=== PATIENT | female | born 1950 | race Caucasian/White ===

== ENCOUNTER 2020-02-13 20:44 | Emergency (ER) | payer MEDICARE, OTHER ==
[2020-02-13] MEDS ORDERED: SODIUM CHLORIDE 0.9% 500 ML 500 ML IV STA (20:45)
[2020-02-13] MEDS ORDERED: ALTEPLASE BOLUS 6 MG in EMPTY SYRINGE 1 SYR IV STA (21:09)
[2020-02-13] MEDS ORDERED: ALTEPLASE 51 MG in EMPTY BAG 1 BAG IV STA (21:09)
--- NOTE | 2020-02-13 21:11 | CT ---
EXAMINATION TYPE: CT brain wo con for TPA DATE OF EXAM: 02/13/2020 COMPARISON: 12/26/2012. HISTORY: Left sided weakness. CT DLP: 1175.8 mGycm Automated exposure control for dose reduction was used. FINDINGS: There is no acute intracranial hemorrhage, mass effect, midline shift or hydrocephalus. There is mode rate white matter disease and parenchymal volume loss. There is hyperdensity of the right MCA. The paranasal sinuses and mastoid air cells are adequately aerated. No calvarial fracture. IMPRESSION: Hyperdensity of the right MCA, consistent with clot. Please see pending CT report for any additional details. NO ACUTE INTRACRANIAL HEMORRHAGE OR MIDLINE SHIFT. CHRONIC MICROVASCULAR ISCHEMIC CHANGES. FINDINGS REPORTED TO caring ED physician by me at time of dictation.
[2020-02-13 21:17] LABS: Basophils # (A) 0.1 k/uL (0-0.2); Basophils % (A) 0 %; Eosinophils # (A) 0.3 k/uL (0-0.7); Eosinophils % (A) 2 %; HGB 13.7 gm/dL (11.4-16.0); Lymphocytes # (A) 1.9 k/uL (1.0-4.8); Lymphocytes % (A) 16 %; MCHC 31.1 g/dL (31.0-37.0); MCV 83.8 fL (80.0-100.0); Monocytes # (A) 0.5 k/uL (0-1.0); Monocytes % (A) 4 %; Neutrophils # (A) 8.6 k/uL (1.3-7.7); Neutrophils % (A) 75 %; Platelet Count 293 k/uL (150-450); RBC 5.26 m/uL (3.80-5.40); RDW 14.4 % (11.5-15.5); WBC 11.5 k/uL (3.8-10.6)
--- NOTE | 2020-02-13 21:18 | ED ---
General Adult HPI - General Chief complaint: Neuro Symptoms/Deficit Stated complaint: code stroke Time Seen by Provider: 02/13/20 20:45 Source: patient, EMS, RN notes reviewed, old records reviewed Mode of arrival: EMS - History of Present Illness Initial comments: 69-year-old female with left-sided deficit which began at approximately 7 PM. She was transported to the emergency department at 9 PM. Code stroke was activated. She has complete left-sided paralysis, left-sided facial droop, left-sided neglect. She's taken immediately to computed tomography scan. She denies pain complaints but is unable to give a detailed history. EMS reports that there was no trauma. No anticoagulation. No recent surgery or procedures. - Related Data Home Medications Medication Instructions Recorded Confirmed Albuterol Inhaler (Mhu) [Ventolin 1 - 2 puff INHALATION RT-QID PRN 08/04/15 08/13/15 Hfa Inhaler (Mhu)] Dextroamphetamine/Amphetamine 30 mg PO Q48H 08/04/15 08/13/15 [Adderall Xr] HYDROcodone/APAP 5-325MG [[place] 1 tab PO Q4HR PRN 08/04/15 08/13/15 5-325] Metoprolol Tartrate 25 mg PO BID 08/04/15 08/13/15 Triamcinolone 0.1% Cream [Kenalog 1 applic TOPICAL BID PRN 08/04/15 08/13/15 0.1% Cream] Previous Rx's Medication Instructions Recorded Aspirin EC [Ecotrin Low Dose] 81 mg PO DAILY #30 tablet. 08/08/15 Nicotine 14Mg/24Hr Patch [Habitrol] 1 patch TRANSDERM DAILY #30 patch 08/08/15 metroNIDAZOLE [Flagyl] 500 mg PO TID #30 tab 08/08/15 Atorvastatin [Lipitor] 40 mg PO DAILY #30 tab 08/12/15 Furosemide [Lasix] 40 mg PO DAILY #30 tab 08/12/15 Losartan [Cozaar] 25 mg PO HS #30 tab 08/12/15 Spironolactone [Aldactone] 25 mg PO DAILY #30 tab 08/12/15 Allergies Allergy/AdvReac Type Severity Reaction Status Date / Time No Known Allergies Allergy Unverified 08/05/15 07:52 Review of Systems ROS Statement: Those systems with pertinent positive or pertinent negative responses have been documented in the HPI. ROS Other: All systems not noted in ROS Statement are negative. Past Medical History Past Medical History: Coronary Artery Disease (CAD), COPD, Hypertension Additional Past Medical History / Comment(s): pt states she has been treated for scabies one year ago History of Any Multi-Drug Resistant Organisms: None Reported Past Surgical History: Coronary Bypass/CABG, Heart Catheterization With Stent Additional Past Surgical History / Comment(s): cabg 2013 Past Anesthesia/Blood Transfusion Reactions: No Reported Reaction Date of Last Stent Placement:: 2013 Past Psychological History: ADD/ADHD, Depression Past Alcohol Use History: None Reported Past Drug Use History: Marijuana - Past Family History Mother Family Medical History: Unable to Obtain General Exam General appearance: alert Head exam: Present: atraumatic, normocephalic Eye exam: Present: normal appearance, PERRL, other ENT exam: Present: normal exam Neck exam: Present: normal inspection. Absent: tenderness, meningismus Respiratory exam: Present: normal lung sounds bilaterally. Absent: respiratory distress, wheezes Cardiovascular Exam: Present: regular rate, normal rhythm GI/Abdominal exam: Present: soft. Absent: distended, tenderness Extremities exam: Present: normal capillary refill Neurological exam: Present: alert, CN II-XII intact, motor sensory deficit (NIH of 18, left-sided deficit, flaccid paralysis of the left upper and lower extremity, left-sided facial droop, left-sided neglect). Absent: oriented X3 Psychiatric exam: Present: normal affect, normal mood Skin exam: Present: warm, dry, intact. Absent: cyanosis, diaphoretic Course Vital Signs 02/13/20 02/13/20 20:45 21:05 Temperature 97.6 F 97.8 F Pulse Rate 98 98 Respiratory 18 18 Rate Blood Pressure 177/109 162/116 O2 Sat by Pulse 96 96 Oximetry - Reevaluation(s) Reevaluation #1: 02/13/20 21:13 I did attempt to call the patient's family, there was no answer on the listed home phone. EMS states there was no history of trauma and no anticoagulants. Reevaluation #2: 02/13/[address] Mcclellan does recommend TPA Reevaluation #3: 02/13/20 21:05 Case discussed with the radiologist, no intracranial hemorrhage, hyperdense MCA sign. Reevaluation #4: 02/13/20 21:36 Patient is complete occlusion of the right ICA and MCA. Case discussed with Dr. Mcclellan, request patient be transferred to [facility] for possible thrombectomy. EKG Findings - EKG Comments: EKG Findings:: Poor quality EKG, sinus tachycardia with PVC, rate of 118, KS interval 154, QRS duration 90, QTC 484, no ST segment elevation appreciated. Medical Decision Making - Medical Decision Making 69-year-old female presenting with symptoms concerning for acute CVA with left- sided deficit. NIH of 18. I did attempt to contact patient's family who were not available in the emergency department and could not be reached by the listed telephone in the patient's medical record. I discussed case both with the radiologist, and with the stroke intervention was who does recommend TPA. CT brain negative for intracranial hemorrhage, hyperdense left MCA sign. CT angiography complete ICA and MCA occlusion on the right. Patient will be transferred urgently to [facility]. Case accepted by the ER physician Dr. Ba - Lab Data Result diagrams: 02/13/20 21:08 02/13/20 21:08 Lab Results 02/13/20 02/13/20 02/13/20 Range/Units 21:08 21:08 21:08 WBC 11.5 H (3.8-10.6) k/uL RBC 5.26 (3.80-5.40) m/uL Hgb 13.7 (11.4-16.0) gm/dL Hct 44.0 (34.0-46.0) % MCV 83.8 (80.0-100.0) fL MCH 26.0 (25.0-35.0) pg MCHC 31.1 (31.0-37.0) g/dL RDW 14.4 (11.5-15.5) % Plt Count 293 (150-450) k/uL MPV 7.0 Neutrophils % 75 % Lymphocytes % 16 % Monocytes % 4 % Eosinophils % 2 % Basophils % 0 % Neutrophils # 8.6 H (1.3-7.7) k/uL Lymphocytes # 1.9 (1.0-4.8) k/uL Monocytes # 0.5 (0-1.0) k/uL Eosinophils # 0.3 (0-0.7) k/uL Basophils # 0.1 (0-0.2) k/uL PT 11.3 (9.0-12.0) sec INR 1.1 (<1.2) APTT 23.6 (22.0-30.0) sec Sodium 133 L (137-145) mmol/L Potassium 4.3 (3.5-5.1) mmol/L Chloride 102 (98-107) mmol/L Carbon Dioxide 26 (22-30) mmol/L Anion Gap 5 mmol/L BUN 22 H (7-17) mg/dL Creatinine 0.94 (0.52-1.04) mg/dL Est GFR (CKD-EPI)AfAm 73 (>60 ml/min/1.73 sqM) Est GFR (CKD-EPI)NonAf 63 (>60 ml/min/1.73 sqM) Glucose 136 H (74-99) mg/dL Calcium 8.8 (8.4-10.2) mg/dL Total Bilirubin 0.7 (0.2-1.3) mg/dL AST 18 (14-36) U/L ALT 11 (4-34) U/L Alkaline Phosphatase 71 (38-126) U/L Troponin I (0.000-0.034) ng/mL Total Protein 6.3 (6.3-8.2) g/dL Albumin 3.4 L (3.5-5.0) g/dL Serum Alcohol <10 mg/dL 02/13/20 Range/Units 21:08 WBC (3.8-10.6) k/uL RBC (3.80-5.40) m/uL Hgb (11.4-16.0) gm/dL Hct (34.0-46.0) % MCV (80.0-100.0) fL MCH (25.0-35.0) pg MCHC (31.0-37.0) g/dL RDW (11.5-15.5) % Plt Count (150-450) k/uL MPV Neutrophils % % Lymphocytes % % Monocytes % % Eosinophils % % Basophils % % Neutrophils # (1.3-7.7) k/uL Lymphocytes # (1.0-4.8) k/uL Monocytes # (0-1.0) k/uL Eosinophils # (0-0.7) k/uL Basophils # (0-0.2) k/uL PT (9.0-12.0) sec INR (<1.2) APTT (22.0-30.0) sec Sodium (137-145) mmol/L Potassium (3.5-5.1) mmol/L Chloride (98-107) mmol/L Carbon Dioxide (22-30) mmol/L Anion Gap mmol/L BUN (7-17) mg/dL Creatinine (0.52-1.04) mg/dL Est GFR (CKD-EPI)AfAm (>60 ml/min/1.73 sqM) Est GFR (CKD-EPI)NonAf (>60 ml/min/1.73 sqM) Glucose (74-99) mg/dL Calcium (8.4-10.2) mg/dL Total Bilirubin (0.2-1.3) mg/dL AST (14-36) U/L ALT (4-34) U/L Alkaline Phosphatase (38-126) U/L Troponin I <0.012 (0.000-0.034) ng/mL Total Protein (6.3-8.2) g/dL Albumin (3.5-5.0) g/dL Serum Alcohol mg/dL Critical Care Time Critical Care Time: Yes Total Critical Care Time: 35 Disposition Clinical Impression: Cerebrovascular accident (CVA), Ischemic stroke Disposition: OTHER INSTITUTION NOT DEFINED Condition: Serious Is patient prescribed a controlled substance at d/c from ED?: No Referrals: Althea Hermosillo MD [Primary Care Provider] - 1-2 days - Out of Hospital Transfer - Req. Specs Out of Hospital Transfer - Requested Specifics: Other Emergency Center ([facility])
[2020-02-13 21:27] LABS: ALT 11 U/L (4-34); AST 18 U/L (14-36); African American GFR (CKD) 73 (>60 ml/min/1.73 sqM); Albumin 3.4 g/dL (3.5-5.0); Alcohol <10 mg/dL; Alkaline Phosphatase 71 U/L (38-126); Anion Gap 5 mmol/L; Blood Urea Nitrogen 22 mg/dL (7-17); Calcium 8.8 mg/dL (8.4-10.2); Carbon Dioxide 26 mmol/L (22-30); Chloride 102 mmol/L (98-107); Glucose 136 mg/dL (74-99); Non-African American GFR(CKD) 63 (>60 ml/min/1.73 sqM); Potassium 4.3 mmol/L (3.5-5.1); Sodium 133 mmol/L (137-145); Total Bilirubin 0.7 mg/dL (0.2-1.3); Total Protein 6.3 g/dL (6.3-8.2)
--- NOTE | 2020-02-13 21:35 | CT ---
EXAMINATION TYPE: CT angio head neck DATE OF EXAM: 02/13/2020 HISTORY: Left sided weakness. COMPARISON: Same-day noncontrast head CT. CT DLP: 468.2 mGycm. Automated Exposure Control for Dose Reduction was Utilized. TECHNIQUE: CTA scan of the head and neck is performed with IV Contrast, patient injected with 65ml m L of Isovue 370, axial images are obtained, coronal and sagittal reformatted images are reviewed. Thr ee-D reconstructed images are created on an independent workstation and reviewed. FINDINGS: Carotid/Vascular Structures: There is complete occlusion of the right ICA from the origin to the term inus. There is also occlusion of the right MCA M1 segment. There is diminutive size of the right MCA M2 segment. Otherwise the left cervical carotid and bilateral vertebral arteries are grossly intact without high grade stenosis, dissection or aneurysm. The left MCA, bilateral SONG, BREAD RACKER, basilar and intracranial vertebral arteries are also patent without high-grade stenosis, dissection or aneurysm. IMPRESSION: Complete occlusion of the right ICA and right MCA M1 segment. Diminutive size of the right MCA M2 segment.
--- NOTE | 2020-02-13 21:36 | XR ---
EXAMINATION TYPE: XR chest 1V portable DATE OF EXAM: 02/13/2020 COMPARISON: NONE HISTORY: Altered mental status and left-sided weakness. TECHNIQUE: Single frontal view of the chest is obtained. FINDINGS: There is diffuse mild hazy opacity . No pleural effusion, or pneumothorax seen. Cardiomega ly and CABG noted. The osseous structures are intact. IMPRESSION: Mild hazy opacities suggestive of atelectasis versus interstitial edema. No significant infiltrate.
[2020-02-13 21:46] LABS: INR 1.1 (<1.2); Partial Thromboplastin Time 23.6 sec (22.0-30.0); Prothrombin Time 11.3 sec (9.0-12.0)
[2020-02-13 22:03] LABS: Glucose,Whole Blood 122 mg/dL (75-99)
[2020-02-13 22:39] VITALS: BP 184/161; PULSE 110; RESP 20; TEMP 98.2
== END 2020-02-13 22:04 | disposition other institution (70) ==
LOC: EC 20:44
DX: I63.231 Cerebral infarction due to unspecified occlusion or stenosis of right carotid arteries (principal); I63.511 Cerebral infarction due to unspecified occlusion or stenosis of right middle cerebral artery; R29.718 NIHSS score 18; I10 Essential (primary) hypertension; J44.9 Chronic obstructive pulmonary disease, unspecified; F90.9 Attention-deficit hyperactivity disorder, unspecified type; Z79.899 Other long term (current) drug therapy; Z95.1 Presence of aortocoronary bypass graft; Z95.5 Presence of coronary angioplasty implant and graft
CPT/HCPCS: 99291; 96365; 80053; 84484; 85025; 85610; 85730; 71045; 70496; 70450; 70498; G0480; J2997; Q9967; 80320; 93005

== ENCOUNTER 2020-05-15 17:42 | Emergency (ER) | payer MEDICARE, OTHER ==
[2020-05-15 18:20] VITALS: BP 150/100; PULSE 107; RESP 18; TEMP 98.3
--- NOTE | 2020-05-15 18:26 | ED ---
General Adult HPI - General Chief complaint: Fall Stated complaint: Fall Time Seen by Provider: 05/15/20 18:17 Source: patient, EMS, RN notes reviewed Mode of arrival: EMS Limitations: no limitations, altered mental status - History of Present Illness Initial comments: Patient is a pleasant 69-year-old female presenting to the emergency Department with complaints of fall. Incident occurred less than 2 hours prior to arrival. Patient states she rolled out of bed accidentally. Patient did strike her head. Patient has discomfort 5/10 of her head. Patient has had some discomfort of her left upper arm however denies any discomfort at this time. Patient denies neck discomfort. No chest pain or dyspnea. No abdominal pain. Patient states she did recently have a stroke a few weeks ago. Patient does have some left- sided weakness that to her is chronic and unchanged. - Related Data Home Medications Medication Instructions Recorded Confirmed Albuterol Inhaler (Mhu) [Ventolin 1 - 2 puff INHALATION RT-QID PRN 08/04/15 08/13/15 Hfa Inhaler (Mhu)] Dextroamphetamine/Amphetamine 30 mg PO Q48H 08/04/15 08/13/15 [Adderall Xr] HYDROcodone/APAP 5-325MG [[place] 1 tab PO Q4HR PRN 08/04/15 08/13/15 5-325] Metoprolol Tartrate 25 mg PO BID 08/04/15 08/13/15 Triamcinolone 0.1% Cream [Kenalog 1 applic TOPICAL BID PRN 08/04/15 08/13/15 0.1% Cream] Previous Rx's Medication Instructions Recorded Aspirin EC [Ecotrin Low Dose] 81 mg PO DAILY #30 tablet.dr 08/08/15 Nicotine 14Mg/24Hr Patch [Habitrol] 1 patch TRANSDERM DAILY #30 patch 08/08/15 metroNIDAZOLE [Flagyl] 500 mg PO TID #30 tab 08/08/15 Atorvastatin [Lipitor] 40 mg PO DAILY #30 tab 08/12/15 Furosemide [Lasix] 40 mg PO DAILY #30 tab 08/12/15 Losartan [Cozaar] 25 mg PO HS #30 tab 08/12/15 Spironolactone [Aldactone] 25 mg PO DAILY #30 tab 08/12/15 Allergies Allergy/AdvReac Type Severity Reaction Status Date / Time No Known Allergies Allergy Verified 05/15/20 17:49 Review of Systems ROS Statement: Those systems with pertinent positive or pertinent negative responses have been documented in the HPI. ROS Other: All systems not noted in ROS Statement are negative. Constitutional: Denies: fever Eyes: Denies: eye pain ENT: Denies: ear pain Respiratory: Denies: cough Cardiovascular: Denies: chest pain Endocrine: Denies: fatigue Gastrointestinal: Denies: abdominal pain Genitourinary: Denies: dysuria Musculoskeletal: Denies: back pain Skin: Denies: rash Neurological: Reports: as per HPI, headache Past Medical History Past Medical History: Coronary Artery Disease (CAD), COPD, CVA/TIA, Hypertension Additional Past Medical History / Comment(s): pt states she has been treated for scabies one year ago History of Any Multi-Drug Resistant Organisms: None Reported Past Surgical History: Coronary Bypass/CABG, Heart Catheterization With Stent Additional Past Surgical History / Comment(s): cabg 2013 Past Anesthesia/Blood Transfusion Reactions: No Reported Reaction Date of Last Stent Placement:: 2013 Past Psychological History: ADD/ADHD, Depression Smoking Status: Former smoker Past Alcohol Use History: None Reported Past Drug Use History: None Reported, Marijuana - Past Family History Mother Family Medical History: Unable to Obtain General Exam Limitations: no limitations, altered mental status General appearance: alert, in no apparent distress Head exam: Present: atraumatic Eye exam: Present: normal appearance, other (Patient unable to move left eye lateral past midline) ENT exam: Present: other (Left facial droop) Neck exam: Present: tenderness (Mild diffuse tenderness) Respiratory exam: Present: normal lung sounds bilaterally Cardiovascular Exam: Present: regular rate, normal rhythm Expanded Peripheral pulses: 2+: Radial (L) GI/Abdominal exam: Present: soft. Absent: distended, tenderness Extremities exam: Present: tenderness (Mild tenderness left proximal humerus) Neurological exam: Present: alert, oriented X3 Expanded Motor strength exam: RUE: 5, LUE: 2/1 (Chronic), RLE: 5, LLE: 0 (Chronic) Eye Response: (4) open spontaneously Motor Response: (6) obeys commands Verbal Response: (5) oriented Psychiatric exam: Present: normal affect, normal mood Skin exam: Present: normal color Course Vital Signs 05/15/20 17:49 Temperature 98.3 F Pulse Rate 107 H Respiratory 18 Rate Blood Pressure 150/100 O2 Sat by Pulse 99 Oximetry Medical Decision Making - Medical Decision Making Patient reevaluated and unchanged. Patient updated on results. - Radiology Data Radiology results: report reviewed (CT cervical spine shows degenerative disc changes C5-C6. No fracture.), image reviewed (Left humerus x-ray reveals no acute process. Computed tomography scan of the brain reveals large right hemisphere old or subacute infarct .atrophy.) Disposition Clinical Impression: Fall Disposition: HOME SELF-CARE Condition: Stable Instructions (If sedation given, give patient instructions): Fall Prevention (ED) Additional Instructions: Please follow-up with primary care physician in the next day or 2 for recheck. Return for weakness, change in mental status, confusion, speech problems, worsening symptoms or other concerns. Hold anticoagulation for 24 hours Is patient prescribed a controlled substance at d/c from ED?: No Referrals: Enrrique Thomas MD [Primary Care Provider] - 1-2 days Time of Disposition: 19:51
--- NOTE | 2020-05-15 19:10 | CT ---
EXAMINATION TYPE: CT brain cspine wo con DATE OF EXAM: 05/15/2020 COMPARISON: 02/13/2020 HISTORY: Fall. Confusion. CT DLP: 1480.3 mGycm Automated exposure control for dose reduction was used. There is large area of grade white matter hypodensity involving the right cerebral hemisphere and con sistent with an old right middle cerebral artery infarct. There is no mass effect. There is no eviden ce of intracranial hemorrhage. There is some cerebral atrophy. The calvarium is intact. Cervical vertebra have fairly normal alignment. There is degenerative disc space narrowing at C5-6 wi th spurring. Posterior elements are intact. The facet joints are intact. The skull base is intact. Th ere is normal aeration of the mastoid sinuses. IMPRESSION: Mild degenerative disc changes at C5-6. No fracture seen of the cervical spine. Large old or subacute right hemisphere cerebral infarct. Cerebral atrophy. Infarct appears new compar ed to old exam. There is pre-existing chronic small vessel ischemia unchanged. No hemorrhage.
--- NOTE | 2020-05-15 19:13 | XR ---
EXAMINATION TYPE: XR humerus LT DATE OF EXAM: 05/15/2020 COMPARISON: NONE HISTORY: Shoulder pain TECHNIQUE: 3 views FINDINGS: I see no fracture nor dislocation. The shoulder joint and elbow joint appear intact. IMPRESSION: Negative left humerus exam.
== END 2020-05-15 22:13 | disposition home or self-care (01) ==
LOC: EC 17:42
DX: Z04.3 Encounter for examination and observation following other accident (principal); R29.810 Facial weakness; I10 Essential (primary) hypertension; J44.9 Chronic obstructive pulmonary disease, unspecified; F90.9 Attention-deficit hyperactivity disorder, unspecified type; Z79.899 Other long term (current) drug therapy; Z87.891 Personal history of nicotine dependence; Z86.73 Personal history of transient ischemic attack (TIA), and cerebral infarction without residual deficits
CPT/HCPCS: 70450; 72125; 99284

== ENCOUNTER 2021-01-16 23:37 | Inpatient (IN) | payer MEDICARE, OTHER ==
--- NOTE | 2021-01-16 23:50 | ED ---
Recheck HPI - General Stated Complaint: PEG tube placement Time Seen by Provider: 01/16/21 23:42 Source: RN notes reviewed, old records reviewed Mode of arrival: EMS Limitations: no limitations - History of Present Illness Initial Comments: This is a 70-year-old female to the ER for evaluation of PEG tube evaluation. Patient has had a patent for a month unable to be use secondary to inability to flush her use. Patient is awake and alert able answer questions did have a rece nt stroke and has had weight loss apparently PEG tube was placed for weight loss. Patient is able to eat and drink. Patient again does have history of recent stroke and has been debilitated for quite some time. Patient was sent to our ER for evaluation regarding PEG tube and replacement of PEG tube that his been and MD Complaint: wound re-check -: hour(s) Returns Today for: other (Check of PEG tube) Symptoms Since Prior Visit: no new symptoms Context: planned re-check Associated Symptoms: none Treatments Prior to Arrival: other (none) - Related Data Home Medications Medication Instructions Recorded Confirmed Albuterol Inhaler (Mhu) [Ventolin 1 - 2 puff INHALATION RT-QID PRN 08/04/15 08/13/15 Hfa Inhaler (Mhu)] Dextroamphetamine/Amphetamine 30 mg PO Q48H 08/04/15 08/13/15 [Adderall Xr] HYDROcodone/APAP 5-325MG [[place] 1 tab PO Q4HR PRN 08/04/15 08/13/15 5-325] Metoprolol Tartrate 25 mg PO BID 08/04/15 08/13/15 Triamcinolone 0.1% Cream [Kenalog 1 applic TOPICAL BID PRN 08/04/15 08/13/15 0.1% Cream] Previous Rx's Medication Instructions Recorded Aspirin EC [Ecotrin Low Dose] 81 mg PO DAILY #30 tablet. 08/08/15 Nicotine 14Mg/24Hr Patch [Habitrol] 1 patch TRANSDERM DAILY #30 patch 08/08/15 metroNIDAZOLE [Flagyl] 500 mg PO TID #30 tab 08/08/15 Atorvastatin [Lipitor] 40 mg PO DAILY #30 tab 08/12/15 Furosemide [Lasix] 40 mg PO DAILY #30 tab 08/12/15 Losartan [Cozaar] 25 mg PO HS #30 tab 08/12/15 Spironolactone [Aldactone] 25 mg PO DAILY #30 tab 08/12/15 Allergies Allergy/AdvReac Type Severity Reaction Status Date / Time No Known Allergies Allergy Verified 05/15/20 17:49 Review of Systems ROS Statement: Those systems with pertinent positive or pertinent negative responses have been documented in the HPI. ROS Other: All systems not noted in ROS Statement are negative. Past Medical History Past Medical History: Coronary Artery Disease (CAD), COPD, CVA/TIA, Hypertension Additional Past Medical History / Comment(s): pt states she has been treated for scabies one year ago History of Any Multi-Drug Resistant Organisms: None Reported Past Surgical History: Coronary Bypass/CABG, Heart Catheterization With Stent Additional Past Surgical History / Comment(s): cabg 2013 Past Anesthesia/Blood Transfusion Reactions: No Reported Reaction Date of Last Stent Placement:: 2013 Past Psychological History: ADD/ADHD, Depression Smoking Status: Former smoker Past Alcohol Use History: None Reported Past Drug Use History: None Reported, Marijuana - Past Family History Mother Family Medical History: Unable to Obtain General Exam - General Exam Comments Initial Comments: Area around PEG tube is mildly erythematous General appearance: alert, in no apparent distress Head exam: Present: atraumatic, normocephalic, normal inspection Eye exam: Present: normal appearance, PERRL, EOMI. Absent: scleral icterus, conjunctival injection, periorbital swelling ENT exam: Present: normal exam, mucous membranes moist Neck exam: Present: normal inspection. Absent: tenderness, meningismus, lymphadenopathy Respiratory exam: Present: normal lung sounds bilaterally. Absent: respiratory distress, wheezes, rales, rhonchi, stridor Cardiovascular Exam: Present: regular rate, normal rhythm, normal heart sounds. Absent: systolic murmur, diastolic murmur, rubs, gallop, clicks GI/Abdominal exam: Present: soft, normal bowel sounds. Absent: distended, tenderness, guarding, rebound, rigid Extremities exam: Present: normal inspection, full ROM, normal capillary refill. Absent: tenderness, pedal edema, joint swelling, calf tenderness Back exam: Present: normal inspection Neurological exam: Present: alert, oriented X3, CN II-XII intact Psychiatric exam: Present: normal affect, normal mood Skin exam: Present: warm, dry, intact, normal color. Absent: rash Course Vital Signs 10/01/17/21 01/17/21 23:49 02:12 03:58 Temperature 97.3 F L 98.4 F Pulse Rate 82 79 80 Respiratory 16 20 20 Rate Blood Pressure 90/63 119/82 100/92 O2 Sat by Pulse 92 L 100 97 Oximetry 01/17/21 01/17/21 05:14 06:40 Temperature Pulse Rate 80 84 Respiratory 16 16 Rate Blood Pressure 136/84 139/84 O2 Sat by Pulse 91 L 96 Oximetry - Reevaluation(s) Reevaluation #1: 01/17/21 02:14 Medical record is reviewed Reevaluation #2: 01/17/21 02:14 We will or able to remove patient's pain to, patient does not have a balloon on PEG tube but about an some trouble with cause, some mild bleeding, pressure was held patient be admitted for bleeding from PEG tube site, wound care with possible cellulitis of the area Medical Decision Making - Medical Decision Making 70 female to the emergency department today. Patient presents today for evaluation of PEG tube placement - Lab Data Result diagrams: 01/17/21 02:09 01/17/21 02:09 Lab Results 01/17/21 01/17/21 01/17/21 Range/Units 02:09 02:09 02:09 WBC 12.9 H (3.8-10.6) k/uL RBC 4.69 (3.80-5.40) m/uL Hgb 11.8 (11.4-16.0) gm/dL Hct 38.3 (34.0-46.0) % MCV 81.6 (80.0-100.0) fL MCH 25.1 (25.0-35.0) pg MCHC 30.8 L (31.0-37.0) g/dL RDW 16.5 H (11.5-15.5) % Plt Count 435 (150-450) k/uL MPV 8.2 Neutrophils % 68 % Lymphocytes % 21 % Monocytes % 5 % Eosinophils % 4 % Basophils % 1 % Neutrophils # 8.8 H (1.3-7.7) k/uL Lymphocytes # 2.7 (1.0-4.8) k/uL Monocytes # 0.6 (0-1.0) k/uL Eosinophils # 0.6 (0-0.7) k/uL Basophils # 0.1 (0-0.2) k/uL Hypochromasia Slight Anisocytosis Slight PT 10.9 (9.0-12.0) sec INR 1.0 (<1.2) APTT 25.4 (22.0-30.0) sec Sodium 136 L (137-145) mmol/L Potassium 5.2 H (3.5-5.1) mmol/L Chloride 98 (98-107) mmol/L Carbon Dioxide 29 (22-30) mmol/L Anion Gap 9 mmol/L BUN 22 H (7-17) mg/dL Creatinine 0.42 L (0.52-1.04) mg/dL Est GFR (CKD-EPI)AfAm >90 (>60 ml/min/1.73 sqM) Est GFR (CKD-EPI)NonAf >90 (>60 ml/min/1.73 sqM) Glucose 90 (74-99) mg/dL Calcium 9.8 (8.4-10.2) mg/dL Magnesium 1.7 (1.6-2.3) mg/dL Total Bilirubin 0.5 (0.2-1.3) mg/dL AST 24 (14-36) U/L ALT 15 (4-34) U/L Alkaline Phosphatase 87 (38-126) U/L Troponin I (0.000-0.034) ng/mL Total Protein 7.3 (6.3-8.2) g/dL Albumin 3.7 (3.5-5.0) g/dL Coronavirus (PCR) (Not Detectd) Blood Type Blood Type Recheck Bld Type Recheck Status Antibody Screen Spec Expiration Date 01/17/21 01/17/21 01/17/21 Range/Units 02:09 02:09 04:03 WBC (3.8-10.6) k/uL RBC (3.80-5.40) m/uL Hgb (11.4-16.0) gm/dL Hct (34.0-46.0) % MCV (80.0-100.0) fL MCH (25.0-35.0) pg MCHC (31.0-37.0) g/dL RDW (11.5-15.5) % Plt Count (150-450) k/uL MPV Neutrophils % % Lymphocytes % % Monocytes % % Eosinophils % % Basophils % % Neutrophils # (1.3-7.7) k/uL Lymphocytes # (1.0-4.8) k/uL Monocytes # (0-1.0) k/uL Eosinophils # (0-0.7) k/uL Basophils # (0-0.2) k/uL Hypochromasia Anisocytosis PT (9.0-12.0) sec INR (<1.2) APTT (22.0-30.0) sec Sodium (137-145) mmol/L Potassium (3.5-5.1) mmol/L Chloride (98-107) mmol/L Carbon Dioxide (22-30) mmol/L Anion Gap mmol/L BUN (7-17) mg/dL Creatinine (0.52-1.04) mg/dL Est GFR (CKD-EPI)AfAm (>60 ml/min/1.73 sqM) Est GFR (CKD-EPI)NonAf (>60 ml/min/1.73 sqM) Glucose (74-99) mg/dL Calcium (8.4-10.2) mg/dL Magnesium (1.6-2.3) mg/dL Total Bilirubin (0.2-1.3) mg/dL AST (14-36) U/L ALT (4-34) U/L Alkaline Phosphatase (38-126) U/L Troponin I <0.012 (0.000-0.034) ng/mL Total Protein (6.3-8.2) g/dL Albumin (3.5-5.0) g/dL Coronavirus (PCR) Not Detected (Not Detectd) Blood Type A Positive Blood Type Recheck A Pos Bld Type Recheck Status No Antibody Screen NEGATIVE Spec Expiration Date 01/20/20212308 Disposition Clinical Impression: Pain around PEG tube site, PEG tube malfunction Narrative: PEG tube Replaced Disposition: [facility]ITT[facility] Condition: Good Instructions (If sedation given, give patient instructions): Percutaneous Endoscopic Gastrostomy (ED) Is patient prescribed a controlled substance at d/c from ED?: No Referrals: Enrrique Thomas MD [Primary Care Provider] - 1-2 days
[2021-01-17] MEDS ORDERED: SODIUM CHLORIDE 0.9% 1,000 ML IV STA ×2 (02:04)
[2021-01-17] MEDS ORDERED: ONDANSETRON 4 MG/2 ML VIAL IVP STA (02:04)
[2021-01-17] MEDS ORDERED: PANTOPRAZOLE 40 MG/10 ML VIAL IVP STA (02:04)
[2021-01-17 02:33] LABS: Anisocytosis Slight; Basophils # (A) 0.1 k/uL (0-0.2); Basophils % (A) 1 %; Eosinophils # (A) 0.6 k/uL (0-0.7); Eosinophils % (A) 4 %; HCT 38.3 % (34.0-46.0); HGB 11.8 gm/dL (11.4-16.0); Hypochromasia Slight; Lymphocytes # (A) 2.7 k/uL (1.0-4.8); Lymphocytes % (A) 21 %; MCH 25.1 pg (25.0-35.0); MCHC 30.8 g/dL (31.0-37.0); MCV 81.6 fL (80.0-100.0); Mean Platelet Volume 8.2; Monocytes # (A) 0.6 k/uL (0-1.0); Monocytes % (A) 5 %; Neutrophils # (A) 8.8 k/uL (1.3-7.7); Neutrophils % (A) 68 %; Platelet Count 435 k/uL (150-450); RBC 4.69 m/uL (3.80-5.40); RDW 16.5 % (11.5-15.5); WBC 12.9 k/uL (3.8-10.6)
[2021-01-17 02:44] LABS: ALT 15 U/L (4-34); AST 24 U/L (14-36); African American GFR (CKD) >90 (>60 ml/min/1.73 sqM); Albumin 3.7 g/dL (3.5-5.0); Alkaline Phosphatase 87 U/L (38-126); Anion Gap 9 mmol/L; Blood Urea Nitrogen 22 mg/dL (7-17); Calcium 9.8 mg/dL (8.4-10.2); Carbon Dioxide 29 mmol/L (22-30); Chloride 98 mmol/L (98-107); Glucose 90 mg/dL (74-99); Magnesium 1.7 mg/dL (1.6-2.3); Non-African American GFR(CKD) >90 (>60 ml/min/1.73 sqM); Potassium 5.2 mmol/L (3.5-5.1); Sodium 136 mmol/L (137-145); Total Bilirubin 0.5 mg/dL (0.2-1.3); Total Protein 7.3 g/dL (6.3-8.2)
[2021-01-17 02:56] LABS: Partial Thromboplastin Time 25.4 sec (22.0-30.0); Prothrombin Time 10.9 sec (9.0-12.0)
--- NOTE | 2021-01-17 02:57 | CT ---
EXAMINATION TYPE: CT abdomen pelvis w con DATE OF EXAM: 01/17/2021 COMPARISON: None HISTORY: abd pain, ams CT DLP: 1105.8 mGycm Automated exposure control for dose reduction was used. CONTRAST: Performed with IV Contrast, patient injected with 100 mL of Isovue 300. Images obtained from the diaphragm to the floor the pelvis with IV contrast. There is some oral contr ast material also. Lung bases are clear. There is no pleural effusion. Heart size is fairly normal. There is no pericard ial effusion. Liver is intact. Gallbladder is intact. The bile ducts are not dilated. There is gastro stomy tube noted. The balloon for the gastrostomy tube appears to be almost outside of the stomach. Spleen is intact. There is no pancreatic mass. There is no adrenal mass. Kidneys show satisfactory co ntrast opacification. There is no hydronephrosis. Ureters are not dilated. There is no retroperitonea l adenopathy. Delayed images show normal renal excretion. Abdominal aorta is atheromatous. Bladder di stends smoothly. There are small calcifications in the dependent urinary bladder. There is no free fl uid in the pelvis. There is calcified uterine fibroid. Appendix appears normal. There is no mesenteric edema. There is no ascites or free air. There is no s ign of a bowel obstruction. The lumbar vertebra show disc space narrowing at L4-5 and L5-S1. There is no compression fracture. Th e posterior elements are intact. The bony pelvis is intact. Proximal femurs are intact. IMPRESSION: There is possible malposition of the gastrostomy tube. The balloon appears to be outside of the gastr ic wall. There is no evidence of free air. No bowel obstruction.
[2021-01-17] MEDS ORDERED: LORazepam 2 MG/ML INJ IV STA (04:27)
[2021-01-17] MEDS ORDERED: LIDOCAINE URO-JET JELLY 2% 5 ML KIT URETHRAL ONE (04:53)
[2021-01-17] MEDS ORDERED: MORPHINE SULFATE 4 MG/ML SYRINGE IVP STA (05:04)
[2021-01-17] MEDS ORDERED: HYDROmorphone 1 MG/ML 1 ML SYRINGE IVP STA (05:38)
[2021-01-17] MEDS ORDERED: diphenhydrAMINE 50 MG/ML 1 ML VIAL IVP STA (05:38)
--- NOTE | 2021-01-17 06:41 | XR ---
EXAMINATION TYPE: Abdomen single view DATE OF EXAM: 01/17/2021 COMPARISON: NONE HISTORY: Check tube placement TECHNIQUE: Single view FINDINGS: Contrast was injected into the gastrostomy tube and the contrast Appears to be only in the body and fundus of the stomach. There is no extravasation. IMPRESSION: There is no extravasation. The gastrostomy tube balloon however appears to be outside of the wall of the stomach.
[2021-01-17] MEDS ORDERED: LORazepam 2 MG/ML INJ IV PRN (06:52)
[2021-01-17] MEDS ORDERED: NALOXONE 0.4 MG/ML 1 ML VIAL IV PRN (06:52)
[2021-01-17] MEDS ORDERED: ONDANSETRON 4 MG/2 ML VIAL IVP PRN (06:52)
[2021-01-17] MEDS: SODIUM CHLORIDE 0.9% 1,000 ML IV SCH ×4 (07:11→23:38)
[2021-01-17 09:21] LABS: Glucose,Whole Blood 123 mg/dL (75-99)
[2021-01-17] MEDS ORDERED: IOPAMIDOL CONTRAST (ORAL USE) VIAL PO PRN (11:35)
[2021-01-17 12:56] LABS: Glucose,Whole Blood 114 mg/dL (75-99)
--- NOTE | 2021-01-17 13:26 | CT ---
EXAMINATION TYPE: CT abdomen wo con DATE OF EXAM: 01/17/2021 COMPARISON: 01/17/2021 HISTORY: 70-year-old female Abdominal pain, assess PEG tube area. TECHNIQUE: Contiguous axial scanning of the abdomen without contrast. Coronal and sagittal reconstruc tions performed. Patient declined oral contrast. CT DLP: 436.7 mGycm Automated exposure control for dose reduction was used. FINDINGS: Median sternotomy wires are present. Heart normal size. New trace bilateral pleural effusions. There is some septal lines and mild patchy subpleural opacities in the visualized lower lungs. Noncontrast appearance of the liver, adrenal glands, kidneys, spleen, and atrophic pancreas show no g ross abnormality. Gallbladder upper limits of normal in distention at 3.9 cm wide. No surrounding inflammatory change. Probably due to fasting state. Moderate atherosclerotic calcifications throughout the abdominal aorta and visualized iliac arteries. Normal appendix. Oral contrast has progressed into the proximal sigmoid colon. A few scattered left-sided clonic diver ticula are present. Moderate stool in the right side of the colon. No pericolonic inflammatory change seen. 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 There is soft tissue thickening at the junction between t he stomach and the anterior abdominal wall probably related to the gastropexy. However, air locule ma y be located in the abdominal wall muscle layer. Bones: Moderate degenerative disc disease mid to lower lumbar spine. Hypertrophic facet arthropathy l ower lumbar spine. IMPRESSION: 1. 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 THERE IS SOFT TISSUE THICKENING AT THE JUNCTION BETWEEN THE STOMACH AND THE ANTERIOR ABDOMINAL WALL PROBABLY RELATED TO THE GASTROPEX Y. HOWEVER, AN AIR LOCULE HERE MAY BE LOCATED WITHIN THE ABDOMINAL WALL MUSCLE LAYER . GASTROPEXY INT O THE ABDOMINAL WALL MUSCLE LAYER OR GASTRIC HERNIATION ARE CONSIDERATIONS. GIVEN THE THICKENING, COR RELATE TO EXCLUDE ANY SIGNS/SYMPTOMS OF INFLAMMATION. 2. NEW TRACE BILATERAL PLEURAL EFFUSIONS. SEPTAL LINES HAVE DEVELOPED IN THE LOWER LUNGS AND COULD RE PRESENT DEVELOPING PULMONARY VASCULAR CONGESTION.
--- NOTE | 2021-01-17 14:23 | P.GSCN ---
<Gretel Long - Last Filed: 01/17/21 13:46> History of Present Illness Consult date: 01/17/21 Reason for Consult: Malfunctioning PEG tube Requesting physician: Cole Joyner History of present illness: CHIEF COMPLAINT: Malfunctioning PEG tube HISTORY OF PRESENT ILLNESS: This a 70-year-old female who presented to the emergency department from [facility] with concerns that they were unable to flush her PEG tube. 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 This time most of the HPI is being obtained by the patient's chart and nurse as patient is very drowsy and somewhat sedated by medication. Apparently according to the patient's son, the patient has not need to use the PEG tube much. She's been eating and drinking without any difficulties, and actually had wanted it removed. While the patient was in the emergency department the emergency room physician removed her previous PEG tube and reinserted a new one. There was a CT of the abdomen and pelvis that showed possible malposition of the gastrostomy tube. The balloon appears to be outside of the gastric wall. There is no evidence of free air. No bowel obstruction. The patient is with some tenderness in the abdomen surrounding PEG tube. She has had no nausea or vomiting. The admitting labs WBC 12.9 hemoglobin 11.8 platelet count 435,000 sodium 136 potassium 5.2B 122 creatinine 0.4. She's been afebrile. PAST MEDICAL HISTORY: CVA, coronary artery disease, COPD, hypertension PAST SURGICAL HISTORY: Coronary artery bypass/CABG, heart catheterization with stent, PEG tube placement MEDICATIONS: See list. ALLERGIES: No known ALLERGIES SOCIAL HISTORY: No illicit drug use. Former smoker. REVIEW OF SYSTEMS: CONSTITUTIONAL: Denies fever or chills. HEENT: Denies blurred vision, vision changes, or eye pain. Denies hemoptysis CARDIOVASCULAR: Denies chest pain or pressure. RESPIRATORY: No shortness of breath. GASTROINTESTINAL: Abdominal pain. Malfunctioning PEG tube. HEMATOLOGIC: Denies bleeding disorders. GENITOURINARY: Denies any blood in urine or increased urinary frequency. SKIN: Denies pruitis. Denies rash. PHYSICAL EXAM: VITAL SIGNS: Reviewed GENERAL: Well-developed in no acute distress. HEENT: No sclera icterus. Extraocular movements grossly intact. Moist buccal mucosa. Head is atraumatic, normocephalic. No nasal drainage. ABDOMEN: Soft. Obese. Nondistended. Tenderness surrounding PEG tube site. NEUROLOGIC: Alert and oriented. Cranial nerves II through XII grossly intact. LABORATORY DATA: WBC 12.9 hemoglobin 11.8 platelet count 435,000 INR 1.0 Sodium 136 potassium 5.2 nightly 22 creatinine 0.4 glucose 90 Total bilirubin 0.5 AST 24 ALT 15 alk phos 87 total protein 7.3 albumin 3.7 IMAGING: CT abdomen and pelvis with possible malposition of the gastrostomy tube. Balloon appears to be outside the gastric wall. There is no evidence of free air. 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 There is soft tissue thickening at the junction between the stomach and the anterior abdominal wall probably related to the gastropexy. However an air locule there may be located within the abdominal wall muscle layer. Gastropexy into the abdominal wall muscle layer or gastric herniation are considerations. Given the thickening, correlate to exclude any signs symptoms of inflammation. New trace bilateral pleural effusions. Septal lines have developed in the lower lungs and could represent developing pulmonary vascular congestion. ASSESSMENT: 1. Malfunctioning PEG tube/malposition of gastrostomy tube 2. Abdominal pain 3. History of CVA PLAN: 1. Discontinue gastrostomy tube 2. Apply 4 x 4 dressing to PEG tube site, change daily and as needed 3. Will begin Levaquin IVPB daily, patient will need to be discharged home on oral antibiotic 4. CT of the abdomen ordered 5. Patient may have clear liquid diet 6. Patient is cleared by general surgery for discharge once otherwise medically clear. Recommend discharged on oral Levaquin. The impression and plan of care has been dictated as directed. Dr. Joiner I performed a history and examination of this patient, discussed the same with the dictator. I agree with the dictator's note ,documented as a scribe. Any additional findings or plans will be noted.. Past Medical History Past Medical History: Coronary Artery Disease (CAD), COPD, CVA/TIA, Hypertension Additional Past Medical History / Comment(s): pt states she has been treated for scabies one year ago History of Any Multi-Drug Resistant Organisms: None Reported Past Surgical History: Coronary Bypass/CABG, Heart Catheterization With Stent Additional Past Surgical History / Comment(s): cabg 2013 Past Anesthesia/Blood Transfusion Reactions: No Reported Reaction Date of Last Stent Placement:: 2013 Past Psychological History: ADD/ADHD, Depression Smoking Status: Former smoker Past Alcohol Use History: None Reported Past Drug Use History: None Reported, Marijuana - Past Family History Mother Family Medical History: Unable to Obtain Medications and Allergies Home Medications Medication Instructions Recorded Confirmed Type Albuterol Nebulized [Ventolin 2.5 mg INHALATION RT-QID PRN 01/17/21 01/17/21 History Nebulized] Aspirin 324 mg PEG/G-TUBE DAILY 01/17/21 01/17/21 History Atorvastatin [Lipitor] 80 mg PEG/G-TUBE HS 01/17/21 01/17/21 History HYDROcodone/APAP 7.5-325MG [[place] 1 tab PO Q6H PRN 01/17/21 01/17/21 History 7.5-325] INSULIN ASPART (NovoLOG) [NovoLOG See Protocol SQ Q6H 01/17/21 01/17/21 History (formulary)] Melatonin 6 mg PO HS 01/17/21 01/17/21 History Metoprolol Tartrate [Lopressor] 50 mg PEG/G-TUBE Q8H 01/17/21 01/17/21 History Mexiletine HCl 300 mg PO DAILY 01/17/21 01/17/21 History Omeprazole 20 mg PEG/G-TUBE DAILY 01/17/21 01/17/21 History Rivaroxaban [Xarelto] 2.5 mg PO BID 01/17/21 01/17/21 History Sertraline [Zoloft] 100 mg PO HS 01/17/21 01/17/21 History Simethicone 125mg Chewable Tab 1 tab PO PC-TID 01/17/21 01/17/21 History clonazePAM [KlonoPIN] 0.5 mg PO HS 01/17/21 01/17/21 History levETIRAcetam ORAL SOLN [Keppra 500 mg PEG/G-TUBE Q12H 01/17/21 01/17/21 History Oral Soln] metFORMIN HCL [Glucophage] 1,000 mg PO BID@0900,1700 01/17/21 01/17/21 History oxyCODONE HCL [oxyCODONE HCL ER] 15 mg PO BID 01/17/21 01/17/21 History polyethylene glycoL 3350 [Miralax] 17 gm PEG/G-TUBE DAILY PRN 01/17/21 01/17/21 History Allergies Allergy/AdvReac Type Severity Reaction Status Date / Time No Known Allergies Allergy Verified 01/17/21 08:05 Surgical - Exam Vital Signs Temp Pulse Resp BP Pulse Ox 97.3 F L 82 16 90/63 92 L 01/16/21 23:49 01/16/21 23:49 01/16/21 23:49 01/16/21 23:49 01/16/21 23:49 Results - Labs 01/17/21 02:09 01/17/21 02:09 Abnormal Lab Results - Last 24 Hours (Table) 01/17/21 01/17/21 01/17/21 Range/Units 02:09 02:09 09:19 WBC 12.9 H (3.8-10.6) k/uL MCHC 30.8 L (31.0-37.0) g/dL RDW 16.5 H (11.5-15.5) % Neutrophils # 8.8 H (1.3-7.7) k/uL Sodium 136 L (137-145) mmol/L Potassium 5.2 H (3.5-5.1) mmol/L BUN 22 H (7-17) mg/dL Creatinine 0.42 L (0.52-1.04) mg/dL POC Glucose (mg/dL) 123 H (75-99) mg/dL Diabetes panel 01/17/21 Range/Units 02:09 Sodium 136 L (137-145) mmol/L Potassium 5.2 H (3.5-5.1) mmol/L Chloride 98 (98-107) mmol/L Carbon Dioxide 29 (22-30) mmol/L BUN 22 H (7-17) mg/dL Creatinine 0.42 L (0.52-1.04) mg/dL Glucose 90 (74-99) mg/dL Calcium 9.8 (8.4-10.2) mg/dL AST 24 (14-36) U/L ALT 15 (4-34) U/L Alkaline Phosphatase 87 (38-126) U/L Total Protein 7.3 (6.3-8.2) g/dL Albumin 3.7 (3.5-5.0) g/dL Calcium panel 01/17/21 Range/Units 02:09 Calcium 9.8 (8.4-10.2) mg/dL Albumin 3.7 (3.5-5.0) g/dL Pituitary panel 01/17/21 Range/Units 02:09 Sodium 136 L (137-145) mmol/L Potassium 5.2 H (3.5-5.1) mmol/L Chloride 98 (98-107) mmol/L Carbon Dioxide 29 (22-30) mmol/L BUN 22 H (7-17) mg/dL Creatinine 0.42 L (0.52-1.04) mg/dL Glucose 90 (74-99) mg/dL Calcium 9.8 (8.4-10.2) mg/dL Adrenal panel 01/17/21 Range/Units 02:09 Sodium 136 L (137-145) mmol/L Potassium 5.2 H (3.5-5.1) mmol/L Chloride 98 (98-107) mmol/L Carbon Dioxide 29 (22-30) mmol/L BUN 22 H (7-17) mg/dL Creatinine 0.42 L (0.52-1.04) mg/dL Glucose 90 (74-99) mg/dL Calcium 9.8 (8.4-10.2) mg/dL Total Bilirubin 0.5 (0.2-1.3) mg/dL AST 24 (14-36) U/L ALT 15 (4-34) U/L Alkaline Phosphatase 87 (38-126) U/L Total Protein 7.3 (6.3-8.2) g/dL Albumin 3.7 (3.5-5.0) g/dL <Charli Joiner - Last Filed: 01/17/21 15:42> History of Present Illness History of present illness: As above. Patient came to the hospital with a poorly functioning PEG tube. In retrospect the PEG tube was likely in the abdominal wall musculature. Attempts at removal and subsequent replacement was apparently challenging per the ER staff. KUB after the tube gastrostomy was placed shows the catheter to likely be in the subcutaneous tissues once again. I spoke with the patient's sister and her son at length on the phone. Apparently they have been trying to have this PEG tube removed for the last month or so and state that they believe she will be able to maintain appropriate nutrition and hydration without the feeding tube. We've agreed for now to remove the feeding tube and leave it out. May transfer back to rehab. Patient certainly could have feeding tube replaced if needed. Recommend one-week course of oral antibiotics as there is an increased risk of abdominal wall abscess at that site. No incision and drainage required at this time as it is actively open and draining small amounts of fluid. Surgical - Exam Vital Signs Temp Pulse Resp BP Pulse Ox 97.3 F L 82 16 90/63 92 L 01/16/21 23:49 01/16/21 23:49 01/16/21 23:49 01/16/21 23:49 01/16/21 23:49 Results - Labs 01/17/21 02:09 01/17/21 02:09 Abnormal Lab Results - Last 24 Hours (Table) 01/17/21 01/17/21 01/17/21 Range/Units 02:09 02:09 09:19 WBC 12.9 H (3.8-10.6) k/uL MCHC 30.8 L (31.0-37.0) g/dL RDW 16.5 H (11.5-15.5) % Neutrophils # 8.8 H (1.3-7.7) k/uL Sodium 136 L (137-145) mmol/L Potassium 5.2 H (3.5-5.1) mmol/L BUN 22 H (7-17) mg/dL Creatinine 0.42 L (0.52-1.04) mg/dL POC Glucose (mg/dL) 123 H (75-99) mg/dL 01/17/21 Range/Units 12:55 WBC (3.8-10.6) k/uL MCHC (31.0-37.0) g/dL RDW (11.5-15.5) % Neutrophils # (1.3-7.7) k/uL Sodium (137-145) mmol/L Potassium (3.5-5.1) mmol/L BUN (7-17) mg/dL Creatinine (0.52-1.04) mg/dL POC Glucose (mg/dL) 114 H (75-99) mg/dL Diabetes panel 01/17/21 Range/Units 02:09 Sodium 136 L (137-145) mmol/L Potassium 5.2 H (3.5-5.1) mmol/L Chloride 98 (98-107) mmol/L Carbon Dioxide 29 (22-30) mmol/L BUN 22 H (7-17) mg/dL Creatinine 0.42 L (0.52-1.04) mg/dL Glucose 90 (74-99) mg/dL Calcium 9.8 (8.4-10.2) mg/dL AST 24 (14-36) U/L ALT 15 (4-34) U/L Alkaline Phosphatase 87 (38-126) U/L Total Protein 7.3 (6.3-8.2) g/dL Albumin 3.7 (3.5-5.0) g/dL Calcium panel 01/17/21 Range/Units 02:09 Calcium 9.8 (8.4-10.2) mg/dL Albumin 3.7 (3.5-5.0) g/dL Pituitary panel 01/17/21 Range/Units 02:09 Sodium 136 L (137-145) mmol/L Potassium 5.2 H (3.5-5.1) mmol/L Chloride 98 (98-107) mmol/L Carbon Dioxide 29 (22-30) mmol/L BUN 22 H (7-17) mg/dL Creatinine 0.42 L (0.52-1.04) mg/dL Glucose 90 (74-99) mg/dL Calcium 9.8 (8.4-10.2) mg/dL Adrenal panel 01/17/21 Range/Units 02:09 Sodium 136 L (137-145) mmol/L Potassium 5.2 H (3.5-5.1) mmol/L Chloride 98 (98-107) mmol/L Carbon Dioxide 29 (22-30) mmol/L BUN 22 H (7-17) mg/dL Creatinine 0.42 L (0.52-1.04) mg/dL Glucose 90 (74-99) mg/dL Calcium 9.8 (8.4-10.2) mg/dL Total Bilirubin 0.5 (0.2-1.3) mg/dL AST 24 (14-36) U/L ALT 15 (4-34) U/L Alkaline Phosphatase 87 (38-126) U/L Total Protein 7.3 (6.3-8.2) g/dL Albumin 3.7 (3.5-5.0) g/dL
[2021-01-17] MEDS: LEVOFLOXACIN 500MG-D5W PMX 500 MG in DEXTROSE/WATER 1 100ML.BAG IVPB SCH (16:24)
--- NOTE | 2021-01-17 16:46 | P.HPIM ---
History of Present Illness H&P Date: 01/17/21 Chief Complaint: PEG tube malfunction 70-year-old female to the ER for evaluation of PEG tube evaluation. Patient has had a patent for a month unable to be use secondary to inability to flush her use. Patient is awake and alert able answer questions did have a recent stroke and has had weight loss apparently PEG tube was placed for weight loss. Patient is able to eat and drink. Patient again does have history of recent stroke and has been debilitated for quite some time. Patient was sent to our ER for evaluation regarding PEG tube and replacement of PEG tube Workup in the diffuse and elevated WBC of 12.9, hemoglobin 11.8, hematocrit 38.3 and platelet count of 35 Chemical profile sodium 136, potassium 5.2, BUN/creatinine of 22/0.4 to and glucose of 90 Review of Systems ROS unobtainable: due to mental status Past Medical History Past Medical History: Coronary Artery Disease (CAD), COPD, CVA/TIA, Hypertension Additional Past Medical History / Comment(s): pt states she has been treated for scabies one year ago History of Any Multi-Drug Resistant Organisms: None Reported Past Surgical History: Coronary Bypass/CABG, Heart Catheterization With Stent Additional Past Surgical History / Comment(s): cabg 2013 Past Anesthesia/Blood Transfusion Reactions: No Reported Reaction Date of Last Stent Placement:: 2013 Past Psychological History: ADD/ADHD, Depression Smoking Status: Former smoker Past Alcohol Use History: None Reported Past Drug Use History: None Reported, Marijuana - Past Family History Mother Family Medical History: Unable to Obtain Medications and Allergies Home Medications Medication Instructions Recorded Confirmed Type Albuterol Nebulized [Ventolin 2.5 mg INHALATION RT-QID PRN 01/17/21 01/17/21 History Nebulized] Aspirin 324 mg PEG/G-TUBE DAILY 01/17/21 01/17/21 History Atorvastatin [Lipitor] 80 mg PEG/G-TUBE HS 01/17/21 01/17/21 History HYDROcodone/APAP 7.5-325MG [[place] 1 tab PO Q6H PRN 01/17/21 01/17/21 History 7.5-325] INSULIN ASPART (NovoLOG) [NovoLOG See Protocol SQ Q6H 01/17/21 01/17/21 History (formulary)] Melatonin 6 mg PO HS 01/17/21 01/17/21 History Metoprolol Tartrate [Lopressor] 50 mg PEG/G-TUBE Q8H 01/17/21 01/17/21 History Mexiletine HCl 300 mg PO DAILY 01/17/21 01/17/21 History Omeprazole 20 mg PEG/G-TUBE DAILY 01/17/21 01/17/21 History Rivaroxaban [Xarelto] 2.5 mg PO BID 01/17/21 01/17/21 History Sertraline [Zoloft] 100 mg PO HS 01/17/21 01/17/21 History Simethicone 125mg Chewable Tab 1 tab PO PC-TID 01/17/21 01/17/21 History clonazePAM [KlonoPIN] 0.5 mg PO HS 01/17/21 01/17/21 History levETIRAcetam ORAL SOLN [Keppra 500 mg PEG/G-TUBE Q12H 01/17/21 01/17/21 History Oral Soln] metFORMIN HCL [Glucophage] 1,000 mg PO BID@0900,1700 01/17/21 01/17/21 History oxyCODONE HCL [oxyCODONE HCL ER] 15 mg PO BID 01/17/21 01/17/21 History polyethylene glycoL 3350 [Miralax] 17 gm PEG/G-TUBE DAILY PRN 01/17/21 01/17/21 History Allergies Allergy/AdvReac Type Severity Reaction Status Date / Time No Known Allergies Allergy Verified 01/17/21 08:05 Physical Exam Vitals: Vital Signs Temp Pulse Resp BP Pulse Ox 01/17/21 13:00 98.4 F 101 H 18 129/93 98 01/17/21 11:20 101 H 18 129/93 98 01/17/21 09:29 98 16 179/104 96 01/17/21 07:45 93 16 100 01/17/21 06:40 84 16 139/84 96 01/17/21 05:14 80 16 136/84 91 L 01/17/21 03:58 98.4 F 80 20 100/92 97 01/17/21 02:12 79 20 119/82 100 01/16/21 23:49 97.3 F L 82 16 90/63 92 L Intake and Output 01/16/21 01/17/21 01/17/21 22:59 06:59 14:59 Other: Weight 61.235 kg - Constitutional General appearance: Present: average body habitus, cooperative, no acute distress - EENT Eyes: Present: anicteric sclerae, EOMI, PERRLA, normal appearance ENT: Present: hearing grossly normal, normal oropharynx Ears: bilateral: normal - Neck Neck: Present: normal ROM. Absent: lymphadenopathy, rigidity, thyromegaly Carotids: negative: bruit present Thyroid: bilateral: normal size, negative: enlarged, nodule - Respiratory Respiratory: bilateral: CTA, negative: rales, rhonchi, wheezing - Cardiovascular Rhythm: regular Heart sounds: normal: S1, S2 Abnormal Heart Sounds: Absent: systolic murmur, diastolic murmur - Gastrointestinal General gastrointestinal: Present: normal bowel sounds, soft. Absent: distended, organomegaly, tenderness - Genitourinary Genitourinary Comment(s): deferred - Integumentary Integumentary: Present: normal turgor. Absent: jaundiced, rash, ulcer - Neurologic Neurologic: Present: CNII-XII intact. Absent: focal deficits - Musculoskeletal Musculoskeletal: Present: gait normal, strength equal bilaterally - Psychiatric Psychiatric: Present: A&O x's 3, appropriate affect, intact judgment & insight Results CBC & Chem 7: 01/17/21 02:09 01/17/21 02:09 Labs: Abnormal Lab Results - Last 24 Hours (Table) 01/17/21 01/17/21 01/17/21 Range/Units 02:09 02:09 09:19 WBC 12.9 H (3.8-10.6) k/uL MCHC 30.8 L (31.0-37.0) g/dL RDW 16.5 H (11.5-15.5) % Neutrophils # 8.8 H (1.3-7.7) k/uL Sodium 136 L (137-145) mmol/L Potassium 5.2 H (3.5-5.1) mmol/L BUN 22 H (7-17) mg/dL Creatinine 0.42 L (0.52-1.04) mg/dL POC Glucose (mg/dL) 123 H (75-99) mg/dL 01/17/21 Range/Units 12:55 WBC (3.8-10.6) k/uL MCHC (31.0-37.0) g/dL RDW (11.5-15.5) % Neutrophils # (1.3-7.7) k/uL Sodium (137-145) mmol/L Potassium (3.5-5.1) mmol/L BUN (7-17) mg/dL Creatinine (0.52-1.04) mg/dL POC Glucose (mg/dL) 114 H (75-99) mg/dL Assessment and Plan Assessment: 1. PEG tube malfunction - Patient is being kept nothing by mouth and surgery is consulted for PEG tube replacement We will continue with slow IV fluid hydration and monitor renal function and electrolytes 2. Acute renal injury; continue with IV fluid hydration; we will monitor strict JR's, daily weights, renal function and electrolytes; Avoid nephrotoxic agents 3. Hyperkalemia; possibly related to renal injury; we will monitor electrolytes and make further adjustments once levels are obtained 4. Hypertension 5. COPD; not in exacerbation; continue with home therapy 6. CVA with dysphagia; patient remains nothing by mouth; Surgery to Evaluate for Possible PEG Tube Placement DVT prophylaxis; SCDs CODE STATUS; full code
[2021-01-17 17:07] LABS: Glucose,Whole Blood 112 mg/dL (75-99)
[2021-01-17] MEDS: HYDROmorphone 0.5 MG/0.5 ML SYRINGE IVP PRN (20:04)
[2021-01-17 20:36] LABS: Glucose,Whole Blood 107 mg/dL (75-99)
[2021-01-17] MEDS ORDERED: ALBUTEROL NEBULIZED 2.5 MG/3 ML INHALATION PRN (21:21)
[2021-01-17] MEDS ORDERED: INSULIN ASPART (NovoLOG) 100 UNIT/ML VIAL SQ SCH (21:30)
[2021-01-17] MEDS: HEPARIN SODIUM,PORCINE/PF 5,000 UNIT/0.5 ML SYRINGE SQ SCH (22:00)
[2021-01-17] MEDS: METOPROLOL TARTRATE 25 MG TAB PO SCH (22:00)
[2021-01-17] MEDS: HYDROmorphone 1 MG/ML 1 ML SYRINGE IVP PRN (23:35)
[2021-01-18] MEDS: SODIUM CHLORIDE 0.9% 1,000 ML IV SCH ×3 (04:27→17:42)
[2021-01-18] MEDS: INSULIN ASPART (NovoLOG) 100 UNIT/ML VIAL SQ SCH ×4 (07:48→20:23)
[2021-01-18 08:02] LABS: Glucose,Whole Blood 111 mg/dL (75-99)
[2021-01-18] MEDS: PANTOPRAZOLE 40 MG TABLET PO SCH (08:04)
[2021-01-18] MEDS: MEXILETINE 150 MG CAP PO SCH (08:05)
[2021-01-18] MEDS: METOPROLOL TARTRATE 25 MG TAB PO SCH ×2 (08:06→20:23)
[2021-01-18] MEDS: ATORVASTATIN 80 MG TAB PO SCH (08:06)
[2021-01-18] MEDS: HEPARIN SODIUM,PORCINE/PF 5,000 UNIT/0.5 ML SYRINGE SQ SCH ×2 (08:06→20:23)
[2021-01-18] MEDS: HYDROmorphone 1 MG/ML 1 ML SYRINGE IVP PRN ×3 (08:19→21:55)
[2021-01-18 09:04] LABS: Basophils # (A) 0.05 X 10*3/uL (0.00-0.10); Basophils % (A) 0.6 %; Eosinophils # (A) 0.06 X 10*3/uL (0.04-0.35); Eosinophils % (A) 0.7 %; HCT 34.2 % (37.2-46.3); HGB 10.7 g/dL (12.0-15.0); Lymphocytes # (A) 0.93 X 10*3/uL (0.90-5.00); Lymphocytes % (A) 10.3 %; MCH 25.2 pg (27.0-32.0); MCHC 31.3 g/dL (32.0-37.0); MCV 80.7 fL (80.0-97.0); Mean Platelet Volume 11.3 fL (9.5-12.2); Monocytes # (A) 0.57 X 10*3/uL (0.20-1.00); Monocytes % (A) 6.3 %; Neutrophils # (A) 7.39 X 10*3/uL (1.80-7.70); Neutrophils % (A) 81.8 %; Platelet Count 430 X 10*3/uL (140-440); RBC 4.24 X 10*6/uL (4.10-5.20); RDW 17.7 % (11.5-14.5); WBC 9.03 X 10*3/uL (4.50-10.00)
[2021-01-18 09:31] LABS: African American GFR (CKD) 119.2 (60.0-200.0); Albumin 3.6 g/dL (3.8-4.9); Albumin/Globulin Ratio 1.19 (1.60-3.17); Anion Gap 11.7 mmol/L (4.00-12.00); BUN/Creat Ratio 25.88 Ratio (12.00-20.00); Blood Urea Nitrogen 11.7 mg/dL (9.0-27.0); Calcium 9.2 mg/dL (8.7-10.3); Non-African American GFR(CKD) 102.8 (60.0-200.0); Potassium 3.9 mmol/L (3.5-5.5); Total Bilirubin 0.6 mg/dL (0.30-1.20); Total Protein 6.6 g/dL (6.2-8.2)
--- NOTE | 2021-01-18 11:16 | P.PN ---
Progress Note - Text Progress Note Date: 01/18/21 Patient with stable. Her abdomen soft. PEG tube site is clean. Discontinuation of malpositioned PEG tube. Patient's abdomen soft. She'll continue supportive care.
[2021-01-18 12:31] LABS: Glucose,Whole Blood 148 mg/dL (75-99)
[2021-01-18 12:37] VITALS: BMI 21.7
[2021-01-18] MEDS: LEVOFLOXACIN 500MG-D5W PMX 500 MG in DEXTROSE/WATER 1 100ML.BAG IVPB SCH (16:31)
[2021-01-18 17:37] LABS: Glucose,Whole Blood 179 mg/dL (75-99)
[2021-01-18 20:22] LABS: Glucose,Whole Blood 142 mg/dL (75-99)
[2021-01-18] MEDS: clonazePAM 0.5 MG TAB PO SCH (20:23)
[2021-01-18] MEDS: SERTRALINE 100 MG TAB PO SCH (20:23)
[2021-01-18] MEDS: HYDROmorphone 0.5 MG/0.5 ML SYRINGE IVP PRN (20:26)
[2021-01-19] MEDS: SODIUM CHLORIDE 0.9% 1,000 ML IV SCH ×4 (04:00→20:28)
[2021-01-19 08:28] LABS: Glucose,Whole Blood 146 mg/dL (75-99)
[2021-01-19] MEDS: INSULIN ASPART (NovoLOG) 100 UNIT/ML VIAL SQ SCH ×4 (08:46→20:26)
[2021-01-19] MEDS: HEPARIN SODIUM,PORCINE/PF 5,000 UNIT/0.5 ML SYRINGE SQ SCH ×2 (08:46→20:27)
[2021-01-19] MEDS: METOPROLOL TARTRATE 25 MG TAB PO SCH ×2 (08:46→20:26)
[2021-01-19] MEDS: PANTOPRAZOLE 40 MG TABLET PO SCH (08:46)
[2021-01-19] MEDS: ATORVASTATIN 80 MG TAB PO SCH (08:46)
[2021-01-19] MEDS: MEXILETINE 150 MG CAP PO SCH (08:46)
--- NOTE | 2021-01-19 10:47 | P.PN ---
Progress Note - Text Progress Note Date: 01/19/21 Patient name stable. Her abdomen is soft. PEG tube site is clean.
[2021-01-19 12:28] LABS: Glucose,Whole Blood 147 mg/dL (75-99)
[2021-01-19] MEDS: LEVOFLOXACIN 500MG-D5W PMX 500 MG in DEXTROSE/WATER 1 100ML.BAG IVPB SCH (15:10)
[2021-01-19 17:15] LABS: Glucose,Whole Blood 127 mg/dL (75-99)
[2021-01-19] MEDS: HYDROmorphone 0.5 MG/0.5 ML SYRINGE IVP PRN ×2 (17:17→20:26)
--- NOTE | 2021-01-19 19:34 | P.PN ---
Subjective Progress Note Date: 01/18/21 Principal diagnosis: PEG tube malfunction Dehydration Mild AK I Hypokalemia 70-year-old female to the ER for evaluation of PEG tube evaluation. Patient has had a patent for a month unable to be use secondary to inability to flush her use. Patient is awake and alert able answer questions did have a recent stroke and has had weight loss apparently PEG tube was placed for weight loss. Patient is able to eat and drink. Patient again does have history of recent stroke and has been debilitated for quite some time. Patient was sent to our ER for eval uation regarding PEG tube and replacement of PEG tube Workup in the diffuse and elevated WBC of 12.9, hemoglobin 11.8, hematocrit 38.3 and platelet count of 35 Chemical profile sodium 136, potassium 5.2, BUN/creatinine of 22/0.4 to and glucose of 90 Objective - Vital Signs Vital signs: Vital Signs Temp 98.5 F 01/18/21 15:00 Pulse 87 01/18/21 15:00 Resp 18 01/18/21 15:00 BP 123/75 01/18/21 15:00 Pulse Ox 96 01/18/21 15:00 Intake & Output 01/17/21 01/18/21 01/18/21 18:59 06:59 18:59 Output Total 1100 380 Balance -1100 -380 Weight 61.235 kg 61.235 kg Output: Urine 1100 380 Other: Voiding Method Incontinent Incontinent Incontinent External Catheter External Catheter External Catheter # Voids 2 - Exam PHYSICAL EXAMINATION: GENERAL: The patient is alert and oriented x3, not in any acute distress. Well developed, well nourished. HEENT: Pupils are round and equally reacting to light. EOMI. No scleral icterus. No conjunctival pallor. Normocephalic, atraumatic. No pharyngeal erythema. No thyromegaly. CARDIOVASCULAR: S1 and S2 present. No murmurs, rubs, or gallops. PULMONARY: Chest is clear to auscultation, no wheezing or crackles. ABDOMEN: Soft, nontender, nondistended, normoactive bowel sounds. No palpable organomegaly. MUSCULOSKELETAL: No joint swelling or deformity. EXTREMITIES: No cyanosis, clubbing, or pedal edema. NEUROLOGICAL: Gross neurological examination did not reveal any focal deficits. SKIN: No rashes. - Labs CBC & Chem 7: 01/18/21 05:59 01/18/21 05:59 Labs: Abnormal Lab Results - Last 24 Hours (Table) 01/17/21 01/17/21 01/18/21 Range/Units 17:05 20:34 05:59 Hgb 10.7 L (12.0-15.0) g/dL Hct 34.2 L (37.2-46.3) % MCH 25.2 L (27.0-32.0) pg MCHC 31.3 L (32.0-37.0) g/dL RDW 17.7 H (11.5-14.5) % Creatinine (0.6-1.5) mg/dL BUN/Creatinine Ratio (12.00-20.00) Ratio POC Glucose (mg/dL) 112 H 107 H (75-99) mg/dL AST (13-35) U/L Albumin (3.8-4.9) g/dL Albumin/Globulin Ratio (1.60-3.17) g/dL 01/18/21 01/18/21 01/18/21 Range/Units 05:59 08:01 12:29 Hgb (12.0-15.0) g/dL Hct (37.2-46.3) % MCH (27.0-32.0) pg MCHC (32.0-37.0) g/dL RDW (11.5-14.5) % Creatinine 0.5 L (0.6-1.5) mg/dL BUN/Creatinine Ratio 25.88 H (12.00-20.00) Ratio POC Glucose (mg/dL) 111 H 148 H (75-99) mg/dL AST 12 L (13-35) U/L Albumin 3.6 L (3.8-4.9) g/dL Albumin/Globulin Ratio 1.19 L (1.60-3.17) g/dL Microbiology - Last 24 Hours (Table) 01/17/21 10:20 Urine Culture - Preliminary Urine,Catheterized Group D Enterococcus Assessment and Plan Assessment: 1. PEG tube malfunction - Patient is being kept nothing by mouth and surgery is consulted for PEG tube replacement We will continue with slow IV fluid hydration and monitor renal function and electrolytes 2. Acute renal injury; continue with IV fluid hydration; we will monitor strict JR's, daily weights, renal function and electrolytes; Avoid nephrotoxic agents 3. Hyperkalemia; possibly related to renal injury; we will monitor electrolytes and make further adjustments once levels are obtained 4. Hypertension 5. COPD; not in exacerbation; continue with home therapy 6. CVA with dysphagia; patient remains nothing by mouth; Surgery to Evaluate for Possible PEG Tube Placement DVT prophylaxis; SCDs CODE STATUS; full code
--- NOTE | 2021-01-19 19:36 | P.PN ---
Subjective Progress Note Date: 01/19/21 Principal diagnosis: PEG tube malfunction Dehydration Mild AK I Hypokalemia 70-year-old female to the ER for evaluation of PEG tube evaluation. Patient has had a patent for a month unable to be use secondary to inability to flush her use. Patient is awake and alert able answer questions did have a recent stroke and has had weight loss apparently PEG tube was placed for weight loss. Patient is able to eat and drink. Patient again does have history of recent stroke and has been debilitated for quite some time. Patient was sent to our ER for eval uation regarding PEG tube and replacement of PEG tube Workup in the diffuse and elevated WBC of 12.9, hemoglobin 11.8, hematocrit 38.3 and platelet count of 35 Chemical profile sodium 136, potassium 5.2, BUN/creatinine of 22/0.4 to and glucose of 90 01/19/2021 Patient is seen and evaluated in room with nursing staff at bedside; patient is much more awake and alert this morning; no specific complaints per nursing staff Vital signs are reviewed and stable with temperature of 97.3, pulse 93, lesser 17 and blood pressure 139/94 General surgery on board for evaluation for need for PEG tube replacement; patient has been placed on a clear liquid diet and is able to tolerate well; we plan to advance the diet as possible and obtain a dietary consult for calorie count; if optimal, patient will not be needing a PEG tube Objective - Vital Signs Vital signs: Vital Signs Temp 97.7 F 01/19/21 15:00 Pulse 93 01/19/21 15:00 Resp 17 01/19/21 15:00 BP 139/94 01/19/21 15:00 Pulse Ox 98 01/19/21 15:00 Intake & Output 01/18/21 01/19/21 01/19/21 18:59 06:59 18:59 Intake Total 600 Output Total 380 500 Balance -380 -500 600 Weight 61.235 kg Intake: IV 600 Sodium Chloride 0.9% 1, 600 000 ml @ 75 mls/hr IV . [id number] [facility] Rx#:[id number] Output: Urine 380 500 Other: Voiding Method Incontinent Incontinent Incontinent External Catheter External Catheter External Catheter - Exam PHYSICAL EXAMINATION: GENERAL: The patient is alert and oriented x3, not in any acute distress. Well developed, well nourished. HEENT: Pupils are round and equally reacting to light. EOMI. No scleral icterus. No conjunctival pallor. Normocephalic, atraumatic. No pharyngeal erythema. No thyromegaly. CARDIOVASCULAR: S1 and S2 present. No murmurs, rubs, or gallops. PULMONARY: Chest is clear to auscultation, no wheezing or crackles. ABDOMEN: Soft, nontender, nondistended, normoactive bowel sounds. No palpable organomegaly. MUSCULOSKELETAL: No joint swelling or deformity. EXTREMITIES: No cyanosis, clubbing, or pedal edema. NEUROLOGICAL: Gross neurological examination did not reveal any focal deficits. SKIN: No rashes. - Labs CBC & Chem 7: 01/18/21 05:59 01/18/21 05:59 Labs: Abnormal Lab Results - Last 24 Hours (Table) 01/18/21 01/19/21 01/19/21 Range/Units 20:20 08:18 12:25 POC Glucose (mg/dL) 142 H 146 H 147 H (75-99) mg/dL 01/19/21 Range/Units 17:13 POC Glucose (mg/dL) 127 H (75-99) mg/dL Microbiology - Last 24 Hours (Table) 01/17/21 10:20 Urine Culture - Final Urine,Catheterized Enterococcus faecium 01/17/21 19:25 Blood Culture - Preliminary Blood No Growth after 24 hours Assessment and Plan Assessment: 1. PEG tube malfunction - Patient is being kept nothing by mouth and surgery is consulted for PEG tube replacement We will continue with slow IV fluid hydration and monitor renal function and electrolytes 2. Acute renal injury; continue with IV fluid hydration; we will monitor strict JR's, daily weights, renal function and electrolytes; Avoid nephrotoxic agents 3. Hyperkalemia; possibly related to renal injury; we will monitor electrolytes and make further adjustments once levels are obtained 4. Hypertension 5. COPD; not in exacerbation; continue with home therapy 6. CVA with dysphagia; patient remains nothing by mouth; Surgery to Evaluate for Possible PEG Tube Placement DVT prophylaxis; SCDs CODE STATUS; full code
[2021-01-19 20:10] LABS: Glucose,Whole Blood 156 mg/dL (75-99)
[2021-01-19] MEDS: clonazePAM 0.5 MG TAB PO SCH (20:26)
[2021-01-19] MEDS: SERTRALINE 100 MG TAB PO SCH (20:26)
[2021-01-19] MEDS: HYDROmorphone 1 MG/ML 1 ML SYRINGE IVP PRN (22:55)
[2021-01-20] MEDS: SODIUM CHLORIDE 0.9% 1,000 ML IV SCH ×2 (05:57→13:54)
[2021-01-20] MEDS: MEXILETINE 150 MG CAP PO SCH (07:47)
[2021-01-20] MEDS: PANTOPRAZOLE 40 MG TABLET PO SCH (07:48)
[2021-01-20] MEDS: ATORVASTATIN 80 MG TAB PO SCH (07:48)
[2021-01-20] MEDS: HEPARIN SODIUM,PORCINE/PF 5,000 UNIT/0.5 ML SYRINGE SQ SCH ×2 (07:48→20:26)
[2021-01-20] MEDS: METOPROLOL TARTRATE 25 MG TAB PO SCH ×2 (07:48→20:25)
[2021-01-20 08:19] LABS: Glucose,Whole Blood 139 mg/dL (75-99)
[2021-01-20] MEDS: INSULIN ASPART (NovoLOG) 100 UNIT/ML VIAL SQ SCH ×4 (08:35→20:26)
[2021-01-20] MEDS: HYDROmorphone 0.5 MG/0.5 ML SYRINGE IVP PRN ×2 (09:47→16:52)
[2021-01-20 11:54] LABS: African American GFR (CKD) 117.1 (60.0-200.0); Anion Gap 10.8 mmol/L (4.00-12.00); BUN/Creat Ratio 13.78 Ratio (12.00-20.00); Blood Urea Nitrogen 6.6 mg/dL (9.0-27.0); Calcium 8.9 mg/dL (8.7-10.3); Carbon Dioxide 25.3 mmol/L (21.6-31.8); HCT 32.7 % (37.2-46.3); HGB 9.9 g/dL (12.0-15.0); MCH 24.8 pg (27.0-32.0); MCHC 30.3 g/dL (32.0-37.0); MCV 81.8 fL (80.0-97.0); Mean Platelet Volume 11.1 fL (9.5-12.2); Non-African American GFR(CKD) 101.1 (60.0-200.0); Platelet Count 360 X 10*3/uL (140-440); Potassium 3.3 mmol/L (3.5-5.5); WBC 7.69 X 10*3/uL (4.50-10.00)
[2021-01-20] MEDS ORDERED: Potassium Replacement Protocol 1 EACH MISC MISCELLANE PRN (12:06)
[2021-01-20] MEDS ORDERED: ALPRAZolam 0.25 MG TAB PO STA ×2 (12:06→19:43)
--- NOTE | 2021-01-20 12:28 | P.PN ---
Subjective Progress Note Date: 01/20/21 CHIEF COMPLAINT: Malfunctioning PEG tube HISTORY OF PRESENT ILLNESS: This a 70-year-old female who presented to the emergency department from [facility] with concerns that they were unable to flush her PEG tube. 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 There was a CT of the abdomen and pelvis that showed possible malposition of the gastrostomy tube. The balloon appears to be outside of the gastric wall. There is no evidence of free air. No bowel obstruction. The patient had the PEG tube removed on Wednesday. Dressing is intact. The patient is more alert and oriented today. She is able to answer questions and follow commands. Patient is denying any abdominal pain, nausea, or vomiting. She is tolerating a clear liquid diet. Speech therapy is to evaluate swallow today. She's been afebrile. PHYSICAL EXAM: VITAL SIGNS: Reviewed. GENERAL: Well-developed in no acute distress. HEENT: No sclera icterus. Extraocular movements grossly intact. Moist buccal mucosa. Head is atraumatic, normocephalic. ABDOMEN: Soft. Nondistended. Nontender. PEG tube site clean with serosanguineous drainage. NEUROLOGIC: Alert and oriented. Cranial nerves II through XII grossly intact. ASSESSMENT: 1. Functioning PEG tube/malposition of gastrostomy tube 2. History of CVA PLAN: 1. Continue with 4 x 4 dressing to PEG tube site 2. Agree with speech therapy consult with for swallow evaluation 3. Advance diet as tolerated per recommendations from speech therapy 4. Recommend one week course of oral antibiotics 5. No plans at this time for PEG tube replacement, however this certainly can be addressed as needed. 6. Patient is cleared for discharge by general surgery The impression and plan of care has been dictated as directed. Dr. Villarreal I performed a history and examination of this patient, discussed the same with the dictator. I agree with the dictator's note ,documented as a scribe. Any additional findings or plans will be noted. Objective - Vital Signs Vital signs: Vital Signs Temp 98.1 F 01/20/21 07:00 Pulse 87 01/20/21 07:00 Resp 16 01/20/21 07:00 BP 144/93 01/20/21 07:00 Pulse Ox 96 01/20/21 07:00 Intake & Output 01/19/21 01/20/21 01/20/21 18:59 06:59 18:59 Intake Total 600 Output Total 700 Balance 600 -700 Intake: IV 600 Sodium Chloride 0.9% 1, 600 000 ml @ 75 mls/hr IV . [id number] [facility] Rx#:[id number] Output: Urine 700 Other: Voiding Method Incontinent Incontinent External Catheter External Catheter External Catheter - Labs CBC & Chem 7: 01/20/21 07:45 01/20/21 07:45 Labs: Abnormal Lab Results - Last 24 Hours (Table) 01/19/21 01/19/21 01/19/21 Range/Units 12:25 17:13 20:09 POC Glucose (mg/dL) 147 H 127 H 156 H (75-99) mg/dL 01/20/21 Range/Units 08:18 POC Glucose (mg/dL) 139 H (75-99) mg/dL Microbiology - Last 24 Hours (Table) 01/17/21 19:25 Blood Culture - Preliminary Blood No Growth after 48 hours 01/17/21 10:20 Urine Culture - Final Urine,Catheterized Enterococcus faecium
[2021-01-20 12:29] LABS: Glucose,Whole Blood 152 mg/dL (75-99)
[2021-01-20] MEDS: POTASSIUM CHLORIDE ER 20 MEQ TAB.ER PO SCH ×2 (12:43→13:52)
[2021-01-20 17:26] LABS: Glucose,Whole Blood 134 mg/dL (75-99)
[2021-01-20 20:23] LABS: Glucose,Whole Blood 172 mg/dL (75-99)
[2021-01-20] MEDS: clonazePAM 0.5 MG TAB PO SCH (20:26)
[2021-01-20] MEDS: SERTRALINE 100 MG TAB PO SCH (20:26)
[2021-01-20] MEDS: HYDROmorphone 1 MG/ML 1 ML SYRINGE IVP PRN (20:27)
--- NOTE | 2021-01-20 22:23 | P.PN ---
Subjective Progress Note Date: 01/20/21 70-year-old female to the ER for evaluation of PEG tube evaluation. Patient has had a patent for a month unable to be use secondary to inability to flush her use. Patient is awake and alert able answer questions did have a recent stroke and has had weight loss apparently PEG tube was placed for weight loss. Patient is able to eat and drink. Patient again does have history of recent stroke and has been debilitated for quite some time. Patient was sent to our ER for evaluation regarding PEG tube and replacement of PEG tube Workup in the diffuse and elevated WBC of 12.9, hemoglobin 11.8, hematocrit 38.3 and platelet count of 35 Chemical profile sodium 136, potassium 5.2, BUN/creatinine of 22/0.4 to and glucose of 90 01/19/2021 Patient is seen and evaluated in room with nursing staff at bedside; patient is much more awake and alert this morning; no specific complaints per nursing staff Vital signs are reviewed and stable with temperature of 97.3, pulse 93, lesser 17 and blood pressure 139/94 General surgery on board for evaluation for need for PEG tube replacement; patient has been placed on a clear liquid diet and is able to tolerate well; we plan to advance the diet as possible and obtain a dietary consult for calorie count; if optimal, patient will not be needing a PEG tube 01/20/2021 Patient is evaluated today resting in bed. Plan is to return to [facility] where patient is at for rehab. Calorie counting in progress with lactation nurse to ensure patient is eating enough calories, and will not need a PEG tube replaced. Currently, patient is on a dysphagia 3 chopped diet with thin liquids and can advance as tolerated. Labs today show a potassium of 3.3, Bun of 6.6, Cr of 0.5. hgb is stable at 9.9, wbc 7.69. Vitals include temp of 98.3, HR of 91, BP of 101/67. Urine culture was positive for enterococcus faecium, however, showed r esistance to levofloxacin which was discontinued. patient is not having any urinary symptoms, leukocytosis has resolved, and no fever. Most likely this is asymptomatic bacteruria. External cath in place with adequate urine output. Patient should be able to return to [facility] tomorrow as she is cleared by general surgery ROS Constitutional: Denied any fatigue denied any fever. Cardio vascular: denied any chest pain, palpitations Gastrointestinal: Denies nausea, vomiting, diarrhea Pulmonary: Denied any shortness of breath or cough Neurologic denied any new focal deficits All inpatient medications were reviewed and appropriate changes in these medications as dictated in the interval history and assessment and plan. PHYSICAL EXAMINATION: GENERAL: The patient is alert and oriented x3, not in any acute distress. Well developed, well nourished. HEENT: Pupils are round and equally reacting to light. EOMI. No scleral icterus. No conjunctival pallor. Normocephalic, atraumatic. No pharyngeal erythema. No thyromegaly. CARDIOVASCULAR: S1 and S2 present. No murmurs, rubs, or gallops. PULMONARY: Chest is clear to auscultation, no wheezing or crackles. diminished ABDOMEN: Soft, left lower quadrant tenderness, nondistended, normoactive bowel sounds. No palpable organomegaly. MUSCULOSKELETAL: No joint swelling or deformity. EXTREMITIES: No cyanosis, clubbing, or pedal edema. NEUROLOGICAL: right side paralysis from previous stroke SKIN: peg tube site intact, no erythema noted, no drainage. Assessment and Plan Assessment: 1. PEG tube malfunction -PEG tube removed this admission -Finalized calorie Count; if adequate no further surgical intervention will be discharged back to [facility] tomorrow 2. Acute renal injury; continue with IV fluid hydration; we will monitor strict JR's, daily weights, renal function and electrolytes; Avoid nephrotoxic agents 3. Hyperkalemia; possibly related to renal injury; resolved 4. Hypertension 5. COPD; not in exacerbation; continue with home therapy 6. CVA with dysphagia; cleared by speech therapy for chopped dysphagia diet with thin liquids 7. Asymptomatic bacterurea, denies dysuria, leukocytosis and fever resolved despite positive urine culture who showed resistance to levofloxacin DVT prophylaxis; SCDs, subQ heparin, resume xarelto CODE STATUS; full code Patient will be discharged back to [facility] tomorrow after finalized calorie counting. Cleared by surgery. Objective - Vital Signs Vital signs: Vital Signs Temp 98.1 F 01/20/21 07:00 Pulse 87 01/20/21 07:00 Resp 16 01/20/21 07:00 BP 144/93 01/20/21 07:00 Pulse Ox 96 01/20/21 07:00 Intake & Output 01/19/21 01/20/21 01/20/21 18:59 06:59 18:59 Intake Total 600 Output Total 700 Balance 600 -700 Intake: IV 600 Sodium Chloride 0.9% 1, 600 000 ml @ 75 mls/hr IV . [id number] [facility] Rx#:[id number] Output: Urine 700 Other: Voiding Method Incontinent Incontinent External Catheter External Catheter External Catheter - Labs CBC & Chem 7: 01/20/21 07:45 01/20/21 07:45 Labs: Abnormal Lab Results - Last 24 Hours (Table) 01/19/21 01/19/21 01/19/21 Range/Units 12:25 17:13 20:09 RBC (4.10-5.20) X 10*6/uL Hgb (12.0-15.0) g/dL Hct (37.2-46.3) % MCH (27.0-32.0) pg MCHC (32.0-37.0) g/dL RDW (11.5-14.5) % Potassium (3.5-5.5) mmol/L BUN (9.0-27.0) mg/dL Creatinine (0.6-1.5) mg/dL Glucose (70-110) mg/dL POC Glucose (mg/dL) 147 H 127 H 156 H (75-99) mg/dL 01/20/21 01/20/21 01/20/21 Range/Units 07:45 07:45 08:18 RBC 4.00 L (4.10-5.20) X 10*6/uL Hgb 9.9 L (12.0-15.0) g/dL Hct 32.7 L (37.2-46.3) % MCH 24.8 L (27.0-32.0) pg MCHC 30.3 L (32.0-37.0) g/dL RDW 18.0 H (11.5-14.5) % Potassium 3.3 L (3.5-5.5) mmol/L BUN 6.6 L (9.0-27.0) mg/dL Creatinine 0.5 L (0.6-1.5) mg/dL Glucose 111 H (70-110) mg/dL POC Glucose (mg/dL) 139 H (75-99) mg/dL Microbiology - Last 24 Hours (Table) 01/17/21 19:25 Blood Culture - Preliminary Blood No Growth after 48 hours 01/17/21 10:20 Urine Culture - Final Urine,Catheterized Enterococcus faecium Assessment and Plan Time with Patient: Greater than 30
[2021-01-20] MEDS ORDERED: polyethylene glycoL 3350 17 GM POWD.PACK PO PRN (22:24)
[2021-01-20] MEDS ORDERED: HYDROcodone/APAP 7.5-325MG 1 EACH TAB PO PRN (22:24)
[2021-01-20] MEDS: RIVAROXABAN 2.5 MG TABLET PO SCH (23:43)
[2021-01-20] MEDS: levETIRAcetam ORAL SOLN 500 MG/5 ML CUP PO SCH (23:43)
[2021-01-21 07:51] LABS: Glucose,Whole Blood 116 mg/dL (75-99)
[2021-01-21] MEDS: INSULIN ASPART (NovoLOG) 100 UNIT/ML VIAL SQ SCH (07:56)
[2021-01-21 08:31] VITALS: BP 133/83; PULSE 96; RESP 18; TEMP 98.4
[2021-01-21] MEDS: METOPROLOL TARTRATE 25 MG TAB PO SCH (08:38)
[2021-01-21] MEDS: PANTOPRAZOLE 40 MG TABLET PO SCH (08:38)
[2021-01-21] MEDS: SODIUM CHLORIDE 0.9% 1,000 ML IV SCH (08:38)
[2021-01-21] MEDS: ATORVASTATIN 80 MG TAB PO SCH (08:38)
[2021-01-21] MEDS: MEXILETINE 150 MG CAP PO SCH (08:39)
[2021-01-21] MEDS: RIVAROXABAN 2.5 MG TABLET PO SCH (08:39)
[2021-01-21] MEDS: levETIRAcetam ORAL SOLN 500 MG/5 ML CUP PO SCH (08:40)
[2021-01-21 09:27] LABS: Basophils # (A) 0.07 X 10*3/uL (0.00-0.10); Basophils % (A) 0.8 %; Eosinophils % (A) 7.6 %; HCT 33.8 % (37.2-46.3); HGB 10.2 g/dL (12.0-15.0); Lymphocytes % (A) 20.7 %; MCHC 30.2 g/dL (32.0-37.0); MCV 79.5 fL (80.0-97.0); Mean Platelet Volume 10.9 fL (9.5-12.2); Monocytes # (A) 0.83 X 10*3/uL (0.20-1.00); Monocytes % (A) 9.1 %; Neutrophils # (A) 5.62 X 10*3/uL (1.80-7.70); Neutrophils % (A) 61.4 %; Platelet Count 349 X 10*3/uL (140-440); RBC 4.25 X 10*6/uL (4.10-5.20); RDW 18.3 % (11.5-14.5); WBC 9.16 X 10*3/uL (4.50-10.00)
--- NOTE | 2021-01-21 10:33 | P.DS ---
Providers Date of admission: 01/21/21 08:23 Attending physician: Tashia Bustillo Consults: 01/17/21 06:52 Consult Physician Routine Consulting Provider: Charli Joiner Reason/Comments: PEGtube Do you want consulting provider notified?: Yes Primary care physician: Enrrique Thomas Hospital Course: Final diagnoses PEG tube malfunction Acute renal injury Hyperkalemia Hypertension COPD not in acute exacerbation History of CVA with dysphasia Asymptomatic bacteriuria Leukocytosis, resolved DVT prophylaxis will resume Zocor 20 discharge CODE STATUS full code Discharge disposition Patient ultimately had a PEG tube that was found to be malpositioned and not functioning upon admission to the ER. It was removed and patient completed a course of IV Levaquin for 3 days. She is completing calorie count from dietary to ensure she is meeting her calorie needs, this can be continued at rehab. General surgery has cleared patient for discharge and will follow-up outpatient. Repeat labs in 2 days. Hospital course This is a pleasant 70-year-old female who has been residing at [facility] for rehab following a stroke that resulted in left upper extremity paralysis as well as left lower extremity paralysis and significant dysphagia. Patient will have a PEG tube placed and was receiving tube feedings however as of recently her PEG tube was not functioning was not able to be flushed. Patient states that this has been ongoing for a month where she was unable to use secondary to her inability to flush. Patient is able to eat and drink appropriately however we requested a speech evaluation. Speech evaluation showed no difficulty with pharyngeal clearance. Patient was upgraded to a chopped diet with thin liquids related to her missing dentition and she can have a regular diet as tolerated. Additional past medical history includes coronary artery disease status post stenting and open heart in 2013, COPD, CVA TIA, hypertension, remote history of scabies, depression and ADD. Patient is a former smoker. An abdominal pelvis CT was completed in the ER which revealed possible malposition of the gastrostomy tube, the balloon appears to be outside of the gastric wall. There is no evidence of free air. No bowel obstruction. KUB x-ray showed no extravasation, redemonstrated the gastrostomy tube balloon appears to be outside of the wall of the stomach. PEG tube was removed by general surgery in the [facility]. 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 There is soft tissue thickening at the junction between the stomach and anterior abdominal wall probably related to the gastropexy. However an intellectual here maybe located within the abdominal wall muscle layer. Gastropexy in the to the abdominal wall muscle layer or gastric herniation are considerations. Given the thickening, correlate to exclude any sign symptoms of inflammation. There is also new trace bilateral pleural effusions. Septal lines and developed in the lower lung fingerprints and developing pulmonary vascular congestion. Labs on admission included white blood cell count of 12.9 which has resolved down to 9.16. Hemoglobin has remained stable at 11.8, 10.2. Initial potassium of 5.2, it was 3.3 yesterday which was replaced per protocol. BUN, Creatinine - 22, 0.42. Covid PCR was negative. Patient was cleared by general surgery for discharge back to rehab. There patient can continue with her evaluation for calorie counting to ensure that she does not placement of a new PEG tube for additional nutritional support. Vital signs remained stable this admission with a temperature of 98.4, heart rate 96 sinus rhythm, blood pressure 133/83 and she is 94% on room air. Patient did have some anxiety should a week and a one-time dose of 0.25 Xanax in the morning. It appears that on the evening of 01/21/21 an additional 0.25 mg of xanax was requested from ad operations associate physician and given in conjunction with the patient's nighttime dose of Klonopin. Patient did have a mild sedative effect following, although remains alert and oriented 3. Would recommend holding off on further anxiety medications and continue with the at bedtime dose of klonopin. 01/21/2021 Patient is evaluated this morning at the bedside and she is resting. She was repositioned with the help of writing provider. Patient denies any pain, cough, shortness of breath. She denies any dysuria, urgency or frequency. There is no suprapubic pain or distention. Positive bowel sounds. Lungs are clear to auscultation, S1-S2 auscultated. Focal neurological exam reveals stable deficits from previous stroke to the left side. Patient is eating her meals without difficulty. Calorie count is ongoing it was completed yesterday on January 20, ongoing for today and tomorrow. She can continue this at rehab. Vital signs are stable, patient remains afebrile and on room air, blood pressure today is 133/83 inches 96 sinus rhythm. Please see medication reconciliation for list of current medications. Thank you for allowing us to participate in the care of this patient. Patient Condition at Discharge: Good Plan - Discharge Summary New Discharge Prescriptions: New Pantoprazole [Protonix] 40 mg PO AC-BRKFST #30 tab Aspirin 325 mg PO DAILY #30 tab levETIRAcetam [Keppra] 500 mg PO BID #60 tab Atorvastatin [Lipitor] 80 mg PO DAILY #30 tab Metoprolol Tartrate [Lopressor] 50 mg PO BID #60 tab polyethylene glycoL 3350 [Miralax] 17 gm PO DAILY PRN #30 packet PRN Reason: Constipation Continue Albuterol Nebulized [Ventolin Nebulized] 2.5 mg INHALATION RT-QID PRN PRN Reason: Shortness Of Breath Rivaroxaban [Xarelto] 2.5 mg PO BID Sertraline [Zoloft] 100 mg PO HS clonazePAM [KlonoPIN] 0.5 mg PO HS Melatonin 6 mg PO HS INSULIN ASPART (NovoLOG) [NovoLOG (formulary)] See Protocol SQ Q6H Simethicone 125mg Chewable Tab 1 tab PO PC-TID metFORMIN HCL [Glucophage] 1,000 mg PO BID@0900,1700 Omeprazole 20 mg PEG/G-TUBE DAILY Mexiletine HCl 300 mg PO DAILY HYDROcodone/APAP 7.5-325MG [[place] 7.5-325] 1 tab PO Q6H PRN #4 tab PRN Reason: Pain Discontinued polyethylene glycoL 3350 [Miralax] 17 gm PEG/G-TUBE DAILY PRN PRN Reason: Constipation Metoprolol Tartrate [Lopressor] 50 mg PEG/G-TUBE Q8H levETIRAcetam ORAL SOLN [Keppra Oral Soln] 500 mg PEG/G-TUBE Q12H Atorvastatin [Lipitor] 80 mg PEG/G-TUBE HS Aspirin 324 mg PEG/G-TUBE DAILY oxyCODONE HCL [oxyCODONE HCL ER] 15 mg PO BID Discharge Medication List Albuterol Nebulized [Ventolin Nebulized] 2.5 mg INHALATION RT-QID PRN 01/17/21 [History] INSULIN ASPART (NovoLOG) [NovoLOG (formulary)] See Protocol SQ Q6H 01/17/21 [History] Melatonin 6 mg PO HS 01/17/21 [History] Mexiletine HCl 300 mg PO DAILY 01/17/21 [History] Omeprazole 20 mg PEG/G-TUBE DAILY 01/17/21 [History] Rivaroxaban [Xarelto] 2.5 mg PO BID 01/17/21 [History] Sertraline [Zoloft] 100 mg PO HS 01/17/21 [History] Simethicone 125mg Chewable Tab 1 tab PO PC-TID 01/17/21 [History] clonazePAM [KlonoPIN] 0.5 mg PO HS 01/17/21 [History] metFORMIN HCL [Glucophage] 1,000 mg PO BID@0900,1700 01/17/21 [History] Aspirin 325 mg PO DAILY #30 tab 01/21/21 [Rx] Atorvastatin [Lipitor] 80 mg PO DAILY #30 tab 01/21/21 [Rx] HYDROcodone/APAP 7.5-325MG [[place] 7.5-325] 1 tab PO Q6H PRN #4 tab 01/21/21 [Rx] Metoprolol Tartrate [Lopressor] 50 mg PO BID #60 tab 01/21/21 [Rx] Pantoprazole [Protonix] 40 mg PO AC-BRKFST #30 tab 01/21/21 [Rx] levETIRAcetam [Keppra] 500 mg PO BID #60 tab 01/21/21 [Rx] polyethylene glycoL 3350 [Miralax] 17 gm PO DAILY PRN #30 packet 01/21/21 [Rx] Follow up Appointment(s)/Referral(s): Enrrique Thomas MD [Primary Care Provider] - 1-2 days Charli Joiner MD [Medical Doctor] - 1 Week Ambulatory/Diagnostic Orders: Basic Metabolic Panel [LAB.AMB] Time Frame: 2 Days, Location: None Selected Complete Blood Count w/diff [LAB.AMB] Time Frame: 2 Days, Location: None Selected Patient Instructions/Handouts: Percutaneous Endoscopic Gastrostomy (ED) Activity/Diet/Wound Care/Special Instructions: Continue with calorie counting for the next 2 days please send sheet with her to rehab Follow up with Gen. surgery outpatient if not meeting calorie needs Discharge Disposition: TRANSFER TO SNF/ECF
[2021-01-21 12:59] LABS: Glucose,Whole Blood 132 mg/dL (75-99)
[2021-01-21 13:50] LABS: Anion Gap 14.9 mmol/L (4.00-12.00); BUN/Creat Ratio 15.75 Ratio (12.00-20.00); Blood Urea Nitrogen 6.3 mg/dL (9.0-27.0); Carbon Dioxide 21.1 mmol/L (21.6-31.8); Potassium 3.4 mmol/L (3.5-5.5)
--- NOTE | 2021-01-21 14:47 | P.PN ---
Subjective Progress Note Date: 01/21/21 (late entry patient seen 929) CHIEF COMPLAINT: Malfunctioning PEG tube HISTORY OF PRESENT ILLNESS: This a 70-year-old female who presented to the emergency department from [facility] with concerns that they were unable to flush her PEG tube. 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 There was a CT of the abdomen and pelvis that showed possible malposition of the gastrostomy tube. The balloon appears to be outside of the gastric wall. There is no evidence of free air. No bowel obstruction. The patient had the PEG tube removed on Wednesday. Dressing is intact with minimal drainage. She is afebrile. Patient is denying any abdominal pain, nausea, or vomiting. He was evaluated by speech therapy yesterday and advanced to a dysphasia chopped diet. Patient states she is not having any difficulty with eating. Plan is for discharge to [facility] today PHYSICAL EXAM: VITAL SIGNS: Reviewed. GENERAL: Well-developed in no acute distress. HEENT: No sclera icterus. Extraocular movements grossly intact. Moist buccal mucosa. Head is atraumatic, normocephalic. ABDOMEN: Soft. Nondistended. Nontender. PEG tube site clean with serosanguineous drainage. NEUROLOGIC: Alert and oriented. Cranial nerves II through XII grossly intact. ASSESSMENT: 1. Functioning PEG tube/malposition of gastrostomy tube 2. History of CVA PLAN: 1. Continue with 4 x 4 dressing to PEG tube site 2. Continue diet per recommendations from speech therapy 5. No plans at this time for PEG tube replacement, however this certainly can be addressed as needed. 6. Patient is cleared for discharge by general surgery The impression and plan of care has been dictated as directed. Dr. Villarreal I performed a history and examination of this patient, discussed the same with the dictator. I agree with the dictator's note ,documented as a scribe. Any additional findings or plans will be noted. Objective - Vital Signs Vital signs: Vital Signs Temp 98.4 F 01/21/21 08:30 Pulse 96 01/21/21 08:30 Resp 18 01/21/21 08:30 BP 133/83 01/21/21 08:30 Pulse Ox 94 L 01/21/21 08:30 Intake & Output 1001/21/21 01/21/21 18:59 06:59 18:59 Intake Total 540 Output Total 1020 700 Balance -480 -700 Weight 61.235 kg 61.235 kg Intake: Oral 540 Output: Urine 1020 700 Other: Voiding Method External Catheter External Catheter External Catheter # Voids 1 - Labs CBC & Chem 7: 01/21/21 06:16 01/21/21 06:16 Labs: Abnormal Lab Results - Last 24 Hours (Table) 01/20/21 01/20/21 01/21/21 Range/Units 17:25 20:21 06:16 Hgb 10.2 L (12.0-15.0) g/dL Hct 33.8 L (37.2-46.3) % MCV 79.5 L (80.0-97.0) fL MCH 24.0 L (27.0-32.0) pg MCHC 30.2 L (32.0-37.0) g/dL RDW 18.3 H (11.5-14.5) % Eosinophils # 0.70 H (0.04-0.35) X 10*3/uL Potassium (3.5-5.5) mmol/L Carbon Dioxide (21.6-31.8) mmol/L Anion Gap (4.00-12.00) mmol/L BUN (9.0-27.0) mg/dL Creatinine (0.6-1.5) mg/dL POC Glucose (mg/dL) 134 H 172 H (75-99) mg/dL 01/21/21 01/21/21 01/21/21 Range/Units 06:16 07:30 12:52 Hgb (12.0-15.0) g/dL Hct (37.2-46.3) % MCV (80.0-97.0) fL MCH (27.0-32.0) pg MCHC (32.0-37.0) g/dL RDW (11.5-14.5) % Eosinophils # (0.04-0.35) X 10*3/uL Potassium 3.4 L (3.5-5.5) mmol/L Carbon Dioxide 21.1 L (21.6-31.8) mmol/L Anion Gap 14.90 H (4.00-12.00) mmol/L BUN 6.3 L (9.0-27.0) mg/dL Creatinine 0.4 L (0.6-1.5) mg/dL POC Glucose (mg/dL) 116 H 132 H (75-99) mg/dL Microbiology - Last 24 Hours (Table) 01/17/21 19:25 Blood Culture - Preliminary Blood No Growth after 72 hours
== END 2021-01-21 13:19 | DRG 394 ==
LOC: EC 23:37 → 6NMEDSUR 01-17 06:52 → OBSVTOIN 01-21 08:23
PROVIDERS: ADMIT Hospitalist; ATTEND Hospitalist
DX: K94.23 Gastrostomy malfunction (principal); N17.9 Acute kidney failure, unspecified; Z16.23 Resistance to quinolones and fluoroquinolones; Z20.822 Contact with and (suspected) exposure to COVID-19; R82.71 Bacteriuria; D72.829 Elevated white blood cell count, unspecified; I25.10 Atherosclerotic heart disease of native coronary artery without angina pectoris; J44.9 Chronic obstructive pulmonary disease, unspecified; E86.0 Dehydration; E87.5 Hyperkalemia; I10 Essential (primary) hypertension; T85.848A Pain due to other internal prosthetic devices, implants and grafts, initial encounter; E87.6 Hypokalemia; F41.9 Anxiety disorder, unspecified; F32.9 Major depressive disorder, single episode, unspecified; F90.9 Attention-deficit hyperactivity disorder, unspecified type; G83.14 Monoplegia of lower limb affecting left nondominant side; G83.24 Monoplegia of upper limb affecting left nondominant side; I69.321 Dysphasia following cerebral infarction; Y83.3 Surgical operation with formation of external stoma as the cause of abnormal reaction of the patient, or of later complication, without mention of misadventure at the time of the procedure; Z79.01 Long term (current) use of anticoagulants; Z79.82 Long term (current) use of aspirin; Z79.84 Long term (current) use of oral hypoglycemic drugs; Z79.899 Other long term (current) drug therapy; Z87.891 Personal history of nicotine dependence; Z95.1 Presence of aortocoronary bypass graft; Z95.5 Presence of coronary angioplasty implant and graft
CPT/HCPCS: 36415; 74018; 74150; 74177; 80048; 80053; 83605; 83735; 84484; 85025; 85027; 85610; 85730; 86850; 86900; 86901; 87040; 87077; 87086; 87186; 87635; 96361; 96374; 96375; 99285

== ENCOUNTER 2022-03-02 05:31 | Inpatient (IN) | payer MEDICARE, OTHER ==
[2022-03-02] MEDS ORDERED: SODIUM CHLORIDE 0.9% 500 ML 500 ML IV STA (05:36)
[2022-03-02] MEDS ORDERED: SODIUM CHLORIDE 0.9% 1,000 ML IV STA ×3 (05:36→06:19)
--- NOTE | 2022-03-02 05:37 | ED ---
Weakness HPI <Cole Casillas - Last Filed: 03/02/22 09:29> - General Source: RN notes reviewed, old records reviewed, Caregiver Limitations: altered mental status, physical limitation - History of Present Illness MD Complaint: generalized weakness, lack of energy, difficulty walking -: unknown Location: generalized Severity: moderate Severity scale (1-10): 7 Quality: numbness Consistency: constant Worsens with: none Context: recent illness, history of similar Associated Symptoms: confusion <Cole Joyner - Last Filed: 03/02/22 22:06> - General Stated complaint: MICHAEL Time Seen by Provider: 03/02/22 05:35 - History of Present Illness Initial comments: This is a 71-year-old female to the ER for evaluation she is a complicated patient unable to provide history currently secondary to clinical condition. Patient has no travel history no sick contacts patient was found to be significantly unresponsive today. Patient is brought in for unresponsiveness. Patient was unable to provide history she is responsive to pain patient has history provided by EMS and prior charting (Cole Joyner) - Related Data Home Medications Medication Instructions Recorded Confirmed Albuterol Nebulized [Ventolin 2.5 mg INHALATION RT-QID PRN 01/17/21 03/02/22 Nebulized] Melatonin 6 mg PO HS 01/17/21 03/02/22 Rivaroxaban [Xarelto] 2.5 mg PO BID 01/17/21 03/02/22 Sertraline [Zoloft] 100 mg PO HS 01/17/21 03/02/22 metFORMIN HCL [Glucophage] 1,000 mg PO BID 01/17/21 03/02/22 Acetaminophen [Tylenol] 650 mg PO Q4H PRN 03/02/22 03/02/22 Atorvastatin [Lipitor] 80 mg PO HS 03/02/22 03/02/22 Ensure Clear 1 can PO QID 03/02/22 03/02/22 HYDROcodone/APAP 10-325MG [[place] 1 tab PO Q6H PRN 03/02/22 03/02/22 10-325] Pantoprazole [Protonix] 40 mg PO BID 03/02/22 03/02/22 levETIRAcetam [Keppra] 750 mg PO BID 03/02/22 03/02/22 Previous Rx's Medication Instructions Recorded Aspirin 325 mg PO DAILY #30 tab 01/21/21 Metoprolol Tartrate [Lopressor] 50 mg PO BID #60 tab 01/21/21 clonazePAM [KlonoPIN] 0.5 mg PO HS 3 Days #6 tab 01/21/21 polyethylene glycoL 3350 [Miralax] 17 gm PO DAILY PRN #30 packet 01/21/21 Allergies Allergy/AdvReac Type Severity Reaction Status Date / Time No Known Allergies Allergy Verified 03/02/22 08:04 Review of Systems ROS Other: All systems not noted in ROS Statement are negative. <Cole Casillas - Last Filed: 03/02/22 09:29> ROS Other: All systems not noted in ROS Statement are negative. <Cole Joyner - Last Filed: 03/02/22 22:06> ROS Statement: Those systems with pertinent positive or pertinent negative responses have been documented in the HPI. Past Medical History Past Medical History: Coronary Artery Disease (CAD), COPD, CVA/TIA, Hypertension Additional Past Medical History / Comment(s): pt states she has been treated for scabies one year ago History of Any Multi-Drug Resistant Organisms: None Reported Past Surgical History: Coronary Bypass/CABG, Heart Catheterization With Stent Additional Past Surgical History / Comment(s): cabg 2013 Past Anesthesia/Blood Transfusion Reactions: No Reported Reaction Date of Last Stent Placement:: 2013 Past Psychological History: ADD/ADHD, Depression Smoking Status: Former smoker Past Alcohol Use History: None Reported Past Drug Use History: None Reported, Marijuana - Past Family History Mother Family Medical History: Unable to Obtain <Cole Joyner - Last Filed: 03/02/22 22:06> General Exam Limitations: altered mental status General appearance: alert, in no apparent distress, cachectic Head exam: Present: atraumatic, normocephalic, normal inspection Eye exam: Present: normal appearance, PERRL, EOMI. Absent: scleral icterus, conjunctival injection, periorbital swelling ENT exam: Present: normal exam, mucous membranes moist Neck exam: Present: normal inspection. Absent: tenderness, meningismus, lymphadenopathy Respiratory exam: Present: normal lung sounds bilaterally. Absent: respiratory distress, wheezes, rales, rhonchi, stridor Cardiovascular Exam: Present: regular rate, normal rhythm, normal heart sounds. Absent: systolic murmur, diastolic murmur, rubs, gallop, clicks GI/Abdominal exam: Present: soft, normal bowel sounds. Absent: distended, tenderness, guarding, rebound, rigid Extremities exam: Present: normal inspection, full ROM, normal capillary refill. Absent: tenderness, pedal edema, joint swelling, calf tenderness Back exam: Present: normal inspection Neurological exam: Present: alert, oriented X3, CN II-XII intact Psychiatric exam: Present: normal affect, normal mood Skin exam: Present: warm, dry, intact, normal color. Absent: rash <Cole Joyner - Last Filed: 03/02/22 22:06> Course <Cole Joyner - Last Filed: 03/02/22 22:06> Vital Signs 03/02/22 03/02/22 03/02/22 05:40 05:45 06:00 Temperature 98 F Pulse Rate 89 89 89 Respiratory 16 18 18 Rate Blood Pressure 86/55 84/52 83/66 O2 Sat by Pulse 96 96 94 L Oximetry 03/02/22 03/02/22 03/02/22 06:30 07:00 08:13 Temperature Pulse Rate 92 109 H 100 Respiratory 18 18 Rate Blood Pressure 83/66 83/69 O2 Sat by Pulse 88 L 88 L Oximetry 03/02/22 03/02/22 03/02/22 08:25 09:07 10:00 Temperature Pulse Rate 98 100 101 H Respiratory 20 18 Rate Blood Pressure 111/84 100/66 O2 Sat by Pulse 95 99 Oximetry 03/02/22 03/02/22 03/02/22 11:00 12:00 13:00 Temperature Pulse Rate 96 98 96 Respiratory 16 18 18 Rate Blood Pressure 108/75 103/67 104/57 O2 Sat by Pulse 99 98 99 Oximetry 03/02/22 03/02/22 03/02/22 14:00 15:56 16:07 Temperature 98.9 F Pulse Rate 98 96 98 Respiratory 18 Rate Blood Pressure 105/64 O2 Sat by Pulse 98 Oximetry 03/02/22 18:00 Temperature Pulse Rate 97 Respiratory 18 Rate Blood Pressure 112/67 O2 Sat by Pulse 98 Oximetry - Reevaluation(s) Reevaluation #1: 03/02/22 Medical record is reviewed (Cole Joyner) Reevaluation #2: 03/02/22 Patient informed results and questions answered (Cole Joyner) Reevaluation #3: 03/02/22 Patient is showing improvement with hydration here in the ER (Cole Joyner) - Consultations Consultation #1: Spoke with admitting physicians who agree to admit this patient (Cole Joyner) Consultation #2: Spoke with ICU who agreed to admit this patient (Cole Joyner) EKG Findings - EKG Comments: EKG Findings:: EKG is A. fib 94 QRS 94 QTC 417 <Cole Joyner - Last Filed: 03/02/22 22:06> Procedures - Sepsis Sepsis Focused Exam #1 Sepsis Focused Exam Complete: Yes Vital Signs & RN Notes Reviewed: Yes Capillary Refill: < 2 Seconds: Fingers, Toes Peripheral Pulses: Normal: Radial (R), Radial (L), Posterior Tibialis (R), Posterior Tibialis (L), Dorsalis Pedis (R), Dorsalis Pedis (L) Skin Color: Ashen Respiratory Exam: normal lung sounds Cardiovascular Exam: regular rate <Cole Joyner - Last Filed: 03/02/22 22:06> Medical Decision Making - Lab Data Result diagrams: 03/02/22 05:54 03/02/22 05:54 <Cole Casillas - Last Filed: 03/02/22 09:29> - Lab Data Result diagrams: 03/02/22 05:54 03/02/22 09:12 - EKG Data -: EKG Interpreted by Me (EKG shows A. fib rate 94 QRS 94 QTC 40 to) - Radiology Data Radiology results: report reviewed (Chest x-ray and CT head and pelvis is negative for acute disease), image reviewed <Cole Joyner - Last Filed: 03/02/22 22:06> - Medical Decision Making I spoke with Dr. Hermosillo about the admission he accepted the patient to be admitted to the ICU (Cole Casillas) This is a 69-year-old female to the emergency department for evaluation severe dehydration possible underlying infection. Patient placed on antibiotics with pending admission to the ICU, patient currently pending CT head and pelvis and chest x-ray for source of infection (Cole Joyner) - Lab Data Lab Results 03/02/22 03/02/22 03/02/22 Range/Units 05:54 05:54 05:54 WBC 10.3 (3.8-10.6) k/uL RBC 4.09 (3.80-5.40) m/uL Hgb 10.7 L (11.4-16.0) gm/dL Hct 37.7 (34.0-46.0) % MCV 92.1 (80.0-100.0) fL MCH 26.1 (25.0-35.0) pg MCHC 28.4 L (31.0-37.0) g/dL RDW 15.3 (11.5-15.5) % Plt Count 289 (150-450) k/uL MPV 8.4 Neutrophils % 85 % Lymphocytes % 11 % Monocytes % 2 % Eosinophils % 1 % Basophils % 1 % Neutrophils # 8.8 H (1.3-7.7) k/uL Lymphocytes # 1.1 (1.0-4.8) k/uL Monocytes # 0.2 (0-1.0) k/uL Eosinophils # 0.1 (0-0.7) k/uL Basophils # 0.1 (0-0.2) k/uL Hypochromasia Marked PT 11.0 (9.0-12.0) sec INR 1.0 (<1.2) APTT 22.1 (22.0-30.0) sec Sodium 145 (137-145) mmol/L Potassium 6.9 H* (3.5-5.1) mmol/L Chloride 109 H (98-107) mmol/L Carbon Dioxide 8 L* (22-30) mmol/L Anion Gap 28 mmol/L BUN 63 H (7-17) mg/dL Creatinine 4.20 H (0.52-1.04) mg/dL Est GFR (CKD-EPI)AfAm 12 (>60 ml/min/1.73 sqM) Est GFR (CKD-EPI)NonAf 10 (>60 ml/min/1.73 sqM) Glucose 93 (74-99) mg/dL Lactic Ac Sepsis Rflx Plasma Lactic Acid Santiago (0.7-2.0) mmol/L Calcium 9.2 (8.4-10.2) mg/dL Phosphorus 9.6 H* (2.5-4.5) mg/dL Magnesium 1.4 L (1.6-2.3) mg/dL Total Bilirubin 0.5 (0.2-1.3) mg/dL AST 28 (14-36) U/L ALT 19 (4-34) U/L Alkaline Phosphatase 71 (38-126) U/L Troponin I (0.000-0.034) ng/mL NT-Pro-B Natriuret Pep pg/mL Total Protein 6.9 (6.3-8.2) g/dL Albumin 4.0 (3.5-5.0) g/dL 03/02/22 03/02/22 03/02/22 Range/Units 05:54 05:54 05:54 WBC (3.8-10.6) k/uL RBC (3.80-5.40) m/uL Hgb (11.4-16.0) gm/dL Hct (34.0-46.0) % MCV (80.0-100.0) fL MCH (25.0-35.0) pg MCHC (31.0-37.0) g/dL RDW (11.5-15.5) % Plt Count (150-450) k/uL MPV Neutrophils % % Lymphocytes % % Monocytes % % Eosinophils % % Basophils % % Neutrophils # (1.3-7.7) k/uL Lymphocytes # (1.0-4.8) k/uL Monocytes # (0-1.0) k/uL Eosinophils # (0-0.7) k/uL Basophils # (0-0.2) k/uL Hypochromasia PT (9.0-12.0) sec INR (<1.2) APTT (22.0-30.0) sec Sodium (137-145) mmol/L Potassium (3.5-5.1) mmol/L Chloride (98-107) mmol/L Carbon Dioxide (22-30) mmol/L Anion Gap mmol/L BUN (7-17) mg/dL Creatinine (0.52-1.04) mg/dL Est GFR (CKD-EPI)AfAm (>60 ml/min/1.73 sqM) Est GFR (CKD-EPI)NonAf (>60 ml/min/1.73 sqM) Glucose (74-99) mg/dL Lactic Ac Sepsis Rflx Plasma Lactic Acid Santiago 9.7 H* (0.7-2.0) mmol/L Calcium (8.4-10.2) mg/dL Phosphorus (2.5-4.5) mg/dL Magnesium (1.6-2.3) mg/dL Total Bilirubin (0.2-1.3) mg/dL AST (14-36) U/L ALT (4-34) U/L Alkaline Phosphatase (38-126) U/L Troponin I <0.012 (0.000-0.034) ng/mL NT-Pro-B Natriuret Pep 86334 pg/mL Total Protein (6.3-8.2) g/dL Albumin (3.5-5.0) g/dL 03/02/22 Range/Units 06:17 WBC (3.8-10.6) k/uL RBC (3.80-5.40) m/uL Hgb (11.4-16.0) gm/dL Hct (34.0-46.0) % MCV (80.0-100.0) fL MCH (25.0-35.0) pg MCHC (31.0-37.0) g/dL RDW (11.5-15.5) % Plt Count (150-450) k/uL MPV Neutrophils % % Lymphocytes % % Monocytes % % Eosinophils % % Basophils % % Neutrophils # (1.3-7.7) k/uL Lymphocytes # (1.0-4.8) k/uL Monocytes # (0-1.0) k/uL Eosinophils # (0-0.7) k/uL Basophils # (0-0.2) k/uL Hypochromasia PT (9.0-12.0) sec INR (<1.2) APTT (22.0-30.0) sec Sodium (137-145) mmol/L Potassium (3.5-5.1) mmol/L Chloride (98-107) mmol/L Carbon Dioxide (22-30) mmol/L Anion Gap mmol/L BUN (7-17) mg/dL Creatinine (0.52-1.04) mg/dL Est GFR (CKD-EPI)AfAm (>60 ml/min/1.73 sqM) Est GFR (CKD-EPI)NonAf (>60 ml/min/1.73 sqM) Glucose (74-99) mg/dL Lactic Ac Sepsis Rflx Y Plasma Lactic Acid Santiago (0.7-2.0) mmol/L Calcium (8.4-10.2) mg/dL Phosphorus (2.5-4.5) mg/dL Magnesium (1.6-2.3) mg/dL Total Bilirubin (0.2-1.3) mg/dL AST (14-36) U/L ALT (4-34) U/L Alkaline Phosphatase (38-126) U/L Troponin I (0.000-0.034) ng/mL NT-Pro-B Natriuret Pep pg/mL Total Protein (6.3-8.2) g/dL Albumin (3.5-5.0) g/dL Critical Care Time Critical Care Time: Yes Total Critical Care Time: 31 <Cole Joyner - Last Filed: 03/02/22 22:06> Disposition <Cole Casillas - Last Filed: 03/02/22 09:29> Is patient prescribed a controlled substance at d/c from ED?: No Time of Disposition: 07:00 <Cole Joyner Last Filed: 03/02/22 22:06> Clinical Impression: Acute renal injury, ARF (acute renal failure), Lactic acidosis, Hyperkalemia, COPD (chronic obstructive pulmonary disease), Dehydration Disposition: ADMITTED IP TO THIS HOSP Condition: Serious
[2022-03-02 06:00] LABS: Basophils # (A) 0.1 k/uL (0-0.2); Basophils % (A) 1 %; Eosinophils # (A) 0.1 k/uL (0-0.7); Eosinophils % (A) 1 %; HCT 37.7 % (34.0-46.0); HGB 10.7 gm/dL (11.4-16.0); Hypochromasia Marked; Lymphocytes # (A) 1.1 k/uL (1.0-4.8); Lymphocytes % (A) 11 %; MCH 26.1 pg (25.0-35.0); MCHC 28.4 g/dL (31.0-37.0); MCV 92.1 fL (80.0-100.0); Mean Platelet Volume 8.4; Monocytes # (A) 0.2 k/uL (0-1.0); Monocytes % (A) 2 %; Neutrophils # (A) 8.8 k/uL (1.3-7.7); Neutrophils % (A) 85 %; Platelet Count 289 k/uL (150-450); RBC 4.09 m/uL (3.80-5.40); RDW 15.3 % (11.5-15.5); WBC 10.3 k/uL (3.8-10.6)
[2022-03-02 06:13] LABS: Calcium 9.2 mg/dL (8.4-10.2); Magnesium 1.4 mg/dL (1.6-2.3); Total Bilirubin 0.5 mg/dL (0.2-1.3); Total Protein 6.9 g/dL (6.3-8.2)
[2022-03-02 06:15] LABS: Partial Thromboplastin Time 22.1 sec (22.0-30.0)
[2022-03-02 06:17] LABS: Potassium 6.9 mmol/L (3.5-5.1)
[2022-03-02 06:18] LABS: Phosphorus 9.6 mg/dL (2.5-4.5)
[2022-03-02] MEDS ORDERED: DEXTROSE 50% SYRINGE 50 ML IVP STA (06:30)
[2022-03-02] MEDS ORDERED: SODIUM BICARB 8.4% 50 ML SYR (1 MEQ/ML) IV STA ×2 (06:30)
[2022-03-02] MEDS ORDERED: INSULIN REGULAR 100 UNIT/ML VIAL (IV) IV ONE (06:30)
[2022-03-02] MEDS ORDERED: CALCIUM CHLORIDE 100 MG/ML 10 ML SYRINGE IVP STA (06:30)
[2022-03-02] MEDS ORDERED: NALOXONE 0.4 MG/ML 1 ML VIAL IV PRN (06:32)
[2022-03-02] MEDS ORDERED: MORPHINE SULFATE 4 MG/ML SYRINGE IV PRN (06:32)
[2022-03-02] MEDS ORDERED: IPRATROPIUM-ALBUTEROL 3 ML NEB INHALATION STA (06:45)
[2022-03-02] MEDS ORDERED: ONDANSETRON 4 MG/2 ML VIAL IVP STA (07:10)
[2022-03-02] MEDS ORDERED: ONDANSETRON 4 MG/2 ML VIAL IVP PRN (07:10)
[2022-03-02] MEDS ORDERED: PROCHLORPERAZINE INJ 10 MG/2 ML VIAL IVP STA (07:10)
[2022-03-02] MEDS ORDERED: PANTOPRAZOLE 40 MG/10 ML VIAL IVP STA (07:10)
[2022-03-02] MEDS: MAGNESIUM SULFATE-D5W PMX 1 GM in DEXTROSE/WATER 1 100ML.BAG IVPB SCH ×3 (07:18→23:39)
--- NOTE | 2022-03-02 07:45 | XR ---
EXAM: XR Chest, 1 View CLINICAL HISTORY: ITS.REASON XR Reason: cough TECHNIQUE: Frontal view of the chest. COMPARISON: XR Chest dated 02/13/2020 FINDINGS: Lungs: Mild left basilar atelectasis or airspace disease in the left costophrenic angle. New since prior. Otherwise lungs appear clear. Pleural space: Unremarkable. No pneumothorax. Heart: Prosthetic heart valve. Mediastinum: Unremarkable. Bones/joints: Median sternotomy wires. IMPRESSION: Mild left basilar atelectasis or airspace disease in the left costophrenic angle. New since prior.
[2022-03-02 08:16] LABS: ABG Base Excess -21.7 mmol/L; ABG PCO2 31 mmHg (35-45); ABG PO2 163 mmHg (83-108); ABG TCO2 10 mmol/L (19-24); Allen Test Performed? Yes
[2022-03-02 08:21] LABS: ABG HCO3 9 mmol/L (21-25); ABG Oxygen Saturation 99.6 % (94-97); ABG PH 7.06 (7.35-7.45)
--- NOTE | 2022-03-02 09:00 | CT ---
EXAMINATION TYPE: CT abdomen pelvis wo con CT DLP: 469.5 mGycm, Automated exposure control for dose reduction was used. DATE OF EXAM: 03/02/2022 8:53 AM COMPARISON: CT abdomen pelvis most recent from 01/17/2021 CLINICAL INDICATION:Female, 71 years old with history of pain; abd pain, nausea, vomiting TECHNIQUE: Axial CT of the abdomen and pelvis. Sagittal and coronal reformats were created on a [employer] workstation. Contrast used: None Oral contrast used: without Oral Contrast FINDINGS: LOWER CHEST: Mitral valve annular calcifications. ABDOMEN LIVER: Unremarkable GALLBLADDER AND BILE DUCTS: Unremarkable. PANCREAS: Unremarkable. SPLEEN: Unremarkable. ADRENAL GLANDS: Unremarkable. KIDNEYS AND URETERS: Nonobstructing right renal calculi. No evidence of hydronephrosis. PELVIS BLADDER: Nondistended with F[place] catheter in place. REPRODUCTIVE: Calcified presumably degenerating fibroid. ABDOMEN & PELVIS STOMACH AND BOWEL: No evidence of bowel obstruction. Moderate stool burden throughout the colon. Scat tered clonic diverticula. The appendix is normal. PERITONEUM: No evidence of pneumoperitoneum or free fluid. VASCULATURE: Mild atherosclerotic calcifications are present throughout the abdominal aorta and its b ranches. No evidence of aortic aneurysm. MUSCULOSKELETAL: No acute osseous abnormalities. Mild disc degeneration changes are present throughou t the thoracolumbar spine. LYMPH NODES: No gross evidence for lymphadenopathy. SOFT TISSUE/ABDOMINAL WALL: Unremarkable IMPRESSION: 1. No evidence for acute intraluminal process. 2. Colonic diverticulosis. 3. Moderate to severe atherosclerosis of the arterial vasculature. 4. Nonobstructing right renal calculi. 5. Moderate stool burden throughout the colon.
[2022-03-02 09:05] LABS: Amorphous Sediment,Urine Few /hpf; Appearance,Urine Cloudy (Clear); Bacteria,Urine Many /hpf; Bilirubin,Urine Negative (Negative); Blood,Urine Small (Negative); Color,Urine Light Yellow; Glucose,Urine (UA) 1+ (Negative); Hyaline Casts,Urine 3 /lpf (0-2); Leukocyte Esterase,Urine Negative (Negative); Mucus,Urine Rare /hpf; Nitrite,Urine Negative (Negative); PH, Urine 5.5 (5.0-8.0); Protein,Urine 2+ (Negative); RBC,Urine 7 /hpf (0-5); Specific Gravity,Urine 1.014 (1.001-1.035); Squamous Epithelial Cell,Urine 5 /hpf (0-4); Urobilinogen,Urine <2.0 mg/dL (<2.0); WBC,Urine 7 /hpf (0-5)
[2022-03-02 09:14] LABS: Ketones,Urine 2+ (Negative)
[2022-03-02] MEDS: SODIUM CHLORIDE 0.9% 1,000 ML IV SCH ×3 (09:19→21:11)
[2022-03-02] MEDS: PANTOPRAZOLE 40 MG/10 ML VIAL IV SCH (09:26)
[2022-03-02 10:24] LABS: Calcium 8.5 mg/dL (8.4-10.2); Potassium 4.8 mmol/L (3.5-5.1); Total Bilirubin 0.4 mg/dL (0.2-1.3); Total Protein 5.5 g/dL (6.3-8.2)
--- NOTE | 2022-03-02 10:53 | P.CNPUL ---
History of Present Illness Consult date: 03/02/22 Requesting physician: Enrrique Thomas Reason for consult: other Chief complaint: Mental status changes, sepsis, renal failure. History of present illness: Pulmonary consult dated 03/02/2022. 71-year-old female who resides at one of the local nursing homes. She is apparently brought into the emergency room, because of generalized weakness, lack of energy, difficulty in ambulation, and apparently abdominal pain. Currently, the patient is seen in emergency room #11. I believe my partner was called about this patient by the ER physician. The patient had a blood gas showing a pO2 163, pCO2 31, and a pH is 7.06. She is not able to provide any additional history. She is very lethargic and somnolent. Her lower extremities are mottled. Not much history could be obtained from the ER maycol either. She apparently has a history of CAD, COPD, CVA, and hypertension. She also is status post CABG. White count 10.3, hemoglobin 10.7, hematocrit 37.7, and platelet count 289,000. Repeat electrolyte profile shows a sodium 150, potassium 4.8, chlorides 1:15, CO2 8, anion gap 27, BUN 53, and creatinine 3.49. Lactic acid was 9.7. Repeat was 11.0. Urine is light yellow and cloudy. Protein is 2+. Leukocyte esterase and nitrate were both negative. Chest x-ray shows mild left basilar atelectasis or airspace disease. CT of the abdomen and pelvis shows no acute intraluminal/intra-abdominal process. There is colonic diverticulosis, and a nonobstructing right renal calculi. Review of Systems REVIEW OF SYSTEMS: CONSTITUTIONAL: Weakness, mental status changes. NEUROLOGIC: [ Negative.] HEENT: [ Negative.] CARDIAC: [Negative.] PULMONARY: [Negative.] GI: Abdominal pain. : [Negative.] RHEUMATOLOGIC: [ Negative.] IMMUNOLOGIC: [ Negative.] ENDOCRINE: [Negative. ] DERMATOLOGIC: [Negative.] Past Medical History Past Medical History: Coronary Artery Disease (CAD), COPD, CVA/TIA, Hypertension Additional Past Medical History / Comment(s): pt states she has been treated for scabies one year ago History of Any Multi-Drug Resistant Organisms: None Reported Past Surgical History: Coronary Bypass/CABG, Heart Catheterization With Stent Additional Past Surgical History / Comment(s): cabg 2013 Past Anesthesia/Blood Transfusion Reactions: No Reported Reaction Date of Last Stent Placement:: 2013 Past Psychological History: ADD/ADHD, Depression Smoking Status: Former smoker Past Alcohol Use History: None Reported Past Drug Use History: None Reported, Marijuana - Past Family History Mother Family Medical History: Unable to Obtain Medications and Allergies Home Medications Medication Instructions Recorded Confirmed Type Albuterol Nebulized [Ventolin 2.5 mg INHALATION RT-QID PRN 01/17/21 03/02/22 History Nebulized] Melatonin 6 mg PO HS 01/17/21 03/02/22 History Rivaroxaban [Xarelto] 2.5 mg PO BID 01/17/21 03/02/22 History Sertraline [Zoloft] 100 mg PO HS 01/17/21 03/02/22 History metFORMIN HCL [Glucophage] 1,000 mg PO BID 01/17/21 03/02/22 History Aspirin 325 mg PO DAILY #30 tab 01/21/21 03/02/22 Rx Metoprolol Tartrate [Lopressor] 50 mg PO BID #60 tab 01/21/21 03/02/22 Rx clonazePAM [KlonoPIN] 0.5 mg PO HS 3 Days #6 tab 01/21/21 03/02/22 Rx polyethylene glycoL 3350 [Miralax] 17 gm PO DAILY PRN #30 packet 01/21/2103/02 Rx Acetaminophen [Tylenol] 650 mg PO Q4H PRN 03/02/22 03/02/22 History Atorvastatin [Lipitor] 80 mg PO HS 03/02/22 03/02/22 History Ensure Clear 1 can PO QID 03/02/22 03/02/22 History HYDROcodone/APAP 10-325MG [[place] 1 tab PO Q6H PRN 03/02/22 03/02/22 History 10-325] Pantoprazole [Protonix] 40 mg PO BID 03/02/22 03/02/22 History levETIRAcetam [Keppra] 750 mg PO BID 03/02/22 03/02/22 History Allergies Allergy/AdvReac Type Severity Reaction Status Date / Time No Known Allergies Allergy Verified 03/02/22 08:04 Physical Exam Osteopathic Statement: *. No significant issues noted on an osteopathic s tructural exam other than those noted in the History and Physical/Consult. Vitals: Vital Signs Temp Pulse Resp BP Pulse Ox 03/02/22 09:07 100 20 111/84 95 03/02/22 08:25 98 03/02/22 08:13 100 03/02/22 07:00 109 H 18 83/69 88 L 03/02/22 06:30 92 18 83/66 88 L 03/02/22 06:00 89 18 83/66 94 L 03/02/22 05:45 89 18 84/52 96 03/02/22 05:40 98 F 89 16 86/55 96 Intake and Output 03/01/22 03/02/22 03/02/22 22:59 06:59 14:59 Other: Weight 58.967 kg No acute distress, very lethargic and somnolent, currently on 4 L. HEENT examination is grossly unremarkable. Mucous membranes are dry. Neck supple. Full range of motion. No adenopathy thyromegaly or neck vein distention. Cardiovascular examination reveals regular rhythm rate. S1-S2 normal. No S3 or S4. No discernible murmur noted. Heart rate 100 bpm. Lungs reveal mostly clear breath sounds. Scattered rhonchi. No wheezes or crackles. 4 L saturation is 95%. Abdomen soft bowel sounds are heard. No masses or tenderness. Extremities are intact. Extremities are mottled. No significant edema. No clubbing. Skin is without rash or lesion. Neurologic examination cannot be adequately assessed as the patient's very lethargic. Results - Laboratory Findings CBC and BMP: 03/02/22 05:54 03/02/22 09:12 ABG ABG pH 7.06 (7.35-7.45) L* 03/02/22 08:10 ABG pCO2 31 mmHg (35-45) L 03/02/22 08:10 ABG pO2 163 mmHg (83-108) H 03/02/22 08:10 ABG O2 Saturation 99.6 % (94-97) H 03/02/22 08:10 PT/INR, D-dimer PT 11.0 sec (9.0-12.0) 03/02/22 05:54 INR 1.0 (<1.2) 03/02/22 05:54 Abnormal lab findings: Abnormal Labs 03/02/22 03/02/22 03/02/22 05:54 05:54 05:54 Hgb 10.7 L MCHC 28.4 L Neutrophils # 8.8 H ABG pH ABG pCO2 ABG pO2 ABG HCO3 ABG Total CO2 ABG O2 Saturation Sodium Potassium 6.9 H* Chloride 109 H Carbon Dioxide 8 L* BUN 63 H Creatinine 4.20 H Glucose Plasma Lactic Acid Santiago 9.7 H* Phosphorus 9.6 H* Magnesium 1.4 L ALT Total Protein Albumin Urine Appearance Urine Protein Urine Glucose (UA) Urine Ketones Urine Blood Urine RBC Urine WBC Ur Squamous Epith Cells Amorphous Sediment Urine Bacteria Hyaline Casts Urine Mucus 03/02/22 03/02/22 03/02/22 08:10 08:34 08:41 Hgb MCHC Neutrophils # ABG pH 7.06 L* ABG pCO2 31 L ABG pO2 163 H ABG HCO3 9 L* ABG Total CO2 10 L ABG O2 Saturation 99.6 H Sodium Potassium Chloride Carbon Dioxide BUN Creatinine Glucose Plasma Lactic Acid Santiago 11.0 H* Phosphorus Magnesium ALT Total Protein Albumin Urine Appearance Cloudy H Urine Protein 2+ H Urine Glucose (UA) 1+ H Urine Ketones 2+ H Urine Blood Small H Urine RBC 7 H Urine WBC 7 H Ur Squamous Epith Cells 5 H Amorphous Sediment Few H Urine Bacteria Many H Hyaline Casts 3 H Urine Mucus Rare H 03/02/22 09:12 Hgb MCHC Neutrophils # ABG pH ABG pCO2 ABG pO2 ABG HCO3 ABG Total CO2 ABG O2 Saturation Sodium 150 H Potassium Chloride 115 H Carbon Dioxide 8 L* BUN 53 H Creatinine 3.49 H Glucose 158 H Plasma Lactic Acid Santiago Phosphorus Magnesium ALT 36 H Total Protein 5.5 L Albumin 3.0 L Urine Appearance Urine Protein Urine Glucose (UA) Urine Ketones Urine Blood Urine RBC Urine WBC Ur Squamous Epith Cells Amorphous Sediment Urine Bacteria Hyaline Casts Urine Mucus - Diagnostic Findings Chest x-ray: image reviewed Assessment and Plan Assessment: Acute mental status changes, of unclear etiology. Could relate to underlying infection, such as possible pneumonia. Acute kidney injury with severe anion gap metabolic acidosis. Acute lactic acidemia. Hypernatremia. History of CAD with previous CABG, 2013. History of COPD. History of CVA. History of hypertension. Prior history of tobacco use. Plan: Plan dated 03/02/2022. The patient was seen in the emergency room. The patient should probably be brought to the intensive care unit. She apparently is a full code. The patien t's chest x-ray, and computed tomography scan of the abdomen/pelvis were reviewed. Nephrology should be consulted. We did change her IV at a dextrose with 3 ampules of sodium bicarbonate, at 125 mL an hour. Prognosis is very guarded. We will continue to follow. She was given Rocephin by the ER physician. She is also receiving breathing treatments. Time with Patient: Greater than 30
[2022-03-02] MEDS: DEXTROSE 5% IN WATER 1,000 ML with SODIUM BICARB (1 MEQ/ML) 150 ML IV SCH ×3 (11:17→19:48)
[2022-03-02] MEDS: IPRATROPIUM-ALBUTEROL 3 ML NEB INHALATION PRN (15:54)
[2022-03-02 18:33] LABS: Glucose,Whole Blood 224 mg/dL (70-110)
[2022-03-02] MEDS: SODIUM CHLORIDE 0.45% 1,000 ML IV SCH (19:06)
[2022-03-02 22:05] LABS: Potassium 3.8 mmol/L (3.5-5.1)
[2022-03-02] MEDS ORDERED: SODIUM CHLORIDE 0.9% 1,000 ML IV ONE (22:21)
[2022-03-02 22:36] LABS: ABG Base Excess -6.7 mmol/L; ABG Glucose Whole Blood 235 mg/dL (75-99); ABG HCO3 19 mmol/L (21-25); ABG Hematocrit 27 % (34.0-46.0); ABG Ionized Calcium 4.6 mg/dL (4.5-5.3); ABG Oxygen Saturation 97.9 % (94-97); ABG PCO2 38 mmHg (35-45); ABG PH 7.31 (7.35-7.45); ABG PO2 116 mmHg (83-108); ABG Potassium Whole Blood 4.7 mmol/L (3.4-4.5); ABG Sodium Whole Blood 148 mmol/L (135-146); ABG TCO2 20 mmol/L (19-24); Allen Test Performed? Yes
[2022-03-02 22:38] LABS: ABG Lactic Acid Whole Blood 8.1 mmol/L (0.5-1.6)
[2022-03-02 22:40] LABS: Calcium 5.4 mg/dL (8.4-10.2)
--- NOTE | 2022-03-02 23:12 | P.HPIM ---
History of Present Illness H&P Date: 03/02/22 Patient is a 71-year-old female with a known history of hypertension, diabetes type 2 [id number], CVA with left-sided weakness, coronary artery disease status post CABG and history of stent placement, chronic atrial fibrillation on anticoagulation with Xarelto depression and prior history of smoking was sent from residential due to complaints of generalized weakness lethargy and altered mental status. Patient has been becoming more weak and lethargic for the past couple of days and was also hard to arouse. Patient was brought to ER by EMS. Evidently patient was also complaining abdominal pain as per nursing staff. Patient is currently unable to provide any history. On admission patient was hypotensive with blood pressure 86/50 5 mmHg heart rate 89 respirations 16 and pulse ox 96% on room air. Patient was afebrile. Initial ABG showed pH 7.06 PCO2 31 PO2 163 and bicarb is 9 Laboratory data showed sodium 145 potassium 6.9 chloride 109 bicarb is 8 anion gap 28 BUN 63 and creatinine 4.2 lactic acid 9.7 phosphorus 9.6 magnesium 1.4 Urinalysis showed cloudy with 2+ protein 1+ glucose 2+ ketones and RBC 7 WBC 7 squamous epithelial cells 5. WBC 10.3 hemoglobin 10.7 and platelets 289 neutrophils 8.8 EKG showed atrial fibrillation with incomplete right bundle branch block Chest x-ray showed mild left basilar atelectasis or airspace disease in the left costophrenic angle. CT of the abdomen pelvis showed no evidence for acute intra luminal process. Colonic diverticulosis. Moderate to severe degenerative sclerosis of the arterial vasculature. Nonobstructing right renal calculi. Moderate stool burden throughout the colon. Review of Systems Complete review of systems could not be obtained from the patient at this time. ROS unobtainable: due to mental status Past Medical History Past Medical History: Coronary Artery Disease (CAD), COPD, CVA/TIA, Hypertension Additional Past Medical History / Comment(s): pt states she has been treated for scabies one year ago History of Any Multi-Drug Resistant Organisms: None Reported Past Surgical History: Coronary Bypass/CABG, Heart Catheterization With Stent Additional Past Surgical History / Comment(s): cabg 2013 Past Anesthesia/Blood Transfusion Reactions: No Reported Reaction Date of Last Stent Placement:: 2013 Past Psychological History: ADD/ADHD, Depression Smoking Status: Former smoker Past Alcohol Use History: None Reported Past Drug Use History: None Reported, Marijuana - Past Family History Mother Family Medical History: Unable to Obtain Medications and Allergies Home Medications Medication Instructions Recorded Confirmed Type Albuterol Nebulized [Ventolin 2.5 mg INHALATION RT-QID PRN 01/17/21 03/02/22 History Nebulized] Melatonin 6 mg PO HS 01/17/21 03/02/22 History Rivaroxaban [Xarelto] 2.5 mg PO BID 01/17/21 03/02/22 History Sertraline [Zoloft] 100 mg PO HS 01/17/21 03/02/22 History metFORMIN HCL [Glucophage] 1,000 mg PO BID 01/17/21 03/02/22 History Aspirin 325 mg PO DAILY #30 tab 01/21/21 03/02/22 Rx Metoprolol Tartrate [Lopressor] 50 mg PO BID #60 tab 01/21/21 03/02/22 Rx clonazePAM [KlonoPIN] 0.5 mg PO HS 3 Days #6 tab 01/21/21 03/02/22 Rx polyethylene glycoL 3350 [Miralax] 17 gm PO DAILY PRN #30 packet 01/21/21 03/02/22 Rx Acetaminophen [Tylenol] 650 mg PO Q4H PRN 03/02/22 03/02/22 History Atorvastatin [Lipitor] 80 mg PO HS 03/02/22 03/02/22 History Ensure Clear 1 can PO QID 03/02/22 03/02/22 History HYDROcodone/APAP 10-325MG [[place] 1 tab PO Q6H PRN 03/02/22 03/02/22 History 10-325] Pantoprazole [Protonix] 40 mg PO BID 03/02/22 03/02/22 History levETIRAcetam [Keppra] 750 mg PO BID 03/02/22 03/02/22 History Allergies Allergy/AdvReac Type Severity Reaction Status Date / Time No Known Allergies Allergy Verified 03/02/22 08:04 Physical Exam Vitals: Vital Signs Temp Pulse Resp BP Pulse Ox 03/02/22 13:00 96 18 104/57 99 03/02/22 12:00 98 18 103/67 98 03/02/22 11:00 96 16 108/75 99 03/02/22 10:00 101 H 18 100/66 99 03/02/22 09:07 100 20 111/84 95 03/02/22 08:25 98 03/02/22 08:13 100 03/02/22 07:00 109 H 18 83/69 88 L 03/02/22 06:30 92 18 83/66 88 L 03/02/22 06:00 89 18 83/66 94 L 03/02/22 05:45 89 18 84/52 96 03/02/22 05:40 98 F 89 16 86/55 96 Intake and Output 03/01/22 03/02/22 03/02/22 22:59 06:59 14:59 Other: Weight 58.967 kg PHYSICAL EXAMINATION: Patient is lying in the bed. Opens her eyes with sternal rub. HEENT: Normocephalic. Neck is supple. Pupils reactive. Nostrils clear. Oral cavity is moist. Neck reveals no JVD, carotid bruits, or thyromegaly. CHEST EXAMINATION: Trachea is central. Symmetrical expansion. Lung bhagat clear to auscultation and percussion. Bibasilar diminished sounds. CARDIAC: Normal S1, S2 with no gallops. No murmurs ABDOMEN: Soft. Bowel sounds present.. No organomegaly. No abdominal bruits. Extremities: reveal no edema. No clubbing or cyanosis Neurologically patient is lethargic and obtunded. Left-sided weakness Skin: No rash or skin lesions. Psychiatric: Could not be surgical at this time. Musculoskeletal: No joint swelling or deformity. Results CBC & Chem 7: 03/02/22 05:54 03/02/22 21:16 Labs: Abnormal Lab Results - Last 24 Hours (Table) 03/02/22 03/02/22 03/02/22 Range/Units 05:54 05:54 05:54 Hgb 10.7 L (11.4-16.0) gm/dL MCHC 28.4 L (31.0-37.0) g/dL Neutrophils # 8.8 H (1.3-7.7) k/uL ABG pH (7.35-7.45) ABG pCO2 (35-45) mmHg ABG pO2 (83-108) mmHg ABG HCO3 (21-25) mmol/L ABG Total CO2 (19-24) mmol/L ABG O2 Saturation (94-97) % Sodium (137-145) mmol/L Potassium 6.9 H* (3.5-5.1) mmol/L Chloride 109 H (98-107) mmol/L Carbon Dioxide 8 L* (22-30) mmol/L BUN 63 H (7-17) mg/dL Creatinine 4.20 H (0.52-1.04) mg/dL Glucose (74-99) mg/dL Plasma Lactic Acid Santiago 9.7 H* (0.7-2.0) mmol/L Phosphorus 9.6 H* (2.5-4.5) mg/dL Magnesium 1.4 L (1.6-2.3) mg/dL ALT (4-34) U/L Total Protein (6.3-8.2) g/dL Albumin (3.5-5.0) g/dL Urine Appearance (Clear) Urine Protein (Negative) Urine Glucose (UA) (Negative) Urine Ketones (Negative) Urine Blood (Negative) Urine RBC (0-5) /hpf Urine WBC (0-5) /hpf Ur Squamous Epith Cells (0-4) /hpf Amorphous Sediment (None) /hpf Urine Bacteria (None) /hpf Hyaline Casts (0-2) /lpf Urine Mucus (None) /hpf 03/02/22 03/02/22 03/02/22 Range/Units 08:10 08:34 08:41 Hgb (11.4-16.0) gm/dL MCHC (31.0-37.0) g/dL Neutrophils # (1.3-7.7) k/uL ABG pH 7.06 L* (7.35-7.45) ABG pCO2 31 L (35-45) mmHg ABG pO2 163 H (83-108) mmHg ABG HCO3 9 L* (21-25) mmol/L ABG Total CO2 10 L (19-24) mmol/L ABG O2 Saturation 99.6 H (94-97) % Sodium (137-145) mmol/L Potassium (3.5-5.1) mmol/L Chloride (98-107) mmol/L Carbon Dioxide (22-30) mmol/L BUN (7-17) mg/dL Creatinine (0.52-1.04) mg/dL Glucose (74-99) mg/dL Plasma Lactic Acid Santiago 11.0 H* (0.7-2.0) mmol/L Phosphorus (2.5-4.5) mg/dL Magnesium (1.6-2.3) mg/dL ALT (4-34) U/L Total Protein (6.3-8.2) g/dL Albumin (3.5-5.0) g/dL Urine Appearance Cloudy H (Clear) Urine Protein 2+ H (Negative) Urine Glucose (UA) 1+ H (Negative) Urine Ketones 2+ H (Negative) Urine Blood Small H (Negative) Urine RBC 7 H (0-5) /hpf Urine WBC 7 H (0-5) /hpf Ur Squamous Epith Cells 5 H (0-4) /hpf Amorphous Sediment Few H (None) /hpf Urine Bacteria Many H (None) /hpf Hyaline Casts 3 H (0-2) /lpf Urine Mucus Rare H (None) /hpf 03/02/22 03/02/22 Range/Units 09:12 11:33 Hgb (11.4-16.0) gm/dL MCHC (31.0-37.0) g/dL Neutrophils # (1.3-7.7) k/uL ABG pH (7.35-7.45) ABG pCO2 (35-45) mmHg ABG pO2 (83-108) mmHg ABG HCO3 (21-25) mmol/L ABG Total CO2 (19-24) mmol/L ABG O2 Saturation (94-97) % Sodium 150 H (137-145) mmol/L Potassium (3.5-5.1) mmol/L Chloride 115 H (98-107) mmol/L Carbon Dioxide 8 L* (22-30) mmol/L BUN 53 H (7-17) mg/dL Creatinine 3.49 H (0.52-1.04) mg/dL Glucose 158 H (74-99) mg/dL Plasma Lactic Acid Santiago 11.7 H* (0.7-2.0) mmol/L Phosphorus (2.5-4.5) mg/dL Magnesium (1.6-2.3) mg/dL ALT 36 H (4-34) U/L Total Protein 5.5 L (6.3-8.2) g/dL Albumin 3.0 L (3.5-5.0) g/dL Urine Appearance (Clear) Urine Protein (Negative) Urine Glucose (UA) (Negative) Urine Ketones (Negative) Urine Blood (Negative) Urine RBC (0-5) /hpf Urine WBC (0-5) /hpf Ur Squamous Epith Cells (0-4) /hpf Amorphous Sediment (None) /hpf Urine Bacteria (None) /hpf Hyaline Casts (0-2) /lpf Urine Mucus (None) /hpf Thrombosis Risk Factor Assmnt - DVT/VTE Prophylaxis DVT/VTE Prophylaxis: Pharmacologic Prophylaxis ordered Assessment and Plan Assessment: Acute metabolic encephalopathy and possible left lower lobe pneumonia/ Atelectatsis Acute kidney injury with creatinine level went up to 4.2 on admission. Baseline 0.8 Hyperkalemia with potassium 6.9 due to acute kidney injury/AGMA Anion gap metabolic acidosis due to severe lactic acidosis Severe lactic acidosis Hypernatremia due to volume depletion Hypomagnesemia. Hypertension. Patient is hypotensive currently Diabetes type 2 [id number] Coronary artery disease with history of CABG and prior stent placement Chronic atrial fibrillation on anticoagulation with Xarelto History of CVA with left-sided weakness Prior history of smoking DVT Proph Plan: Patient will be continued on bicarb drip and monitor BMP Q8h. Creatinine level improved to 3.49 and follow-up repeat lactic acid level. Continue with empiric antibiotics and supportive care. Replace electrolytes. Will initiate anticoagulation if CT head is negative. Patient is unable to tolerate oral diet currently. Follow-up closely. Discussed with her sister and son at bedside in detail. Prognosis is guarded at this time. Pulmonary and nephrology is on board. Time with Patient: Greater than 30
[2022-03-02 23:26] LABS: Glucose,Whole Blood 202 mg/dL (70-110)
[2022-03-02] MEDS: SENNOSIDES 8.6 MG TAB PO SCH (23:43)
[2022-03-02 23:45] LABS: Calcium 8.5 mg/dL (8.4-10.2); Potassium 5.1 mmol/L (3.5-5.1)
[2022-03-03] MEDS: MAGNESIUM SULFATE-D5W PMX 1 GM in DEXTROSE/WATER 1 100ML.BAG IVPB SCH (01:15)
[2022-03-03] MEDS: NOREPINEPHRINE 4 MG in SODIUM CHLORIDE 0.9% 250 ML IV SCH (01:30)
[2022-03-03] MEDS: DEXTROSE 5% IN WATER 1,000 ML with SODIUM BICARB (1 MEQ/ML) 150 ML IV SCH (04:42)
[2022-03-03 05:53] LABS: Albumin 2.9 g/dL (3.5-5.0); Calcium 7.7 mg/dL (8.4-10.2); Magnesium 2.1 mg/dL (1.6-2.3); Phosphorus 5.4 mg/dL (2.5-4.5); Potassium 4.7 mmol/L (3.5-5.1); Total Bilirubin 0.3 mg/dL (0.2-1.3); Total Protein 5.4 g/dL (6.3-8.2)
[2022-03-03] MEDS: INSULIN ASPART (NovoLOG) 100 UNIT/ML VIAL SQ SCH ×3 (06:43→17:38)
[2022-03-03 06:44] LABS: Glucose,Whole Blood 142 mg/dL (70-110)
[2022-03-03 07:42] LABS: Basophils # (A) 0.1 k/uL (0-0.2); Basophils % (A) 1 %; Eosinophils # (A) 0.1 k/uL (0-0.7); Eosinophils % (A) 1 %; HCT 34.7 % (34.0-46.0); HGB 10.4 gm/dL (11.4-16.0); Hypochromasia Marked; Lymphocytes % (A) 7 %; MCH 26.8 pg (25.0-35.0); MCHC 30.1 g/dL (31.0-37.0); Mean Platelet Volume 9.4; Monocytes # (A) 1.3 k/uL (0-1.0); Monocytes % (A) 9 %; Neutrophils # (A) 11.3 k/uL (1.3-7.7); Neutrophils % (A) 80 %; Platelet Count 172 k/uL (150-450); RDW 15.2 % (11.5-15.5); WBC 14.2 k/uL (3.8-10.6)
[2022-03-03] MEDS ORDERED: VANCOMYCIN IV PER PHARMACY 1 EACH MISC MISCELLANE PRN (07:44)
[2022-03-03] MEDS: SODIUM CHLORIDE 0.9% 1,000 ML IV SCH ×2 (07:52→10:00)
[2022-03-03] MEDS ORDERED: VANCOMYCIN 1,250 MG in SODIUM CHLORIDE 0.9% 250 ML IVPB ONE (08:00)
--- NOTE | 2022-03-03 08:57 | XR ---
EXAMINATION TYPE: XR chest 1V portable DATE OF EXAM: 03/03/2022 6:48 AM COMPARISON: Chest radiographs from 03/02/2022. TECHNIQUE: XR chest 1V portable Frontal view of the chest. CLINICAL INDICATION:Female, 71 years old with history of sob; FINDINGS: Patient is rotated which limits evaluation. Lungs/Pleura: Small left pleural effusion with left basilar patchy airspace opacities. No pneumothora x. Pulmonary vascularity: Unremarkable. Heart/mediastinum: Cardiomediastinal silhouette is enlarged and stable. Atherosclerotic calcificatio ns are seen in the aorta. Postsurgical changes with prosthetic valve. Musculoskeletal: No acute osseous pathology. Midline sternotomy wires are noted and stable. IMPRESSION: Small left pleural effusion with left basilar patchy airspace opacities which may represent atelectas is and/or infiltrate.
[2022-03-03] MEDS: SENNOSIDES 8.6 MG TAB PO SCH ×2 (09:12→20:57)
[2022-03-03] MEDS: SODIUM CHLORIDE 0.45% 1,000 ML IV SCH ×2 (09:13→22:00)
[2022-03-03] MEDS ORDERED: SODIUM BICARB 8.4% 50 ML SYR (1 MEQ/ML) IV STA (09:32)
[2022-03-03] MEDS: PANTOPRAZOLE 40 MG/10 ML VIAL IV SCH (09:51)
[2022-03-03] MEDS: HEPARIN SODIUM,PORCINE/PF 5,000 UNIT/0.5 ML SYRINGE SQ SCH ×2 (09:51→20:56)
--- NOTE | 2022-03-03 10:15 | P.PN ---
Subjective Progress Note Date: 03/03/22 Principal diagnosis: Sepsis. Pulmonary consult dated 03/02/2022. 71-year-old female who resides at one of the local nursing homes. She is apparently brought into the emergency room, because of generalized weakness, lack of energy, difficulty in ambulation, and apparently abdominal pain. Currently, the patient is seen in emergency room #11. I believe my partner was called about this patient by the ER physician. The patient had a blood gas showing a pO2 163, pCO2 31, and a pH is 7.06. She is not able to provide any additional history. She is very lethargic and somnolent. Her lower extremities are mottled. Not much history could be obtained from the ER maycol either. She apparently has a history of CAD, COPD, CVA, and hypertension. She also is status post CABG. White count 10.3, hemoglobin 10.7, hematocrit 37.7, and platelet count 289,000. Repeat electrolyte profile shows a sodium 150, potassium 4.8, chlorides 1:15, CO2 8, anion gap 27, BUN 53, and creatinine 3.49. Lactic acid was 9.7. Repeat was 11.0. Urine is light yellow and cloudy. Protein is 2+. Leukocyte esterase and nitrate were both negative. Chest x-ray shows mild left basilar atelectasis or airspace disease. CT of the abdomen and pelvis shows no acute intraluminal/intra-abdominal process. There is colonic diverticulosis, and a nonobstructing right renal calculi. Progress note dated 03/03/2022. This is a patient who was seen yesterday in the emergency room. She is 71 years of age, and resides at one of the local nursing homes. She was brought into the emergency room, because of generalized weakness, lack of energy, difficulty in ambulation, and abdominal pain. In addition, she had mental status changes. She was admitted to the intensive care unit. She is on 2 L of oxygen. She's getting D5W with 3 ampules of sodium bicarbonate at 125 cc/h. She's also getting half-normal saline at 75 mL an hour. Blood culture showed evidence of gram-positive cocci. I gave her dose of vancomycin this morning. She continues on Rocephin. Last night, her blood pressures were a bit low despite fluid resuscitation, she was on norepinephrine for brief period of time. Nephrology thinks that the patient may have metformin toxicity. That is because of her ongoing lactic acidosis. White count 14.2, hemoglobin 10.4, hematocrit 34.7, platelet count 272,000. Sodium 144, potassium 4.7, chlorides 104, CO2 21, anion gap 19, BUN 53, creatinine 3.14. Her lactic acid is 8.8. Chest x-ray shows a small left-sided pleural effusion and some basilar atelectasis or infiltrate at the left base. Objective - Vital Signs Vital signs: Vital Signs Temp 97.3 F L 03/03/22 08:00 Pulse 104 H 03/03/22 10:00 Resp 19 03/03/22 10:00 BP 139/89 03/03/22 10:00 Pulse Ox 97 03/03/22 10:00 FiO2 Intake & Output 03/02/22 03/03/22 03/03/22 18:59 06:59 18:59 Intake Total 3576.398 700 Output Total 755 510 Balance 2821.398 190 Weight 58.967 kg 66.3 kg Intake: IV 500 Dextrose 5% in Water 1, 250 000 ml @ 125 mls/hr IV . Q9H12M ELVIRA with Sodium Bicarb (1 Meq/ml) 150 ml Rx#:[id number] Sodium Chloride 0.45% 1, 250 000 ml @ 75 mls/hr IV . [id number] ELVIRA Rx#:[id number] Intake, IV Titration 3576.398 200 Amount Dextrose 5% in Water 1, 1500 125 000 ml @ 125 mls/hr IV . Q9H12M ELVIRA with Sodium Bicarb (1 Meq/ml) 150 ml Rx#:[id number] Norepinephrine 4 mg In 26.398 Sodium Chloride 0.9% 250 ml @ 0.03 MCG/KG/MIN 6.74 mls/hr IV .Q24H ELVIRA Rx#: [id number] Sodium Chloride 0.45% 1, 900 75 000 ml @ 75 mls/hr IV . [id number] ELVIRA Rx#:[id number] Sodium Chloride 0.9% 1, 1000 000 ml @ 999 mls/hr IV . Q1H1M ONE Rx#:[id number] cefTRIAXone 1 gm In 50 Sodium Chloride 0.9% 50 ml @ 100 mls/hr IVPB Q12H ELVIRA Rx#:[id number] cefTRIAXone 2 gm In 100 Sodium Chloride 0.9% 50 ml @ 100 mls/hr IVPB ONCE STA Rx#:[id number] Output: Urine 755 510 - Exam No acute distress, very lethargic and somnolent, poorly responsive, currently on 4 L. HEENT examination is grossly unremarkable. Mucous membranes are dry. Neck supple. Full range of motion. No adenopathy thyromegaly or neck vein d istention. Cardiovascular examination reveals regular rhythm rate. S1-S2 normal. No S3 or S4. No discernible murmur noted. Heart rate 104 bpm. Lungs reveal mostly clear breath sounds. Scattered rhonchi. No wheezes or crackles. 4 L saturation is 96 %. Abdomen soft bowel sounds are heard. No masses or tenderness. Extremities are intact. Extremities are less mottled. No significant edema. No clubbing. Skin is without rash or lesion. Neurologic examination cannot be adequately assessed as the patient's very lethargic. - Labs CBC & Chem 7: 03/03/22 06:58 03/03/22 05:17 Labs: Abnormal Lab Results - Last 24 Hours (Table) 03/02/22 03/02/22 03/02/22 Range/Units 09:12 11:33 15:57 WBC (3.8-10.6) k/uL Hgb (11.4-16.0) gm/dL MCHC (31.0-37.0) g/dL Neutrophils # (1.3-7.7) k/uL Monocytes # (0-1.0) k/uL ABG pH (7.35-7.45) ABG pO2 (83-108) mmHg ABG HCO3 (21-25) mmol/L ABG O2 Saturation (94-97) % ABG Hematocrit (34.0-46.0) % ABG Sodium (135-146) mmol/L ABG Potassium (3.4-4.5) mmol/L ABG Glucose (75-99) mg/dL ABG Lactic Acid (0.5-1.6) mmol/L Hemoglobin (11.4-16.0) gm/dL Sodium 150 H (137-145) mmol/L Chloride 115 H (98-107) mmol/L Carbon Dioxide 8 L* (22-30) mmol/L BUN 53 H (7-17) mg/dL Creatinine 3.49 H (0.52-1.04) mg/dL Glucose 158 H (74-99) mg/dL POC Glucose (mg/dL) (70-110) mg/dL Plasma Lactic Acid Santiago 11.7 H* 12.0 H* (0.7-2.0) mmol/L Calcium (8.4-10.2) mg/dL Phosphorus (2.5-4.5) mg/dL ALT 36 H (4-34) U/L Total Protein 5.5 L (6.3-8.2) g/dL Albumin 3.0 L (3.5-5.0) g/dL Arterial Blood Potassium (3.4-4.5) mmol/L Arterial Blood Glucose (75-99) mg/dL 03/02/22 03/02/22 03/02/22 Range/Units 18:31 21:16 21:16 WBC (3.8-10.6) k/uL Hgb (11.4-16.0) gm/dL MCHC (31.0-37.0) g/dL Neutrophils # (1.3-7.7) k/uL Monocytes # (0-1.0) k/uL ABG pH (7.35-7.45) ABG pO2 (83-108) mmHg ABG HCO3 (21-25) mmol/L ABG O2 Saturation (94-97) % ABG Hematocrit (34.0-46.0) % ABG Sodium (135-146) mmol/L ABG Potassium (3.4-4.5) mmol/L ABG Glucose (75-99) mg/dL ABG Lactic Acid (0.5-1.6) mmol/L Hemoglobin (11.4-16.0) gm/dL Sodium 131 L (137-145) mmol/L Chloride 82 L (98-107) mmol/L Carbon Dioxide 37 H (22-30) mmol/L BUN 49 H (7-17) mg/dL Creatinine 2.18 H (0.52-1.04) mg/dL Glucose 1135 H* (74-99) mg/dL POC Glucose (mg/dL) 224 H (70-110) mg/dL Plasma Lactic Acid Santiago 7.8 H* (0.7-2.0) mmol/L Calcium 5.4 L* (8.4-10.2) mg/dL Phosphorus (2.5-4.5) mg/dL ALT (4-34) U/L Total Protein (6.3-8.2) g/dL Albumin (3.5-5.0) g/dL Arterial Blood Potassium (3.4-4.5) mmol/L Arterial Blood Glucose (75-99) mg/dL 03/02/22 03/02/22 03/02/22 Range/Units 22:28 23:13 23:25 WBC (3.8-10.6) k/uL Hgb (11.4-16.0) gm/dL MCHC (31.0-37.0) g/dL Neutrophils # (1.3-7.7) k/uL Monocytes # (0-1.0) k/uL ABG pH 7.31 L (7.35-7.45) ABG pO2 116 H (83-108) mmHg ABG HCO3 19 L (21-25) mmol/L ABG O2 Saturation 97.9 H (94-97) % ABG Hematocrit 27 L (34.0-46.0) % ABG Sodium 148 H (135-146) mmol/L ABG Potassium 4.7 H (3.4-4.5) mmol/L ABG Glucose 235 H (75-99) mg/dL ABG Lactic Acid 8.1 H* (0.5-1.6) mmol/L Hemoglobin 8.7 L (11.4-16.0) gm/dL Sodium 146 H (137-145) mmol/L Chloride 109 H (98-107) mmol/L Carbon Dioxide 15 L (22-30) mmol/L BUN 56 H (7-17) mg/dL Creatinine 3.54 H (0.52-1.04) mg/dL Glucose 224 H (74-99) mg/dL POC Glucose (mg/dL) 202 H (70-110) mg/dL Plasma Lactic Acid Santiago (0.7-2.0) mmol/L Calcium (8.4-10.2) mg/dL Phosphorus (2.5-4.5) mg/dL ALT (4-34) U/L Total Protein (6.3-8.2) g/dL Albumin (3.5-5.0) g/dL Arterial Blood Potassium 4.7 H (3.4-4.5) mmol/L Arterial Blood Glucose 235 H (75-99) mg/dL 03/03/22 03/03/22 03/03/22 Range/Units 00:59 05:17 05:17 WBC (3.8-10.6) k/uL Hgb (11.4-16.0) gm/dL MCHC (31.0-37.0) g/dL Neutrophils # (1.3-7.7) k/uL Monocytes # (0-1.0) k/uL ABG pH (7.35-7.45) ABG pO2 (83-108) mmHg ABG HCO3 (21-25) mmol/L ABG O2 Saturation (94-97) % ABG Hematocrit (34.0-46.0) % ABG Sodium (135-146) mmol/L ABG Potassium (3.4-4.5) mmol/L ABG Glucose (75-99) mg/dL ABG Lactic Acid (0.5-1.6) mmol/L Hemoglobin (11.4-16.0) gm/dL Sodium (137-145) mmol/L Chloride (98-107) mmol/L Carbon Dioxide 21 L (22-30) mmol/L BUN 53 H (7-17) mg/dL Creatinine 3.14 H (0.52-1.04) mg/dL Glucose 207 H (74-99) mg/dL POC Glucose (mg/dL) (70-110) mg/dL Plasma Lactic Acid Santiago 10.6 H* 8.8 H* (0.7-2.0) mmol/L Calcium 7.7 L (8.4-10.2) mg/dL Phosphorus 5.4 H (2.5-4.5) mg/dL ALT (4-34) U/L Total Protein 5.4 L (6.3-8.2) g/dL Albumin 2.9 L (3.5-5.0) g/dL Arterial Blood Potassium (3.4-4.5) mmol/L Arterial Blood Glucose (75-99) mg/dL 03/03/22 03/03/22 Range/Units 06:43 06:58 WBC 14.2 H (3.8-10.6) k/uL Hgb 10.4 L (11.4-16.0) gm/dL MCHC 30.1 L (31.0-37.0) g/dL Neutrophils # 11.3 H (1.3-7.7) k/uL Monocytes # 1.3 H (0-1.0) k/uL ABG pH (7.35-7.45) ABG pO2 (83-108) mmHg ABG HCO3 (21-25) mmol/L ABG O2 Saturation (94-97) % ABG Hematocrit (34.0-46.0) % ABG Sodium (135-146) mmol/L ABG Potassium (3.4-4.5) mmol/L ABG Glucose (75-99) mg/dL ABG Lactic Acid (0.5-1.6) mmol/L Hemoglobin (11.4-16.0) gm/dL Sodium (137-145) mmol/L Chloride (98-107) mmol/L Carbon Dioxide (22-30) mmol/L BUN (7-17) mg/dL Creatinine (0.52-1.04) mg/dL Glucose (74-99) mg/dL POC Glucose (mg/dL) 142 H (70-110) mg/dL Plasma Lactic Acid Santiago (0.7-2.0) mmol/L Calcium (8.4-10.2) mg/dL Phosphorus (2.5-4.5) mg/dL ALT (4-34) U/L Total Protein (6.3-8.2) g/dL Albumin (3.5-5.0) g/dL Arterial Blood Potassium (3.4-4.5) mmol/L Arterial Blood Glucose (75-99) mg/dL Microbiology - Last 24 Hours (Table) 03/02/22 08:15 Blood Culture Gram Stain - Preliminary Blood 03/02/22 08:15 Blood Culture - Final Blood Assessment and Plan Assessment: Acute mental status changes, of unclear etiology. Could relate to underlying infection/sepsis, such as possible pneumonia. Blood cultures positive for gram- positive cocci, identification pending. Acute kidney injury with severe anion gap metabolic acidosis. Possible metformin toxicity. Acute lactic acidemia. Hypernatremia. History of CAD with previous CABG, 2014. History of COPD. History of CVA. History of hypertension. Prior history of tobacco use. Plan: Plan dated 03/02/2022. The patient was seen in the emergency room. The patient should probably be brou ght to the intensive care unit. She apparently is a full code. The patient's chest x-ray, and computed tomography scan of the abdomen/pelvis were reviewed. Nephrology should be consulted. We did change her IV at a dextrose with 3 ampules of sodium bicarbonate, at 125 mL an hour. Prognosis is very guarded. We will continue to follow. She was given Rocephin by the ER physician. She is also receiving breathing treatments. Plan dated 03/03/2022. The patient was brought to the intensive care unit for further management and monitoring. The patient did go on norepinephrine last night for a short period of time because of low blood pressures. Currently, she is getting D5W, with 3 ampules of sodium bicarbonate at 125 mL an hour. She got a dose of vancomycin this morning because blood culture showed evidence of gram-positive cocci. Nephrology saw the patient this morning was concerned about the possibility of metformin toxicity. We will continue to follow make recommendations along the way. Prognosis is guarded. Labs, x-rays, and medications are all reviewed. Time with Patient: Greater than 30
--- NOTE | 2022-03-03 10:42 | P.NPCON ---
History of Present Illness - Reason for Consult acute renal failure, metabolic acidosis - History of Present Illness Reason for consultation: Acute kidney injury History of present illness: Patient is a 71-year-old female seen in consultation for acute kidney injury and metabolic acidosis. Patient's creatinine on admission was 4.2 and is down to 3.14 today. Patient has history of dementia and resides at an extended care facility. She was sent to the hospital due to weakness. Patient was noted to b e severely acidotic with pH of 7.06 and a bicarb level of 8. Her lactic acid level has also been elevated. It peaked at 12 and was 8.8 this morning. She is currently maintained on bicarb drip. She is also receiving half-normal saline at 75 mL an hour. Patient's sodium level is trending down. Patient has history of diabetes. She was on metformin outpatient which is currently held. She did require Levophed overnight but is currently discontinued. Patient's urine output has also improved. Overnight it was about 30-50 mL an hour and now the last few hours it has been over 100 mL an hour. I don't see any nonsteroidals in her home medication list. CAT scan showed no evidence of hydronephrosis. Patient is not a reliable historian. Vital signs are stable. General: No acute distress. HEENT: Head exam is unremarkable. LUNGS: Breath sounds decreased. HEART: Rate and Rhythm are regular. ABDOMEN: Soft, no distention. EXTREMITITES: No edema. Past Medical History Past Medical History: Coronary Artery Disease (CAD), COPD, CVA/TIA, Hypertension Additional Past Medical History / Comment(s): pt states she has been treated for scabies one year ago History of Any Multi-Drug Resistant Organisms: None Reported Past Surgical History: Coronary Bypass/CABG, Heart Catheterization With Stent Additional Past Surgical History / Comment(s): cabg 2013 Past Anesthesia/Blood Transfusion Reactions: No Reported Reaction Date of Last Stent Placement:: 2013 Past Psychological History: ADD/ADHD, Depression Smoking Status: Former smoker Past Alcohol Use History: None Reported Past Drug Use History: None Reported, Marijuana - Past Family History Mother Family Medical History: Unable to Obtain Additional Family Medical History / Comment(s): cabg in 2013. stage 2 dementia Medications and Allergies Home Medications Medication Instructions Recorded Confirmed Type Albuterol Nebulized [Ventolin 2.5 mg INHALATION RT-QID PRN 01/17/21 03/02/22 History Nebulized] Melatonin 6 mg PO HS 01/17/21 03/02/22 History Rivaroxaban [Xarelto] 2.5 mg PO BID 01/17/21 03/02/22 History Sertraline [Zoloft] 100 mg PO HS 01/17/21 03/02/22 History metFORMIN HCL [Glucophage] 1,000 mg PO BID 01/17/21 03/02/22 History Aspirin 325 mg PO DAILY #30 tab 01/21/21 03/02/22 Rx Metoprolol Tartrate [Lopressor] 50 mg PO BID #60 tab 01/21/21 03/02/22 Rx clonazePAM [KlonoPIN] 0.5 mg PO HS 3 Days #6 tab 01/21/21 03/02/22 Rx polyethylene glycoL 3350 [Miralax] 17 gm PO DAILY PRN #30 packet 01/21/21 03/02/22 Rx Acetaminophen [Tylenol] 650 mg PO Q4H PRN 03/02/22 03/02/22 History Atorvastatin [Lipitor] 80 mg PO HS 03/02/22 03/02/22 History Ensure Clear 1 can PO QID 03/02/22 03/02/22 History HYDROcodone/APAP 10-325MG [Eckert 1 tab PO Q6H PRN 03/02/22 03/02/22 History 10-325] Pantoprazole [Protonix] 40 mg PO BID 03/02/22 03/02/22 History levETIRAcetam [Keppra] 750 mg PO BID 03/02/22 03/02/22 History Allergies Allergy/AdvReac Type Severity Reaction Status Date / Time No Known Allergies Allergy Verified 03/02/22 08:04 Physical Exam Vitals: Vital Signs Temp Pulse Pulse Resp BP Pulse Ox 03/03/22 10:00 104 H 19 139/89 97 03/03/22 09:30 97 11 L 133/83 96 03/03/22 09:00 96 11 L 135/83 03/03/22 08:45 96 11 L 141/82 03/03/22 08:30 95 10 L 140/82 03/03/22 08:15 94 8 L 142/83 03/03/22 08:00 97.3 F L 95 9 L 132/80 97 03/03/22 07:45 96 13 132/79 03/03/22 07:30 94 11 L 136/77 03/03/22 07:15 96 16 122/74 03/03/22 07:00 17 119/75 98 03/03/22 06:45 12 123/77 97 03/03/22 06:30 93 12 106/68 98 03/03/22 06:15 94 15 92/66 91 L 03/03/22 06:00 90 9 L 93/60 94 L 03/03/22 05:45 92 14 111/75 97 03/03/22 05:30 93 16 112/70 95 03/03/22 05:15 92 16 126/76 03/03/22 05:00 92 13 114/74 100 03/03/22 04:45 93 12 86/59 03/03/22 04:30 91 17 94/63 99 03/03/22 04:15 90 15 99/61 100 03/03/22 04:00 90 91 13 118/75 100 03/03/22 03:45 92 15 130/80 100 03/03/22 03:30 94 11 L 123/80 100 03/03/22 03:15 94 8 L 87/58 97 03/03/22 03:00 93 17 79/54 100 03/03/22 02:45 93 14 74/54 99 03/03/22 02:30 92 16 88/56 99 03/03/22 02:00 88 13 108/69 99 03/03/22 01:30 89 10 L 89/55 99 03/03/22 01:00 90 13 77/48 100 03/03/22 00:30 90 10 L 81/54 99 03/03/22 00:08 91 14 95/62 98 03/03/22 00:00 89 91 11 L 109/71 98 03/02/22 23:30 89 11 L 104/73 100 03/02/22 23:00 97 F L 90 11 L 113/74 99 03/02/22 22:30 90 13 86/57 99 03/02/22 22:00 92 18 113/69 99 03/02/22 21:30 13 112/76 99 03/02/22 21:00 98.4 F 93 12 87/54 99 03/02/22 20:30 92 13 103/66 100 03/02/22 20:00 93 91 11 L 110/76 100 03/02/22 19:30 92 12 110/76 100 03/02/22 19:00 97.9 F 95 18 110/76 98 03/02/22 18:00 97 18 112/67 98 03/02/22 16:07 98 03/02/22 15:56 96 03/02/22 14:00 98.9 F 98 18 105/64 98 03/02/22 13:00 96 18 104/57 99 03/02/22 12:00 98 18 103/67 98 03/02/22 11:00 96 16 108/75 99 Intake and Output 03/02/22 03/03/22 03/03/22 22:59 06:59 14:59 Intake Total 850 2726.398 700 Output Total 355 400 510 Balance 495 2326.398 190 Intake: IV 500 Dextrose 5% in Water 1, 250 000 ml @ 125 mls/hr IV . Q9H12M EL[facility]A with Sodium Bicarb (1 Meq/ml) 150 ml Rx#:[id number] Sodium Chloride 0.45% 1, 250 000 ml @ 75 mls/hr IV . [id number] EL[facility]IRA Rx#:[id number] Intake, IV Titration 850 2726.398 200 Amount Dextrose 5% in Water 1, 500 1000 125 000 ml @ 125 mls/hr IV . Q9H12M ELVIRA with Sodium Bicarb (1 Meq/ml) 150 ml Rx#:[id number] Norepinephrine 4 mg In 26.398 Sodium Chloride 0.9% 250 ml @ 0.03 MCG/KG/MIN 6.74 mls/hr IV .Q24H ELVIRA Rx#: [id number] Sodium Chloride 0.45% 1, 300 600 75 000 ml @ 75 mls/hr IV . [id number] EL[facility]IRA Rx#:[id number] Sodium Chloride 0.9% 1, 1000 000 ml @ 999 mls/hr IV . Q1H1M ONE Rx#:[id number] cefTRIAXone 1 gm In 50 Sodium Chloride 0.9% 50 ml @ 100 mls/hr IVPB Q12H EL[facility]A Rx#:[id number] cefTRIAXone 2 gm In 100 Sodium Chloride 0.9% 50 ml @ 100 mls/hr IVPB ONCE STA Rx#:[id number] Output: Urine 355 400 510 Other: Weight 66.3 kg Results - Lab Results Most recent lab results ABG pH 7.31 (7.35-7.45) L 03/02/22 22:28 ABG pCO2 38 mmHg (35-45) 03/02/22 22:28 ABG pO2 116 mmHg (83-108) H 03/02/22 22:28 ABG HCO3 19 mmol/L (21-25) L 03/02/22 22:28 ABG O2 Saturation 97.9 % (94-97) H 03/02/22 22:28 Calcium 7.7 mg/dL (8.4-10.2) L 03/03/22 05:17 Phosphorus 5.4 mg/dL (2.5-4.5) H 03/03/22 05:17 Magnesium 2.1 mg/dL (1.6-2.3) 03/03/22 05:17 03/03/22 06:58 03/03/22 05:17 Assessment and Plan Plan: Assessment: 1. Acute kidney injury mostly prerenal secondary to septic shock. Creatinine was 4.2 on admission and is elevated at 3.1 for this morning. Creatinine was 0.8 in February 2021. No hydronephrosis noted on CAT scan. 2. Septic shock secondary to gram-positive bacteremia on antibiotics. 3. Metabolic acidosis secondary to acute kidney injury and lactic acidosis. 4. Lactic acidosis secondary to hypotension and use of metformin. 5. Hypernatremia from lack of oral water intake. 6. Diabetes mellitus. Plan: Stop bicarb drip. Increase rate of half normal saline to 100 mL an hour. Check BMP this afternoon. Avoid nephrotoxins. Continue to hold metformin. Renal function, acidosis and urine output all improved. No urgent need for renal replacement therapy at this time. Thank you for the consultation. I will continue to follow the patient with you during her hospital stay.
[2022-03-03 11:33] LABS: Glucose,Whole Blood 95 mg/dL (70-110)
--- NOTE | 2022-03-03 14:51 | CT ---
EXAMINATION TYPE: CT brain wo con DATE OF EXAM: 03/03/2022 COMPARISON: 05/15/2020 HISTORY: bleed CT DLP: 971 mGycm Automated exposure control for dose reduction was used. FINDINGS: There is evidence of extensive remote ischemia involving the right parietal and frontal lobe. Moderat e ventricular dilation is seen similar to the prior exam and there is diffuse low-attenuation white m atter is nonspecific but most typical of remote ischemic change. Cortical calcifications likely repre senting dystrophic calcification from prior infarct are noted. No midline shift or mass effect. No acute hemorrhage. Calvarium intact. Orbits symmetric. Mild change s of chronic sinusitis.. IMPRESSION: 1. Degenerative and extensive remote ischemic change with no evidence of acute hemorrhage or mass eff ect. If concern for acute ischemia correlate with MRI.
[2022-03-03 16:40] LABS: Potassium 4.6 mmol/L (3.5-5.1)
[2022-03-03 21:10] LABS: Glucose,Whole Blood 87 mg/dL (70-110)
[2022-03-04] MEDS: INSULIN ASPART (NovoLOG) 100 UNIT/ML VIAL SQ SCH ×5 (04:48→21:39)
[2022-03-04 06:28] LABS: Glucose,Whole Blood 41 mg/dL (70-110)
[2022-03-04 06:28] LABS: Glucose,Whole Blood 26 mg/dL (70-110)
[2022-03-04] MEDS: DEXTROSE 50% SYRINGE 50 ML IVP STA ×2 (06:45→06:46)
[2022-03-04 06:57] LABS: Calcium 7.4 mg/dL (8.4-10.2)
[2022-03-04 06:59] LABS: Potassium 4.7 mmol/L (3.5-5.1)
[2022-03-04] MEDS ORDERED: DEXTROSE 50% SYRINGE 50 ML IVP STA (06:59)
[2022-03-04 07:07] LABS: Anisocytosis Slight; Basophils # (A) 0.1 k/uL (0-0.2); Basophils % (A) 1 %; Eosinophils # (A) 0.6 k/uL (0-0.7); Eosinophils % (A) 6 %; HCT 33.7 % (34.0-46.0); HGB 10.4 gm/dL (11.4-16.0); Hypochromasia Moderate; Lymphocytes % (A) 10 %; MCH 25.7 pg (25.0-35.0); Mean Platelet Volume 10.4; Monocytes # (A) 0.6 k/uL (0-1.0); Monocytes % (A) 7 %; Neutrophils # (A) 6.9 k/uL (1.3-7.7); Neutrophils % (A) 74 %; Platelet Count 186 k/uL (150-450); RBC 4.06 m/uL (3.80-5.40); RDW 16.1 % (11.5-15.5); WBC 9.2 k/uL (3.8-10.6)
[2022-03-04 07:08] LABS: Glucose,Whole Blood 51 mg/dL (70-110)
[2022-03-04] MEDS: DEXTROSE 5%-0.45% NACL 1,000 ML IV SCH ×2 (07:37→21:38)
[2022-03-04 07:41] LABS: Glucose,Whole Blood 95 mg/dL (70-110)
[2022-03-04] MEDS: SODIUM CHLORIDE 0.45% 1,000 ML IV SCH ×2 (08:33→18:57)
[2022-03-04] MEDS: NOREPINEPHRINE 4 MG in SODIUM CHLORIDE 0.9% 250 ML IV SCH (08:33)
[2022-03-04] MEDS: HEPARIN SODIUM,PORCINE/PF 5,000 UNIT/0.5 ML SYRINGE SQ SCH ×2 (08:56→21:38)
[2022-03-04] MEDS: PANTOPRAZOLE 40 MG/10 ML VIAL IV SCH (08:56)
[2022-03-04] MEDS: SENNOSIDES 8.6 MG TAB PO SCH ×2 (08:56→21:38)
--- NOTE | 2022-03-04 09:42 | P.PN ---
Subjective Progress Note Date: 03/04/22 Principal diagnosis: Sepsis. Pulmonary consult dated 03/02/2022. 71-year-old female who resides at one of the local nursing homes. She is apparently brought into the emergency room, because of generalized weakness, lack of energy, difficulty in ambulation, and apparently abdominal pain. Currently, the patient is seen in emergency room #11. I believe my partner was called about this patient by the ER physician. The patient had a blood gas showing a pO2 163, pCO2 31, and a pH is 7.06. She is not able to provide any additional history. She is very lethargic and somnolent. Her lower extremities are mottled. Not much history could be obtained from the ER maycol either. She apparently has a history of CAD, COPD, CVA, and hypertension. She also is status post CABG. White count 10.3, hemoglobin 10.7, hematocrit 37.7, and platelet count 289,000. Repeat electrolyte profile shows a sodium 150, potassium 4.8, chlorides 1:15, CO2 8, anion gap 27, BUN 53, and creatinine 3.49. Lactic acid was 9.7. Repeat was 11.0. Urine is light yellow and cloudy. Protein is 2+. Leukocyte esterase and nitrate were both negative. Chest x-ray shows mild left basilar atelectasis or airspace disease. CT of the abdomen and pelvis shows no acute intraluminal/intra-abdominal process. There is colonic diverticulosis, and a nonobstructing right renal calculi. Progress note dated 03/03/2022. This is a patient who was seen yesterday in the emergency room. She is 71 years of age, and resides at one of the local nursing homes. She was brought into the emergency room, because of generalized weakness, lack of energy, difficulty in ambulation, and abdominal pain. In addition, she had mental status changes. She was admitted to the intensive care unit. She is on 2 L of oxygen. She's getting D5W with 3 ampules of sodium bicarbonate at 125 cc/h. She's also getting half-normal saline at 75 mL an hour. Blood culture showed evidence of gram-positive cocci. I gave her dose of vancomycin this morning. She continues on Rocephin. Last night, her blood pressures were a bit low despite fluid resuscitation, she was on norepinephrine for brief period of time. Nephrology thinks that the patient may have metformin toxicity. That is because of her ongoing lactic acidosis. White count 14.2, hemoglobin 10.4, hematocrit 34.7, platelet count 272,000. Sodium 144, potassium 4.7, chlorides 104, CO2 21, anion gap 19, BUN 53, creatinine 3.14. Her lactic acid is 8.8. Chest x-ray shows a small left-sided pleural effusion and some basilar atelectasis or infiltrate at the left base. Progress note dated 03/04/2022. 71-year-old female initially seen in the emergency room. She was admitted from one of the local nursing homes, with mental status changes, weakness, fatigue, and difficulty in ambulation. The patient's currently in the intensive care unit. The nurse was able to speak to a family member yesterday, and make the patient a DO NOT RESUSCITATE patient. She apparently has quite severe dementia. She is currently on 2 L of oxygen. She's getting dextrose with half-normal saline at 75 mL an hour. Laboratory data includes a white count of 9.2, hemoglobin 10.4, hematocrit 33.7, and a normal platelet count. Sodium 142, potassium 4.7, chlorides 102, CO2 29, anion gap 11, BUN 47, and creatinine 2.66. The lactic acid was elevated at 7. Blood cultures are positive for coag- negative staph. Brain CT showed degenerative an extensive remote ischemic michelle nges without evidence of acute hemorrhage or mass effect. Objective - Vital Signs Vital signs: Vital Signs Temp 98 F 03/04/22 08:00 Pulse 101 H 03/04/22 09:00 Resp 11 L 03/04/22 09:00 BP 98/64 03/04/22 09:00 Pulse Ox 92 L 03/04/22 09:00 FiO2 Intake & Output 03/03/22 03/04/22 03/04/22 18:59 06:59 18:59 Intake Total 1500 1200 275 Output Total 1605 1330 425 Balance -105 -130 -150 Weight 65.5 kg Intake: IV 1300 1200 275 Dextrose 5% in Water 1, 250 000 ml @ 125 mls/hr IV . Q9H12M EL[facility]IRA with Sodium Bicarb (1 Meq/ml) 150 ml Rx#:[id number] Dextrose 5%-0.45% NaCl 1, 75 000 ml @ 75 mls/hr IV . [id number] ELVIRA Rx#:[id number] Sodium Chloride 0.45% 1, 1050 1200 200 000 ml @ 100 mls/hr IV . Q10H ELVIRA Rx#:[id number] Intake, IV Titration 200 Amount Dextrose 5% in Water 1, 125 000 ml @ 125 mls/hr IV . Q9H12M ELVIRA with Sodium Bicarb (1 Meq/ml) 150 ml Rx#:[id number] Sodium Chloride 0.45% 1, 75 000 ml @ 100 mls/hr IV . Q10H ELVIRA Rx#:[id number] Output: Urine 1605 1330 425 Other: Voiding Method Indwelling Catheter Indwelling Catheter - Exam No acute distress, very lethargic and somnolent, poorly responsive, currently on 2 L. HEENT examination is grossly unremarkable. Mucous membranes are dry. Neck supple. Full range of motion. No adenopathy thyromegaly or neck vein distention. Cardiovascular examination reveals regular rhythm rate. S1-S2 normal. No S3 or S4. No discernible murmur noted. Heart rate 101 bpm. Lungs reveal mostly clear breath sounds. Scattered rhonchi. No wheezes or crackles. 2 L saturation is 92%. Abdomen soft bowel sounds are heard. No masses or tenderness. Extremities are intact. Extremities are less mottled. No significant edema. No clubbing. Skin is without rash or lesion. Neurologic examination cannot be adequately assessed as the patient's very lethargic. - Labs CBC & Chem 7: 03/04/22 05:32 03/04/22 05:32 Labs: Abnormal Lab Results - Last 24 Hours (Table) 03/03/22 03/03/22 03/03/22 Range/Units 06:58 15:50 15:50 Hgb (11.4-16.0) gm/dL Hct (34.0-46.0) % RDW (11.5-15.5) % BUN 51 H (7-17) mg/dL Creatinine 3.00 H (0.52-1.04) mg/dL Glucose 114 H (74-99) mg/dL POC Glucose (mg/dL) (70-110) mg/dL Hemoglobin A1c 6.7 H (0.0-6.0) % Plasma Lactic Acid Santiago (0.7-2.0) mmol/L Calcium 8.0 L (8.4-10.2) mg/dL Procalcitonin 0.22 H (0.02-0.09) ng/mL 03/04/22 03/04/22 03/04/22 Range/Units 05:32 05:32 05:32 Hgb 10.4 L (11.4-16.0) gm/dL Hct 33.7 L (34.0-46.0) % RDW 16.1 H (11.5-15.5) % BUN 47 H (7-17) mg/dL Creatinine 2.66 H (0.52-1.04) mg/dL Glucose (74-99) mg/dL POC Glucose (mg/dL) (70-110) mg/dL Hemoglobin A1c (0.0-6.0) % Plasma Lactic Acid Santiago 5.3 H* (0.7-2.0) mmol/L Calcium 7.4 L (8.4-10.2) mg/dL Procalcitonin (0.02-0.09) ng/mL 03/04/22 03/04/22 03/04/22 Range/Units 06:23 06:25 07:07 Hgb (11.4-16.0) gm/dL Hct (34.0-46.0) % RDW (11.5-15.5) % BUN (7-17) mg/dL Creatinine (0.52-1.04) mg/dL Glucose (74-99) mg/dL POC Glucose (mg/dL) 26 L 41 L 51 L (70-110) mg/dL Hemoglobin A1c (0.0-6.0) % Plasma Lactic Acid Santiago (0.7-2.0) mmol/L Calcium (8.4-10.2) mg/dL Procalcitonin (0.02-0.09) ng/mL 03/04/22 Range/Units 08:05 Hgb (11.4-16.0) gm/dL Hct (34.0-46.0) % RDW (11.5-15.5) % BUN (7-17) mg/dL Creatinine (0.52-1.04) mg/dL Glucose (74-99) mg/dL POC Glucose (mg/dL) (70-110) mg/dL Hemoglobin A1c (0.0-6.0) % Plasma Lactic Acid Santiago 7.0 H* (0.7-2.0) mmol/L Calcium (8.4-10.2) mg/dL Procalcitonin (0.02-0.09) ng/mL Microbiology - Last 24 Hours (Table) 03/02/22 08:15 Blood Culture Gram Stain - Preliminary Blood Blood Culture - Preliminary Coagulase Negative Staph 03/02/22 08:15 Blood Culture - Final Blood Assessment and Plan Assessment: Acute mental status changes, of unclear etiology. Could relate to underlying infection/sepsis, such as possible pneumonia. Blood cultures positive for coagulase-negative staphlococcus. Acute kidney injury with severe anion gap metabolic acidosis. Possible metformin toxicity. Acute lactic acidemia. Hypernatremia. History of CAD with previous CABG, 2013. History of COPD. History of CVA. History of hypertension. Prior history of tobacco use. Plan: Plan dated 03/02/2022. The patient was seen in the emergency room. The patient should probably be brought to the intensive care unit. She apparently is a full code. The patient's chest x-ray, and computed tomography scan of the abdomen/pelvis were reviewed. Nephrology should be consulted. We did change her IV at a dextrose with 3 ampules of sodium bicarbonate, at 125 mL an hour. Prognosis is very guarded. We will continue to follow. She was given Rocephin by the ER physician. She is also receiving breathing treatments. Plan dated 03/03/2022. The patient was brought to the intensive care unit for further management and monitoring. The patient did go on norepinephrine last night for a short period of time because of low blood pressures. Currently, she is getting D5W, with 3 ampules of sodium bicarbonate at 125 mL an hour. She got a dose of vancomycin this morning because blood culture showed evidence of gram-positive cocci. Nephrology saw the patient this morning was concerned about the possibility of metformin toxicity. We will continue to follow make recommendations along the way. Prognosis is guarded. Labs, x-rays, and medications are all reviewed. Plan dated 03/04/2022. The patient is now a DO NOT RESUSCITATE patient. The nurse was able to speak to the family member yesterday. Labs, x-rays, medications are reviewed. The patient still has a persistent elevated lactate. The ste[place]aster was concerned about metformin toxicity. The patient is currently on Rocephin. Culture data is as far negative save for the blood cultures for coagulase-negative staph. We will continue to follow. Prognosis is poor. The patient can be transferred out of the intensive care unit. Time with Patient: Less than 30
--- NOTE | 2022-03-04 11:02 | P.PN ---
Subjective Patient is seen in follow-up for acute kidney injury and hypernatremia. Sodium level is normal today. Renal function improving. Nonoliguric. Acidosis resolved. Vital signs are stable. General: Resting in bed. HEENT: Head exam is unremarkable. On nasal cannula. LUNGS: Breath sounds decreased. HEART: Rate and Rhythm are regular. ABDOMEN: Soft, no distention. EXTREMITITES: No edema. Objective - Vital Signs Vital signs: Vital Signs Temp 98 F 03/04/22 08:00 Pulse 101 H 03/04/22 09:00 Resp 11 L 03/04/22 09:00 BP 98/64 03/04/22 09:00 Pulse Ox 92 L 03/04/22 09:00 FiO2 Intake & Output 03/03/22 03/04/22 03/04/22 18:59 06:59 18:59 Intake Total 1500 1200 275 Output Total 1605 1330 425 Balance -105 -130 -150 Weight 65.5 kg Intake: IV 1300 1200 275 Dextrose 5% in Water 1, 250 000 ml @ 125 mls/hr IV . Q9H12M [facility] with Sodium Bicarb (1 Meq/ml) 150 ml Rx#:[id number] Dextrose 5%-0.45% NaCl 1, 75 000 ml @ 75 mls/hr IV . [id number] [facility] Rx#:[id number] Sodium Chloride 0.45% 1, 1050 1200 200 000 ml @ 100 mls/hr IV . Q10H [facility] Rx#:[id number] Intake, IV Titration 200 Amount Dextrose 5% in Water 1, 125 000 ml @ 125 mls/hr IV . Q9H12M EL[facility]IRA with Sodium Bicarb (1 Meq/ml) 150 ml Rx#:[id number] Sodium Chloride 0.45% 1, 75 000 ml @ 100 mls/hr IV . Q10H EL[facility]A Rx#:[id number] Output: Urine 1605 1330 425 Other: Voiding Method Indwelling Catheter Indwelling Catheter - Labs CBC & Chem 7: 03/04/22 05:32 03/04/22 05:32 Labs: Abnormal Lab Results - Last 24 Hours (Table) 03/03/22 03/03/22 03/03/22 Range/Units 06:58 15:50 15:50 Hgb (11.4-16.0) gm/dL Hct (34.0-46.0) % RDW (11.5-15.5) % BUN 51 H (7-17) mg/dL Creatinine 3.00 H (0.52-1.04) mg/dL Glucose 114 H (74-99) mg/dL POC Glucose (mg/dL) (70-110) mg/dL Hemoglobin A1c 6.7 H (0.0-6.0) % Plasma Lactic Acid Santiago (0.7-2.0) mmol/L Calcium 8.0 L (8.4-10.2) mg/dL Procalcitonin 0.22 H (0.02-0.09) ng/mL 03/04/22 03/04/22 03/04/22 Range/Units 05:32 05:32 05:32 Hgb 10.4 L (11.4-16.0) gm/dL Hct 33.7 L (34.0-46.0) % RDW 16.1 H (11.5-15.5) % BUN 47 H (7-17) mg/dL Creatinine 2.66 H (0.52-1.04) mg/dL Glucose (74-99) mg/dL POC Glucose (mg/dL) (70-110) mg/dL Hemoglobin A1c (0.0-6.0) % Plasma Lactic Acid Santiago 5.3 H* (0.7-2.0) mmol/L Calcium 7.4 L (8.4-10.2) mg/dL Procalcitonin (0.02-0.09) ng/mL 03/04/22 03/04/22 03/04/22 Range/Units 06:23 06:25 07:07 Hgb (11.4-16.0) gm/dL Hct (34.0-46.0) % RDW (11.5-15.5) % BUN (7-17) mg/dL Creatinine (0.52-1.04) mg/dL Glucose (74-99) mg/dL POC Glucose (mg/dL) 26 L 41 L 51 L (70-110) mg/dL Hemoglobin A1c (0.0-6.0) % Plasma Lactic Acid Santiago (0.7-2.0) mmol/L Calcium (8.4-10.2) mg/dL Procalcitonin (0.02-0.09) ng/mL 03/04/22 Range/Units 08:05 Hgb (11.4-16.0) gm/dL Hct (34.0-46.0) % RDW (11.5-15.5) % BUN (7-17) mg/dL Creatinine (0.52-1.04) mg/dL Glucose (74-99) mg/dL POC Glucose (mg/dL) (70-110) mg/dL Hemoglobin A1c (0.0-6.0) % Plasma Lactic Acid Santiago 7.0 H* (0.7-2.0) mmol/L Calcium (8.4-10.2) mg/dL Procalcitonin (0.02-0.09) ng/mL Microbiology - Last 24 Hours (Table) 03/02/22 08:15 Blood Culture Gram Stain - Preliminary Blood Blood Culture - Preliminary Coagulase Negative Staph 03/02/22 08:15 Blood Culture - Final Blood Assessment and Plan Plan: Assessment: 1. Acute kidney injury mostly prerenal secondary to septic shock. Creatinine was 4.2 on admission and is 2.66 this morning. Creatinine was 0.8 in February 2021. No hydronephrosis noted on CAT scan. 2. Septic shock secondary to gram-positive bacteremia on antibiotics. 3. Metabolic acidosis secondary to acute kidney injury and lactic acidosis. Improved. 4. Lactic acidosis secondary to hypotension and use of metformin. 5. Hypernatremia from lack of oral water intake. Better. 6. Diabetes mellitus. Plan: Maintain IV fluids. Avoid nephrotoxins. Continue to hold metformin. Renal function, acidosis and urine output all improved. No urgent need for renal replacement therapy at this time.
[2022-03-04 11:58] LABS: Glucose,Whole Blood 134 mg/dL (70-110)
[2022-03-04 17:13] LABS: Glucose,Whole Blood 89 mg/dL (70-110)
[2022-03-04 21:04] LABS: Glucose,Whole Blood 78 mg/dL (70-110)
--- NOTE | 2022-03-04 21:36 | P.PN ---
Subjective Progress Note Date: 03/03/22 Patient is a 71-year-old female with a known history of hypertension, diabetes type 2 [id number], CVA with left-sided weakness, coronary artery disease status post CABG and history of stent placement, chronic atrial fibrillation on anticoagulation with Xarelto depression and prior history of sm oking was sent from [facility] due to complaints of generalized weakness lethargy and altered mental status. Patient has been becoming more weak and lethargic for the past couple of days and was also hard to arouse. Patient was brought to ER by EMS. Evidently patient was also complaining abdominal pain as per nursing staff. Patient is currently unable to provide any history. On admission patient was hypotensive with blood pressure 86/50 5 mmHg heart rate 89 respirations 16 and pulse ox 96% on room air. Patient was afebrile. Initial ABG showed pH 7.06 PCO2 31 PO2 163 and bicarb is 9 Laboratory data showed sodium 145 potassium 6.9 chloride 109 bicarb is 8 anion gap 28 BUN 63 and creatinine 4.2 lactic acid 9.7 phosphorus 9.6 magnesium 1.4 Urinalysis showed cloudy with 2+ protein 1+ glucose 2+ ketones and RBC 7 WBC 7 squamous epithelial cells 5. WBC 10.3 hemoglobin 10.7 and platelets 289 neutrophils 8.8 EKG showed atrial fibrillation with incomplete right bundle branch block Chest x-ray showed mild left basilar atelectasis or airspace disease in the left costophrenic angle. CT of the abdomen pelvis showed no evidence for acute intra luminal process. Colonic diverticulosis. Moderate to severe degenerative sclerosis of the arterial vasculature. Nonobstructing right renal calculi. Moderate stool burden throughout the colon. 03/03/2022 Patient is currently in the MICU. Patient is able to respond to verbal stimuli but still lethargic and drowsy. Currently requiring 2 L oxygen via nasal cannula. Continued on bicarb drip. Patient did require pressor support overnight for short duration. Patient was found to have blood cultures positive for gram-positive cocci and wa s given a dose of vancomycin which turned out to be coagulase-negative staph aureus. Patient is also getting IV hydration and blood pressure did improve. Patient is being continued on antibiotics in the form of ceftriaxone. Still having lactic acidosis at 8.8 this morning. Laboratory test showed WBC 14.2 hemoglobin 10.4 and platelets 172 A1c level is 6.7 Sodium 145 potassium 4.6 chloride 102 bicarb is 23, BUN 51 and creatinine went down to 3.0. Procalcitonin level is 0.22 Pulmonary and nephrology is on board. Current medications reviewed. Objective - Vital Signs Vital signs: Vital Signs Temp 97.8 F 03/03/22 12:00 Pulse 104 H 03/03/22 12:30 Resp 15 03/03/22 13:00 BP 143/68 03/03/22 13:00 Pulse Ox 98 03/03/22 12:00 FiO2 Intake & Output 03/02/22 03/03/22 03/03/22 18:59 06:59 18:59 Intake Total 3576.398 1000 Output Total 755 1015 Balance 2821.398 -15 Weight 58.967 kg 66.3 kg Intake: IV 800 Dextrose 5% in Water 1, 250 000 ml @ 125 mls/hr IV . Q9H12M [facility] with Sodium Bicarb (1 Meq/ml) 150 ml Rx#:[id number] Sodium Chloride 0.45% 1, 550 000 ml @ 75 mls/hr IV . [id number] [facility] Rx#:[id number] Intake, IV Titration 3576.398 200 Amount Dextrose 5% in Water 1, 1500 125 000 ml @ 125 mls/hr IV . Q9H12M [facility] with Sodium Bicarb (1 Meq/ml) 150 ml Rx#:[id number] Norepinephrine 4 mg In 26.398 Sodium Chloride 0.9% 250 ml @ 0.03 MCG/KG/MIN 6.74 mls/hr IV .Q24H [facility] Rx#: [id number] Sodium Chloride 0.45% 1, 900 75 000 ml @ 75 mls/hr IV . [id number] [facility] Rx#:[id number] Sodium Chloride 0.9% 1, 1000 000 ml @ 999 mls/hr IV . Q1H1M ONE Rx#:[id number] cefTRIAXone 1 gm In 50 Sodium Chloride 0.9% 50 ml @ 100 mls/hr IVPB Q12H [facility] Rx#:[id number] cefTRIAXone 2 gm In 100 Sodium Chloride 0.9% 50 ml @ 100 mls/hr IVPB ONCE STA Rx#:[id number] Output: Urine 755 1015 Other: Voiding Method Indwelling Catheter - Exam PHYSICAL EXAMINATION: Patient is lying in the bed. Responds to verbal stimuli but could not communicate. Lethargic.. HEENT: Normocephalic. Neck is supple. Pupils reactive. Nostrils clear. Oral cavity is moist. Neck reveals no JVD, carotid bruits, or thyromegaly. CHEST EXAMINATION: Trachea is central. Symmetrical expansion. Lung bhagat clear to auscultation and percussion. Bibasilar diminished sounds. CARDIAC: Normal S1, S2 with no gallops. No murmurs ABDOMEN: Soft. Bowel sounds present.. No organomegaly. No abdominal bruits. Extremities: reveal no edema. No clubbing or cyanosis Neurologically patient is lethargic and obtunded. Left-sided weakness Skin: No rash or skin lesions. Psychiatric: Could not be surgical at this time. Musculoskeletal: No joint swelling or deformity. - Labs CBC & Chem 7: 03/04/22 05:32 03/04/22 05:32 Labs: Abnormal Lab Results - Last 24 Hours (Table) 03/02/22 03/02/22 03/02/22 Range/Units 15:57 18:31 21:16 WBC (3.8-10.6) k/uL Hgb (11.4-16.0) gm/dL MCHC (31.0-37.0) g/dL Neutrophils # (1.3-7.7) k/uL Monocytes # (0-1.0) k/uL ABG pH (7.35-7.45) ABG pO2 (83-108) mmHg ABG HCO3 (21-25) mmol/L ABG O2 Saturation (94-97) % ABG Hematocrit (34.0-46.0) % ABG Sodium (135-146) mmol/L ABG Potassium (3.4-4.5) mmol/L ABG Glucose (75-99) mg/dL ABG Lactic Acid (0.5-1.6) mmol/L Hemoglobin (11.4-16.0) gm/dL Sodium 131 L (137-145) mmol/L Chloride 82 L (98-107) mmol/L Carbon Dioxide 37 H (22-30) mmol/L BUN 49 H (7-17) mg/dL Creatinine 2.18 H (0.52-1.04) mg/dL Glucose 1135 H* (74-99) mg/dL POC Glucose (mg/dL) 224 H (70-110) mg/dL Hemoglobin A1c (0.0-6.0) % Plasma Lactic Acid Santiago 12.0 H* (0.7-2.0) mmol/L Calcium 5.4 L* (8.4-10.2) mg/dL Phosphorus (2.5-4.5) mg/dL Total Protein (6.3-8.2) g/dL Albumin (3.5-5.0) g/dL Arterial Blood Potassium (3.4-4.5) mmol/L Arterial Blood Glucose (75-99) mg/dL 03/02/22 03/02/22 03/02/22 Range/Units 21:16 22:28 23:13 WBC (3.8-10.6) k/uL Hgb (11.4-16.0) gm/dL MCHC (31.0-37.0) g/dL Neutrophils # (1.3-7.7) k/uL Monocytes # (0-1.0) k/uL ABG pH 7.31 L (7.35-7.45) ABG pO2 116 H (83-108) mmHg ABG HCO3 19 L (21-25) mmol/L ABG O2 Saturation 97.9 H (94-97) % ABG Hematocrit 27 L (34.0-46.0) % ABG Sodium 148 H (135-146) mmol/L ABG Potassium 4.7 H (3.4-4.5) mmol/L ABG Glucose 235 H (75-99) mg/dL ABG Lactic Acid 8.1 H* (0.5-1.6) mmol/L Hemoglobin 8.7 L (11.4-16.0) gm/dL Sodium 146 H (137-145) mmol/L Chloride 109 H (98-107) mmol/L Carbon Dioxide 15 L (22-30) mmol/L BUN 56 H (7-17) mg/dL Creatinine 3.54 H (0.52-1.04) mg/dL Glucose 224 H (74-99) mg/dL POC Glucose (mg/dL) (70-110) mg/dL Hemoglobin A1c (0.0-6.0) % Plasma Lactic Acid Santiago 7.8 H* (0.7-2.0) mmol/L Calcium (8.4-10.2) mg/dL Phosphorus (2.5-4.5) mg/dL Total Protein (6.3-8.2) g/dL Albumin (3.5-5.0) g/dL Arterial Blood Potassium 4.7 H (3.4-4.5) mmol/L Arterial Blood Glucose 235 H (75-99) mg/dL 03/02/22 03/03/22 03/03/22 Range/Units 23:25 00:59 05:17 WBC (3.8-10.6) k/uL Hgb (11.4-16.0) gm/dL MCHC (31.0-37.0) g/dL Neutrophils # (1.3-7.7) k/uL Monocytes # (0-1.0) k/uL ABG pH (7.35-7.45) ABG pO2 (83-108) mmHg ABG HCO3 (21-25) mmol/L ABG O2 Saturation (94-97) % ABG Hematocrit (34.0-46.0) % ABG Sodium (135-146) mmol/L ABG Potassium (3.4-4.5) mmol/L ABG Glucose (75-99) mg/dL ABG Lactic Acid (0.5-1.6) mmol/L Hemoglobin (11.4-16.0) gm/dL Sodium (137-145) mmol/L Chloride (98-107) mmol/L Carbon Dioxide 21 L (22-30) mmol/L BUN 53 H (7-17) mg/dL Creatinine 3.14 H (0.52-1.04) mg/dL Glucose 207 H (74-99) mg/dL POC Glucose (mg/dL) 202 H (70-110) mg/dL Hemoglobin A1c (0.0-6.0) % Plasma Lactic Acid Santiago 10.6 H* (0.7-2.0) mmol/L Calcium 7.7 L (8.4-10.2) mg/dL Phosphorus 5.4 H (2.5-4.5) mg/dL Total Protein 5.4 L (6.3-8.2) g/dL Albumin 2.9 L (3.5-5.0) g/dL Arterial Blood Potassium (3.4-4.5) mmol/L Arterial Blood Glucose (75-99) mg/dL 03/03/22 03/03/22 03/03/22 Range/Units 05:17 06:43 06:58 WBC (3.8-10.6) k/uL Hgb (11.4-16.0) gm/dL MCHC (31.0-37.0) g/dL Neutrophils # (1.3-7.7) k/uL Monocytes # (0-1.0) k/uL ABG pH (7.35-7.45) ABG pO2 (83-108) mmHg ABG HCO3 (21-25) mmol/L ABG O2 Saturation (94-97) % ABG Hematocrit (34.0-46.0) % ABG Sodium (135-146) mmol/L ABG Potassium (3.4-4.5) mmol/L ABG Glucose (75-99) mg/dL ABG Lactic Acid (0.5-1.6) mmol/L Hemoglobin (11.4-16.0) gm/dL Sodium (137-145) mmol/L Chloride (98-107) mmol/L Carbon Dioxide (22-30) mmol/L BUN (7-17) mg/dL Creatinine (0.52-1.04) mg/dL Glucose (74-99) mg/dL POC Glucose (mg/dL) 142 H (70-110) mg/dL Hemoglobin A1c 6.7 H (0.0-6.0) % Plasma Lactic Acid Santiago 8.8 H* (0.7-2.0) mmol/L Calcium (8.4-10.2) mg/dL Phosphorus (2.5-4.5) mg/dL Total Protein (6.3-8.2) g/dL Albumin (3.5-5.0) g/dL Arterial Blood Potassium (3.4-4.5) mmol/L Arterial Blood Glucose (75-99) mg/dL 03/03/22 Range/Units 06:58 WBC 14.2 H (3.8-10.6) k/uL Hgb 10.4 L (11.4-16.0) gm/dL MCHC 30.1 L (31.0-37.0) g/dL Neutrophils # 11.3 H (1.3-7.7) k/uL Monocytes # 1.3 H (0-1.0) k/uL ABG pH (7.35-7.45) ABG pO2 (83-108) mmHg ABG HCO3 (21-25) mmol/L ABG O2 Saturation (94-97) % ABG Hematocrit (34.0-46.0) % ABG Sodium (135-146) mmol/L ABG Potassium (3.4-4.5) mmol/L ABG Glucose (75-99) mg/dL ABG Lactic Acid (0.5-1.6) mmol/L Hemoglobin (11.4-16.0) gm/dL Sodium (137-145) mmol/L Chloride (98-107) mmol/L Carbon Dioxide (22-30) mmol/L BUN (7-17) mg/dL Creatinine (0.52-1.04) mg/dL Glucose (74-99) mg/dL POC Glucose (mg/dL) (70-110) mg/dL Hemoglobin A1c (0.0-6.0) % Plasma Lactic Acid Santiago (0.7-2.0) mmol/L Calcium (8.4-10.2) mg/dL Phosphorus (2.5-4.5) mg/dL Total Protein (6.3-8.2) g/dL Albumin (3.5-5.0) g/dL Arterial Blood Potassium (3.4-4.5) mmol/L Arterial Blood Glucose (75-99) mg/dL Microbiology - Last 24 Hours (Table) 03/02/22 08:15 Blood Culture Gram Stain - Preliminary Blood Blood Culture - Preliminary Coagulase Negative Staph 03/02/22 08:15 Blood Culture - Final Blood Assessment and Plan Assessment: Acute metabolic encephalopathy and possible left lower lobe pneumonia/ Atelectatsis Acute kidney injury with creatinine level went up to 4.2 on admission. Baseline 0.8 Hyperkalemia with potassium 6.9 due to acute kidney injury/AGMA Anion gap metabolic acidosis due to severe lactic acidosis Severe lactic acidosis, Possible metformin toxicity is being considered. Hypernatremia due to volume depletion Hypomagnesemia. Hypertension. Patient is hypotensive currently Diabetes type 2 [id number] Coronary artery disease with history of CABG and prior stent placement Chronic atrial fibrillation on anticoagulation with Xarelto History of CVA with left-sided weakness Prior history of smoking DVT Proph Plan: Plan: Patient is currently in MICU. Was continued on bicarb drip which has been stopped at this time. Patient was started half-normal saline. Patient was given a dose of vancomycin and blood cultures turned out to be coagulase-negative staph obvious. Continue with supportive care and follow-up closely. Will initiate anticoagulation if CT head is negative. Patient is unable to tolerate oral diet currently. Follow-up closely. Discussed with her sister and son at bedside in detail. Prognosis is guarded at this time. Pulmonary and nephrology is on board. Time with Patient: Greater than 30
--- NOTE | 2022-03-04 21:40 | P.PN ---
Subjective Progress Note Date: 03/04/22 Patient is a 71-year-old female with a known history of hypertension, diabetes type 2 [id number], CVA with left-sided weakness, coronary artery disease status post CABG and history of stent placement, chronic atrial fibrillation on anticoagulation with Xarelto depression and prior history of sm oking was sent from residential due to complaints of generalized weakness lethargy and altered mental status. Patient has been becoming more weak and lethargic for the past couple of days and was also hard to arouse. Patient was brought to ER by EMS. Evidently patient was also complaining abdominal pain as per nursing staff. Patient is currently unable to provide any history. On admission patient was hypotensive with blood pressure 86/50 5 mmHg heart rate 89 respirations 16 and pulse ox 96% on room air. Patient was afebrile. Initial ABG showed pH 7.06 PCO2 31 PO2 163 and bicarb is 9 Laboratory data showed sodium 145 potassium 6.9 chloride 109 bicarb is 8 anion gap 28 BUN 63 and creatinine 4.2 lactic acid 9.7 phosphorus 9.6 magnesium 1.4 Urinalysis showed cloudy with 2+ protein 1+ glucose 2+ ketones and RBC 7 WBC 7 squamous epithelial cells 5. WBC 10.3 hemoglobin 10.7 and platelets 289 neutrophils 8.8 EKG showed atrial fibrillation with incomplete right bundle branch block Chest x-ray showed mild left basilar atelectasis or airspace disease in the left costophrenic angle. CT of the abdomen pelvis showed no evidence for acute intra luminal process. Colonic diverticulosis. Moderate to severe degenerative sclerosis of the arterial vasculature. Nonobstructing right renal calculi. Moderate stool burden throughout the colon. 03/03/2022 Patient is currently in the MICU. Patient is able to respond to verbal stimuli but still lethargic and drowsy. Currently requiring 2 L oxygen via nasal cannula. Continued on bicarb drip. Patient did require pressor support overnight for short duration. Patient was found to have blood cultures positive for gram-positive cocci and wa s given a dose of vancomycin which turned out to be coagulase-negative staph aureus. Patient is also getting IV hydration and blood pressure did improve. Patient is being continued on antibiotics in the form of ceftriaxone. Still having lactic acidosis at 8.8 this morning. Laboratory test showed WBC 14.2 hemoglobin 10.4 and platelets 172 A1c level is 6.7 Sodium 145 potassium 4.6 chloride 102 bicarb is 23, BUN 51 and creatinine went down to 3.0. Procalcitonin level is 0.22 Pulmonary and nephrology is on board. 03/04/2022 Patient is currently lying in the bed. Awake alert but could not communicate. Still lethargic. Requiring oxygen at 2 L by nasal cannula. Otherwise renal function is improving and lactic acid level still elevated to 5.3 today. Patient is being continued on D5 half-normal saline. Sodium level improved to 142 and creatinine level 2.66 today. Remains on antibiotics, ceftriaxone. Cultures have been negative. Currently on insulin sliding scale. Laboratory data showed WBC 9.2 hemoglobin 10.4 and platelets 196 Sodium 142 potassium 4.7 chloride 102 bicarb is 29 BUN 47 creatinine 2.66 Current medications reviewed. Objective - Vital Signs Vital signs: Vital Signs Temp 98 F 03/04/22 08:00 Pulse 92 03/04/22 14:00 Resp 16 03/04/22 14:00 BP 120/77 03/04/22 14:00 Pulse Ox 97 03/04/22 14:00 FiO2 Intake & Output 03/04/22 03/04/22 03/05/22 06:59 18:59 06:59 Intake Total 1200 950 75 Output Total 1330 1125 100 Balance -130 -175 -25 Weight 65.5 kg Intake: IV 1200 950 75 Dextrose 5%-0.45% NaCl 1, 750 75 000 ml @ 75 mls/hr IV . [id number] [facility] Rx#:[id number] Sodium Chloride 0.45% 1, 1200 200 000 ml @ 100 mls/hr IV . Q10H [facility] Rx#:[id number] Output: Urine 1330 1125 100 Other: Voiding Method Indwelling Catheter Indwelling Catheter - Exam PHYSICAL EXAMINATION: Patient is lying in the bed. Responds to verbal stimuli but could not communicate. Lethargic.. HEENT: Normocephalic. Neck is supple. Pupils reactive. Nostrils clear. Oral cavity is moist. Neck reveals no JVD, carotid bruits, or thyromegaly. CHEST EXAMINATION: Trachea is central. Symmetrical expansion. Lung bhagat clear to auscultation and percussion. Bibasilar diminished sounds. CARDIAC: Normal S1, S2 with no gallops. No murmurs ABDOMEN: Soft. Bowel sounds present.. No organomegaly. No abdominal bruits. Extremities: reveal no edema. No clubbing or cyanosis Neurologically patient is lethargic and obtunded. Left-sided weakness Skin: No rash or skin lesions. Psychiatric: Could not be surgical at this time. Musculoskeletal: No joint swelling or deformity. - Labs CBC & Chem 7: 03/04/22 05:32 03/04/22 05:32 Labs: Abnormal Lab Results - Last 24 Hours (Table) 03/03/22 03/04/22 03/04/22 Range/Units 15:50 05:32 05:32 Hgb 10.4 L (11.4-16.0) gm/dL Hct 33.7 L (34.0-46.0) % RDW 16.1 H (11.5-15.5) % BUN 47 H (7-17) mg/dL Creatinine 2.66 H (0.52-1.04) mg/dL POC Glucose (mg/dL) (70-110) mg/dL Plasma Lactic Acid Santiago (0.7-2.0) mmol/L Calcium 7.4 L (8.4-10.2) mg/dL Procalcitonin 0.22 H (0.02-0.09) ng/mL 03/04/22 03/04/22 03/04/22 Range/Units 05:32 06:23 06:25 Hgb (11.4-16.0) gm/dL Hct (34.0-46.0) % RDW (11.5-15.5) % BUN (7-17) mg/dL Creatinine (0.52-1.04) mg/dL POC Glucose (mg/dL) 26 L 41 L (70-110) mg/dL Plasma Lactic Acid Santiago 5.3 H* (0.7-2.0) mmol/L Calcium (8.4-10.2) mg/dL Procalcitonin (0.02-0.09) ng/mL 03/04/22 03/04/22 03/04/22 Range/Units 07:07 08:05 11:56 Hgb (11.4-16.0) gm/dL Hct (34.0-46.0) % RDW (11.5-15.5) % BUN (7-17) mg/dL Creatinine (0.52-1.04) mg/dL POC Glucose (mg/dL) 51 L 134 H (70-110) mg/dL Plasma Lactic Acid Santiago 7.0 H* (0.7-2.0) mmol/L Calcium (8.4-10.2) mg/dL Procalcitonin (0.02-0.09) ng/mL 03/04/22 Range/Units 20:29 Hgb (11.4-16.0) gm/dL Hct (34.0-46.0) % RDW (11.5-15.5) % BUN (7-17) mg/dL Creatinine (0.52-1.04) mg/dL POC Glucose (mg/dL) (70-110) mg/dL Plasma Lactic Acid Santiago 5.5 H* (0.7-2.0) mmol/L Calcium (8.4-10.2) mg/dL Procalcitonin (0.02-0.09) ng/mL Microbiology - Last 24 Hours (Table) 03/02/22 08:15 Blood Culture Gram Stain - Preliminary Blood Blood Culture - Preliminary Coagulase Negative Staph Assessment and Plan Assessment: Acute metabolic encephalopathy and possible left lower lobe pneumonia/ Atel ectatsis Acute kidney injury with creatinine level went up to 4.2 on admission. Baseline 0.8 Hyperkalemia with potassium 6.9 due to acute kidney injury/AGMA, resolved, Anion gap metabolic acidosis due to severe lactic acidosis Severe lactic acidosis, Possible metformin toxicity is being considered. Hypernatremia due to volume depletion Hypomagnesemia. Hypertension. Diabetes type 2 [id number] Coronary artery disease with history of CABG and prior stent placement Chronic atrial fibrillation on anticoagulation with Xarelto History of CVA with left-sided weakness Prior history of smoking DVT Proph CODE STATUS DNR/DNI Plan: Plan: Patient is currently in MICU. Was continued on bicarb drip which has been stopped at this time. Patient was started D5 half-normal saline. Patient was given a dose of vancomycin and blood cultures turned out to be coagulase-negative staph. Continue with supportive care and follow-up closely. Patient will be started back anticoagulation with Xarelto as per home regimen and. Encourage oral intake and Follow-up closely. Discussed with her sister and son at bedside in detail. Prognosis is guarded at this time. Pulmonary and nephrology is on board. Time with Patient: Greater than 30
[2022-03-04] MEDS ORDERED: METOPROLOL TARTRATE 25 MG TAB PO SCH (22:00)
[2022-03-04 22:49] LABS: Glucose,Whole Blood 133 mg/dL (70-110)
[2022-03-04] MEDS: DILTIAZEM 125 MG in SODIUM CHLORIDE 0.9% 100 ML IV SCH (22:53)
[2022-03-05 00:07] LABS: Magnesium 1.4 mg/dL (1.6-2.3)
[2022-03-05] MEDS ORDERED: Magnesium Replacement Protocol 1 EACH MISC MISCELLANE PRN (01:01)
[2022-03-05] MEDS: MAGNESIUM SULFATE-D5W PMX 1 GM in DEXTROSE/WATER 1 100ML.BAG IVPB SCH ×3 (01:09→03:13)
[2022-03-05] MEDS: NOREPINEPHRINE 4 MG in SODIUM CHLORIDE 0.9% 250 ML IV SCH (01:25)
[2022-03-05] MEDS: SODIUM CHLORIDE 0.45% 1,000 ML IV SCH (03:25)
[2022-03-05 04:07] LABS: Basophils # (A) 0.1 k/uL (0-0.2); Basophils % (A) 1 %; Eosinophils # (A) 0.9 k/uL (0-0.7); Eosinophils % (A) 10 %; HCT 31.5 % (34.0-46.0); HGB 9.9 gm/dL (11.4-16.0); Hypochromasia Moderate; Lymphocytes # (A) 0.7 k/uL (1.0-4.8); Lymphocytes % (A) 9 %; MCH 26.5 pg (25.0-35.0); MCHC 31.4 g/dL (31.0-37.0); MCV 84.5 fL (80.0-100.0); Mean Platelet Volume 8.7; Monocytes # (A) 0.2 k/uL (0-1.0); Monocytes % (A) 3 %; Neutrophils # (A) 6.5 k/uL (1.3-7.7); Neutrophils % (A) 77 %; Platelet Count 218 k/uL (150-450); RBC 3.73 m/uL (3.80-5.40); RDW 15.6 % (11.5-15.5); WBC 8.5 k/uL (3.8-10.6)
[2022-03-05 04:28] LABS: Calcium 7.6 mg/dL (8.4-10.2)
[2022-03-05 04:29] LABS: Potassium 3.5 mmol/L (3.5-5.1)
[2022-03-05] MEDS: POTASSIUM CHLORIDE 20 MEQ in WATER FOR INJECTION 1 100ML.BAG IVPB SCH ×3 (05:49→11:36)
[2022-03-05 06:54] LABS: Glucose,Whole Blood 94 mg/dL (70-110)
[2022-03-05] MEDS: INSULIN ASPART (NovoLOG) 100 UNIT/ML VIAL SQ SCH ×4 (07:50→20:52)
--- NOTE | 2022-03-05 08:05 | P.CRDCN ---
History of Present Illness Consult date: 03/05/22 Chief complaint: Generalized weakness History of present illness: The patient is a 71-year-old female patient we asked to see in the intensive ca re unit for further evaluation of cardiac arrhythmia in the term of supraventricular tachycardia. The patient is a custodial resident. She does have extensive cardiovascular history consistent of CAD with prior CABG in 2013 as well as prior stenting with unknown details at this point, paroxysmal atrial fibrillation on oral anticoagulation, diabetes, hypertension, dyslipidemia, and history of stroke with left sided residual weakness. Apparently the patient was brought from the extended care facility to the hospital because of generalized weakness and fatigue. No specific symptoms of chest pain or chest discomfort or increasing shortness of breath or dizziness or lightheadedness or any feeling of heart racing or fluttering or presyncope or syncope. She underwent an extensive workup in the emergency department and she was found to be in acute renal failure and also she does have lactic C doses. She is currently hemodynamically stable and not on any vasopressors. We consulted to see the patient because of cardiac arrhythmia. She did have a brief episode lasted about 1 minute of narrow complex tachycardia consistent with SVT with what it seems to be possible short RP tachycardia. She converted back to normal sinus mechanism. Her EKG when she presented showed sinus mechanism. She does have electrolytes abnormalities including hypokalemia which was corrected. I think that the cardiac arrhythmia at this point is likely to be triggered by electrolytes abnormalities as well as by possible underlying sepsis. Reviewing the patient's previous medical record indicated that she had an echocardiogram was performed in 2016 and that showed severe cardiomyopathy. I am going to repeat her echo at this point. Meanwhile I'm going to increase the dose of metoprolol into 50 mg by mouth twice a day from 25 mg by mouth twice a day. The right wean her from the Cardizem IV. Obtain an echocardiogram. Continue oral anticoagulation. Past Medical History Past Medical History: Coronary Artery Disease (CAD), COPD, CVA/TIA, Hypertension Additional Past Medical History / Comment(s): pt states she has been treated for scabies one year ago History of Any Multi-Drug Resistant Organisms: None Reported Past Surgical History: Coronary Bypass/CABG, Heart Catheterization With Stent Additional Past Surgical History / Comment(s): cabg 2013 Past Anesthesia/Blood Transfusion Reactions: No Reported Reaction Date of Last Stent Placement:: 2013 Past Psychological History: ADD/ADHD, Depression Smoking Status: Former smoker Past Alcohol Use History: None Reported Past Drug Use History: None Reported, Marijuana - Past Family History Mother Family Medical History: Unable to Obtain Additional Family Medical History / Comment(s): cabg in 2013. stage 2 dementia Medications and Allergies Home Medications Medication Instructions Recorded Confirmed Type Albuterol Nebulized [Ventolin 2.5 mg INHALATION RT-QID PRN 01/17/21 03/02/22 History Nebulized] Melatonin 6 mg PO HS 01/17/21 03/02/22 History Rivaroxaban [Xarelto] 2.5 mg PO BID 01/17/21 03/02/22 History Sertraline [Zoloft] 100 mg PO HS 01/17/21 03/02/22 History metFORMIN HCL [Glucophage] 1,000 mg PO BID 01/17/21 03/02/22 History Aspirin 325 mg PO DAILY #30 tab 01/21/21 03/02/22 Rx Metoprolol Tartrate [Lopressor] 50 mg PO BID #60 tab 01/21/21 03/02/22 Rx clonazePAM [KlonoPIN] 0.5 mg PO HS 3 Days #6 tab 01/21/21 03/02/22 Rx polyethylene glycoL 3350 [Miralax] 17 gm PO DAILY PRN #30 packet 01/21/21 03/02/22 Rx Acetaminophen [Tylenol] 650 mg PO Q4H PRN 03/02/22 03/02/22 History Atorvastatin [Lipitor] 80 mg PO HS 03/02/22 03/02/22 History Ensure Clear 1 can PO QID 03/02/22 03/02/22 History HYDROcodone/APAP 10-325MG [Offerman 1 tab PO Q6H PRN 03/02/22 03/02/22 History 10-325] Pantoprazole [Protonix] 40 mg PO BID 03/02/22 03/02/22 History levETIRAcetam [Keppra] 750 mg PO BID 03/02/22 03/02/22 History Allergies Allergy/AdvReac Type Severity Reaction Status Date / Time No Known Allergies Allergy Verified 03/02/22 08:04 Physical Exam Vitals: Vital Signs Temp Pulse Pulse Resp BP Pulse Ox 03/05/22 02:00 93 16 112/75 96 03/05/22 01:00 117 H 7 L 112/74 76 L 03/05/22 00:00 113 H 14 110/96 100 03/04/22 23:17 140 H 17 110/85 97 03/04/22 23:00 147 H 11 L 115/81 97 03/04/22 22:00 152 H 15 127/92 94 L 03/04/22 21:00 107 H 15 131/88 03/04/22 20:00 99.3 F 106 H 150 H 11 L 135/88 97 03/04/22 14:00 92 16 120/77 97 03/04/22 13:00 96 11 L 112/79 03/04/22 12:00 96 12 102/75 03/04/22 11:00 96 11 L 115/77 96 03/04/22 10:00 97 16 102/70 96 03/04/22 09:00 101 H 11 L 98/64 92 L Intake and Output 03/04/22 03/05/22 03/05/22 22:59 06:59 14:59 Intake Total 600 1000 175 Output Total 585 900 100 Balance 15 100 75 Intake: IV 600 600 75 Dextrose 5%-0.45% NaCl 1, 600 600 75 000 ml @ 75 mls/hr IV . [id number] [facility] Rx#:[id number] Intake, IV Titration 400 100 Amount Magnesium Sulfate-D5w Pmx 300 1 gm In Dextrose/Water 1 100ml.bag @ 100 mls/hr IVPB Q1H [facility] Rx#: [id number] Potassium Chloride 20 meq 100 100 In Water For Injection 1 100ml.bag @ 50 mls/hr IVPB Q2H [facility] Rx#: [id number] Output: Urine 585 900 100 Other: Voiding Method Indwelling Catheter - Constitutional General appearance: no acute distress - Respiratory Respiratory: bilateral: diminished - Cardiovascular Rhythm: regular Abnormal Heart Sounds: systolic murmur Results 03/05/22 03:50 03/05/22 03:50 CBC 03/05/22 Range/Units 03:50 WBC 8.5 (3.8-10.6) k/uL RBC 3.73 L (3.80-5.40) m/uL Hgb 9.9 L (11.4-16.0) gm/dL Hct 31.5 L (34.0-46.0) % Plt Count 218 (150-450) k/uL Comprehensive Metabolic Panel 03/05/22 Range/Units 03:50 Sodium 137 (137-145) mmol/L Potassium 3.5 (3.5-5.1) mmol/L Chloride 99 (98-107) mmol/L Carbon Dioxide 29 (22-30) mmol/L BUN 37 H (7-17) mg/dL Creatinine 2.17 H (0.52-1.04) mg/dL Glucose 166 H (74-99) mg/dL Calcium 7.6 L (8.4-10.2) mg/dL Current Medications Generic Name Dose Route Start Last Admin Trade Name Freq PRN Reason Stop Dose Admin Albuterol/Ipratropium 3 ml 03/02/22 06:32 03/02/22 15:54 Ipratropium-Albuterol 3 Ml Neb INHALATION 3 ml RT-Q4H PRN Administration Shortness Of Breath Or Wheezing Ceftriaxone Sodium 1 gm/ 50 mls @ 100 mls/hr 03/02/22 19:00 03/05/22 07:01 Sodium Chloride IVPB 100 mls/hr Q12H [facility] Administration Protocol Sodium Chloride 1,000 mls @ 100 mls/hr 03/02/22 19:00 03/05/22 03:25 Saline 0.45% IV Not Given .Q10H [facility] Norepinephrine Bitartrate 4 mg 254 mls @ 6.74 mls/hr 03/03/22 01:15 03/05/22 01:25 / Sodium Chloride IV Not Given .Q24H [facility] Protocol 0.03 MCG/KG/MIN Dextrose/Sodium Chloride 1,000 mls @ 75 mls/hr 03/04/22 07:15 03/04/22 21:38 Dextrose 5%-1/2ns Iv Soln IV 75 mls/hr .[id number] [facility] Administration Diltiazem HCl 125 mg/ Sodium 125 mls @ 10 mls/hr 03/04/22 22:30 03/04/22 22:53 Chloride IV 10 mg/hr .[id number] [facility] 10 mls/hr Administration 10 MG/HR Potassium Chloride 20 meq/ IV 100 mls @ 50 mls/hr 03/05/22 06:00 03/05/22 05:49 Solution IVPB 03/05/22 11:59 50 mls/hr Q2H [facility] Administration Protocol Insulin Aspart 0 unit 03/03/22 07:30 12/08/22 07:50 Insulin Aspart (Novolog) 100 Unit/Ml Vial SQ Not Given ACHS [facility] Protocol Levetiracetam 750 mg 03/04/22 22:00 03/05/22 05:55 Levetiracetam 750 Mg Tab PO Not Given BID [facility] Metoprolol Tartrate 50 mg 03/05/22 09:00 Metoprolol Tartrate 50 Mg Tab PO BID [facility] Miscellaneous Information 1 each 03/05/22 01:01 Magnesium Replacement Protocol 1 Each Misc MISCELLANE DAILY PRN Per Protocol Protocol Morphine Sulfate 4 mg 03/02/22 06:32 Morphine Sulfate 4 Mg/Ml Syringe IV Q3HR PRN Severe Pain (Scale 7 to 10) Naloxone HCl 0.2 mg 03/02/22 06:32 Naloxone 0.4 Mg/Ml 1 Ml Vial IV Q2M PRN Opioid Reversal Ondansetron HCl 4 mg 03/02/22 07:10 03/04/22 21:50 Ondansetron 4 Mg/2 Ml Vial IVP 4 mg Q8HR PRN Administration Nausea And Vomiting Pantoprazole Sodium 40 mg 03/02/22 09:00 03/04/22 08:56 Pantoprazole 40 Mg/10 Ml Vial IV 40 mg DAILY [facility] Administration Rivaroxaban 2.5 mg 03/05/22 09:00 Rivaroxaban 2.5 Mg Tablet PO BID [facility] Protocol Senna 8.6 mg 03/02/22 21:00 03/04/22 21:38 Sennosides 8.6 Mg Tab PO 8.6 mg BID [facility] Administration Intake and Output 03/04/22 03/05/22 03/05/22 22:59 06:59 14:59 Intake Total 600 1000 175 Output Total 585 900 100 Balance 15 100 75 Intake: IV 600 600 75 Dextrose 5%-0.45% NaCl 1, 600 600 75 000 ml @ 75 mls/hr IV . [id number] [facility] Rx#:[id number] Intake, IV Titration 400 100 Amount Magnesium Sulfate-D5w Pmx 300 1 gm In Dextrose/Water 1 100ml.bag @ 100 mls/hr IVPB Q1H [facility] Rx#: [id number] Potassium Chloride 20 meq 100 100 In Water For Injection 1 100ml.bag @ 50 mls/hr IVPB Q2H [facility] Rx#: [id number] Output: Urine 585 900 100 Other: Voiding Method Indwelling Catheter 03/05/22 03:50 03/05/22 03:50 Assessment and Plan Assessment: Assessment Change in mental status Possible metabolic encephalopathy Acute renal failure Electrolytes imbalance Severe lactic acidosis Supraventricular tachycardia History of paroxysmal atrial fibrillation Coronary artery disease with prior revascularization History of cardiomyopathy Multiple comorbid conditions History of stroke with residual left-sided weakness Plan DC Cardizem IV Increase the dose of beta twin with metoprolol Continue oral anticoagulation Obtain an echo to assess ejection fraction Follow-up with the patient
[2022-03-05] MEDS: METOPROLOL TARTRATE 50 MG TAB PO SCH ×2 (08:14→20:45)
[2022-03-05] MEDS: PANTOPRAZOLE 40 MG/10 ML VIAL IV SCH (08:14)
[2022-03-05] MEDS: RIVAROXABAN 2.5 MG TABLET PO SCH ×2 (08:14→21:44)
[2022-03-05] MEDS: DILTIAZEM 125 MG in SODIUM CHLORIDE 0.9% 100 ML IV SCH (08:30)
[2022-03-05] MEDS ORDERED: METOPROLOL TARTRATE 25 MG TAB PO SCH (09:00)
[2022-03-05] MEDS: SENNOSIDES 8.6 MG TAB PO SCH ×2 (10:25→20:45)
[2022-03-05] MEDS ORDERED: SODIUM CHLORIDE 0.9% 1,000 ML IV SCH (10:30)
--- NOTE | 2022-03-05 10:51 | P.PN ---
Subjective Progress Note Date: 03/05/22 Principal diagnosis: Sepsis. Pulmonary consult dated 03/02/2022. 71-year-old female who resides at one of the local nursing homes. She is apparently brought into the emergency room, because of generalized weakness, lack of energy, difficulty in ambulation, and apparently abdominal pain. Currently, the patient is seen in emergency room #11. I believe my partner was called about this patient by the ER physician. The patient had a blood gas showing a pO2 163, pCO2 31, and a pH is 7.06. She is not able to provide any additional history. She is very lethargic and somnolent. Her lower extremities are mottled. Not much history could be obtained from the ER maycol either. She apparently has a history of CAD, COPD, CVA, and hypertension. She also is status post CABG. White count 10.3, hemoglobin 10.7, hematocrit 37.7, and platelet count 289,000. Repeat electrolyte profile shows a sodium 150, potassium 4.8, chlorides 1:15, CO2 8, anion gap 27, BUN 53, and creatinine 3.49. Lactic acid was 9.7. Repeat was 11.0. Urine is light yellow and cloudy. Protein is 2+. Leukocyte esterase and nitrate were both negative. Chest x-ray shows mild left basilar atelectasis or airspace disease. CT of the abdomen and pelvis shows no acute intraluminal/intra-abdominal process. There is colonic diverticulosis, and a nonobstructing right renal calculi. Progress note dated 03/03/2022. This is a patient who was seen yesterday in the emergency room. She is 71 years of age, and resides at one of the local nursing homes. She was brought into the emergency room, because of generalized weakness, lack of energy, difficulty in ambulation, and abdominal pain. In addition, she had mental status changes. She was admitted to the intensive care unit. She is on 2 L of oxygen. She's getting D5W with 3 ampules of sodium bicarbonate at 125 cc/h. She's also getting half-normal saline at 75 mL an hour. Blood culture showed evidence of gram-positive cocci. I gave her dose of vancomycin this morning. She continues on Rocephin. Last night, her blood pressures were a bit low despite fluid resuscitation, she was on norepinephrine for brief period of time. Nephrology thinks that the patient may have metformin toxicity. That is because of her ongoing lactic acidosis. White count 14.2, hemoglobin 10.4, hematocrit 34.7, platelet count 272,000. Sodium 144, potassium 4.7, chlorides 104, CO2 21, anion gap 19, BUN 53, creatinine 3.14. Her lactic acid is 8.8. Chest x-ray shows a small left-sided pleural effusion and some basilar atelectasis or infiltrate at the left base. Progress note dated 03/04/2022. 71-year-old female initially seen in the emergency room. She was admitted from one of the local nursing homes, with mental status changes, weakness, fatigue, and difficulty in ambulation. The patient's currently in the intensive care unit. The nurse was able to speak to a family member yesterday, and make the patient a DO NOT RESUSCITATE patient. She apparently has quite severe dementia. She is currently on 2 L of oxygen. She's getting dextrose with half-normal saline at 75 mL an hour. Laboratory data includes a white count of 9.2, hemoglobin 10.4, hematocrit 33.7, and a normal platelet count. Sodium 142, potassium 4.7, chlorides 102, CO2 29, anion gap 11, BUN 47, and creatinine 2.66. The lactic acid was elevated at 7. Blood cultures are positive for coag- negative staph. Brain CT showed degenerative an extensive remote ischemic michelle nges without evidence of acute hemorrhage or mass effect. Progress note dated 03/05/2022. 71-year-old female seen in room 265. The patient is now a DO NOT RESUSCITATE patient. She's on room air. Saturations 95%. She's getting dextrose with half-normal saline at 75 mL an hour. The patient did develop atrial fibrillation with RVR last night, and was initially started on a Cardizem drip. The Cardizem drip has been turned off. Cardiology increased her dose of beta twin. The patient can be transferred out to the general medical floor. White count 8.5, hemoglobin 9.9, hematocrit 31.5, and platelet count 218,000. Sodium 137, potassium 3.5, chlorides 99, CO2 29, BUN 37, and creatinine 2.17. Blood cultures are showing evidence of coag-negative staph. Objective - Vital Signs Vital signs: Vital Signs Temp 99.3 F 03/04/22 20:00 Pulse 81 03/05/22 10:00 Resp 12 03/05/22 10:00 BP 109/76 03/05/22 10:00 Pulse Ox 95 03/05/22 10:00 FiO2 21 03/05/22 08:00 Intake & Output 03/04/22 03/05/22 03/05/22 18:59 06:59 18:59 Intake Total 950 1300 175 Output Total 1125 1185 400 Balance -175 115 -225 Intake: IV 950 900 75 Dextrose 5%-0.45% NaCl 1, 750 900 75 000 ml @ 75 mls/hr IV . [id number] [facility] Rx#:[id number] Sodium Chloride 0.45% 1, 200 000 ml @ 100 mls/hr IV . Q10H [facility] Rx#:[id number] Intake, IV Titration 400 100 Amount Magnesium Sulfate-D5w Pmx 300 1 gm In Dextrose/Water 1 100ml.bag @ 100 mls/hr IVPB Q1H [facility] Rx#: [id number] Potassium Chloride 20 meq 100 100 In Water For Injection 1 100ml.bag @ 50 mls/hr IVPB Q2H [facility] Rx#: [id number] Output: Urine 1125 1185 400 Other: Voiding Method Indwelling Catheter Indwelling Catheter Indwelling Catheter - Exam No acute distress, very lethargic and somnolent, poorly responsive, currently on room air. Saturations are 95%. HEENT examination is grossly unremarkable. Mucous membranes are dry. Neck supple. Full range of motion. No adenopathy thyromegaly or neck vein distention. Cardiovascular examination reveals regular rhythm rate. S1-S2 normal. No S3 or S4. No discernible murmur noted. Heart rate 81 bpm. Lungs reveal mostly clear breath sounds. Scattered rhonchi. No wheezes or crackles. Room air saturation is 95%. Abdomen soft bowel sounds are heard. No masses or tenderness. Extremities are intact. Extremities are less mottled. No significant edema. No clubbing. Skin is without rash or lesion. Neurologic examination cannot be adequately assessed as the patient's very lethargic. - Labs CBC & Chem 7: 03/05/22 03:50 03/05/22 03:50 Labs: Abnormal Lab Results - Last 24 Hours (Table) 1203/04/22 03/04/22 Range/Units 11:56 20:29 22:47 RBC (3.80-5.40) m/uL Hgb (11.4-16.0) gm/dL Hct (34.0-46.0) % RDW (11.5-15.5) % Lymphocytes # (1.0-4.8) k/uL Eosinophils # (0-0.7) k/uL BUN (7-17) mg/dL Creatinine (0.52-1.04) mg/dL Glucose (74-99) mg/dL POC Glucose (mg/dL) 134 H 133 H (70-110) mg/dL Plasma Lactic Acid Santiago 5.5 H* (0.7-2.0) mmol/L Calcium (8.4-10.2) mg/dL Magnesium (1.6-2.3) mg/dL 03/04/22 03/04/22 03/05/22 Range/Units 23:05 23:05 03:50 RBC 3.73 L (3.80-5.40) m/uL Hgb 9.9 L (11.4-16.0) gm/dL Hct 31.5 L (34.0-46.0) % RDW 15.6 H (11.5-15.5) % Lymphocytes # 0.7 L (1.0-4.8) k/uL Eosinophils # 0.9 H (0-0.7) k/uL BUN (7-17) mg/dL Creatinine (0.52-1.04) mg/dL Glucose (74-99) mg/dL POC Glucose (mg/dL) (70-110) mg/dL Plasma Lactic Acid Santiago 3.8 H* (0.7-2.0) mmol/L Calcium (8.4-10.2) mg/dL Magnesium 1.4 L (1.6-2.3) mg/dL 03/05/22 03/05/22 Range/Units 03:50 03:50 RBC (3.80-5.40) m/uL Hgb (11.4-16.0) gm/dL Hct (34.0-46.0) % RDW (11.5-15.5) % Lymphocytes # (1.0-4.8) k/uL Eosinophils # (0-0.7) k/uL BUN 37 H (7-17) mg/dL Creatinine 2.17 H (0.52-1.04) mg/dL Glucose 166 H (74-99) mg/dL POC Glucose (mg/dL) (70-110) mg/dL Plasma Lactic Acid Santiago 4.2 H* (0.7-2.0) mmol/L Calcium 7.6 L (8.4-10.2) mg/dL Magnesium (1.6-2.3) mg/dL Microbiology - Last 24 Hours (Table) 03/02/22 08:15 Blood Culture Gram Stain - Preliminary Blood Blood Culture - Preliminary Coagulase Negative Staph Assessment and Plan Assessment: Acute mental status changes, of unclear etiology. Could relate to underlying infection/sepsis, such as possible pneumonia. Blood cultures positive for coagulase-negative staphlococcus. Acute kidney injury with severe anion gap metabolic acidosis. Possible metformin toxicity. Acute lactic acidemia. Hypernatremia. History of CAD with previous CABG, 2013. History of COPD. History of CVA. History of hypertension. Prior history of tobacco use. Plan: Plan dated 03/02/2022. The patient was seen in the emergency room. The patient should probably be brought to the intensive care unit. She apparently is a full code. The patient's chest x-ray, and computed tomography scan of the abdomen/pelvis were reviewed. Nephrology should be consulted. We did change her IV at a dextrose with 3 ampules of sodium bicarbonate, at 125 mL an hour. Prognosis is very guarded. We will continue to follow. She was given Rocephin by the ER physician. She is also receiving breathing treatments. Plan dated 03/03/2022. The patient was brought to the intensive care unit for further management and monitoring. The patient did go on norepinephrine last night for a short period of time because of low blood pressures. Currently, she is getting D5W, with 3 ampules of sodium bicarbonate at 125 mL an hour. She got a dose of vancomycin this morning because blood culture showed evidence of gram-positive cocci. Nephrology saw the patient this morning was concerned about the possibility of metformin toxicity. We will continue to follow make recommendations along the way. Prognosis is guarded. Labs, x-rays, and medications are all reviewed. Plan dated 03/04/2022. The patient is now a DO NOT RESUSCITATE patient. The nurse was able to speak to the family member yesterday. Labs, x-rays, medications are reviewed. The patient still has a persistent elevated lactate. The marketing project specialist was concerned about metformin toxicity. The patient is currently on Rocephin. Culture data is as far negative save for the blood cultures for coagulase-negative staph. We will continue to follow. Prognosis is poor. The patient can be transferred out of the intensive care unit. Plan dated 03/05/2022. The patient is on appropriate medications. The coag-negative staph is likely contaminant. The patient's other medications are appropriate. The ceftriaxone can be discontinued. Additional recommendations and suggestions are forthcoming. Pro-calcitonin level was only 0.22. The patient has a DO NOT RESUSCITATE patient. Prognosis is very poor. Time with Patient: Less than 30
--- NOTE | 2022-03-05 10:59 | P.PN ---
Subjective Patient is seen in follow-up for acute kidney injury and hypernatremia. Sodium level is normal today. Renal function improving. Nonoliguric. Acidosis resolved. Vital signs are stable. General: Resting in bed. HEENT: Head exam is unremarkable. On nasal cannula. LUNGS: Breath sounds decreased. HEART: Rate and Rhythm are regular. ABDOMEN: Soft, no distention. EXTREMITITES: No edema. Objective - Vital Signs Vital signs: Vital Signs Temp 99.3 F 03/04/22 20:00 Pulse 81 03/05/22 10:00 Resp 12 03/05/22 10:00 BP 109/76 03/05/22 10:00 Pulse Ox 95 03/05/22 10:00 FiO2 21 03/05/22 08:00 Intake & Output 03/04/22 03/05/22 03/05/22 18:59 06:59 18:59 Intake Total 950 1300 175 Output Total 1125 1185 400 Balance -175 115 -225 Intake: IV 950 900 75 Dextrose 5%-0.45% NaCl 1, 750 900 75 000 ml @ 75 mls/hr IV . [id number] [facility] Rx#:[id number] Sodium Chloride 0.45% 1, 200 000 ml @ 100 mls/hr IV . Q10H [facility] Rx#:[id number] Intake, IV Titration 400 100 Amount Magnesium Sulfate-D5w Pmx 300 1 gm In Dextrose/Water 1 100ml.bag @ 100 mls/hr IVPB Q1H [facility] Rx#: [id number] Potassium Chloride 20 meq 100 100 In Water For Injection 1 100ml.bag @ 50 mls/hr IVPB Q2H [facility] Rx#: [id number] Output: Urine 1125 1185 400 Other: Voiding Method Indwelling Catheter Indwelling Catheter Indwelling Catheter - Labs CBC & Chem 7: 03/05/22 03:50 03/05/22 03:50 Labs: Abnormal Lab Results - Last 24 Hours (Table) 03/04/22 03/04/22 03/04/22 Range/Units 11:56 20:29 22:47 RBC (3.80-5.40) m/uL Hgb (11.4-16.0) gm/dL Hct (34.0-46.0) % RDW (11.5-15.5) % Lymphocytes # (1.0-4.8) k/uL Eosinophils # (0-0.7) k/uL BUN (7-17) mg/dL Creatinine (0.52-1.04) mg/dL Glucose (74-99) mg/dL POC Glucose (mg/dL) 134 H 133 H (70-110) mg/dL Plasma Lactic Acid Santiago 5.5 H* (0.7-2.0) mmol/L Calcium (8.4-10.2) mg/dL Magnesium (1.6-2.3) mg/dL 03/04/22 03/04/22 03/05/22 Range/Units 23:05 23:05 03:50 RBC 3.73 L (3.80-5.40) m/uL Hgb 9.9 L (11.4-16.0) gm/dL Hct 31.5 L (34.0-46.0) % RDW 15.6 H (11.5-15.5) % Lymphocytes # 0.7 L (1.0-4.8) k/uL Eosinophils # 0.9 H (0-0.7) k/uL BUN (7-17) mg/dL Creatinine (0.52-1.04) mg/dL Glucose (74-99) mg/dL POC Glucose (mg/dL) (70-110) mg/dL Plasma Lactic Acid Santiago 3.8 H* (0.7-2.0) mmol/L Calcium (8.4-10.2) mg/dL Magnesium 1.4 L (1.6-2.3) mg/dL 03/05/22 03/05/22 Range/Units 03:50 03:50 RBC (3.80-5.40) m/uL Hgb (11.4-16.0) gm/dL Hct (34.0-46.0) % RDW (11.5-15.5) % Lymphocytes # (1.0-4.8) k/uL Eosinophils # (0-0.7) k/uL BUN 37 H (7-17) mg/dL Creatinine 2.17 H (0.52-1.04) mg/dL Glucose 166 H (74-99) mg/dL POC Glucose (mg/dL) (70-110) mg/dL Plasma Lactic Acid Santiago 4.2 H* (0.7-2.0) mmol/L Calcium 7.6 L (8.4-10.2) mg/dL Magnesium (1.6-2.3) mg/dL Microbiology - Last 24 Hours (Table) 03/02/22 08:15 Blood Culture Gram Stain - Preliminary Blood Blood Culture - Preliminary Coagulase Negative Staph Assessment and Plan Plan: Assessment: 1. Acute kidney injury mostly prerenal secondary to septic shock. Creatinine was 4.2 on admission and is 2.17 this morning. Creatinine was 0.8 in February 2021. No hydronephrosis noted on CAT scan. 2. Septic shock secondary to gram-positive bacteremia on antibiotics. 3. Metabolic acidosis secondary to acute kidney injury and lactic acidosis. Improved. 4. Lactic acidosis secondary to hypotension and use of metformin. 5. Hypernatremia from lack of oral water intake. Resolved. 6. Diabetes mellitus. 7. Hypokalemia from poor intake. Plan: Change IV fluids to normal saline at 60 mL an hour. Avoid nephrotoxins. Continue to hold metformin. Renal function, acidosis and urine output all improved. Continue to monitor renal function and urine output. Replacement potassium.
[2022-03-05 11:23] LABS: Glucose,Whole Blood 82 mg/dL (70-110)
[2022-03-05] MEDS: DEXTROSE 5%-0.45% NACL 1,000 ML IV SCH (11:31)
[2022-03-05] MEDS ORDERED: ACETAMINOPHEN TAB 325 MG TAB PO PRN (14:43)
[2022-03-05] MEDS ORDERED: HYDROcodone/APAP 10-325MG 1 EACH TAB PO PRN (14:43)
[2022-03-05 16:24] LABS: Glucose,Whole Blood 108 mg/dL (70-110)
[2022-03-05 20:24] LABS: Glucose,Whole Blood 32 mg/dL (70-110)
[2022-03-05 20:24] LABS: Glucose,Whole Blood 34 mg/dL (70-110)
[2022-03-05] MEDS ORDERED: DEXTROSE 50% SYRINGE 50 ML IVP ONE ×2 (20:25→20:30)
[2022-03-05] MEDS: DEXTROSE 50% SYRINGE 50 ML IVP STA (20:26)
[2022-03-05 20:34] LABS: Glucose,Whole Blood 57 mg/dL (70-110)
[2022-03-05] MEDS: clonazePAM 0.5 MG TAB PO SCH (20:45)
[2022-03-05] MEDS: ATORVASTATIN 80 MG TAB PO SCH (20:45)
[2022-03-05 21:04] LABS: Glucose,Whole Blood 76 mg/dL (70-110)
[2022-03-05 21:35] LABS: Glucose,Whole Blood 102 mg/dL (70-110)
[2022-03-05] MEDS: SERTRALINE 100 MG TAB PO SCH (21:44)
[2022-03-05] MEDS: DEXTROSE 5%-0.9% NACL 1,000 ML IV SCH (21:47)
[2022-03-06] MEDS: NOREPINEPHRINE 4 MG in SODIUM CHLORIDE 0.9% 250 ML IV SCH ×2 (01:05→23:17)
[2022-03-06 01:08] LABS: Glucose,Whole Blood 127 mg/dL (70-110)
[2022-03-06 06:09] LABS: Glucose,Whole Blood 73 mg/dL (70-110)
[2022-03-06] MEDS: INSULIN ASPART (NovoLOG) 100 UNIT/ML VIAL SQ SCH ×4 (06:10→21:05)
[2022-03-06 06:56] LABS: Glucose,Whole Blood 117 mg/dL (70-110)
[2022-03-06 08:08] LABS: Calcium 7.8 mg/dL (8.4-10.2); Magnesium 1.7 mg/dL (1.6-2.3)
--- NOTE | 2022-03-06 08:14 | P.PN ---
Subjective Progress Note Date: 03/06/22 Principal diagnosis: Paroxysmal atrial fibrillation The patient is a 71-year-old female patient we asked to see in the intensive care unit for further evaluation of cardiac arrhythmia in the term of supraventricular tachycardia. The patient is a skilled nursing resident. She does have extensive cardiovascular history consistent of CAD with prior CABG in 2013 as well as prior stenting with unknown details at this point, paroxysmal atrial fibrillation on oral anticoagulation, diabetes, hypertension, dyslipidemia, and history of stroke with left sided residual weakness. Apparently the patient was brought from the extended care facility to the hospital because of generalized weakness and fatigue. No specific symptoms of chest pain or chest discomfort or increasing shortness of breath or dizziness or lightheadedness or any feeling of heart racing or fluttering or presyncope or syncope. She underwent an extensive workup in the emergency department and she was found to be in acute renal failure and also she does have lactic C doses. She is currently hemodynamically stable and not on any vasopressors. We consulted to see the patient because of cardiac arrhythmia. She did have a brief episode lasted about 1 minute of narrow complex tachycardia consistent with SVT with what it seems to be possible short RP tachycardia. She converted back to normal sinus mechanism. Her EKG when she presented showed sinus mechanism. She does have electrolytes abnormalities including hypokalemia which was corrected. I think that the cardiac arrhythmia at this point is likely to be triggered by electrolytes abnormalities as well as by possible underlying sepsis. Reviewing the patient's previous medical record indicated that she had an echocardiogram was performed in 2015 and that showed severe cardiomyopathy. I am going to repeat her echo at this point. Meanwhile I'm going to increase the dose of metoprolol into 50 mg by mouth twice a day from 25 mg by mouth twice a day. The right wean her from the Cardizem IV. Obtain an echocardiogram. Continue oral anticoagulation. March 062021 The patient was seen and evaluated this morning. Overall she's stable from the cardiovascular standpoint of view. She is hemodynamically stable. She is asymptomatic. The dose of beta twin has increased yesterday and since then she has no more episodes of SVT. She has been on oral anticoagulation. From the cardiac vascular standpoint of view, would continue the current medical and the patient potentially can be discharged out of the intensive care unit Objective - Vital Signs Vital signs: Vital Signs Temp 98.1 F 03/05/22 20:00 Pulse 82 03/06/22 02:00 Resp 18 03/06/22 02:00 BP 120/80 03/06/22 02:00 Pulse Ox 98 03/06/22 02:00 FiO2 21 03/05/22 08:00 Intake & Output 03/05/22 03/06/22 03/06/22 18:59 06:59 18:59 Intake Total 175 720 Output Total 1125 655 Balance -950 65 Intake: IV 75 720 Dextrose 5%-0.45% NaCl 1, 75 660 000 ml @ 75 mls/hr IV . [id number] [facility] Rx#:[id number] Sodium Chloride 0.9% 1, 60 000 ml @ 60 mls/hr IV . [id number] [facility] Rx#:[id number] Intake, IV Titration 100 Amount Potassium Chloride 20 meq 100 In Water For Injection 1 100ml.bag @ 50 mls/hr IVPB Q2H [facility] Rx#: [id number] Output: Urine 1125 655 Other: Voiding Method Indwelling Catheter Indwelling Catheter - Constitutional General appearance: Present: no acute distress - Respiratory Respiratory: bilateral: diminished - Cardiovascular Rhythm: regular - Labs CBC & Chem 7: 03/05/22 03:50 03/06/22 07:20 Labs: Abnormal Lab Results - Last 24 Hours (Table) 03/05/22 03/05/22 03/05/22 Range/Units 20:20 20:22 20:32 BUN (7-17) mg/dL Creatinine (0.52-1.04) mg/dL Glucose (74-99) mg/dL POC Glucose (mg/dL) 34 L 32 L 57 L (70-110) mg/dL Calcium (8.4-10.2) mg/dL 03/06/22 03/06/22 03/06/22 Range/Units 01:06 06:54 07:20 BUN 24 H (7-17) mg/dL Creatinine 1.72 H (0.52-1.04) mg/dL Glucose 109 H (74-99) mg/dL POC Glucose (mg/dL) 127 H 117 H (70-110) mg/dL Calcium 7.8 L (8.4-10.2) mg/dL Assessment and Plan Assessment: Assessment Change in mental status which has somewhat slightly improved Possible metabolic encephalopathy Acute renal failure Electrolytes imbalance Severe lactic acidosis Supraventricular tachycardia History of paroxysmal atrial fibrillation Coronary artery disease with prior revascularization History of cardiomyopathy Multiple comorbid conditions History of stroke with residual left-sided weakness Plan Continue current medical regimen Continue oral anticoagulation Obtain an echo to assess ejection fraction Follow-up with the patient
[2022-03-06 08:30] LABS: Basophils # (A) 0.1 k/uL (0-0.2); Basophils % (A) 1 %; Eosinophils % (A) 12 %; HCT 32.4 % (34.0-46.0); HGB 9.9 gm/dL (11.4-16.0); Hypochromasia Marked; Lymphocytes # (A) 0.8 k/uL (1.0-4.8); Lymphocytes % (A) 10 %; MCH 25.9 pg (25.0-35.0); MCHC 30.6 g/dL (31.0-37.0); MCV 84.9 fL (80.0-100.0); Mean Platelet Volume 9.9; Monocytes # (A) 0.4 k/uL (0-1.0); Monocytes % (A) 5 %; Neutrophils # (A) 5.7 k/uL (1.3-7.7); Neutrophils % (A) 72 %; Platelet Count 221 k/uL (150-450); RBC 3.81 m/uL (3.80-5.40); RDW 15.4 % (11.5-15.5); WBC 7.9 k/uL (3.8-10.6)
[2022-03-06] MEDS: SENNOSIDES 8.6 MG TAB PO SCH ×2 (09:43→21:05)
[2022-03-06] MEDS: RIVAROXABAN 2.5 MG TABLET PO SCH ×2 (09:43→21:06)
[2022-03-06] MEDS: METOPROLOL TARTRATE 50 MG TAB PO SCH ×2 (09:43→21:08)
[2022-03-06] MEDS: PANTOPRAZOLE 40 MG/10 ML VIAL IV SCH (09:43)
--- NOTE | 2022-03-06 10:34 | P.PN ---
Subjective Progress Note Date: 03/05/22 Patient is a 71-year-old female with a known history of hypertension, diabetes type 2 [id number], CVA with left-sided weakness, coronary artery disease status post CABG and history of stent placement, chronic atrial fibrillation on anticoagulation with Xarelto depression and prior history of sm oking was sent from [facility] due to complaints of generalized weakness lethargy and altered mental status. Patient has been becoming more weak and lethargic for the past couple of days and was also hard to arouse. Patient was brought to ER by EMS. Evidently patient was also complaining abdominal pain as per nursing staff. Patient is currently unable to provide any history. On admission patient was hypotensive with blood pressure 86/50 5 mmHg heart rate 89 respirations 16 and pulse ox 96% on room air. Patient was afebrile. Initial ABG showed pH 7.06 PCO2 31 PO2 163 and bicarb is 9 Laboratory data showed sodium 145 potassium 6.9 chloride 109 bicarb is 8 anion gap 28 BUN 63 and creatinine 4.2 lactic acid 9.7 phosphorus 9.6 magnesium 1.4 Urinalysis showed cloudy with 2+ protein 1+ glucose 2+ ketones and RBC 7 WBC 7 squamous epithelial cells 5. WBC 10.3 hemoglobin 10.7 and platelets 289 neutrophils 8.8 EKG showed atrial fibrillation with incomplete right bundle branch block Chest x-ray showed mild left basilar atelectasis or airspace disease in the left costophrenic angle. CT of the abdomen pelvis showed no evidence for acute intra luminal process. Colonic diverticulosis. Moderate to severe degenerative sclerosis of the arterial vasculature. Nonobstructing right renal calculi. Moderate stool burden throughout the colon. 03/03/2022 Patient is currently in the MICU. Patient is able to respond to verbal stimuli but still lethargic and drowsy. Currently requiring 2 L oxygen via nasal cannula. Continued on bicarb drip. Patient did require pressor support overnight for short duration. Patient was found to have blood cultures positive for gram-positive cocci and wa s given a dose of vancomycin which turned out to be coagulase-negative staph aureus. Patient is also getting IV hydration and blood pressure did improve. Patient is being continued on antibiotics in the form of ceftriaxone. Still having lactic acidosis at 8.8 this morning. Laboratory test showed WBC 14.2 hemoglobin 10.4 and platelets 172 A1c level is 6.7 Sodium 145 potassium 4.6 chloride 102 bicarb is 23, BUN 51 and creatinine went down to 3.0. Procalcitonin level is 0.22 Pulmonary and nephrology is on board. 03/04/2022 Patient is currently lying in the bed. Awake alert but could not communicate. Still lethargic. Requiring oxygen at 2 L by nasal cannula. Otherwise renal function is improving and lactic acid level still elevated to 5.3 today. Patient is being continued on D5 half-normal saline. Sodium level improved to 142 and creatinine level 2.66 today. Remains on antibiotics, ceftriaxone. Cultures have been negative. Currently on insulin sliding scale. Laboratory data showed WBC 9.2 hemoglobin 10.4 and platelets 196 Sodium 142 potassium 4.7 chloride 102 bicarb is 29 BUN 47 creatinine 2.66 03/05/2022 Patient is seen and evaluated in follow-up this morning currently sitting up in the bed continues to be in the ICU with multiple medical consultations following. Patient is more awake today and does respond to questions and commands although delayed. Nephrology following as well and patient is maintained on D5 half-normal saline with some slight improvement in kidney functions. Patient is maintained on clear liquid diet and recommend aspiration precautions. Lactic acid continues to be elevated and is 4.2 today. Patient with creatinine of 2.17 and is improving and will continue with current fluid gentle IV 50 mL's per hour with dextrose 5% normal saline. Nephrology is following. Patient is continued on ceftriaxone and will continue at this time. Will resume some home medications as patient is tolerating oral intake. Patient with significant weakness and generalized edema noted throughout bilateral upper and lower extremities. PHYSICAL EXAMINATION: Patient is sitting up in the bed. Responds to verbal stimuli and somewhat communicating although delayed but is following commands appropriately HEENT: Normocephalic. Neck is supple. Pupils reactive. Nostrils clear. Oral cavity is moist. Neck reveals no JVD, carotid bruits, or thyromegaly. CHEST EXAMINATION: Trachea is central. Symmetrical expansion. Lung bhagat diminished otherwise clear to auscultation and percussion. CARDIAC: Normal S1, S2 with no gallops. No murmurs ABDOMEN: Soft. Bowel sounds present.. No organomegaly. No abdominal bruits. Extremities: reveal no edema. No clubbing or cyanosis Neurologically patient is more awake today sitting up and attempting to conversate. Left-sided weakness Skin: No rash or skin lesions. Psychiatric: Slightly delayed and somewhat confused although much more awake and trying to have conversation and following commands. Musculoskeletal: No joint swelling or deformity. Assessment: Acute metabolic encephalopathy and possible left lower lobe pneumonia/ Atelectatsis Acute kidney injury with creatinine level went up to 4.2 on admission. Baseline 0.8, trending down Hyperkalemia with potassium 6.9 due to acute kidney injury/AGMA, resolved Anion gap metabolic acidosis due to severe lactic acidosis Severe lactic acidosis, Possible metformin toxicity is being considered. Hypernatremia due to volume depletion Hypomagnesemia. Hypertension. Diabetes type 2 [id number] Coronary artery disease with history of CABG and prior stent placement Chronic atrial fibrillation on anticoagulation with Xarelto History of CVA with left-sided weakness Prior history of smoking DVT Proph CODE STATUS DNR/DNI Plan: Patient is currently in MICU. His maintained on gentle IV hydration with nephrology following of D5 normal saline at 60 mL in kidney functions improving She is continued on ceftriaxone and will continue for now Patient's mentation is much improved and sitting up starting on clear liquids and tolerating will evaluate and resume home meds Continue with supportive care and follow-up closely. Patient will be started back anticoagulation with Xarelto as per home regimen and. Encourage oral intake and Follow-up closely. Discussed with her sister and son at bedside in detail. Due to multiple complex medical issues, Prognosis is guarded at this time. The impression and plan of care has been dictated by Afia Barker, Nurse Practitioner as directed. Dr. Mariaelena MD I have performed a history and examination and MDM of this patient, discussed the same with the dictator, and agree with the dictator's assessment and plan as written ,documented as a scribe. Based on total visit time, I have performed more than 50% of the visit. Objective - Vital Signs Vital signs: Vital Signs Temp 99.3 F 03/04/22 20:00 Pulse 93 03/05/22 02:00 Resp 16 03/05/22 02:00 BP 112/75 03/05/22 02:00 Pulse Ox 92 L 03/05/22 08:00 FiO2 21 03/05/22 08:00 Intake & Output 03/04/22 03/05/22 03/05/22 18:59 06:59 18:59 Intake Total 950 1300 175 Output Total 1125 1185 100 Balance -175 115 75 Intake: IV 950 900 75 Dextrose 5%-0.45% NaCl 1, 750 900 75 000 ml @ 75 mls/hr IV . [id number] [facility] Rx#:[id number] Sodium Chloride 0.45% 1, 200 000 ml @ 100 mls/hr IV . Q10H [facility] Rx#:[id number] Intake, IV Titration 400 100 Amount Magnesium Sulfate-D5w Pmx 300 1 gm In Dextrose/Water 1 100ml.bag @ 100 mls/hr IVPB Q1H [facility] Rx#: [id number] Potassium Chloride 20 meq 100 100 In Water For Injection 1 100ml.bag @ 50 mls/hr IVPB Q2H [facility] Rx#: [id number] Output: Urine 1125 1185 100 Other: Voiding Method Indwelling Catheter Indwelling Catheter - Labs CBC & Chem 7: 03/06/22 07:20 03/06/22 07:20 Labs: Abnormal Lab Results - Last 24 Hours (Table) 03/04/22 03/04/22 03/04/22 Range/Units 11:56 20:29 22:47 RBC (3.80-5.40) m/uL Hgb (11.4-16.0) gm/dL Hct (34.0-46.0) % RDW (11.5-15.5) % Lymphocytes # (1.0-4.8) k/uL Eosinophils # (0-0.7) k/uL BUN (7-17) mg/dL Creatinine (0.52-1.04) mg/dL Glucose (74-99) mg/dL POC Glucose (mg/dL) 134 H 133 H (70-110) mg/dL Plasma Lactic Acid Santiago 5.5 H* (0.7-2.0) mmol/L Calcium (8.4-10.2) mg/dL Magnesium (1.6-2.3) mg/dL 03/04/22 03/04/22 03/05/22 Range/Units 23:05 23:05 03:50 RBC 3.73 L (3.80-5.40) m/uL Hgb 9.9 L (11.4-16.0) gm/dL Hct 31.5 L (34.0-46.0) % RDW 15.6 H (11.5-15.5) % Lymphocytes # 0.7 L (1.0-4.8) k/uL Eosinophils # 0.9 H (0-0.7) k/uL BUN (7-17) mg/dL Creatinine (0.52-1.04) mg/dL Glucose (74-99) mg/dL POC Glucose (mg/dL) (70-110) mg/dL Plasma Lactic Acid Santiago 3.8 H* (0.7-2.0) mmol/L Calcium (8.4-10.2) mg/dL Magnesium 1.4 L (1.6-2.3) mg/dL 03/05/22 03/05/22 Range/Units 03:50 03:50 RBC (3.80-5.40) m/uL Hgb (11.4-16.0) gm/dL Hct (34.0-46.0) % RDW (11.5-15.5) % Lymphocytes # (1.0-4.8) k/uL Eosinophils # (0-0.7) k/uL BUN 37 H (7-17) mg/dL Creatinine 2.17 H (0.52-1.04) mg/dL Glucose 166 H (74-99) mg/dL POC Glucose (mg/dL) (70-110) mg/dL Plasma Lactic Acid Santiago 4.2 H* (0.7-2.0) mmol/L Calcium 7.6 L (8.4-10.2) mg/dL Magnesium (1.6-2.3) mg/dL Microbiology - Last 24 Hours (Table) 03/02/22 08:15 Blood Culture Gram Stain - Preliminary Blood Blood Culture - Preliminary Coagulase Negative Staph
--- NOTE | 2022-03-06 10:56 | P.PN ---
Subjective Patient is seen in follow-up for acute kidney injury and hypernatremia. Sodium level remains normal. Renal function improving. Nonoliguric. Acidosis resolved. Resting in bed. Not a reliable historian. Vital signs are stable. General: Resting in bed. HEENT: Head exam is unremarkable. On nasal cannula. LUNGS: Breath sounds decreased. HEART: Rate and Rhythm are regular. ABDOMEN: Soft, no distention. EXTREMITITES: No edema. Objective - Vital Signs Vital signs: Vital Signs Temp 97.9 F 03/06/22 10:00 Pulse 90 03/06/22 10:00 Resp 16 03/06/22 10:00 BP 145/106 03/06/22 10:00 Pulse Ox 94 L 03/06/22 10:00 FiO2 21 03/05/22 08:00 Intake & Output 03/05/22 03/06/22 03/06/22 18:59 06:59 18:59 Intake Total 175 720 Output Total 1125 655 Balance -950 65 Intake: IV 75 720 Dextrose 5%-0.45% NaCl 1, 75 660 000 ml @ 75 mls/hr IV . [id number] [facility] Rx#:[id number] Sodium Chloride 0.9% 1, 60 000 ml @ 60 mls/hr IV . [id number] [facility] Rx#:[id number] Intake, IV Titration 100 Amount Potassium Chloride 20 meq 100 In Water For Injection 1 100ml.bag @ 50 mls/hr IVPB Q2H [facility] Rx#: [id number] Output: Urine 1125 655 Other: Voiding Method Indwelling Catheter Indwelling Catheter - Labs CBC & Chem 7: 03/06/22 07:20 03/06/22 07:20 Labs: Abnormal Lab Results - Last 24 Hours (Table) 03/05/22 03/05/22 03/05/22 Range/Units 20:20 20:22 20:32 Hgb (11.4-16.0) gm/dL Hct (34.0-46.0) % MCHC (31.0-37.0) g/dL Lymphocytes # (1.0-4.8) k/uL Eosinophils # (0-0.7) k/uL BUN (7-17) mg/dL Creatinine (0.52-1.04) mg/dL Glucose (74-99) mg/dL POC Glucose (mg/dL) 34 L 32 L 57 L (70-110) mg/dL Calcium (8.4-10.2) mg/dL 03/06/22 03/06/22 03/06/22 Range/Units 01:06 06:54 07:20 Hgb (11.4-16.0) gm/dL Hct (34.0-46.0) % MCHC (31.0-37.0) g/dL Lymphocytes # (1.0-4.8) k/uL Eosinophils # (0-0.7) k/uL BUN 24 H (7-17) mg/dL Creatinine 1.72 H (0.52-1.04) mg/dL Glucose 109 H (74-99) mg/dL POC Glucose (mg/dL) 127 H 117 H (70-110) mg/dL Calcium 7.8 L (8.4-10.2) mg/dL 03/06/22 Range/Units 07:20 Hgb 9.9 L (11.4-16.0) gm/dL Hct 32.4 L (34.0-46.0) % MCHC 30.6 L (31.0-37.0) g/dL Lymphocytes # 0.8 L (1.0-4.8) k/uL Eosinophils # 1.0 H (0-0.7) k/uL BUN (7-17) mg/dL Creatinine (0.52-1.04) mg/dL Glucose (74-99) mg/dL POC Glucose (mg/dL) (70-110) mg/dL Calcium (8.4-10.2) mg/dL Assessment and Plan Plan: Assessment: 1. Acute kidney injury mostly prerenal secondary to septic shock. Creatinine was 4.2 on admission and is 1.72 this morning. Creatinine was 0.8 in February 2021. No hydronephrosis noted on CAT scan. 2. Septic shock secondary to gram-positive bacteremia on antibiotics. 3. Metabolic acidosis secondary to acute kidney injury and lactic acidosis. Improved. 4. Lactic acidosis secondary to hypotension and use of metformin. 5. Hypernatremia from lack of oral water intake. Resolved. 6. Diabetes mellitus. 7. Hypokalemia from poor intake. Replace. Better. Plan: Maintain normal saline. Avoid nephrotoxins. Continue to hold metformin. Renal function, acidosis and urine output all improved. Continue to monitor renal function and urine output. Encouraged oral intake.
--- NOTE | 2022-03-06 11:43 | P.PN ---
Subjective Progress Note Date: 03/06/22 Principal diagnosis: Sepsis. Pulmonary consult dated 03/02/2022. 71-year-old female who resides at one of the local nursing homes. She is apparently brought into the emergency room, because of generalized weakness, lack of energy, difficulty in ambulation, and apparently abdominal pain. Currently, the patient is seen in emergency room #11. I believe my partner was called about this patient by the ER physician. The patient had a blood gas showing a pO2 163, pCO2 31, and a pH is 7.06. She is not able to provide any additional history. She is very lethargic and somnolent. Her lower extremities are mottled. Not much history could be obtained from the ER maycol either. She apparently has a history of CAD, COPD, CVA, and hypertension. She also is status post CABG. White count 10.3, hemoglobin 10.7, hematocrit 37.7, and platelet count 289,000. Repeat electrolyte profile shows a sodium 150, potassium 4.8, chlorides 1:15, CO2 8, anion gap 27, BUN 53, and creatinine 3.49. Lactic acid was 9.7. Repeat was 11.0. Urine is light yellow and cloudy. Protein is 2+. Leukocyte esterase and nitrate were both negative. Chest x-ray shows mild left basilar atelectasis or airspace disease. CT of the abdomen and pelvis shows no acute intraluminal/intra-abdominal process. There is colonic diverticulosis, and a nonobstructing right renal calculi. Progress note dated 03/03/2022. This is a patient who was seen yesterday in the emergency room. She is 71 years of age, and resides at one of the local nursing homes. She was brought into the emergency room, because of generalized weakness, lack of energy, difficulty in ambulation, and abdominal pain. In addition, she had mental status changes. She was admitted to the intensive care unit. She is on 2 L of oxygen. She's getting D5W with 3 ampules of sodium bicarbonate at 125 cc/h. She's also getting half-normal saline at 75 mL an hour. Blood culture showed evidence of gram-positive cocci. I gave her dose of vancomycin this morning. She continues on Rocephin. Last night, her blood pressures were a bit low despite fluid resuscitation, she was on norepinephrine for brief period of time. Nephrology thinks that the patient may have metformin toxicity. That is because of her ongoing lactic acidosis. White count 14.2, hemoglobin 10.4, hematocrit 34.7, platelet count 272,000. Sodium 144, potassium 4.7, chlorides 104, CO2 21, anion gap 19, BUN 53, creatinine 3.14. Her lactic acid is 8.8. Chest x-ray shows a small left-sided pleural effusion and some basilar atelectasis or infiltrate at the left base. Progress note dated 03/04/2022. 71-year-old female initially seen in the emergency room. She was admitted from one of the local nursing homes, with mental status changes, weakness, fatigue, and difficulty in ambulation. The patient's currently in the intensive care unit. The nurse was able to speak to a family member yesterday, and make the patient a DO NOT RESUSCITATE patient. She apparently has quite severe dementia. She is currently on 2 L of oxygen. She's getting dextrose with half-normal saline at 75 mL an hour. Laboratory data includes a white count of 9.2, hemoglobin 10.4, hematocrit 33.7, and a normal platelet count. Sodium 142, potassium 4.7, chlorides 102, CO2 29, anion gap 11, BUN 47, and creatinine 2.66. The lactic acid was elevated at 7. Blood cultures are positive for coag- negative staph. Brain CT showed degenerative an extensive remote ischemic michelle nges without evidence of acute hemorrhage or mass effect. Progress note dated 03/05/2022. 71-year-old female seen in room 265. The patient is now a DO NOT RESUSCITATE patient. She's on room air. Saturations 95%. She's getting dextrose with half-normal saline at 75 mL an hour. The patient did develop atrial fibrillation with RVR last night, and was initially started on a Cardizem drip. The Cardizem drip has been turned off. Cardiology increased her dose of beta twin. The patient can be transferred out to the general medical floor. White count 8.5, hemoglobin 9.9, hematocrit 31.5, and platelet count 218,000. Sodium 137, potassium 3.5, chlorides 99, CO2 29, BUN 37, and creatinine 2.17. Blood cultures are showing evidence of coag-negative staph. Progress note dated 03/06/2022. 71-year-old female seen in room 265. The patient's currently on room air. She's getting D5 0.45 at 60 mL an hour. The patient is a candidate to be transferred out to the general medical floor without telemetry. White count 7.9, hemoglobin 9.9, hematocrit 32.4, platelet count 221,000. Sodium is 138, potassium 4, chlorides 104, CO2 27, BUN 24, and creatinine 1.72. Blood cultures from March 02 show evidence of coagulase-negative staph. Objective - Vital Signs Vital signs: Vital Signs Temp 97.9 F 03/06/22 10:00 Pulse 90 03/06/22 10:00 Resp 16 03/06/22 10:00 BP 145/106 03/06/22 10:00 Pulse Ox 94 L 03/06/22 10:00 FiO2 21 03/05/22 08:00 Intake & Output 03/05/22 03/06/22 03/06/22 18:59 06:59 18:59 Intake Total 175 720 Output Total 1125 655 Balance -950 65 Intake: IV 75 720 Dextrose 5%-0.45% NaCl 1, 75 660 000 ml @ 75 mls/hr IV . [id number] [facility] Rx#:[id number] Sodium Chloride 0.9% 1, 60 000 ml @ 60 mls/hr IV . [id number] [facility] Rx#:[id number] Intake, IV Titration 100 Amount Potassium Chloride 20 meq 100 In Water For Injection 1 100ml.bag @ 50 mls/hr IVPB Q2H [facility] Rx#: [id number] Output: Urine 1125 655 Other: Voiding Method Indwelling Catheter Indwelling Catheter Indwelling Catheter - Exam No acute distress, very lethargic and somnolent, poorly responsive, currently on room air. Saturations are 94 %. HEENT examination is grossly unremarkable. Mucous membranes are dry. Neck supple. Full range of motion. No adenopathy thyromegaly or neck vein distention. Cardiovascular examination reveals regular rhythm rate. S1-S2 normal. No S3 or S4. No discernible murmur noted. Heart rate 90 bpm. Lungs reveal mostly clear breath sounds. Scattered rhonchi. No wheezes or crackles. Room air saturation is 94 %. Abdomen soft bowel sounds are heard. No masses or tenderness. Extremities are intact. Extremities are less mottled. No significant edema. No clubbing. Skin is without rash or lesion. Neurologic examination cannot be adequately assessed as the patient's very lethargic. - Labs CBC & Chem 7: 03/06/22 07:20 03/06/22 07:20 Labs: Abnormal Lab Results - Last 24 Hours (Table) 03/05/22 03/05/22 03/05/22 Range/Units 20:20 20:22 20:32 Hgb (11.4-16.0) gm/dL Hct (34.0-46.0) % MCHC (31.0-37.0) g/dL Lymphocytes # (1.0-4.8) k/uL Eosinophils # (0-0.7) k/uL BUN (7-17) mg/dL Creatinine (0.52-1.04) mg/dL Glucose (74-99) mg/dL POC Glucose (mg/dL) 34 L 32 L 57 L (70-110) mg/dL Calcium (8.4-10.2) mg/dL 03/06/22 03/06/22 03/06/22 Range/Units 01:06 06:54 07:20 Hgb (11.4-16.0) gm/dL Hct (34.0-46.0) % MCHC (31.0-37.0) g/dL Lymphocytes # (1.0-4.8) k/uL Eosinophils # (0-0.7) k/uL BUN 24 H (7-17) mg/dL Creatinine 1.72 H (0.52-1.04) mg/dL Glucose 109 H (74-99) mg/dL POC Glucose (mg/dL) 127 H 117 H (70-110) mg/dL Calcium 7.8 L (8.4-10.2) mg/dL 03/06/22 Range/Units 07:20 Hgb 9.9 L (11.4-16.0) gm/dL Hct 32.4 L (34.0-46.0) % MCHC 30.6 L (31.0-37.0) g/dL Lymphocytes # 0.8 L (1.0-4.8) k/uL Eosinophils # 1.0 H (0-0.7) k/uL BUN (7-17) mg/dL Creatinine (0.52-1.04) mg/dL Glucose (74-99) mg/dL POC Glucose (mg/dL) (70-110) mg/dL Calcium (8.4-10.2) mg/dL Assessment and Plan Assessment: Acute mental status changes, of unclear etiology. Could relate to underlying infection/sepsis, such as possible pneumonia. Blood cultures positive for coagulase-negative staphlococcus. Acute kidney injury with severe anion gap metabolic acidosis. Possible metformin toxicity. Acute lactic acidemia. Hypernatremia. History of CAD with previous CABG, 2013. History of COPD. History of CVA. History of hypertension. Prior history of tobacco use. Plan: Plan dated 03/02/2022. The patient was seen in the emergency room. The patient should probably be brought to the intensive care unit. She apparently is a full code. The p atient's chest x-ray, and computed tomography scan of the abdomen/pelvis were reviewed. Nephrology should be consulted. We did change her IV at a dextrose with 3 ampules of sodium bicarbonate, at 125 mL an hour. Prognosis is very guarded. We will continue to follow. She was given Rocephin by the ER physician. She is also receiving breathing treatments. Plan dated 03/03/2022. The patient was brought to the intensive care unit for further management and monitoring. The patient did go on norepinephrine last night for a short period of time because of low blood pressures. Currently, she is getting D5W, with 3 ampules of sodium bicarbonate at 125 mL an hour. She got a dose of vancomycin this morning because blood culture showed evidence of gram-positive cocci. Nephrology saw the patient this morning was concerned about the possibility of metformin toxicity. We will continue to follow make recommendations along the way. Prognosis is guarded. Labs, x-rays, and medications are all reviewed. Plan dated 03/04/2022. The patient is now a DO NOT RESUSCITATE patient. The nurse was able to speak to the family member yesterday. Labs, x-rays, medications are reviewed. The patient still has a persistent elevated lactate. The pole lift operator was concerned about metformin toxicity. The patient is currently on Rocephin. Culture data is as far negative save for the blood cultures for coagulase-negative staph. We will continue to follow. Prognosis is poor. The patient can be transferred out of the intensive care unit. Plan dated 03/05/2022. The patient is on appropriate medications. The coag-negative staph is likely contaminant. The patient's other medications are appropriate. The ceftriaxone can be discontinued. Additional recommendations and suggestions are fort hcoming. Pro-calcitonin level was only 0.22. The patient has a DO NOT RESUSCITATE patient. Prognosis is very poor. Plan dated 03/06/2022. The patient continues on Rocephin. Cultures are thus far negative save for coagulase-negative staph in the blood from March 02. This is likely a contaminant. The rest of the medications are reviewed. Everything appears to be appropriate. The patient is a DO NOT RESUSCITATE patient. The patient can be transferred out to the general medical floor. She does not need telemetry. I believe she's pretty much at her baseline. She does have a history of dementia. Time with Patient: Less than 30
[2022-03-06 11:50] LABS: Glucose,Whole Blood 145 mg/dL (70-110)
--- NOTE | 2022-03-06 13:09 | CA ---
Transthoracic Echo Report Name: Malissa Barbosa Age: 71 Gender: F : 1950 Exam Date: 03/05/2022 09:27 Exam Location: [facility] Ht (in): 64 Wt (lb): 144 Ordering Physician: Robbi Delacruz MD ([id number]) Attending/Referring Phys: [employer] Admin Peyton Calderon RDCS Procedure CPT: Indications: cm Cardiac Hx: Technical Quality: Contrast 1: Total Dose (mL): Contrast 2: Total Dose (mL): MEASUREMENTS (Male / Female) Normal Values 2D ECHO LV Diastolic Diameter PLAX 4.1 cm 4.2 - 5.9 / 3.9 - 5.3 cm LV Systolic Diameter PLAX 3.1 cm IVS Diastolic Thickness 0.9 cm 0.6 - 1.0 / 0.6 - 0.9 cm LVPW Diastolic Thickness 1.3 cm 0.6 - 1.0 / 0.6 - 0.9 cm LV Relative Wall Thickness 0.5 RV Internal Dim ED PLAX 2.9 cm LA Systolic Diameter LX 4.0 cm 3.0 - 4.0 / 2.7 - 3.8 cm M-MODE Aortic Root Diameter MM 2.7 cm LA Systolic Diameter MM 4.4 cm LA Ao Ratio MM 1.7 MV E Point Septal Separation 1.5 cm AV Cusp Separation MM 1.6 cm DOPPLER MV Peak Velocity 200.6 cm/s MV Peak Gradient 16.7 mmHg MV Mean Velocity 107.1 cm/s MV Mean Gradient 8.0 mmHg MV Velocity Time Integral 40.9 cm MV Deceleration Time 464.6 ms TR Peak Velocity 290.7 cm/s TR Peak Gradient 35.7 mmHg Right Ventricular Systolic Press 42.7 mmHg FINDINGS Left Ventricle Left ventricular ejection fraction is estimated at 45 %. Left ventricular cavity size normal. Mildly increased left ventricular wall thickness. Right Ventricle Normal right ventricular size and function. Mild pulmonary hypertension. Right ventricular systolic pressure estimated at 43 mm hg. Right Atrium Normal right atrial size. Left Atrium Mildly increased left atrial diameter. Mitral Valve Moderate mitral stenosis peak gradient of 17mmHg and mean gradient of 8mmHg Aortic Valve Trileaflet aortic valve. Aortic valve sclerosis. Aortic valve not well visualized. Tricuspid Valve Structurally normal tricuspid valve. Nfyixmhw-ja-icidza tricuspid regurgitation. Pulmonic Valve Structurally normal pulmonic valve. Pericardium Normal pericardium. Aorta Normal size aortic root and proximal ascending aorta. CONCLUSIONS Inducible systolic function with mitral stenosis with a mean gradient of 8 mmHg Calcific aortic stenosis 3+ tricuspid regurgitation Previewed by: Dr. Luis Ospina MD (Electronically Signed) Final Date: 06 March 2022 13:08
[2022-03-06] MEDS: DEXTROSE 5%-0.9% NACL 1,000 ML IV SCH (14:06)
[2022-03-06] MEDS ORDERED: hydrALAZINE HCL 20 MG/ML 1 ML VIAL IVP PRN (17:22)
[2022-03-06 17:25] LABS: Glucose,Whole Blood 51 mg/dL (70-110)
[2022-03-06 17:45] LABS: Glucose,Whole Blood 34 mg/dL (70-110)
[2022-03-06] MEDS: DEXTROSE 50% SYRINGE 50 ML IVP ONE (17:45)
[2022-03-06 18:45] LABS: Glucose,Whole Blood 129 mg/dL (70-110)
[2022-03-06 18:45] LABS: Glucose,Whole Blood 46 mg/dL (70-110)
[2022-03-06] MEDS: IPRATROPIUM-ALBUTEROL 3 ML NEB INHALATION PRN (19:48)
[2022-03-06 20:48] LABS: Glucose,Whole Blood 76 mg/dL (70-110)
[2022-03-06] MEDS: ATORVASTATIN 80 MG TAB PO SCH (21:05)
[2022-03-06] MEDS: SERTRALINE 100 MG TAB PO SCH (21:05)
[2022-03-06] MEDS: clonazePAM 0.5 MG TAB PO SCH (21:05)
--- NOTE | 2022-03-07 00:43 | P.PN ---
Subjective Progress Note Date: 03/06/22 Patient is a 71-year-old female with a known history of hypertension, diabetes type 2 [id number], CVA with left-sided weakness, coronary artery disease status post CABG and history of stent placement, chronic atrial fibrillation on anticoagulation with Xarelto depression and prior history of sm oking was sent from long-term due to complaints of generalized weakness lethargy and altered mental status. Patient has been becoming more weak and lethargic for the past couple of days and was also hard to arouse. Patient was brought to ER by EMS. Evidently patient was also complaining abdominal pain as per nursing staff. Patient is currently unable to provide any history. On admission patient was hypotensive with blood pressure 86/50 5 mmHg heart rate 89 respirations 16 and pulse ox 96% on room air. Patient was afebrile. Initial ABG showed pH 7.06 PCO2 31 PO2 163 and bicarb is 9 Laboratory data showed sodium 145 potassium 6.9 chloride 109 bicarb is 8 anion gap 28 BUN 63 and creatinine 4.2 lactic acid 9.7 phosphorus 9.6 magnesium 1.4 Urinalysis showed cloudy with 2+ protein 1+ glucose 2+ ketones and RBC 7 WBC 7 squamous epithelial cells 5. WBC 10.3 hemoglobin 10.7 and platelets 289 neutrophils 8.8 EKG showed atrial fibrillation with incomplete right bundle branch block Chest x-ray showed mild left basilar atelectasis or airspace disease in the left costophrenic angle. CT of the abdomen pelvis showed no evidence for acute intra luminal process. Colonic diverticulosis. Moderate to severe degenerative sclerosis of the arterial vasculature. Nonobstructing right renal calculi. Moderate stool burden throughout the colon. 03/03/2022 Patient is currently in the MICU. Patient is able to respond to verbal stimuli but still lethargic and drowsy. Currently requiring 2 L oxygen via nasal cannula. Continued on bicarb drip. Patient did require pressor support overnight for short duration. Patient was found to have blood cultures positive for gram-positive cocci and wa s given a dose of vancomycin which turned out to be coagulase-negative staph aureus. Patient is also getting IV hydration and blood pressure did improve. Patient is being continued on antibiotics in the form of ceftriaxone. Still having lactic acidosis at 8.8 this morning. Laboratory test showed WBC 14.2 hemoglobin 10.4 and platelets 172 A1c level is 6.7 Sodium 145 potassium 4.6 chloride 102 bicarb is 23, BUN 51 and creatinine went down to 3.0. Procalcitonin level is 0.22 Pulmonary and nephrology is on board. 03/04/2022 Patient is currently lying in the bed. Awake alert but could not communicate. Still lethargic. Requiring oxygen at 2 L by nasal cannula. Otherwise renal function is improving and lactic acid level still elevated to 5.3 today. Patient is being continued on D5 half-normal saline. Sodium level improved to 142 and creatinine level 2.66 today. Remains on antibiotics, ceftriaxone. Cultures have been negative. Currently on insulin sliding scale. Laboratory data showed WBC 9.2 hemoglobin 10.4 and platelets 196 Sodium 142 potassium 4.7 chloride 102 bicarb is 29 BUN 47 creatinine 2.66 03/05/2022 Patient is seen and evaluated in follow-up this morning currently sitting up in the bed continues to be in the ICU with multiple medical consultations following. Patient is more awake today and does respond to questions and commands although delayed. Nephrology following as well and patient is maintained on D5 half-normal saline with some slight improvement in kidney functions. Patient is maintained on clear liquid diet and recommend aspiration precautions. Lactic acid continues to be elevated and is 4.2 today. Patient with creatinine of 2.17 and is improving and will continue with current fluid gentle IV 50 mL's per hour with dextrose 5% normal saline. Nephrology is following. Patient is continued on ceftriaxone and will continue at this time. Will resume some home medications as patient is tolerating oral intake. Patient with significant weakness and generalized edema noted throughout bilateral upper and lower extremities. 03/06/2022 Patient is seen today in the ICU and is a downgrade and awaiting a bed on med surg. Patient continues to be confused but appears baseline. Patient is awake and tolerating diet. Speech to evaluate today and upgrade diet accordingly. Patients blood sugars have been low and recommend continuing D5NS and will incre ase the rate. Recommend acuchecks achs. Patient is on ceftriaxone and will continue. Blood cultures showing some growth possible contaminant, but will obtain new cultures. Patient is afebrile and denies nausea or vomiting. Recommend aspiration precautions. Blood pressures elevated will add norvasc. Patient to return to [facility] on discharge. PHYSICAL EXAMINATION: Patient is sitting up in the bed. Responds to verbal stimuli and somewhat communicating although delayed but is following commands appropriately HEENT: Normocephalic. Neck is supple. Pupils reactive. Nostrils clear. Oral cavity is moist. Neck reveals no JVD, carotid bruits, or thyromegaly. CHEST EXAMINATION: Trachea is central. Symmetrical expansion. Lung bhagat diminished otherwise clear to auscultation and percussion. CARDIAC: Normal S1, S2 with no gallops. No murmurs ABDOMEN: Soft. Bowel sounds present.. No organomegaly. No abdominal bruits. Extremities: reveal no edema. No clubbing or cyanosis Neurologically patient is more awake today sitting up and attempting to conversate. Left-sided weakness Skin: No rash or skin lesions. Psychiatric: Slightly delayed and somewhat confused although much more awake and having conversation and following commands. Musculoskeletal: No joint swelling or deformity. Assessment: Acute metabolic encephalopathy and possible left lower lobe pneumonia/ Atelectatsis Acute kidney injury with creatinine level went up to 4.2 on admission. Baseline 0.8, trending down Hyperkalemia with potassium 6.9 due to acute kidney injury/AGMA, resolved Anion gap metabolic acidosis due to severe lactic acidosis Severe lactic acidosis, Possible metformin toxicity is being considered. Hypernatremia due to volume depletion Hypomagnesemia. Hypertension. Diabetes type 2 [id number] Coronary artery disease with history of CABG and prior stent placement Chronic atrial fibrillation on anticoagulation with Xarelto History of CVA with left-sided weakness Prior history of smoking DVT Prophylaxis CODE STATUS DNR/DNI Plan: Patient is currently in MICU and is a downgrade awaiting [facility] bed. Maintained on gentle IV hydration with nephrology following of D5 normal saline at 75 mL in kidney functions improving She is continued on ceftriaxone and will continue for now, blood cultures showing some growth and will repeat cultures Patient's mentation is much improved and has some baseline confusion, appears at baseline. Sitting up tolerating clear liquids and tolerating and speech to re evaluate and upgrade diet. Recommend aspiration precautions. Continue with supportive care and follow-up closely. Patient was started back anticoagulation with Xarelto as per home regimen Encourage oral intake and Follow-up closely. Patient to return to [facility] once stable and discharged Due to multiple complex medical issues, Prognosis is guarded at this time. The impression and plan of care has been dictated by Afia Barker, Nurse Practitioner as directed. Dr. Mariaelena MD I have performed a history and examination and MDM of this patient, discussed the same with the dictator, and agree with the dictator's assessment and plan as written ,documented as a scribe. Based on total visit time, I have performed more than 50% of the visit. Objective - Vital Signs Vital signs: Vital Signs Temp 97.9 F 03/06/22 10:00 Pulse 90 03/06/22 10:00 Resp 16 03/06/22 10:00 BP 145/106 03/06/22 10:00 Pulse Ox 94 L 03/06/22 10:00 FiO2 21 03/05/22 08:00 Intake & Output 03/05/22 03/06/22 03/06/22 18:59 06:59 18:59 Intake Total 175 720 Output Total 1125 655 Balance -950 65 Intake: IV 75 720 Dextrose 5%-0.45% NaCl 1, 75 660 000 ml @ 75 mls/hr IV . [id number] [facility] Rx#:[id number] Sodium Chloride 0.9% 1, 60 000 ml @ 60 mls/hr IV . [id number] [facility] Rx#:[id number] Intake, IV Titration 100 Amount Potassium Chloride 20 meq 100 In Water For Injection 1 100ml.bag @ 50 mls/hr IVPB Q2H [facility] Rx#: [id number] Output: Urine 1125 655 Other: Voiding Method Indwelling Catheter Indwelling Catheter - Labs CBC & Chem 7: 03/06/22 07:20 03/06/22 07:20 Labs: Abnormal Lab Results - Last 24 Hours (Table) 03/05/22 03/05/22 03/05/22 Range/Units 20:20 20:22 20:32 Hgb (11.4-16.0) gm/dL Hct (34.0-46.0) % MCHC (31.0-37.0) g/dL Lymphocytes # (1.0-4.8) k/uL Eosinophils # (0-0.7) k/uL BUN (7-17) mg/dL Creatinine (0.52-1.04) mg/dL Glucose (74-99) mg/dL POC Glucose (mg/dL) 34 L 32 L 57 L (70-110) mg/dL Calcium (8.4-10.2) mg/dL 03/06/22 03/06/22 03/06/22 Range/Units 01:06 06:54 07:20 Hgb (11.4-16.0) gm/dL Hct (34.0-46.0) % MCHC (31.0-37.0) g/dL Lymphocytes # (1.0-4.8) k/uL Eosinophils # (0-0.7) k/uL BUN 24 H (7-17) mg/dL Creatinine 1.72 H (0.52-1.04) mg/dL Glucose 109 H (74-99) mg/dL POC Glucose (mg/dL) 127 H 117 H (70-110) mg/dL Calcium 7.8 L (8.4-10.2) mg/dL 03/06/22 Range/Units 07:20 Hgb 9.9 L (11.4-16.0) gm/dL Hct 32.4 L (34.0-46.0) % MCHC 30.6 L (31.0-37.0) g/dL Lymphocytes # 0.8 L (1.0-4.8) k/uL Eosinophils # 1.0 H (0-0.7) k/uL BUN (7-17) mg/dL Creatinine (0.52-1.04) mg/dL Glucose (74-99) mg/dL POC Glucose (mg/dL) (70-110) mg/dL Calcium (8.4-10.2) mg/dL
[2022-03-07 01:58] LABS: Glucose,Whole Blood 116 mg/dL (70-110)
[2022-03-07] MEDS: DEXTROSE 5%-0.9% NACL 1,000 ML IV SCH ×2 (05:26→23:22)
[2022-03-07 07:46] LABS: Glucose,Whole Blood 47 mg/dL (70-110)
[2022-03-07 08:04] LABS: Glucose,Whole Blood 47 mg/dL (70-110)
[2022-03-07] MEDS: INSULIN ASPART (NovoLOG) 100 UNIT/ML VIAL SQ SCH ×4 (08:08→21:26)
[2022-03-07] MEDS ORDERED: DEXTROSE 50% SYRINGE 50 ML IVP ONE (08:09)
[2022-03-07] MEDS: DEXTROSE 50% SYRINGE 50 ML IVP ONE (08:11)
[2022-03-07] MEDS: METOPROLOL TARTRATE 50 MG TAB PO SCH ×2 (08:14→21:26)
[2022-03-07] MEDS: SENNOSIDES 8.6 MG TAB PO SCH ×3 (08:14→21:42)
[2022-03-07] MEDS: RIVAROXABAN 2.5 MG TABLET PO SCH ×2 (08:14→21:26)
[2022-03-07] MEDS: amLODIPine 5 MG TAB PO SCH (08:14)
[2022-03-07] MEDS: PANTOPRAZOLE 40 MG/10 ML VIAL IV SCH (08:14)
[2022-03-07 08:29] LABS: Glucose,Whole Blood 73 mg/dL (70-110)
--- NOTE | 2022-03-07 09:31 | P.PN ---
Subjective Progress Note Date: 03/07/22 Principal diagnosis: Paroxysmal atrial fibrillation The patient is a 71-year-old female patient we asked to see in the intensive care unit for further evaluation of cardiac arrhythmia in the term of supraventricular tachycardia. The patient is a assisted resident. She does have extensive cardiovascular history consistent of CAD with prior CABG in 2013 as well as prior stenting with unknown details at this point, paroxysmal atrial fibrillation on oral anticoagulation, diabetes, hypertension, dyslipidemia, and history of stroke with left sided residual weakness. Apparently the patient was brought from the extended care facility to the hospital because of generalized weakness and fatigue. No specific symptoms of chest pain or chest discomfort or increasing shortness of breath or dizziness or lightheadedness or any feeling of heart racing or fluttering or presyncope or syncope. She underwent an extensive workup in the emergency department and she was found to be in acute renal failure and also she does have lactic C doses. She is currently hemodynamically stable and not on any vasopressors. We consulted to see the patient because of cardiac arrhythmia. She did have a brief episode lasted about 1 minute of narrow complex tachycardia consistent with SVT with what it seems to be possible short RP tachycardia. She converted back to normal sinus mechanism. Her EKG when she presented showed sinus mechanism. She does have electrolytes abnormalities including hypokalemia which was corrected. I think that the cardiac arrhythmia at this point is likely to be triggered by electrolytes abnormalities as well as by possible underlying sepsis. Reviewing the patient's previous medical record indicated that she had an echocardiogram was performed in 2015 and that showed severe cardiomyopathy. I am going to repeat her echo at this point. Meanwhile I'm going to increase the dose of metoprolol into 50 mg by mouth twice a day from 25 mg by mouth twice a day. The right wean her from the Cardizem IV. Obtain an echocardiogram. Continue oral anticoagulation. March 062021 The patient was seen and evaluated this morning. Overall she's stable from the cardiovascular standpoint of view. She is hemodynamically stable. She is asymptomatic. The dose of beta twin has increased yesterday and since then she has no more episodes of SVT. She has been on oral anticoagulation. From the cardiac vascular standpoint of view, would continue the current medical and the patient potentially can be discharged out of the intensive care unit March 072021 The patient was seen this morning. She remains stable from the cardiovascular standpoint of view. She remains asymptomatic as well. No more episodes of SVT or atrial fibrillation at this point. She is on anticoagulation. At this point I would continue the current medical regimen. The patient potentially can be discharged 4 hours. She underwent an echocardiogram which revealed mildly impaired function with no significant valvular abnormalities Objective - Vital Signs Vital signs: Vital Signs Temp 97.8 F 03/07/22 06:08 Pulse 84 03/07/22 06:08 Resp 16 03/07/22 06:08 BP 150/93 03/07/22 06:08 Pulse Ox 99 03/07/22 09:02 FiO2 28 03/06/22 19:48 Intake & Output 03/06/22 03/07/22 03/07/22 18:59 06:59 18:59 Intake Total 360 590 Output Total 1075 650 Balance -715 -60 Intake: IV 360 Sodium Chloride 0.9% 1, 360 000 ml @ 60 mls/hr IV . [id number] Rx#:[id number] Oral 590 Output: Urine 1075 650 Other: Voiding Method Indwelling Catheter Indwelling Catheter - Constitutional General appearance: Present: no acute distress - Respiratory Respiratory: bilateral: diminished - Cardiovascular Rhythm: regular - Labs CBC & Chem 7: 03/06/22 07:20 03/06/22 07:20 Labs: Abnormal Lab Results - Last 24 Hours (Table) 03/06/22 03/06/22 03/06/22 Range/Units 11:47 17:22 17:43 POC Glucose (mg/dL) 145 H 51 L 34 L (70-110) mg/dL 03/06/22 03/06/22 03/07/22 Range/Units 17:58 18:02 01:56 POC Glucose (mg/dL) 46 L 129 H 116 H (70-110) mg/dL 03/07/22 03/07/22 Range/Units 07:44 08:02 POC Glucose (mg/dL) 47 L 47 L (70-110) mg/dL Microbiology - Last 24 Hours (Table) 03/02/22 08:15 Blood Culture Gram Stain - Final Blood Blood Culture - Final Staph capitis SS ureolyticus Assessment and Plan Assessment: Assessment Change in mental status which has somewhat slightly improved Possible metabolic encephalopathy Acute renal failure Electrolytes imbalance Severe lactic acidosis Supraventricular tachycardia History of paroxysmal atrial fibrillation Coronary artery disease with prior revascularization History of cardiomyopathy Multiple comorbid conditions History of stroke with residual left-sided weakness Plan Continue current medical regimen Continue oral anticoagulation The echo revealed mildly impaired LV function was EF around 45% Follow-up with the patient
--- NOTE | 2022-03-07 11:10 | P.PN ---
Subjective Patient is seen in follow-up for acute kidney injury and hypernatremia. Sodium level normal yesterday. Renal function improving. Nonoliguric. Acidosis resolved. Resting in bed. Not a reliable historian. Vital signs are stable. General: Resting in bed. HEENT: Head exam is unremarkable. On nasal cannula. LUNGS: Breath sounds decreased. HEART: Rate and Rhythm are regular. ABDOMEN: Soft, no distention. EXTREMITITES: No edema. Objective - Vital Signs Vital signs: Vital Signs Temp 97.8 F 03/07/22 06:08 Pulse 84 03/07/22 06:08 Resp 16 03/07/22 06:08 BP 150/93 03/07/22 06:08 Pulse Ox 99 03/07/22 09:02 FiO2 28 03/06/22 19:48 Intake & Output 03/06/22 03/07/22 03/07/22 18:59 06:59 18:59 Intake Total 360 590 Output Total 1075 650 Balance -715 -60 Intake: IV 360 Sodium Chloride 0.9% 1, 360 000 ml @ 60 mls/hr IV . [id number] Rx#:[id number] Oral 590 Output: Urine 1075 650 Other: Voiding Method Indwelling Catheter Indwelling Catheter - Labs CBC & Chem 7: 03/06/22 07:20 03/06/22 07:20 Labs: Abnormal Lab Results - Last 24 Hours (Table) 03/06/22 03/06/22 03/06/22 Range/Units 11:47 17:22 17:43 POC Glucose (mg/dL) 145 H 51 L 34 L (70-110) mg/dL 03/06/22 03/06/22 03/07/22 Range/Units 17:58 18:02 01:56 POC Glucose (mg/dL) 46 L 129 H 116 H (70-110) mg/dL 03/07/22 03/07/22 Range/Units 07:44 08:02 POC Glucose (mg/dL) 47 L 47 L (70-110) mg/dL Microbiology - Last 24 Hours (Table) 03/02/22 08:15 Blood Culture Gram Stain - Final Blood Blood Culture - Final Staph capitis SS ureolyticus Assessment and Plan Plan: Assessment: 1. Acute kidney injury mostly prerenal secondary to septic shock. Creatinine was 4.2 on admission and is 1.72 yesterday. Creatinine was 0.8 in February 2021. No hydronephrosis noted on CAT scan. 2. Septic shock secondary to staph capitis bacteremia on antibiotics. 3. Metabolic acidosis secondary to acute kidney injury and lactic acidosis. Improved. 4. Lactic acidosis secondary to hypotension and use of metformin. 5. Hypernatremia from lack of oral water intake. Resolved. 6. Diabetes mellitus. 7. Hypokalemia from poor intake. Replaced. Better. 8. Benign hypertension. Blood pressures have been on the lower side. Plan: Maintain normal saline - decrease rate to 50 mL an hour. Avoid nephrotoxins. Continue to hold metformin. Renal function, acidosis and urine output all improved. Continue to monitor renal function and urine output. Encouraged oral intake. If renal function continues to improve, DC [place] catheter. Hold amlodipine for systolic blood pressure less than 120.
[2022-03-07] MEDS: IPRATROPIUM-ALBUTEROL 3 ML NEB INHALATION PRN (11:53)
[2022-03-07 12:22] LABS: African American GFR (CKD) 48 (>60 ml/min/1.73 sqM); Anion Gap 6 mmol/L; Blood Urea Nitrogen 18 mg/dL (7-17); Calcium 7.6 mg/dL (8.4-10.2); Carbon Dioxide 23 mmol/L (22-30); Chloride 107 mmol/L (98-107); Glucose 134 mg/dL (74-99); Magnesium 1.4 mg/dL (1.6-2.3); Non-African American GFR(CKD) 41 (>60 ml/min/1.73 sqM); Potassium 3.8 mmol/L (3.5-5.1); Sodium 136 mmol/L (137-145)
[2022-03-07] MEDS ORDERED: Magnesium Replacement Protocol 1 EACH MISC MISCELLANE PRN (12:29)
--- NOTE | 2022-03-07 12:29 | P.PN ---
Subjective Progress Note Date: 03/07/22 Patient is a 71-year-old female with a known history of hypertension, diabetes type 2 [id number], CVA with left-sided weakness, coronary artery disease status post CABG and history of stent placement, chronic atrial fibrillation on anticoagulation with Xarelto depression and prior history of sm oking was sent from [facility] due to complaints of generalized weakness lethargy and altered mental status. Patient has been becoming more weak and lethargic for the past couple of days and was also hard to arouse. Patient was brought to ER by EMS. Evidently patient was also complaining abdominal pain as per nursing staff. Patient is currently unable to provide any history. On admission patient was hypotensive with blood pressure 86/50 5 mmHg heart rate 89 respirations 16 and pulse ox 96% on room air. Patient was afebrile. Initial ABG showed pH 7.06 PCO2 31 PO2 163 and bicarb is 9 Laboratory data showed sodium 145 potassium 6.9 chloride 109 bicarb is 8 anion gap 28 BUN 63 and creatinine 4.2 lactic acid 9.7 phosphorus 9.6 magnesium 1.4 Urinalysis showed cloudy with 2+ protein 1+ glucose 2+ ketones and RBC 7 WBC 7 squamous epithelial cells 5. WBC 10.3 hemoglobin 10.7 and platelets 289 neutrophils 8.8 EKG showed atrial fibrillation with incomplete right bundle branch block Chest x-ray showed mild left basilar atelectasis or airspace disease in the left costophrenic angle. CT of the abdomen pelvis showed no evidence for acute intra luminal process. Colonic diverticulosis. Moderate to severe degenerative sclerosis of the arterial vasculature. Nonobstructing right renal calculi. Moderate stool burden throughout the colon. 03/03/2022 Patient is currently in the MICU. Patient is able to respond to verbal stimuli but still lethargic and drowsy. Currently requiring 2 L oxygen via nasal cannula. Continued on bicarb drip. Patient did require pressor support overnight for short duration. Patient was found to have blood cultures positive for gram-positive cocci and wa s given a dose of vancomycin which turned out to be coagulase-negative staph aureus. Patient is also getting IV hydration and blood pressure did improve. Patient is being continued on antibiotics in the form of ceftriaxone. Still having lactic acidosis at 8.8 this morning. Laboratory test showed WBC 14.2 hemoglobin 10.4 and platelets 172 A1c level is 6.7 Sodium 145 potassium 4.6 chloride 102 bicarb is 23, BUN 51 and creatinine went down to 3.0. Procalcitonin level is 0.22 Pulmonary and nephrology is on board. 03/04/2022 Patient is currently lying in the bed. Awake alert but could not communicate. Still lethargic. Requiring oxygen at 2 L by nasal cannula. Otherwise renal function is improving and lactic acid level still elevated to 5.3 today. Patient is being continued on D5 half-normal saline. Sodium level improved to 142 and creatinine level 2.66 today. Remains on antibiotics, ceftriaxone. Cultures have been negative. Currently on insulin sliding scale. Laboratory data showed WBC 9.2 hemoglobin 10.4 and platelets 196 Sodium 142 potassium 4.7 chloride 102 bicarb is 29 BUN 47 creatinine 2.66 03/05/2022 Patient is seen and evaluated in follow-up this morning currently sitting up in the bed continues to be in the ICU with multiple medical consultations following. Patient is more awake today and does respond to questions and commands although delayed. Nephrology following as well and patient is maintained on D5 half-normal saline with some slight improvement in kidney functions. Patient is maintained on clear liquid diet and recommend aspiration precautions. Lactic acid continues to be elevated and is 4.2 today. Patient with creatinine of 2.17 and is improving and will continue with current fluid gentle IV 50 mL's per hour with dextrose 5% normal saline. Nephrology is following. Patient is continued on ceftriaxone and will continue at this time. Will resume some home medications as patient is tolerating oral intake. Patient with significant weakness and generalized edema noted throughout bilateral upper and lower extremities. 03/06/2022 Patient is seen today in the ICU and is a downgrade and awaiting a bed on med surg. Patient continues to be confused but appears baseline. Patient is awake and tolerating diet. Speech to evaluate today and upgrade diet accordingly. Patients blood sugars have been low and recommend continuing D5NS and will incre ase the rate. Recommend acuchecks achs. Patient is on ceftriaxone and will continue. Blood cultures showing some growth possible contaminant, but will obtain new cultures. Patient is afebrile and denies nausea or vomiting. Recommend aspiration precautions. Blood pressures elevated will add norvasc. Patient to return to [facility] on discharge. PHYSICAL EXAMINATION: Patient is sitting up in the bed. Responds to verbal stimuli and somewhat communicating although delayed but is following commands appropriately HEENT: Normocephalic. Neck is supple. Pupils reactive. Nostrils clear. Oral cavity is moist. Neck reveals no JVD, carotid bruits, or thyromegaly. CHEST EXAMINATION: Trachea is central. Symmetrical expansion. Lung bhagat diminished otherwise clear to auscultation and percussion. CARDIAC: Normal S1, S2 with no gallops. No murmurs ABDOMEN: Soft. Bowel sounds present.. No organomegaly. No abdominal bruits. Extremities: reveal no edema. No clubbing or cyanosis Neurologically patient is more awake today sitting up and attempting to conversate. Left-sided weakness Skin: No rash or skin lesions. Psychiatric: Slightly delayed and somewhat confused although much more awake and having conversation and following commands. Musculoskeletal: No joint swelling or deformity. Assessment: Acute metabolic encephalopathy and possible left lower lobe pneumonia/ Atelectatsis Acute kidney injury with creatinine level went up to 4.2 on admission. Baseline 0.8, trending down Hyperkalemia with potassium 6.9 due to acute kidney injury/AGMA, resolved Anion gap metabolic acidosis due to severe lactic acidosis Severe lactic acidosis, Possible metformin toxicity is being considered. Hypernatremia due to volume depletion Hypomagnesemia. Hypertension. Diabetes type 2 [id number] Coronary artery disease with history of CABG and prior stent placement Chronic atrial fibrillation on anticoagulation with Xarelto History of CVA with left-sided weakness Prior history of smoking DVT Prophylaxis CODE STATUS DNR/DNI Plan: Patient is currently on a med-surg unit just downgraded from ICU yesterday. Blood pressures have been uncontrolled with some hypertension last night. Will start low dose norvasc and monitor closely. Maintained on gentle IV hydration with nephrology following of D5 normal saline at 50 mL per nephro and kidney functions improving, possible trial void with dc meng She was continued on ceftriaxone and now discontinued. Blood cultures most likely contaminant. Awaiting repeat. Patient's mentation is much improved and has some baseline confusion, appears at baseline. [id number]. Sitting up tolerating current diet as patient was just upgraded to pureed diet. Recommend aspiration precautions. Not eating well, needs encouragement to eat. Continue with supportive care and follow-up closely. Patient was started back anticoagulation with Xarelto as per home regimen Encourage oral intake and Follow-up closely. Monitor blood sugars closely and ok to give .5-1 amp of dextrose prn as blood sugars have been dropping. D5 running as well. Patient to return to [facility] once stable and discharged. Possibly Wednesday. Due to multiple complex medical issues, Prognosis is guarded at this time. The impression and plan of care has been dictated as a scribe by Afia Barker, Nurse Practitioner as directed. MD Morales I have performed a history and examination and MDM of this patient, discussed the same with the dictator, and will be documented as a scribe. Based on total visit time, I have performed more than 50% of the visit. Objective - Vital Signs Vital signs: Vital Signs Temp 97.8 F 03/07/22 06:08 Pulse 84 03/07/22 06:08 Resp 16 03/07/22 06:08 BP 150/93 03/07/22 06:08 Pulse Ox 99 03/07/22 09:02 FiO2 28 03/06/22 19:48 Intake & Output 03/06/22 03/07/22 03/07/22 18:59 06:59 18:59 Intake Total 360 590 Output Total 1075 650 Balance -715 -60 Intake: IV 360 Sodium Chloride 0.9% 1, 360 000 ml @ 60 mls/hr IV . [id number] Rx#:[id number] Oral 590 Output: Urine 1075 650 Other: Voiding Method Indwelling Catheter Indwelling Catheter - Labs CBC & Chem 7: 03/06/22 07:20 03/06/22 07:20 Labs: Abnormal Lab Results - Last 24 Hours (Table) 03/06/22 03/06/22 03/06/22 Range/Units 11:47 17:22 17:43 POC Glucose (mg/dL) 145 H 51 L 34 L (70-110) mg/dL 03/06/22 03/06/22 03/07/22 Range/Units 17:58 18:02 01:56 POC Glucose (mg/dL) 46 L 129 H 116 H (70-110) mg/dL 03/07/22 03/07/22 Range/Units 07:44 08:02 POC Glucose (mg/dL) 47 L 47 L (70-110) mg/dL Microbiology - Last 24 Hours (Table) 03/02/22 08:15 Blood Culture Gram Stain - Final Blood Blood Culture - Final Staph capitis SS ureolyticus
[2022-03-07] MEDS: MAGNESIUM SULFATE-D5W PMX 1 GM in DEXTROSE/WATER 1 100ML.BAG IVPB SCH ×3 (13:05→15:12)
[2022-03-07 13:06] LABS: Glucose,Whole Blood 81 mg/dL (70-110)
[2022-03-07 17:49] LABS: Glucose,Whole Blood 132 mg/dL (70-110)
[2022-03-07 21:01] LABS: Glucose,Whole Blood 113 mg/dL (70-110)
[2022-03-07] MEDS: clonazePAM 0.5 MG TAB PO SCH (21:26)
[2022-03-07] MEDS: ATORVASTATIN 80 MG TAB PO SCH (21:26)
[2022-03-07] MEDS: SERTRALINE 100 MG TAB PO SCH (21:26)
[2022-03-08 06:34] LABS: African American GFR (CKD) 49 (>60 ml/min/1.73 sqM); Anion Gap 4 mmol/L; Blood Urea Nitrogen 15 mg/dL (7-17); Calcium 7.8 mg/dL (8.4-10.2); Carbon Dioxide 21 mmol/L (22-30); Chloride 106 mmol/L (98-107); Glucose 108 mg/dL (74-99); Magnesium 1.9 mg/dL (1.6-2.3); Non-African American GFR(CKD) 42 (>60 ml/min/1.73 sqM); Potassium 3.7 mmol/L (3.5-5.1); Sodium 131 mmol/L (137-145)
[2022-03-08 07:35] LABS: Glucose,Whole Blood 111 mg/dL (70-110)
[2022-03-08] MEDS: INSULIN ASPART (NovoLOG) 100 UNIT/ML VIAL SQ SCH ×4 (07:50→21:52)
[2022-03-08] MEDS: METOPROLOL TARTRATE 50 MG TAB PO SCH ×2 (08:34→21:46)
[2022-03-08] MEDS: SENNOSIDES 8.6 MG TAB PO SCH ×2 (08:34→21:47)
[2022-03-08] MEDS: amLODIPine 5 MG TAB PO SCH (08:34)
[2022-03-08] MEDS: PANTOPRAZOLE 40 MG/10 ML VIAL IV SCH (08:34)
[2022-03-08] MEDS: RIVAROXABAN 2.5 MG TABLET PO SCH ×2 (08:39→21:47)
--- NOTE | 2022-03-08 09:48 | P.PN ---
Subjective Principal diagnosis: Paroxysmal atrial fibrillation The patient is a 71-year-old female patient we asked to see in the intensive care unit for further evaluation of cardiac arrhythmia in the term of supraventricular tachycardia. The patient is a skilled nursing resident. She does have extensive cardiovascular history consistent of CAD with prior CABG in 2013 as well as prior stenting with unknown details at this point, paroxysmal atrial fibrillation on oral anticoagulation, diabetes, hypertension, dyslipidemia, and history of stroke with left sided residual weakness. Apparently the patient was brought from the extended care facility to the hospital because of generalized weakness and fatigue. No specific symptoms of chest pain or chest discomfort or increasing shortness of breath or dizziness or lightheadedness or any feeling of heart racing or fluttering or presyncope or syncope. She underwent an extensive workup in the emergency department and she was found to be in acute renal failure and also she does have lactic C doses. She is currently hemodynamically stable and not on any vasopressors. We consulted to see the patient because of cardiac arrhythmia. She did have a brief episode lasted about 1 minute of n arrow complex tachycardia consistent with SVT with what it seems to be possible short RP tachycardia. She converted back to normal sinus mechanism. Her EKG when she presented showed sinus mechanism. She does have electrolytes abnormalities including hypokalemia which was corrected. I think that the cardiac arrhythmia at this point is likely to be triggered by electrolytes abnormalities as well as by possible underlying sepsis. Reviewing the patient's previous medical record indicated that she had an echocardiogram was performed in 2015 and that showed severe cardiomyopathy. I am going to repeat her echo at this point. Meanwhile I'm going to increase the dose of metoprolol into 50 mg b y mouth twice a day from 25 mg by mouth twice a day. The right wean her from the Cardizem IV. Obtain an echocardiogram. Continue oral anticoagulation. March 062021 The patient was seen and evaluated this morning. Overall she's stable from the cardiovascular standpoint of view. She is hemodynamically stable. She is asymptomatic. The dose of beta twin has increased yesterday and since then she has no more episodes of SVT. She has been on oral anticoagulation. From the cardiac vascular standpoint of view, would continue the current medical and the patient potentially can be discharged out of the intensive care unit March 072021 The patient was seen this morning. She remains stable from the cardiovascular standpoint of view. She remains asymptomatic as well. No more episodes of SVT or atrial fibrillation at this point. She is on anticoagulation. At this point I would continue the current medical regimen. The patient potentially can be discharged 4 hours. She underwent an echocardiogram which revealed mildly impaired function with no significant valvular abnormalities 03/08/2022 The patient was seen this morning. She is a stable and asymptomatic from the cardiovascular standpoint of view. She has been maintaining normal sinus mechanism and she continues to be tolerating oral anticoagulation very well. From the cardiac standpoint of view, I would advise continue the current medical regimen and follow-up with the patient on when necessary Objective - Vital Signs Vital signs: Vital Signs Temp 97.8 F 03/08/22 05:17 Pulse 92 03/08/22 05:17 Resp 16 03/08/22 05:17 BP 126/85 03/08/22 05:17 Pulse Ox 95 03/08/22 05:17 FiO2 28 03/06/22 19:48 Intake & Output 03/07/22 03/08/22 03/08/22 18:59 06:59 18:59 Intake Total 650 Output Total 900 700 Balance -900 -50 Intake: Oral 650 Output: Urine 900 700 Straight 700 Other: Voiding Method Indwelling Catheter # Voids 3 # Bowel Movements 1 1 - Constitutional General appearance: Present: no acute distress - Respiratory Respiratory: bilateral: diminished - Cardiovascular Rhythm: regular - Labs CBC & Chem 7: 03/06/22 07:20 03/08/22 05:51 Labs: Abnormal Lab Results - Last 24 Hours (Table) 03/07/22 03/07/22 03/07/22 Range/Units 11:44 17:26 20:59 Sodium 136 L (137-145) mmol/L Carbon Dioxide (22-30) mmol/L BUN 18 H (7-17) mg/dL Creatinine 1.32 H (0.52-1.04) mg/dL Glucose 134 H (74-99) mg/dL POC Glucose (mg/dL) 132 H 113 H (70-110) mg/dL Calcium 7.6 L (8.4-10.2) mg/dL Magnesium 1.4 L (1.6-2.3) mg/dL 03/08/22 03/08/22 Range/Units 05:51 07:33 Sodium 131 L (137-145) mmol/L Carbon Dioxide 21 L (22-30) mmol/L BUN (7-17) mg/dL Creatinine 1.30 H (0.52-1.04) mg/dL Glucose 108 H (74-99) mg/dL POC Glucose (mg/dL) 111 H (70-110) mg/dL Calcium 7.8 L (8.4-10.2) mg/dL Magnesium (1.6-2.3) mg/dL Microbiology - Last 24 Hours (Table) 03/07/22 05:45 Blood Culture - Preliminary Blood No Growth after 24 hours 03/07/22 05:30 Blood Culture - Preliminary Blood No Growth after 24 hours Assessment and Plan Assessment: Assessment Change in mental status which has somewhat slightly improved Possible metabolic encephalopathy Acute renal failure Electrolytes imbalance Severe lactic acidosis Supraventricular tachycardia History of paroxysmal atrial fibrillation Coronary artery disease with prior revascularization History of cardiomyopathy Multiple comorbid conditions History of stroke with residual left-sided weakness Plan Continue current medical regimen Continue oral anticoagulation The echo revealed mildly impaired LV function was EF around 45% Follow-up with the patient on when necessary
[2022-03-08] MEDS ORDERED: POTASSIUM CHLORIDE ER 20 MEQ TAB.ER PO STA (11:07)
--- NOTE | 2022-03-08 11:09 | P.PN ---
Subjective Patient is seen in follow-up for acute kidney injury and hypernatremia. Sodium level 131 today. Renal function stable. Fulton catheter was removed but would have to be reinserted due to retention. Resting in bed. Hemodynamically stable. Vital signs are stable. General: Resting in bed. HEENT: Head exam is unremarkable. LUNGS: Breath sounds decreased. HEART: Rate and Rhythm are regular. ABDOMEN: Soft, no distention. EXTREMITITES: No edema. Objective - Vital Signs Vital signs: Vital Signs Temp 97.8 F 03/08/22 05:17 Pulse 92 03/08/22 05:17 Resp 16 03/08/22 05:17 BP 126/85 03/08/22 05:17 Pulse Ox 95 03/08/22 05:17 FiO2 28 03/06/22 19:48 Intake & Output 03/07/22 03/08/22 03/08/22 18:59 06:59 18:59 Intake Total 650 Output Total 900 700 0 Balance -900 -50 0 Intake: Oral 650 Output: Urine 900 700 Straight 700 Post Void Residual 0 Other: Voiding Method Indwelling Catheter # Voids 3 # Bowel Movements 1 1 - Labs CBC & Chem 7: 03/06/22 07:20 03/08/22 05:51 Labs: Abnormal Lab Results - Last 24 Hours (Table) 03/07/22 03/07/22 03/07/22 Range/Units 11:44 17:26 20:59 Sodium 136 L (137-145) mmol/L Carbon Dioxide (22-30) mmol/L BUN 18 H (7-17) mg/dL Creatinine 1.32 H (0.52-1.04) mg/dL Glucose 134 H (74-99) mg/dL POC Glucose (mg/dL) 132 H 113 H (70-110) mg/dL Calcium 7.6 L (8.4-10.2) mg/dL Magnesium 1.4 L (1.6-2.3) mg/dL 03/08/22 03/08/22 Range/Units 05:51 07:33 Sodium 131 L (137-145) mmol/L Carbon Dioxide 21 L (22-30) mmol/L BUN (7-17) mg/dL Creatinine 1.30 H (0.52-1.04) mg/dL Glucose 108 H (74-99) mg/dL POC Glucose (mg/dL) 111 H (70-110) mg/dL Calcium 7.8 L (8.4-10.2) mg/dL Magnesium (1.6-2.3) mg/dL Microbiology - Last 24 Hours (Table) 03/07/22 05:45 Blood Culture - Preliminary Blood No Growth after 24 hours 03/07/22 05:30 Blood Culture - Preliminary Blood No Growth after 24 hours Assessment and Plan Plan: Assessment: 1. Acute kidney injury mostly prerenal secondary to septic shock. Creatinine was 4.2 on admission and is 1 1.3 today. Creatinine was 0.8 in February 2021. No hydronephrosis noted on CAT scan. 2. Septic shock secondary to staph capitis bacteremia on antibiotics. 3. Metabolic acidosis secondary to acute kidney injury and lactic acidosis. Improved. Slight non-gap acidosis from IV fluids. 4. Lactic acidosis secondary to hypotension and use of metformin. 5. Hypernatremia from lack of oral water intake. Resolved. Now hyponatremic. 6. Diabetes mellitus. 7. Hypokalemia from poor intake. 8. Benign hypertension. Controlled. 9. Urinary retention. Fulton catheter will be reinserted today. Plan: Maintain normal saline. Avoid nephrotoxins. Continue to hold metformin. Renal function, acidosis and urine output all improved. Continue to monitor renal function and urine output. Encouraged oral intake. Hold amlodipine for systolic blood pressure less than 120. Add Flomax. Replace potassium. Add oral bicarbonate.
[2022-03-08] MEDS ORDERED: SODIUM CHLORIDE 0.9% 1,000 ML IV SCH (11:15)
[2022-03-08 11:51] LABS: Glucose,Whole Blood 126 mg/dL (70-110)
[2022-03-08] MEDS: SODIUM BICARBONATE TAB 650 MG TAB PO SCH ×2 (12:33→21:46)
--- NOTE | 2022-03-08 16:58 | P.PN ---
Subjective Progress Note Date: 03/08/22 Patient is a 71-year-old female with a known history of hypertension, diabetes type 2 [id number], CVA with left-sided weakness, coronary artery disease status post CABG and history of stent placement, chronic atrial fibrillation on anticoagulation with Xarelto depression and prior history of sm oking was sent from correction due to complaints of generalized weakness lethargy and altered mental status. Patient has been becoming more weak and lethargic for the past couple of days and was also hard to arouse. Patient was brought to ER by EMS. Evidently patient was also complaining abdominal pain as per nursing staff. Patient is currently unable to provide any history. On admission patient was hypotensive with blood pressure 86/50 5 mmHg heart rate 89 respirations 16 and pulse ox 96% on room air. Patient was afebrile. Initial ABG showed pH 7.06 PCO2 31 PO2 163 and bicarb is 9 Laboratory data showed sodium 145 potassium 6.9 chloride 109 bicarb is 8 anion gap 28 BUN 63 and creatinine 4.2 lactic acid 9.7 phosphorus 9.6 magnesium 1.4 Urinalysis showed cloudy with 2+ protein 1+ glucose 2+ ketones and RBC 7 WBC 7 squamous epithelial cells 5. WBC 10.3 hemoglobin 10.7 and platelets 289 neutrophils 8.8 EKG showed atrial fibrillation with incomplete right bundle branch block Chest x-ray showed mild left basilar atelectasis or airspace disease in the left costophrenic angle. CT of the abdomen pelvis showed no evidence for acute intra luminal process. Colonic diverticulosis. Moderate to severe degenerative sclerosis of the arterial vasculature. Nonobstructing right renal calculi. Moderate stool burden throughout the colon. 03/03/2022 Patient is currently in the MICU. Patient is able to respond to verbal stimuli but still lethargic and drowsy. Currently requiring 2 L oxygen via nasal cannula. Continued on bicarb drip. Patient did require pressor support overnight for short duration. Patient was found to have blood cultures positive for gram-positive cocci and wa s given a dose of vancomycin which turned out to be coagulase-negative staph aureus. Patient is also getting IV hydration and blood pressure did improve. Patient is being continued on antibiotics in the form of ceftriaxone. Still having lactic acidosis at 8.8 this morning. Laboratory test showed WBC 14.2 hemoglobin 10.4 and platelets 172 A1c level is 6.7 Sodium 145 potassium 4.6 chloride 102 bicarb is 23, BUN 51 and creatinine went down to 3.0. Procalcitonin level is 0.22 Pulmonary and nephrology is on board. 03/04/2022 Patient is currently lying in the bed. Awake alert but could not communicate. Still lethargic. Requiring oxygen at 2 L by nasal cannula. Otherwise renal function is improving and lactic acid level still elevated to 5.3 today. Patient is being continued on D5 half-normal saline. Sodium level improved to 142 and creatinine level 2.66 today. Remains on antibiotics, ceftriaxone. Cultures have been negative. Currently on insulin sliding scale. Laboratory data showed WBC 9.2 hemoglobin 10.4 and platelets 196 Sodium 142 potassium 4.7 chloride 102 bicarb is 29 BUN 47 creatinine 2.66 03/05/2022 Patient is seen and evaluated in follow-up this morning currently sitting up in the bed continues to be in the ICU with multiple medical consultations following. Patient is more awake today and does respond to questions and commands although delayed. Nephrology following as well and patient is maintained on D5 half-normal saline with some slight improvement in kidney functions. Patient is maintained on clear liquid diet and recommend aspiration precautions. Lactic acid continues to be elevated and is 4.2 today. Patient with creatinine of 2.17 and is improving and will continue with current fluid gentle IV 50 mL's per hour with dextrose 5% normal saline. Nephrology is following. Patient is continued on ceftriaxone and will continue at this time. Will resume some home medications as patient is tolerating oral intake. Patient with significant weakness and generalized edema noted throughout bilateral upper and lower extremities. 03/06/2022 Patient is seen today in the ICU and is a downgrade and awaiting a bed on med surg. Patient continues to be confused but appears baseline. Patient is awake and tolerating diet. Speech to evaluate today and upgrade diet accordingly. Patients blood sugars have been low and recommend continuing D5NS and will incre ase the rate. Recommend acuchecks achs. Patient is on ceftriaxone and will continue. Blood cultures showing some growth possible contaminant, but will obtain new cultures. Patient is afebrile and denies nausea or vomiting. Recommend aspiration precautions. Blood pressures elevated will add norvasc. Patient to return to [facility] on discharge. 03/08/2022 Patient is seen today and per nursing staff mentation is improved. Family called and stated she had a seizure at [facility] and is on keppra asking for neuro to see her for possible EEG. Will consult neuro. Urology is also consulted for retention and pending at this time. Recommend to continue with indwelling meng catheter. Encouraged increased oral intake and close monitoring of blood sugars. They have been dropping. dextrose amps as needed. Afebrile and continued on ceftriaxone blood cultures most likely a contaminant and repeat cultures are negative. Consider stopping antibiotics. PHYSICAL EXAMINATION: Patient is sitting up in the bed. Responds to verbal stimuli and somewhat communicating although delayed but is following commands appropriately HEENT: Normocephalic. Neck is supple. Pupils reactive. Nostrils clear. Oral cavity is moist. Neck reveals no JVD, carotid bruits, or thyromegaly. CHEST EXAMINATION: Trachea is central. Symmetrical expansion. Lung bhagat diminished otherwise clear to auscultation and percussion. CARDIAC: Normal S1, S2 with no gallops. No murmurs ABDOMEN: Soft. Bowel sounds present.. No organomegaly. No abdominal bruits. Extremities: reveal no edema. No clubbing or cyanosis Neurologically patient is more awake today sitting up and having conversation. Left-sided weakness Skin: No rash or skin lesions. Psychiatric: Slightly delayed and somewhat confused although much more awake and having conversation and following commands. Musculoskeletal: No joint swelling or deformity. Assessment: Acute metabolic encephalopathy and possible left lower lobe pneumonia/ Atelectatsis Acute kidney injury with creatinine level went up to 4.2 on admission. Baseline 0.8, trending down Hyperkalemia with potassium 6.9 due to acute kidney injury/AGMA, resolved Anion gap metabolic acidosis due to severe lactic acidosis Severe lactic acidosis, Possible metformin toxicity is being considered. Hypernatremia due to volume depletion Hypomagnesemia. Hypertension. Diabetes type 2 [id number] Coronary artery disease with history of CABG and prior stent placement Chronic atrial fibrillation on anticoagulation with Xarelto History of CVA with left-sided weakness Prior history of smoking DVT Prophylaxis CODE STATUS DNR/DNI Plan: Patient is currently on a med-surg unit Maintained on gentle IV hydration with nephrology following of D5 normal saline at 50 mL per nephro and kidney functions improving, trial void failed and retaining requiring meng will consult urology for retention per nephrology. She is continued on ceftriaxone. Blood cultures most likely contaminant. Repeat cultures negative. Patient's mentation is much improved and has some baseline confusion, appears at baseline. [id number]. Sitting up tolerating current diet as patient was just upgraded to dysphagic ground diet. Recommend aspiration precautions. Not eating well, needs encouragement to eat. Continue with supportive care and follow-up closely. Encourage oral intake and Follow-up closely. Monitor blood sugars closely and ok to give .5-1 amp of dextrose prn as blood sugars have been dropping. D5 running as well. Per son, patient had a seizure while at neurology and is taking keppra and requesting an EEG. No seizure activity noted here. Will consult neurology for possible EEG. Patient to return to [facility] once stable and discharged. Possibly in the next 24-48 hours. Due to multiple complex medical issues, Prognosis is guarded at this time. The impression and plan of care has been dictated as a scribe by Afia Barker, Nurse Practitioner as directed. MD Morales I have performed a history and examination and MDM of this patient, discussed the same with the dictator, and will be documented as a scribe. Based on total visit time, I have performed more than 50% of the visit. Objective - Vital Signs Vital signs: Vital Signs Temp 97.8 F 03/08/22 05:17 Pulse 92 03/08/22 05:17 Resp 16 03/08/22 05:17 BP 126/85 03/08/22 05:17 Pulse Ox 95 03/08/22 05:17 FiO2 28 03/06/22 19:48 Intake & Output 03/07/22 03/08/22 03/08/22 18:59 06:59 18:59 Intake Total 650 Output Total 900 700 0 Balance -900 -50 0 Intake: Oral 650 Output: Urine 900 700 Straight 700 Post Void Residual 0 Other: Voiding Method Indwelling Catheter # Voids 3 # Bowel Movements 1 1 - Labs CBC & Chem 7: 03/06/22 07:20 03/08/22 05:51 Labs: Abnormal Lab Results - Last 24 Hours (Table) 03/07/22 03/07/22 03/07/22 Range/Units 11:44 17:26 20:59 Sodium 136 L (137-145) mmol/L Carbon Dioxide (22-30) mmol/L BUN 18 H (7-17) mg/dL Creatinine 1.32 H (0.52-1.04) mg/dL Glucose 134 H (74-99) mg/dL POC Glucose (mg/dL) 132 H 113 H (70-110) mg/dL Calcium 7.6 L (8.4-10.2) mg/dL Magnesium 1.4 L (1.6-2.3) mg/dL 03/08/22 03/08/22 Range/Units 05:51 07:33 Sodium 131 L (137-145) mmol/L Carbon Dioxide 21 L (22-30) mmol/L BUN (7-17) mg/dL Creatinine 1.30 H (0.52-1.04) mg/dL Glucose 108 H (74-99) mg/dL POC Glucose (mg/dL) 111 H (70-110) mg/dL Calcium 7.8 L (8.4-10.2) mg/dL Magnesium (1.6-2.3) mg/dL Microbiology - Last 24 Hours (Table) 03/07/22 05:45 Blood Culture - Preliminary Blood No Growth after 24 hours 03/07/22 05:30 Blood Culture - Preliminary Blood No Growth after 24 hours
[2022-03-08 17:37] LABS: Glucose,Whole Blood 128 mg/dL (70-110)
[2022-03-08] MEDS: TAMSULOSIN 0.4 MG CAP.ER.24H PO SCH (18:03)
[2022-03-08 20:34] LABS: Glucose,Whole Blood 160 mg/dL (70-110)
[2022-03-08] MEDS: clonazePAM 0.5 MG TAB PO SCH (21:46)
[2022-03-08] MEDS: SERTRALINE 100 MG TAB PO SCH (21:46)
[2022-03-08] MEDS: ATORVASTATIN 80 MG TAB PO SCH (21:47)
[2022-03-09 07:23] LABS: Glucose,Whole Blood 122 mg/dL (70-110)
--- NOTE | 2022-03-09 08:28 | P.GSCN ---
History of Present Illness Consult date: 03/09/22 Reason for Consult: Urinary retention Requesting physician: Afia Barker History of present illness: The patient is a 71-year-old female with multiple medical problems, including hypertension, type 2 mbw-trgyeyq-[id number] diabetes mellitus, CVA with left- sided weakness, coronary artery disease status post CABG and stent placement, and atrial fibrillation. She was sent from the [facility] for evaluation of lethargy, generalized weakness, and altered mental status. Records indicate that she was experiencing abdominal pain at the time of admission. I have reviewed her CT scan, which shows several small right renal calculi measuring up to 4 mm in size with no evidence of hydronephrosis. Urinalysis is not suggestive of infection. A Fulton catheter has been placed for urinary retention. The patient is a vague historian and the reason for catheter placement is unclear. She denies voiding difficulty at home, or here in the hospital for that matter. She states that she likes having a catheter because it is easier but she is unable to articulate why this is the case. She states that she has been treated for uncomplicated UTIs in the past. She has never been treated for kidney stones. Review of Systems - Genitourinary Genitourinary: Denies urinary frequency Past Medical History Past Medical History: Coronary Artery Disease (CAD), COPD, CVA/TIA, Hypertension Additional Past Medical History / Comment(s): pt states she has been treated for scabies one year ago History of Any Multi-Drug Resistant Organisms: None Reported Past Surgical History: Coronary Bypass/CABG, Heart Catheterization With Stent Additional Past Surgical History / Comment(s): cabg 2013 Past Anesthesia/Blood Transfusion Reactions: No Reported Reaction Date of Last Stent Placement:: 2013 Past Psychological History: ADD/ADHD, Depression Smoking Status: Former smoker Past Alcohol Use History: None Reported Past Drug Use History: None Reported, Marijuana - Past Family History Mother Family Medical History: Unable to Obtain Additional Family Medical History / Comment(s): cabg in 2013. stage 2 dementia Medications and Allergies Home Medications Medication Instructions Recorded Confirmed Type Albuterol Nebulized [Ventolin 2.5 mg INHALATION RT-QID PRN 01/17/21 03/02/22 History Nebulized] Melatonin 6 mg PO HS 01/17/21 03/02/22 History Rivaroxaban [Xarelto] 2.5 mg PO BID 01/17/21 03/02/22 History Sertraline [Zoloft] 100 mg PO HS 01/17/21 03/02/22 History metFORMIN HCL [Glucophage] 1,000 mg PO BID 01/17/21 03/02/22 History Aspirin 325 mg PO DAILY #30 tab 01/21/21 03/02/22 Rx Metoprolol Tartrate [Lopressor] 50 mg PO BID #60 tab 01/21/21 03/02/22 Rx clonazePAM [KlonoPIN] 0.5 mg PO HS 3 Days #6 tab 01/21/21 03/02/22 Rx polyethylene glycoL 3350 [Miralax] 17 gm PO DAILY PRN #30 packet 01/21/21 03/02/22 Rx Acetaminophen [Tylenol] 650 mg PO Q4H PRN 03/02/22 03/02/22 History Atorvastatin [Lipitor] 80 mg PO HS 03/02/22 03/02/22 History Ensure Clear 1 can PO QID 03/02/22 03/02/22 History HYDROcodone/APAP 10-325MG [[place] 1 tab PO Q6H PRN 03/02/22 03/02/22 History 10-325] Pantoprazole [Protonix] 40 mg PO BID 03/02/22 03/02/22 History levETIRAcetam [Keppra] 750 mg PO BID 03/02/22 03/02/22 History Allergies Allergy/AdvReac Type Severity Reaction Status Date / Time No Known Allergies Allergy Verified 03/02/22 08:04 Surgical - Exam Vital Signs Temp Pulse Resp BP Pulse Ox 98 F 89 16 86/55 96 03/02/22 05:40 03/02/22 05:40 03/02/22 05:40 03/02/22 05:40 03/02/22 05:40 - General well developed, well nourished, no distress - Respiratory normal respiratory effort - Abdomen Abdomen: soft, non tender, no guarding, no rigid, no rebound - Psychiatric oriented to time, oriented to person, oriented to place, speech is normal, memory intact Results - Labs 03/06/22 07:20 03/08/22 05:51 Abnormal Lab Results - Last 24 Hours (Table) 03/08/22 03/08/22 03/08/22 Range/Units 07:33 11:49 17:35 POC Glucose (mg/dL) 111 H 126 H 128 H (70-110) mg/dL 03/08/22 Range/Units 20:29 POC Glucose (mg/dL) 160 H (70-110) mg/dL Microbiology - Last 24 Hours (Table) 03/07/22 05:45 Blood Culture - Preliminary Blood No Growth after 24 hours 03/07/22 05:30 Blood Culture - Preliminary Blood No Growth after 24 hours - Imaging CT scan - abdomen: report reviewed, image reviewed Assessment and Plan (1) Retention of urine, unspecified Current Visit: Yes Status: Acute Code(s): R33.9 - RETENTION OF URINE, UNSPECIFIED SNOMED Code(s): 084895769 (2) Calculus of kidney Current Visit: Yes Status: Acute Code(s): N20.0 - CALCULUS OF KIDNEY SNOMED Code(s): 02389098 Plan: CT scan shows right renal calculi, but she is asymptomatic and therefore treatment will not be recommended. Regarding the urinary retention, she would be unable to perform intermittent self-catheterization. Therefore, options are for her to have an indwelling Fulton catheter or be observed without a catheter. I would favor the latter, even if postvoid residuals are high, as long as she is comfortable. However, she prefers for the catheter to remain in place because this is easier for her. I did explain to her that the presence of an indwelling catheter increases her UTI risk. If she is ultimately agreeable to having the catheter removed, I would replace it only if she develops symptomatic urinary retention, because I feel she is better off without a catheter then with one even if she empties her bladder incompletely (as long as she is asymptomatic). Thank you for allowing me to participate in Ms. Barbosa's care. Please notify me if we can be of any further assistance. Time with Patient: Greater than 30
[2022-03-09] MEDS: INSULIN ASPART (NovoLOG) 100 UNIT/ML VIAL SQ SCH ×4 (08:38→22:06)
[2022-03-09] MEDS: RIVAROXABAN 2.5 MG TABLET PO SCH ×2 (08:48→22:06)
[2022-03-09] MEDS: SENNOSIDES 8.6 MG TAB PO SCH ×2 (08:48→22:06)
[2022-03-09] MEDS: amLODIPine 5 MG TAB PO SCH (08:48)
[2022-03-09] MEDS: METOPROLOL TARTRATE 50 MG TAB PO SCH ×2 (08:48→22:06)
[2022-03-09] MEDS: PANTOPRAZOLE 40 MG/10 ML VIAL IV SCH (08:49)
[2022-03-09] MEDS: SODIUM BICARBONATE TAB 650 MG TAB PO SCH ×2 (08:53→22:06)
[2022-03-09 09:01] LABS: African American GFR (CKD) 44.3 (60.0-200.0); Anion Gap 9.6 mmol/L (10.00-18.00); BUN/Creat Ratio 9.64 Ratio (12.00-20.00); Blood Urea Nitrogen 13.5 mg/dL (9.0-27.0); Calcium 8.2 mg/dL (8.7-10.3); Carbon Dioxide 25.4 mmol/L (20.0-27.5); Magnesium 1.7 mg/dL (1.5-2.4); Non-African American GFR(CKD) 38.2 (60.0-200.0); Potassium 3.9 mmol/L (3.5-5.5)
[2022-03-09 12:18] LABS: Glucose,Whole Blood 111 mg/dL (70-110)
--- NOTE | 2022-03-09 12:20 | P.PN ---
Subjective Patient is seen in follow-up for acute kidney injury. Renal function fairly stable. Sodium level normal today. Fulton catheter reinserted due to persistent urinary retention. Hemodynamically stable. Patient is not a very reliable historian. Vital signs are stable. General: Resting in bed. HEENT: Head exam is unremarkable. On nasal cannula. LUNGS: Breath sounds decreased. HEART: Rate and Rhythm are regular. ABDOMEN: Soft, no distention. EXTREMITITES: No edema. Objective - Vital Signs Vital signs: Vital Signs Temp 97.6 F 03/09/22 11:17 Pulse 69 03/09/22 11:17 Resp 16 03/09/22 11:17 BP 145/90 03/09/22 11:17 Pulse Ox 100 03/09/22 11:17 FiO2 28 03/06/22 19:48 Intake & Output 03/08/22 03/09/22 03/09/22 18:59 06:59 18:59 Output Total 0 900 Balance 0 -900 Output: Urine 900 Post Void Residual 0 Other: Voiding Method Indwelling Catheter Indwelling Catheter - Labs CBC & Chem 7: 03/06/22 07:20 03/09/22 06:19 Labs: Abnormal Lab Results - Last 24 Hours (Table) 03/08/22 03/08/22 03/09/22 Range/Units 17:35 20:29 06:19 Anion Gap 9.60 L (10.00-18.00) mmol/L Est GFR (CKD-EPI)AfAm 44.3 L (60.0-200.0) Est GFR (CKD-EPI)NonAf 38.2 L (60.0-200.0) BUN/Creatinine Ratio 9.64 L (12.00-20.00) Ratio Glucose 111 H (70-110) mg/dL POC Glucose (mg/dL) 128 H 160 H (70-110) mg/dL Calcium 8.2 L (8.7-10.3) mg/dL 03/09/22 Range/Units 07:21 Anion Gap (10.00-18.00) mmol/L Est GFR (CKD-EPI)AfAm (60.0-200.0) Est GFR (CKD-EPI)NonAf (60.0-200.0) BUN/Creatinine Ratio (12.00-20.00) Ratio Glucose (70-110) mg/dL POC Glucose (mg/dL) 122 H (70-110) mg/dL Calcium (8.7-10.3) mg/dL Microbiology - Last 24 Hours (Table) 03/07/22 05:45 Blood Culture - Preliminary Blood No Growth after 48 hours 03/07/22 05:30 Blood Culture - Preliminary Blood No Growth after 48 hours Assessment and Plan Plan: Assessment: 1. Acute kidney injury mostly prerenal secondary to septic shock. Also component of urinary retention. Creatinine was 4.2 on admission and is fairly stable at 1.4 today. Creatinine was 0.8 in February 2021. No hydronephrosis noted on CAT scan. 2. Septic shock secondary to staph capitis bacteremia on antibiotics. 3. Metabolic acidosis secondary to acute kidney injury and lactic acidosis. Improved. Slight non-gap acidosis from IV fluids. On oral bicarbonate. Improved. 4. Lactic acidosis secondary to hypotension and use of metformin. 5. Hypernatremia from lack of oral water intake. Patient was hyponatremic yesterday and sodium level is normal today. 6. Diabetes mellitus. 7. Hypokalemia from poor intake. Stable. 8. Benign hypertension. Controlled. 9. Urinary retention. Fulton catheter reinserted 03/08/2022. On Flomax. U rology following. Plan: Off IV fluids. Avoid nephrotoxins. Continue to hold metformin. Renal function, acidosis and urine output all improved. Continue to monitor renal function and urine output. Encouraged oral intake. Hold amlodipine for systolic blood pressure less than 120.
[2022-03-09 13:35] VITALS: BMI 24.7
--- NOTE | 2022-03-09 15:17 | P.PN ---
Subjective Progress Note Date: 03/09/22 Patient is a 71-year-old female with a known history of hypertension, diabetes type 2 [id number], CVA with left-sided weakness, coronary artery disease status post CABG and history of stent placement, chronic atrial fibrillation on anticoagulation with Xarelto depression and prior history of sm oking was sent from care home due to complaints of generalized weakness lethargy and altered mental status. Patient has been becoming more weak and lethargic for the past couple of days and was also hard to arouse. Patient was brought to ER by EMS. Evidently patient was also complaining abdominal pain as per nursing staff. Patient is currently unable to provide any history. On admission patient was hypotensive with blood pressure 86/50 5 mmHg heart rate 89 respirations 16 and pulse ox 96% on room air. Patient was afebrile. Initial ABG showed pH 7.06 PCO2 31 PO2 163 and bicarb is 9 Laboratory data showed sodium 145 potassium 6.9 chloride 109 bicarb is 8 anion gap 28 BUN 63 and creatinine 4.2 lactic acid 9.7 phosphorus 9.6 magnesium 1.4 Urinalysis showed cloudy with 2+ protein 1+ glucose 2+ ketones and RBC 7 WBC 7 squamous epithelial cells 5. WBC 10.3 hemoglobin 10.7 and platelets 289 neutrophils 8.8 EKG showed atrial fibrillation with incomplete right bundle branch block Chest x-ray showed mild left basilar atelectasis or airspace disease in the left costophrenic angle. CT of the abdomen pelvis showed no evidence for acute intra luminal process. Colonic diverticulosis. Moderate to severe degenerative sclerosis of the arterial vasculature. Nonobstructing right renal calculi. Moderate stool burden throughout the colon. 03/03/2022 Patient is currently in the MICU. Patient is able to respond to verbal stimuli but still lethargic and drowsy. Currently requiring 2 L oxygen via nasal cannula. Continued on bicarb drip. Patient did require pressor support overnight for short duration. Patient was found to have blood cultures positive for gram-positive cocci and wa s given a dose of vancomycin which turned out to be coagulase-negative staph aureus. Patient is also getting IV hydration and blood pressure did improve. Patient is being continued on antibiotics in the form of ceftriaxone. Still having lactic acidosis at 8.8 this morning. Laboratory test showed WBC 14.2 hemoglobin 10.4 and platelets 172 A1c level is 6.7 Sodium 145 potassium 4.6 chloride 102 bicarb is 23, BUN 51 and creatinine went down to 3.0. Procalcitonin level is 0.22 Pulmonary and nephrology is on board. 03/04/2022 Patient is currently lying in the bed. Awake alert but could not communicate. Still lethargic. Requiring oxygen at 2 L by nasal cannula. Otherwise renal function is improving and lactic acid level still elevated to 5.3 today. Patient is being continued on D5 half-normal saline. Sodium level improved to 142 and creatinine level 2.66 today. Remains on antibiotics, ceftriaxone. Cultures have been negative. Currently on insulin sliding scale. Laboratory data showed WBC 9.2 hemoglobin 10.4 and platelets 196 Sodium 142 potassium 4.7 chloride 102 bicarb is 29 BUN 47 creatinine 2.66 03/05/2022 Patient is seen and evaluated in follow-up this morning currently sitting up in the bed continues to be in the ICU with multiple medical consultations following. Patient is more awake today and does respond to questions and commands although delayed. Nephrology following as well and patient is maintained on D5 half-normal saline with some slight improvement in kidney functions. Patient is maintained on clear liquid diet and recommend aspiration precautions. Lactic acid continues to be elevated and is 4.2 today. Patient with creatinine of 2.17 and is improving and will continue with current fluid gentle IV 50 mL's per hour with dextrose 5% normal saline. Nephrology is following. Patient is continued on ceftriaxone and will continue at this time. Will resume some home medications as patient is tolerating oral intake. Patient with significant weakness and generalized edema noted throughout bilateral upper and lower extremities. 03/06/2022 Patient is seen today in the ICU and is a downgrade and awaiting a bed on med surg. Patient continues to be confused but appears baseline. Patient is awake and tolerating diet. Speech to evaluate today and upgrade diet accordingly. Patients blood sugars have been low and recommend continuing D5NS and will incre ase the rate. Recommend acuchecks achs. Patient is on ceftriaxone and will continue. Blood cultures showing some growth possible contaminant, but will obtain new cultures. Patient is afebrile and denies nausea or vomiting. Recommend aspiration precautions. Blood pressures elevated will add norvasc. Patient to return to [facility] on discharge. 03/08/2022 Patient is seen today and per nursing staff mentation is improved. Family called and stated she had a seizure at [facility] and is on keppra asking for neuro to see her for possible EEG. Will consult neuro. Urology is also consulted for retention and pending at this time. Recommend to continue with indwelling meng catheter. Encouraged increased oral intake and close monitoring of blood sugars. They have been dropping. dextrose amps as needed. Afebrile and continued on ceftriaxone blood cultures most likely a contaminant and repeat cultures are negative. Consider stopping antibiotics. 03/09/2022 Patient is seen and evaluated in follow-up currently at baseline with multiple medical consultations following. Neurology was consulted as patient was started on Keppra and reportedly had a seizure while at [facility] and unsure if patient moreno d been taking Keppra prior to this. Family requesting neurology consultation for possible EEG. Urology was also consulted and evaluated the patient for retention and recommend either trial voiding or continuing with indwelling Meng catheter per patient's preference. Catheter was recently removed a few days ago and patient continue retrain requiring re-insertion of the Meng catheter. Recommend continuing with the catheter and outpatient follow-up with possible trial void once patient is more mobile. Patient is continued on a dysphagia 2 diet and recommend continue with aspiration precautions as patient is high risk for aspirating. Supervision with meals and recommend the head of the bed elevated 45 at all times. Kidney functions improved and patient's creatinine is 1.4 with nephrology following. Blood sugar slightly improved and will continue current regimen. She was continued on IV ceftriaxone and cultures are negative as initial blood culture most likely a contaminant and will discontinue antibiotics for now. Patient was recently started on bicarb tablets along with Flomax. Patient is afebrile with no reports of chest pain or shortness of breath. Patient is a poor historian and alert and oriented 1. PHYSICAL EXAMINATION: Patient is sitting up in the bed. Responds to verbal stimuli and somewhat communicating although delayed but is following commands appropriately HEENT: Normocephalic. Neck is supple. Pupils reactive. Nostrils clear. Oral cavity is moist. Neck reveals no JVD, carotid bruits, or thyromegaly. CHEST EXAMINATION: Trachea is central. Symmetrical expansion. Diminished breath sounds bilaterally with some scattered rhonchi CARDIAC: S1, S2 are muffled ABDOMEN: Soft. Bowel sounds present.. No organomegaly. No abdominal bruits. Extremities: reveal no edema. No clubbing or cyanosis Neurologically patient is more awake each day and sitting up and having conversation. Left-sided weakness Skin: No rash or skin lesions. Psychiatric: Slightly delayed and somewhat confused although much more awake and having conversation and following commands. Musculoskeletal: No joint swelling or deformity. Assessment: Acute metabolic encephalopathy and possible left lower lobe pneumonia/ Atelectatsis Acute kidney injury with creatinine level went up to 4.2 on admission. Baseline 0.8, trending down Urinary retention requiring indwelling Meng catheter possibly secondary to acute kidney injury and septic shock Hyperkalemia with potassium 6.9 due to acute kidney injury/AGMA, resolved Anion gap metabolic acidosis due to severe lactic acidosis Severe lactic acidosis, Possible metformin toxicity is being considered. Hypernatremia due to volume depletion Hypomagnesemia. Hypertension. Diabetes type 2 [id number] Coronary artery disease with history of CABG and prior stent placement Chronic atrial fibrillation on anticoagulation with Xarelto History of CVA with left-sided weakness Prior history of smoking DVT Prophylaxis CODE STATUS DNR/DNI Plan: Patient is currently on a med-surg unit appears to be at baseline. IV fluids have been discontinued and patient is maintained on sodium bicarb tablets and also has been started on Flomax for retention. Patient was evaluated by urology recommending trial void and/or continuing with indwelling Meng catheter. Kidney function stable with nephrology following and will need close outpatient follow-up. Patient was continued on IV ceftriaxone and cultures revealing most likely co ntaminant with repeat cultures being negative. Will discontinue antibiotics Neurology consulted and pending as patient was started on Keppra and unsure if she was started on at [facility] as family reported she had a seizure there and would like an EEG. Will await neurology evaluation. Of note patient has had no seizure-like activity during this admission. Patient is maintained on Keppra 500 mg twice daily Patient's mentation is much improved and has some baseline confusion, appears at baseline. [id number]. Sitting up tolerating current diet as patient was just upgraded to dysphagic ground diet. Recommend strict aspiration precautions with supervision with meals and head of the bed elevated 45 at all times. Not eating well, needs encouragement to eat. Continue with supportive care and follow-up closely. Encourage oral intake and Follow-up closely. Monitor blood sugars closely and ok to give .5-1 amp of dextrose prn as blood sugars have been dropping. D5 running as well. Patient to return to [facility] once stable and discharged. Possibly in the next 24-48 hours. Due to multiple complex medical issues, Prognosis is guarded at this time. The impression and plan of care has been dictated by Afia Barker, Nurse Practitioner as directed. Dr. Keny MD I have performed a history and examination and MDM of this patient, discussed the same with the dictator, and agree with the dictator's assessment and plan as written ,documented as a scribe. Based on total visit time, I have performed more than 50% of the visit. Objective - Vital Signs Vital signs: Vital Signs Temp 97.6 F 03/09/22 11:17 Pulse 69 03/09/22 11:17 Resp 16 03/09/22 11:17 BP 145/90 03/09/22 11:17 Pulse Ox 100 03/09/22 11:17 FiO2 28 03/06/22 19:48 Intake & Output 03/08/22 03/09/22 03/09/22 18:59 06:59 18:59 Output Total 0 900 700 Balance 0 -900 -700 Weight 65.5 kg Output: Urine 900 700 Post Void Residual 0 Other: Voiding Method Indwelling Catheter Indwelling Catheter - Labs CBC & Chem 7: 03/06/22 07:20 03/09/22 06:19 Labs: Abnormal Lab Results - Last 24 Hours (Table) 03/08/22 03/08/22 03/09/22 Range/Units 17:35 20:29 06:19 Anion Gap 9.60 L (10.00-18.00) mmol/L Est GFR (CKD-EPI)AfAm 44.3 L (60.0-200.0) Est GFR (CKD-EPI)NonAf 38.2 L (60.0-200.0) BUN/Creatinine Ratio 9.64 L (12.00-20.00) Ratio Glucose 111 H (70-110) mg/dL POC Glucose (mg/dL) 128 H 160 H (70-110) mg/dL Calcium 8.2 L (8.7-10.3) mg/dL 03/09/22 03/09/22 Range/Units 07:21 12:16 Anion Gap (10.00-18.00) mmol/L Est GFR (CKD-EPI)AfAm (60.0-200.0) Est GFR (CKD-EPI)NonAf (60.0-200.0) BUN/Creatinine Ratio (12.00-20.00) Ratio Glucose (70-110) mg/dL POC Glucose (mg/dL) 122 H 111 H (70-110) mg/dL Calcium (8.7-10.3) mg/dL Microbiology - Last 24 Hours (Table) 03/07/22 05:45 Blood Culture - Preliminary Blood No Growth after 48 hours 03/07/22 05:30 Blood Culture - Preliminary Blood No Growth after 48 hours
[2022-03-09 17:14] LABS: Glucose,Whole Blood 122 mg/dL (70-110)
[2022-03-09] MEDS: TAMSULOSIN 0.4 MG CAP.ER.24H PO SCH (17:21)
[2022-03-09 20:38] LABS: Glucose,Whole Blood 119 mg/dL (70-110)
[2022-03-09] MEDS: IPRATROPIUM-ALBUTEROL 3 ML NEB INHALATION PRN (20:52)
[2022-03-09] MEDS: SERTRALINE 100 MG TAB PO SCH (22:06)
[2022-03-09] MEDS: clonazePAM 0.5 MG TAB PO SCH (22:06)
[2022-03-09] MEDS: ATORVASTATIN 80 MG TAB PO SCH (22:06)
[2022-03-10 07:22] LABS: Glucose,Whole Blood 111 mg/dL (70-110)
[2022-03-10] MEDS: INSULIN ASPART (NovoLOG) 100 UNIT/ML VIAL SQ SCH ×4 (07:53→21:03)
[2022-03-10] MEDS: PANTOPRAZOLE 40 MG/10 ML VIAL IV SCH ×2 (08:53→08:57)
[2022-03-10] MEDS: amLODIPine 5 MG TAB PO SCH (08:54)
[2022-03-10] MEDS: SENNOSIDES 8.6 MG TAB PO SCH ×2 (08:54→21:02)
[2022-03-10] MEDS: METOPROLOL TARTRATE 50 MG TAB PO SCH ×2 (08:54→21:03)
[2022-03-10] MEDS: RIVAROXABAN 2.5 MG TABLET PO SCH ×2 (08:54→21:04)
[2022-03-10] MEDS: SODIUM BICARBONATE TAB 650 MG TAB PO SCH ×2 (08:54→21:02)
--- NOTE | 2022-03-10 09:43 | P.CNNES ---
History of Present Illness Consult date: 03/09/22 Requesting physician: Afia Barker Reason for Consult: seizure prior to admission while at [facility] History of Present Illness: Patient is a 71-year-old female, who was brought to the hospital in the ambulance on 03/02/2022 for altered mental status. Patient not able to provide much details. As per EMS flow sheet, when they arrived, it was mentioned that the staff at the facility were doing morning rounds and found the patient with snoring respiration and using accessory muscles to breathe. Staff has mentioned that patient was fine last p.m. Patient was slow to respond and lethargic. Patient would respond with strong verbal stimuli but was not active with interaction. Patient's blood pressure at the scene was 84/49, and repeat blood pressure was 84/54, pulse rate 97, respiration 24, saturation 94% and blood sugar 163. Her blood pressure continued to be low when she arrived to the hospital with 86/55 and then 84/52 and temperature was 98.0. Her blood pressure has been running down, sometimes dips down to 77/48. Her blood test on arrival was normal CBC, PT/PTT, sodium was 145 potassium 6.9, BUN 63 creatinine 4.20, normal hepatic panel. Phosphorous 9.6 lactate 9.7 which went up to 11.0. UA sh ows no signs of infection. ABG showed pH of 7.06, pCO2 31 and saturation 163. Bicarbonate also very low 9. CT head was performed 03/03/2022 which revealed degenerative and extensive remote ischemic change with no evidence of acute hemorrhage or mass effect. Cortical calcification likely representing dystrophic calcification from the prior infarct. I personally reviewed CT head, agree with the findings. Apparently there was no calcification in the CT head from 05/15/2020. This extent of calcification is somewhat atypical to develop in less than 2 years. Intracranial hemorrhage is also a possibility although less likely. 2-D echo revealed inducible systolic function with mitral stenosis with mean gradient of 8 mm edgy. Calcific aortic stenosis. 3+ tricuspid regurgitation. Left atrial size is mildly increased. EF is 45%. Patient's previous CTA of head and neck from 02/13/2020 revealed complete occlusion of the right ICA in right MCA M1 segment. Diminutive size of the right MCA M2 segment. Neurology was consulted for recent history of seizure. Patient at this time states that she started having seizures a month ago. She says that she was at the other hospital when she had a seizure. She describes her seizures as becoming "very weak, disorganized, and then they make me go back to bed". She denies any headache or dizziness. She states she lives with her son in [facility]. She states she has 2 children. 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 Patient received TPA and was transferred to [facility]. [place] fenton has smoked 1 pack per day for 5 years, states she quit 2 years ago. Patient's home medications include Xarelto 2.5 mg twice a day, sertraline 100 mg, melatonin, metformin, aspirin 325 mg, metoprolol, clonazepam, [place], Keppra 750 mg twice a day, Protonix and Lipitor 80 mg. I spoke to patient's son on the phone. He mentions that patient had seizures only twice that he knows about. The first time it happened when she was being transferred from [facility] to [facility] after the stroke. The second seizure was witnessed by patient's sister when she was visiting her in [facility]. This happened one day prior to arrival. Patient was not brought to the hospital, was observed and was planned to follow-up with her neurologist Dr. Seymour in his office, however the next day she was found unresponsive and she was brought to the hospital. No other history of seizures. Patient's son states that she has been living in [facility] for last 2 years. No history of seizures prior to that. Review of Systems Constitutional: Denies chills, Denies fever Eyes: denies blurred vision, denies pain Ears: bilateral: decreased hearing Ears, nose, mouth and throat: Denies headache, Denies sore throat Cardiovascular: Denies chest pain, Denies shortness of breath Respiratory: Denies cough Gastrointestinal: Denies abdominal pain, Denies diarrhea, Denies nausea, Denies vomiting Musculoskeletal: Denies myalgias Integumentary: Denies pruritus, Denies rash Neurological: Reports as per HPI Psychiatric: Reports confusion Past Medical History Past Medical History: Coronary Artery Disease (CAD), COPD, CVA/TIA, Hypertension Additional Past Medical History / Comment(s): pt states she has been treated for scabies one year ago History of Any Multi-Drug Resistant Organisms: None Reported Past Surgical History: Coronary Bypass/CABG, Heart Catheterization With Stent Additional Past Surgical History / Comment(s): cabg 2013 Past Anesthesia/Blood Transfusion Reactions: No Reported Reaction Date of Last Stent Placement:: 2013 Past Psychological History: ADD/ADHD, Depression Smoking Status: Former smoker Past Alcohol Use History: None Reported Past Drug Use History: None Reported, Marijuana - Past Family History Mother Family Medical History: Unable to Obtain Additional Family Medical History / Comment(s): cabg in 2013. stage 2 dementia Medications and Allergies Home Medications Medication Instructions Recorded Confirmed Type Albuterol Nebulized [Ventolin 2.5 mg INHALATION RT-QID PRN 01/17/21 03/02/22 History Nebulized] Melatonin 6 mg PO HS 01/17/21 03/02/22 History Rivaroxaban [Xarelto] 2.5 mg PO BID 01/17/21 03/02/22 History Sertraline [Zoloft] 100 mg PO HS 01/17/21 03/02/22 History metFORMIN HCL [Glucophage] 1,000 mg PO BID 01/17/21 03/02/22 History Aspirin 325 mg PO DAILY #30 tab 01/21/21 03/02/22 Rx Metoprolol Tartrate [Lopressor] 50 mg PO BID #60 tab 01/21/21 03/02/22 Rx clonazePAM [KlonoPIN] 0.5 mg PO HS 3 Days #6 tab 01/21/21 03/02/22 Rx polyethylene glycoL 3350 [Miralax] 17 gm PO DAILY PRN #30 packet 01/21/21 03/02/22 Rx Acetaminophen [Tylenol] 650 mg PO Q4H PRN 03/02/22 03/02/22 History Atorvastatin [Lipitor] 80 mg PO HS 03/02/22 03/02/22 History Ensure Clear 1 can PO QID 03/02/22 03/02/22 History HYDROcodone/APAP 10-325MG [[place] 1 tab PO Q6H PRN 03/02/22 03/02/22 History 10-325] Pantoprazole [Protonix] 40 mg PO BID 03/02/22 03/02/22 History levETIRAcetam [Keppra] 750 mg PO BID 03/02/22 03/02/22 History Allergies Allergy/AdvReac Type Severity Reaction Status Date / Time No Known Allergies Allergy Verified 03/02/22 08:04 Physical Examination - Vital Signs Vital Signs: Vital Signs Temp Pulse Pulse Pulse Resp BP Pulse Ox 03/09/22 21:00 84 03/09/22 20:52 82 03/09/22 11:17 97.6 F 69 16 145/90 100 03/09/22 08:00 69 69 16 03/09/22 04:55 98 F 86 16 141/89 97 Intake and Output 03/09/22 03/09/22 03/09/22 06:59 14:59 22:59 Output Total 900 700 375 Balance -900 -700 -375 Output: Urine 900 700 375 Other: Voiding Method Indwelling Catheter Weight 65.5 kg Patient is an elderly female, in no acute distress. She is using oxygen via nasal cannula. Patient is alert awake. Patient states it is February and the year is 2017. She knows that she is in the hospital but does not know the name. She does know that she is in [facility] and name of the current president. She knows her date of , but states she is 48 years old. Speech and language functions are normal. Patient can name and repeat very well. No aphasia or dysarthria, although her speech is slightly spastic in quality. Attention, concentration and fund of knowledge is adequate. Detail cognitive function testing deferred. On cranial nerve examination, pupils are equal, round and reacting to light, visual bhagat reveals patient neglects left side on double simultaneous stimulation, particularly in the left lower visual field. Extraocular muscles are intact with no nystagmus. Patient has left facial droop and her tongue protrudes to the midline. Palatal elevation and sensation normal, hearing is decreased and shoulder shrug decreased on the left, facial sensation normal. On muscle strength testing, patient has spastic left hemiplegia. Strength is normal on the right side. Deep tendon reflexes are brisk on the left and plantar is upgoing on the left. Sensory to touch is equal with no neglect on double simultaneous stimulation. Cerebellar function showed no ataxia for [id number] testing on the right, cannot perform on the left. Tone is increased on the left side. Bulk of muscles normal. Gait deferred.. On general examination, there is no carotid bruit or murmur, S1-S2 audible. Chest is clear on consultation. Abdomen is soft nontender. No organomegaly, bowel sounds present. Peripheral pulses are present. No edema. Results - Laboratory Findings CBC and BMP: 03/06/22 07:20 03/09/22 06:19 Abnormal Lab Findings: Abnormal Labs 03/02/22 03/02/22 03/02/22 05:54 05:54 05:54 WBC RBC Hgb 10.7 L Hct MCHC 28.4 L RDW Neutrophils # 8.8 H Lymphocytes # Monocytes # Eosinophils # ABG pH ABG pCO2 ABG pO2 ABG HCO3 ABG Total CO2 ABG O2 Saturation ABG Hematocrit ABG Sodium ABG Potassium ABG Glucose ABG Lactic Acid Hemoglobin Sodium Potassium 6.9 H* Chloride 109 H Carbon Dioxide 8 L* Anion Gap BUN 63 H Creatinine 4.20 H Est GFR (CKD-EPI)AfAm Est GFR (CKD-EPI)NonAf BUN/Creatinine Ratio Glucose POC Glucose (mg/dL) Hemoglobin A1c Plasma Lactic Acid Santiago 9.7 H* Calcium Phosphorus 9.6 H* Magnesium 1.4 L ALT Total Protein Albumin Procalcitonin Arterial Blood Potassium Arterial Blood Glucose Urine Appearance Urine Protein Urine Glucose (UA) Urine Ketones Urine Blood Urine RBC Urine WBC Ur Squamous Epith Cells Amorphous Sediment Urine Bacteria Hyaline Casts Urine Mucus 03/02/22 03/02/22 03/02/22 08:10 08:34 08:41 WBC RBC Hgb Hct MCHC RDW Neutrophils # Lymphocytes # Monocytes # Eosinophils # ABG pH 7.06 L* ABG pCO2 31 L ABG pO2 163 H ABG HCO3 9 L* ABG Total CO2 10 L ABG O2 Saturation 99.6 H ABG Hematocrit ABG Sodium ABG Potassium ABG Glucose ABG Lactic Acid Hemoglobin Sodium Potassium Chloride Carbon Dioxide Anion Gap BUN Creatinine Est GFR (CKD-EPI)AfAm Est GFR (CKD-EPI)NonAf BUN/Creatinine Ratio Glucose POC Glucose (mg/dL) Hemoglobin A1c Plasma Lactic Acid [place] 11.0 H* Calcium Phosphorus Magnesium ALT Total Protein Albumin Procalcitonin Arterial Blood Potassium Arterial Blood Glucose Urine Appearance Cloudy H Urine Protein 2+ H Urine Glucose (UA) 1+ H Urine Ketones 2+ H Urine Blood Small H Urine RBC 7 H Urine WBC 7 H Ur Squamous Epith Cells 5 H Amorphous Sediment Few H Urine Bacteria Many H Hyaline Casts 3 H Urine Mucus Rare H 03/02/22 03/02/22 03/02/22 09:12 11:33 15:57 WBC RBC Hgb Hct MCHC RDW Neutrophils # Lymphocytes # Monocytes # Eosinophils # ABG pH ABG pCO2 ABG pO2 ABG HCO3 ABG Total CO2 ABG O2 Saturation ABG Hematocrit ABG Sodium ABG Potassium ABG Glucose ABG Lactic Acid Hemoglobin Sodium 150 H Potassium Chloride 115 H Carbon Dioxide 8 L* Anion Gap BUN 53 H Creatinine 3.49 H Est GFR (CKD-EPI)AfAm Est GFR (CKD-EPI)NonAf BUN/Creatinine Ratio Glucose 158 H POC Glucose (mg/dL) Hemoglobin A1c Plasma Lactic Acid Santiago 11.7 H* 12.0 H* Calcium Phosphorus Magnesium ALT 36 H Total Protein 5.5 L Albumin 3.0 L Procalcitonin Arterial Blood Potassium Arterial Blood Glucose Urine Appearance Urine Protein Urine Glucose (UA) Urine Ketones Urine Blood Urine RBC Urine WBC Ur Squamous Epith Cells Amorphous Sediment Urine Bacteria Hyaline Casts Urine Mucus 03/02/22 03/02/22 03/02/22 18:31 21:16 21:16 WBC RBC Hgb Hct MCHC RDW Neutrophils # Lymphocytes # Monocytes # Eosinophils # ABG pH ABG pCO2 ABG pO2 ABG HCO3 ABG Total CO2 ABG O2 Saturation ABG Hematocrit ABG Sodium ABG Potassium ABG Glucose ABG Lactic Acid Hemoglobin Sodium 131 L Potassium Chloride 82 L Carbon Dioxide 37 H Anion Gap BUN 49 H Creatinine 2.18 H Est GFR (CKD-EPI)AfAm Est GFR (CKD-EPI)NonAf BUN/Creatinine Ratio Glucose 1135 H* POC Glucose (mg/dL) 224 H Hemoglobin A1c Plasma Lactic Acid Santiago 7.8 H* Calcium 5.4 L* Phosphorus Magnesium ALT Total Protein Albumin Procalcitonin Arterial Blood Potassium Arterial Blood Glucose Urine Appearance Urine Protein Urine Glucose (UA) Urine Ketones Urine Blood Urine RBC Urine WBC Ur Squamous Epith Cells Amorphous Sediment Urine Bacteria Hyaline Casts Urine Mucus 03/02/22 03/02/22 03/02/22 22:28 23:13 23:25 WBC RBC Hgb Hct MCHC RDW Neutrophils # Lymphocytes # Monocytes # Eosinophils # ABG pH 7.31 L ABG pCO2 ABG pO2 116 H ABG HCO3 19 L ABG Total CO2 ABG O2 Saturation 97.9 H ABG Hematocrit 27 L ABG Sodium 148 H ABG Potassium 4.7 H ABG Glucose 235 H ABG Lactic Acid 8.1 H* Hemoglobin 8.7 L Sodium 146 H Potassium Chloride 109 H Carbon Dioxide 15 L Anion Gap BUN 56 H Creatinine 3.54 H Est GFR (CKD-EPI)AfAm Est GFR (CKD-EPI)NonAf BUN/Creatinine Ratio Glucose 224 H POC Glucose (mg/dL) 202 H Hemoglobin A1c Plasma Lactic Acid [place] Calcium Phosphorus Magnesium ALT Total Protein Albumin Procalcitonin Arterial Blood Potassium 4.7 H Arterial Blood Glucose 235 H Urine Appearance Urine Protein Urine Glucose (UA) Urine Ketones Urine Blood Urine RBC Urine WBC Ur Squamous Epith Cells Amorphous Sediment Urine Bacteria Hyaline Casts Urine Mucus 03/03/22 03/03/22 03/03/22 00:59 05:17 05:17 WBC RBC Hgb Hct MCHC RDW Neutrophils # Lymphocytes # Monocytes # Eosinophils # ABG pH ABG pCO2 ABG pO2 ABG HCO3 ABG Total CO2 ABG O2 Saturation ABG Hematocrit ABG Sodium ABG Potassium ABG Glucose ABG Lactic Acid Hemoglobin Sodium Potassium Chloride Carbon Dioxide 21 L Anion Gap BUN 53 H Creatinine 3.14 H Est GFR (CKD-EPI)AfAm Est GFR (CKD-EPI)NonAf BUN/Creatinine Ratio Glucose 207 H POC Glucose (mg/dL) Hemoglobin A1c Plasma Lactic Acid Santiago 10.6 H* 8.8 H* Calcium 7.7 L Phosphorus 5.4 H Magnesium ALT Total Protein 5.4 L Albumin 2.9 L Procalcitonin Arterial Blood Potassium Arterial Blood Glucose Urine Appearance Urine Protein Urine Glucose (UA) Urine Ketones Urine Blood Urine RBC Urine WBC Ur Squamous Epith Cells Amorphous Sediment Urine Bacteria Hyaline Casts Urine Mucus 03/03/22 03/03/22 03/03/22 06:43 06:58 06:58 WBC 14.2 H RBC Hgb 10.4 L Hct MCHC 30.1 L RDW Neutrophils # 11.3 H Lymphocytes # Monocytes # 1.3 H Eosinophils # ABG pH ABG pCO2 ABG pO2 ABG HCO3 ABG Total CO2 ABG O2 Saturation ABG Hematocrit ABG Sodium ABG Potassium ABG Glucose ABG Lactic Acid Hemoglobin Sodium Potassium Chloride Carbon Dioxide Anion Gap BUN Creatinine Est GFR (CKD-EPI)AfAm Est GFR (CKD-EPI)NonAf BUN/Creatinine Ratio Glucose POC Glucose (mg/dL) 142 H Hemoglobin A1c 6.7 H Plasma Lactic Acid [place] Calcium Phosphorus Magnesium ALT Total Protein Albumin Procalcitonin Arterial Blood Potassium Arterial Blood Glucose Urine Appearance Urine Protein Urine Glucose (UA) Urine Ketones Urine Blood Urine RBC Urine WBC Ur Squamous Epith Cells Amorphous Sediment Urine Bacteria Hyaline Casts Urine Mucus 03/03/22 03/03/22 03/04/22 15:50 15:50 05:32 WBC RBC Hgb 10.4 L Hct 33.7 L MCHC RDW 16.1 H Neutrophils # Lymphocytes # Monocytes # Eosinophils # ABG pH ABG pCO2 ABG pO2 ABG HCO3 ABG Total CO2 ABG O2 Saturation ABG Hematocrit ABG Sodium ABG Potassium ABG Glucose ABG Lactic Acid Hemoglobin Sodium Potassium Chloride Carbon Dioxide Anion Gap BUN 51 H Creatinine 3.00 H Est GFR (CKD-EPI)AfAm Est GFR (CKD-EPI)NonAf BUN/Creatinine Ratio Glucose 114 H POC Glucose (mg/dL) Hemoglobin A1c Plasma Lactic Acid [place] Calcium 8.0 L Phosphorus Magnesium ALT Total Protein Albumin Procalcitonin 0.22 H Arterial Blood Potassium Arterial Blood Glucose Urine Appearance Urine Protein Urine Glucose (UA) Urine Ketones Urine Blood Urine RBC Urine WBC Ur Squamous Epith Cells Amorphous Sediment Urine Bacteria Hyaline Casts Urine Mucus 03/04/22 03/04/22 03/04/22 05:32 05:32 06:23 WBC RBC Hgb Hct MCHC RDW Neutrophils # Lymphocytes # Monocytes # Eosinophils # ABG pH ABG pCO2 ABG pO2 ABG HCO3 ABG Total CO2 ABG O2 Saturation ABG Hematocrit ABG Sodium ABG Potassium ABG Glucose ABG Lactic Acid Hemoglobin Sodium Potassium Chloride Carbon Dioxide Anion Gap BUN 47 H Creatinine 2.66 H Est GFR (CKD-EPI)AfAm Est GFR (CKD-EPI)NonAf BUN/Creatinine Ratio Glucose POC Glucose (mg/dL) 26 L Hemoglobin A1c Plasma Lactic Acid [place] 5.3 H* Calcium 7.4 L Phosphorus Magnesium ALT Total Protein Albumin Procalcitonin Arterial Blood Potassium Arterial Blood Glucose Urine Appearance Urine Protein Urine Glucose (UA) Urine Ketones Urine Blood Urine RBC Urine WBC Ur Squamous Epith Cells Amorphous Sediment Urine Bacteria Hyaline Casts Urine Mucus 03/04/22 03/04/22 03/04/22 06:25 07:07 08:05 WBC RBC Hgb Hct MCHC RDW Neutrophils # Lymphocytes # Monocytes # Eosinophils # ABG pH ABG pCO2 ABG pO2 ABG HCO3 ABG Total CO2 ABG O2 Saturation ABG Hematocrit ABG Sodium ABG Potassium ABG Glucose ABG Lactic Acid Hemoglobin Sodium Potassium Chloride Carbon Dioxide Anion Gap BUN Creatinine Est GFR (CKD-EPI)AfAm Est GFR (CKD-EPI)NonAf BUN/Creatinine Ratio Glucose POC Glucose (mg/dL) 41 L 51 L Hemoglobin A1c Plasma Lactic Acid [place] 7.0 H* Calcium Phosphorus Magnesium ALT Total Protein Albumin Procalcitonin Arterial Blood Potassium Arterial Blood Glucose Urine Appearance Urine Protein Urine Glucose (UA) Urine Ketones Urine Blood Urine RBC Urine WBC Ur Squamous Epith Cells Amorphous Sediment Urine Bacteria Hyaline Casts Urine Mucus 03/04/22 03/04/22 03/04/22 11:56 20:29 22:47 WBC RBC Hgb Hct MCHC RDW Neutrophils # Lymphocytes # Monocytes # Eosinophils # ABG pH ABG pCO2 ABG pO2 ABG HCO3 ABG Total CO2 ABG O2 Saturation ABG Hematocrit ABG Sodium ABG Potassium ABG Glucose ABG Lactic Acid Hemoglobin Sodium Potassium Chloride Carbon Dioxide Anion Gap BUN Creatinine Est GFR (CKD-EPI)AfAm Est GFR (CKD-EPI)NonAf BUN/Creatinine Ratio Glucose POC Glucose (mg/dL) 134 H 133 H Hemoglobin A1c Plasma Lactic Acid [place] 5.5 H* Calcium Phosphorus Magnesium ALT Total Protein Albumin Procalcitonin Arterial Blood Potassium Arterial Blood Glucose Urine Appearance Urine Protein Urine Glucose (UA) Urine Ketones Urine Blood Urine RBC Urine WBC Ur Squamous Epith Cells Amorphous Sediment Urine Bacteria Hyaline Casts Urine Mucus 03/04/22 03/04/22 03/05/22 23:05 23:05 03:50 WBC RBC 3.73 L Hgb 9.9 L Hct 31.5 L MCHC RDW 15.6 H Neutrophils # Lymphocytes # 0.7 L Monocytes # Eosinophils # 0.9 H ABG pH ABG pCO2 ABG pO2 ABG HCO3 ABG Total CO2 ABG O2 Saturation ABG Hematocrit ABG Sodium ABG Potassium ABG Glucose ABG Lactic Acid Hemoglobin Sodium Potassium Chloride Carbon Dioxide Anion Gap BUN Creatinine Est GFR (CKD-EPI)AfAm Est GFR (CKD-EPI)NonAf BUN/Creatinine Ratio Glucose POC Glucose (mg/dL) Hemoglobin A1c Plasma Lactic Acid [place] 3.8 H* Calcium Phosphorus Magnesium 1.4 L ALT Total Protein Albumin Procalcitonin Arterial Blood Potassium Arterial Blood Glucose Urine Appearance Urine Protein Urine Glucose (UA) Urine Ketones Urine Blood Urine RBC Urine WBC Ur Squamous Epith Cells Amorphous Sediment Urine Bacteria Hyaline Casts Urine Mucus 03/05/22 03/05/22 03/05/22 03:50 03:50 20:20 WBC RBC Hgb Hct MCHC RDW Neutrophils # Lymphocytes # Monocytes # Eosinophils # ABG pH ABG pCO2 ABG pO2 ABG HCO3 ABG Total CO2 ABG O2 Saturation ABG Hematocrit ABG Sodium ABG Potassium ABG Glucose ABG Lactic Acid Hemoglobin Sodium Potassium Chloride Carbon Dioxide Anion Gap BUN 37 H Creatinine 2.17 H Est GFR (CKD-EPI)AfAm Est GFR (CKD-EPI)NonAf BUN/Creatinine Ratio Glucose 166 H POC Glucose (mg/dL) 34 L Hemoglobin A1c Plasma Lactic Acid Santiago 4.2 H* Calcium 7.6 L Phosphorus Magnesium ALT Total Protein Albumin Procalcitonin Arterial Blood Potassium Arterial Blood Glucose Urine Appearance Urine Protein Urine Glucose (UA) Urine Ketones Urine Blood Urine RBC Urine WBC Ur Squamous Epith Cells Amorphous Sediment Urine Bacteria Hyaline Casts Urine Mucus 03/05/22 03/05/22 03/06/22 20:22 20:32 01:06 WBC RBC Hgb Hct MCHC RDW Neutrophils # Lymphocytes # Monocytes # Eosinophils # ABG pH ABG pCO2 ABG pO2 ABG HCO3 ABG Total CO2 ABG O2 Saturation ABG Hematocrit ABG Sodium ABG Potassium ABG Glucose ABG Lactic Acid Hemoglobin Sodium Potassium Chloride Carbon Dioxide Anion Gap BUN Creatinine Est GFR (CKD-EPI)AfAm Est GFR (CKD-EPI)NonAf BUN/Creatinine Ratio Glucose POC Glucose (mg/dL) 32 L 57 L 127 H Hemoglobin A1c Plasma Lactic Acid [place] Calcium Phosphorus Magnesium ALT Total Protein Albumin Procalcitonin Arterial Blood Potassium Arterial Blood Glucose Urine Appearance Urine Protein Urine Glucose (UA) Urine Ketones Urine Blood Urine RBC Urine WBC Ur Squamous Epith Cells Amorphous Sediment Urine Bacteria Hyaline Casts Urine Mucus 03/06/22 03/06/22 03/06/22 06:54 07:20 07:20 WBC RBC Hgb 9.9 L Hct 32.4 L MCHC 30.6 L RDW Neutrophils # Lymphocytes # 0.8 L Monocytes # Eosinophils # 1.0 H ABG pH ABG pCO2 ABG pO2 ABG HCO3 ABG Total CO2 ABG O2 Saturation ABG Hematocrit ABG Sodium ABG Potassium ABG Glucose ABG Lactic Acid Hemoglobin Sodium Potassium Chloride Carbon Dioxide Anion Gap BUN 24 H Creatinine 1.72 H Est GFR (CKD-EPI)AfAm Est GFR (CKD-EPI)NonAf BUN/Creatinine Ratio Glucose 109 H POC Glucose (mg/dL) 117 H Hemoglobin A1c Plasma Lactic Acid [place] Calcium 7.8 L Phosphorus Magnesium ALT Total Protein Albumin Procalcitonin Arterial Blood Potassium Arterial Blood Glucose Urine Appearance Urine Protein Urine Glucose (UA) Urine Ketones Urine Blood Urine RBC Urine WBC Ur Squamous Epith Cells Amorphous Sediment Urine Bacteria Hyaline Casts Urine Mucus 03/06/22 03/06/22 03/06/22 11:47 17:22 17:43 WBC RBC Hgb Hct MCHC RDW Neutrophils # Lymphocytes # Monocytes # Eosinophils # ABG pH ABG pCO2 ABG pO2 ABG HCO3 ABG Total CO2 ABG O2 Saturation ABG Hematocrit ABG Sodium ABG Potassium ABG Glucose ABG Lactic Acid Hemoglobin Sodium Potassium Chloride Carbon Dioxide Anion Gap BUN Creatinine Est GFR (CKD-EPI)AfAm Est GFR (CKD-EPI)NonAf BUN/Creatinine Ratio Glucose POC Glucose (mg/dL) 145 H 51 L 34 L Hemoglobin A1c Plasma Lactic Acid [place] Calcium Phosphorus Magnesium ALT Total Protein Albumin Procalcitonin Arterial Blood Potassium Arterial Blood Glucose Urine Appearance Urine Protein Urine Glucose (UA) Urine Ketones Urine Blood Urine RBC Urine WBC Ur Squamous Epith Cells Amorphous Sediment Urine Bacteria Hyaline Casts Urine Mucus 03/06/22 03/06/22 03/07/22 17:58 18:02 01:56 WBC RBC Hgb Hct MCHC RDW Neutrophils # Lymphocytes # Monocytes # Eosinophils # ABG pH ABG pCO2 ABG pO2 ABG HCO3 ABG Total CO2 ABG O2 Saturation ABG Hematocrit ABG Sodium ABG Potassium ABG Glucose ABG Lactic Acid Hemoglobin Sodium Potassium Chloride Carbon Dioxide Anion Gap BUN Creatinine Est GFR (CKD-EPI)AfAm Est GFR (CKD-EPI)NonAf BUN/Creatinine Ratio Glucose POC Glucose (mg/dL) 46 L 129 H 116 H Hemoglobin A1c Plasma Lactic Acid [place] Calcium Phosphorus Magnesium ALT Total Protein Albumin Procalcitonin Arterial Blood Potassium Arterial Blood Glucose Urine Appearance Urine Protein Urine Glucose (UA) Urine Ketones Urine Blood Urine RBC Urine WBC Ur Squamous Epith Cells Amorphous Sediment Urine Bacteria Hyaline Casts Urine Mucus 03/07/22 03/07/22 03/07/22 07:44 08:02 11:44 WBC RBC Hgb Hct MCHC RDW Neutrophils # Lymphocytes # Monocytes # Eosinophils # ABG pH ABG pCO2 ABG pO2 ABG HCO3 ABG Total CO2 ABG O2 Saturation ABG Hematocrit ABG Sodium ABG Potassium ABG Glucose ABG Lactic Acid Hemoglobin Sodium 136 L Potassium Chloride Carbon Dioxide Anion Gap BUN 18 H Creatinine 1.32 H Est GFR (CKD-EPI)AfAm Est GFR (CKD-EPI)NonAf BUN/Creatinine Ratio Glucose 134 H POC Glucose (mg/dL) 47 L 47 L Hemoglobin A1c Plasma Lactic Acid [place] Calcium 7.6 L Phosphorus Magnesium 1.4 L ALT Total Protein Albumin Procalcitonin Arterial Blood Potassium Arterial Blood Glucose Urine Appearance Urine Protein Urine Glucose (UA) Urine Ketones Urine Blood Urine RBC Urine WBC Ur Squamous Epith Cells Amorphous Sediment Urine Bacteria Hyaline Casts Urine Mucus 03/07/22 03/07/22 03/08/22 17:26 20:59 05:51 WBC RBC Hgb Hct MCHC RDW Neutrophils # Lymphocytes # Monocytes # Eosinophils # ABG pH ABG pCO2 ABG pO2 ABG HCO3 ABG Total CO2 ABG O2 Saturation ABG Hematocrit ABG Sodium ABG Potassium ABG Glucose ABG Lactic Acid Hemoglobin Sodium 131 L Potassium Chloride Carbon Dioxide 21 L Anion Gap BUN Creatinine 1.30 H Est GFR (CKD-EPI)AfAm Est GFR (CKD-EPI)NonAf BUN/Creatinine Ratio Glucose 108 H POC Glucose (mg/dL) 132 H 113 H Hemoglobin A1c Plasma Lactic Acid Santiago Calcium 7.8 L Phosphorus Magnesium ALT Total Protein Albumin Procalcitonin Arterial Blood Potassium Arterial Blood Glucose Urine Appearance Urine Protein Urine Glucose (UA) Urine Ketones Urine Blood Urine RBC Urine WBC Ur Squamous Epith Cells Amorphous Sediment Urine Bacteria Hyaline Casts Urine Mucus 03/08/22 03/08/22 03/08/22 07:33 11:49 17:35 WBC RBC Hgb Hct MCHC RDW Neutrophils # Lymphocytes # Monocytes # Eosinophils # ABG pH ABG pCO2 ABG pO2 ABG HCO3 ABG Total CO2 ABG O2 Saturation ABG Hematocrit ABG Sodium ABG Potassium ABG Glucose ABG Lactic Acid Hemoglobin Sodium Potassium Chloride Carbon Dioxide Anion Gap BUN Creatinine Est GFR (CKD-EPI)AfAm Est GFR (CKD-EPI)NonAf BUN/Creatinine Ratio Glucose POC Glucose (mg/dL) 111 H 126 H 128 H Hemoglobin A1c Plasma Lactic Acid Santiago Calcium Phosphorus Magnesium ALT Total Protein Albumin Procalcitonin Arterial Blood Potassium Arterial Blood Glucose Urine Appearance Urine Protein Urine Glucose (UA) Urine Ketones Urine Blood Urine RBC Urine WBC Ur Squamous Epith Cells Amorphous Sediment Urine Bacteria Hyaline Casts Urine Mucus 03/08/22 03/09/22 03/09/22 20:29 06:19 07:21 WBC RBC Hgb Hct MCHC RDW Neutrophils # Lymphocytes # Monocytes # Eosinophils # ABG pH ABG pCO2 ABG pO2 ABG HCO3 ABG Total CO2 ABG O2 Saturation ABG Hematocrit ABG Sodium ABG Potassium ABG Glucose ABG Lactic Acid Hemoglobin Sodium Potassium Chloride Carbon Dioxide Anion Gap 9.60 L BUN Creatinine Est GFR (CKD-EPI)AfAm 44.3 L Est GFR (CKD-EPI)NonAf 38.2 L BUN/Creatinine Ratio 9.64 L Glucose 111 H POC Glucose (mg/dL) 160 H 122 H Hemoglobin A1c Plasma Lactic Acid Santiago Calcium 8.2 L Phosphorus Magnesium ALT Total Protein Albumin Procalcitonin Arterial Blood Potassium Arterial Blood Glucose Urine Appearance Urine Protein Urine Glucose (UA) Urine Ketones Urine Blood Urine RBC Urine WBC Ur Squamous Epith Cells Amorphous Sediment Urine Bacteria Hyaline Casts Urine Mucus 03/09/22 03/09/22 03/09/22 12:16 17:13 20:33 WBC RBC Hgb Hct MCHC RDW Neutrophils # Lymphocytes # Monocytes # Eosinophils # ABG pH ABG pCO2 ABG pO2 ABG HCO3 ABG Total CO2 ABG O2 Saturation ABG Hematocrit ABG Sodium ABG Potassium ABG Glucose ABG Lactic Acid Hemoglobin Sodium Potassium Chloride Carbon Dioxide Anion Gap BUN Creatinine Est GFR (CKD-EPI)AfAm Est GFR (CKD-EPI)NonAf BUN/Creatinine Ratio Glucose POC Glucose (mg/dL) 111 H 122 H 119 H Hemoglobin A1c Plasma Lactic Acid Santiago Calcium Phosphorus Magnesium ALT Total Protein Albumin Procalcitonin Arterial Blood Potassium Arterial Blood Glucose Urine Appearance Urine Protein Urine Glucose (UA) Urine Ketones Urine Blood Urine RBC Urine WBC Ur Squamous Epith Cells Amorphous Sediment Urine Bacteria Hyaline Casts Urine Mucus Assessment and Plan Assessment: * 71-year-old female admitted on 03/02/2022 with altered mentation, decreased responsiveness, likely due to hypotension and probable toxic metabolic encephalopathy. Etiology multifactorial as mentioned below. * Patient had presented with severe metabolic acidosis, acute kidney injury, electrolyte imbalance with hyperkalemia, hypernatremia. * Witnessed seizure one day prior to arrival to the hospital. Rule out post stroke epilepsy. Patient has been on Keppra since her stroke in 2019. 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 * Reported history of seizure prior to arrival. * Hypertension * Hyperlipidemia * Coronary artery disease * Chronic atrial fibrillation, on anticoagulation with Xarelto * History of tobacco use Plan: * Patient currently on Keppra 750 mg twice a day, which will be continued. * Check EEG evaluate for interictal epileptiform activity * Repeat CT head to follow-up on right hemispheric calcification, rule out hemorrhage. * Continue Xarelto for atrial fibrillation. Patient may benefit from low dose aspirin because of chronic right ICA occlusion. (It appears patient was on aspirin 325 mg at home along with Xarelto) * Hemoglobin A1c 6.7 03/03/2022 * B12 1041, folate 6.9 TFTs are normal. * Neurology will follow. Thank you for the consult. Time with Patient: Greater than 30
[2022-03-10 11:40] LABS: Glucose,Whole Blood 171 mg/dL (70-110)
--- NOTE | 2022-03-10 12:11 | P.PN ---
Subjective Patient is seen for follow-up for acute kidney injury. Renal function has been stable Patient has had urine retention and Fulton catheter was reinserted. Serum creatinine 1.4 mg/dL yesterday which is down from 4.2 on initial admission. Objective - Vital Signs Vital signs: Vital Signs Temp 98.3 F 03/10/22 11:34 Pulse 76 03/10/22 11:34 Resp 16 03/10/22 11:34 BP 111/76 03/10/22 11:34 Pulse Ox 98 03/10/22 11:34 FiO2 28 03/06/22 19:48 Intake & Output 03/09/22 03/10/22 03/10/22 18:59 06:59 18:59 Output Total 1075 600 Balance -1075 -600 Weight 65.5 kg Output: Urine 1075 600 Other: Voiding Method Indwelling Catheter Indwelling Catheter Indwelling Catheter - Exam Awake, comfortable, no acute distress Examination of the heart S1 and S2 Examination lungs bilateral breath sounds are heard Abdomen is soft nontender Examination lower extremity shows no significant edema noted. PROFESSIONAL PROGRAMMER ANALYST exam shows patient does not move her left side much. No movement noted in the left upper extremity. - Labs CBC & Chem 7: 03/06/22 07:20 03/09/22 06:19 Labs: Abnormal Lab Results - Last 24 Hours (Table) 03/09/22 03/09/22 03/09/22 Range/Units 12:16 17:13 20:33 POC Glucose (mg/dL) 111 H 122 H 119 H (70-110) mg/dL 03/10/22 03/10/22 Range/Units 07:21 11:39 POC Glucose (mg/dL) 111 H 171 H (70-110) mg/dL Microbiology - Last 24 Hours (Table) 03/07/22 05:30 Blood Culture - Preliminary Blood No Growth after 72 hours 03/07/22 05:45 Blood Culture - Preliminary Blood No Growth after 72 hours Assessment and Plan Assessment: 1. Acute kidney injury mostly prerenal secondary to septic shock. Also component of urinary retention. Creatinine was 4.2 on admission and is fairly stable at 1.4 today. Creatinine was 0.8 in February 2021. No hydronephrosis noted on CAT scan. 2. Septic shock secondary to staph capitis bacteremia on antibiotics. 3. Metabolic acidosis secondary to acute kidney injury and lactic acidosis. Improved. Slight non-gap acidosis from IV fluids. On oral bicarbonate. Improved. 4. Lactic acidosis secondary to hypotension and use of metformin. 5. Hypernatremia from lack of oral water intake. Patient was hyponatremic yesterday and sodium level is normal today. 6. Diabetes mellitus. 7. Hypokalemia from poor intake. Stable. 8. Benign hypertension. Controlled. 9. Urinary retention. Fulton catheter reinserted 03/08/2022. On Flomax. Urology following. Plan: Continue off of IV fluids Repeat labs in a.m. Avoid hypotension
--- NOTE | 2022-03-10 13:27 | CT ---
EXAMINATION TYPE: CT brain wo con DATE OF EXAM: 03/10/2022 COMPARISON: 03/03/2022 HISTORY: Altered mental status. CT DLP: 1081.2 mGycm Automated exposure control for dose reduction was used. FINDINGS: There is evidence of extensive remote ischemia involving the right parietal and frontal lobe. Moderat e ventricular dilation is seen similar to the prior exam and there is diffuse low-attenuation white m atter is nonspecific but most typical of remote ischemic change. Cortical calcifications likely repre senting dystrophic calcification from prior infarct are noted. No midline shift or mass effect. No ac trevon hemorrhage. Calvarium intact. Orbits symmetric. Mild changes of chronic sinusitis.. IMPRESSION: Degenerative and extensive remote ischemic change with no evidence of acute hemorrhage or mass effect . If concern for acute ischemia correlate with MRI.
--- NOTE | 2022-03-10 16:38 | P.PN ---
Subjective Progress Note Date: 03/10/22 Patient is a 71-year-old female with a known history of hypertension, diabetes type 2 [id number], CVA with left-sided weakness, coronary artery disease status post CABG and history of stent placement, chronic atrial fibrillation on anticoagulation with Xarelto depression and prior history of sm oking was sent from half-way due to complaints of generalized weakness lethargy and altered mental status. Patient has been becoming more weak and lethargic for the past couple of days and was also hard to arouse. Patient was brought to ER by EMS. Evidently patient was also complaining abdominal pain as per nursing staff. Patient is currently unable to provide any history. On admission patient was hypotensive with blood pressure 86/50 5 mmHg heart rate 89 respirations 16 and pulse ox 96% on room air. Patient was afebrile. Initial ABG showed pH 7.06 PCO2 31 PO2 163 and bicarb is 9 Laboratory data showed sodium 145 potassium 6.9 chloride 109 bicarb is 8 anion gap 28 BUN 63 and creatinine 4.2 lactic acid 9.7 phosphorus 9.6 magnesium 1.4 Urinalysis showed cloudy with 2+ protein 1+ glucose 2+ ketones and RBC 7 WBC 7 squamous epithelial cells 5. WBC 10.3 hemoglobin 10.7 and platelets 289 neutrophils 8.8 EKG showed atrial fibrillation with incomplete right bundle branch block Chest x-ray showed mild left basilar atelectasis or airspace disease in the left costophrenic angle. CT of the abdomen pelvis showed no evidence for acute intra luminal process. Colonic diverticulosis. Moderate to severe degenerative sclerosis of the arterial vasculature. Nonobstructing right renal calculi. Moderate stool burden throughout the colon. 03/03/2022 Patient is currently in the MICU. Patient is able to respond to verbal stimuli but still lethargic and drowsy. Currently requiring 2 L oxygen via nasal cannula. Continued on bicarb drip. Patient did require pressor support overnight for short duration. Patient was found to have blood cultures positive for gram-positive cocci and wa s given a dose of vancomycin which turned out to be coagulase-negative staph aureus. Patient is also getting IV hydration and blood pressure did improve. Patient is being continued on antibiotics in the form of ceftriaxone. Still having lactic acidosis at 8.8 this morning. Laboratory test showed WBC 14.2 hemoglobin 10.4 and platelets 172 A1c level is 6.7 Sodium 145 potassium 4.6 chloride 102 bicarb is 23, BUN 51 and creatinine went down to 3.0. Procalcitonin level is 0.22 Pulmonary and nephrology is on board. 03/04/2022 Patient is currently lying in the bed. Awake alert but could not communicate. Still lethargic. Requiring oxygen at 2 L by nasal cannula. Otherwise renal function is improving and lactic acid level still elevated to 5.3 today. Patient is being continued on D5 half-normal saline. Sodium level improved to 142 and creatinine level 2.66 today. Remains on antibiotics, ceftriaxone. Cultures have been negative. Currently on insulin sliding scale. Laboratory data showed WBC 9.2 hemoglobin 10.4 and platelets 196 Sodium 142 potassium 4.7 chloride 102 bicarb is 29 BUN 47 creatinine 2.66 03/05/2022 Patient is seen and evaluated in follow-up this morning currently sitting up in the bed continues to be in the ICU with multiple medical consultations following. Patient is more awake today and does respond to questions and commands although delayed. Nephrology following as well and patient is maintained on D5 half-normal saline with some slight improvement in kidney functions. Patient is maintained on clear liquid diet and recommend aspiration precautions. Lactic acid continues to be elevated and is 4.2 today. Patient with creatinine of 2.17 and is improving and will continue with current fluid gentle IV 50 mL's per hour with dextrose 5% normal saline. Nephrology is following. Patient is continued on ceftriaxone and will continue at this time. Will resume some home medications as patient is tolerating oral intake. Patient with significant weakness and generalized edema noted throughout bilateral upper and lower extremities. 03/06/2022 Patient is seen today in the ICU and is a downgrade and awaiting a bed on med surg. Patient continues to be confused but appears baseline. Patient is awake and tolerating diet. Speech to evaluate today and upgrade diet accordingly. Patients blood sugars have been low and recommend continuing D5NS and will incre ase the rate. Recommend acuchecks achs. Patient is on ceftriaxone and will continue. Blood cultures showing some growth possible contaminant, but will obtain new cultures. Patient is afebrile and denies nausea or vomiting. Recommend aspiration precautions. Blood pressures elevated will add norvasc. Patient to return to [facility] on discharge. 03/08/2022 Patient is seen today and per nursing staff mentation is improved. Family called and stated she had a seizure at [facility] and is on keppra asking for neuro to see her for possible EEG. Will consult neuro. Urology is also consulted for retention and pending at this time. Recommend to continue with indwelling meng catheter. Encouraged increased oral intake and close monitoring of blood sugars. They have been dropping. dextrose amps as needed. Afebrile and continued on ceftriaxone blood cultures most likely a contaminant and repeat cultures are negative. Consider stopping antibiotics. 03/09/2022 Patient is seen and evaluated in follow-up currently at baseline with multiple medical consultations following. Neurology was consulted as patient was started on Keppra and reportedly had a seizure while at [facility] and unsure if patient moreno d been taking Keppra prior to this. Family requesting neurology consultation for possible EEG. Urology was also consulted and evaluated the patient for retention and recommend either trial voiding or continuing with indwelling Meng catheter per patient's preference. Catheter was recently removed a few days ago and patient continue retrain requiring re-insertion of the Meng catheter. Recommend continuing with the catheter and outpatient follow-up with possible trial void once patient is more mobile. Patient is continued on a dysphagia 2 diet and recommend continue with aspiration precautions as patient is high risk for aspirating. Supervision with meals and recommend the head of the bed elevated 45 at all times. Kidney functions improved and patient's creatinine is 1.4 with nephrology following. Blood sugar slightly improved and will continue current regimen. She was continued on IV ceftriaxone and cultures are negative as initial blood culture most likely a contaminant and will discontinue antibiotics for now. Patient was recently started on bicarb tablets along with Flomax. Patient is afebrile with no reports of chest pain or shortness of breath. Patient is a poor historian and alert and oriented 1. 03/10/2022 Patient is seen in follow-up today awake, alert and oriented 1, lethargic at times. Neurology has been consulted and repeat CT of the brain along with EEG is ordered. Patient is continued on Keppra oral and will continue. Multiple medical consultations including nephrology following. Patient has also been evaluated by urology and will continue with indwelling Meng catheter for now. Most recent repeat blood cultures remain negative as well. Patient is maintained off antibiotics and will continue. Patient is afebrile with no reports of chest pain or shortness of breath noted. Patient is 98% on 2 L via nasal cannula. Will need to discuss further with neurology about discharge planning. Currently awaiting CT and EEG report. Patient is anticoagulated on Xarelto. Plans for patient to return to [facility] once stabilized and discharged and cleared from consultations. PHYSICAL EXAMINATION: Patient is sitting up in the bed. Responds to verbal stimuli and somewhat communicating although delayed but is following commands appropriately HEENT: Normocephalic. Neck is supple. Pupils reactive. Nostrils clear. Oral cavity is moist. Neck reveals no JVD, carotid bruits, or thyromegaly. CHEST EXAMINATION: Trachea is central. Symmetrical expansion. Diminished breath sounds bilaterally with some scattered rhonchi CARDIAC: S1, S2 are muffled ABDOMEN: Soft. Bowel sounds present.. No organomegaly. No abdominal bruits. Extremities: reveal no edema. No clubbing or cyanosis Neurologically patient is more awake each day and sitting up and having conversation. Left-sided weakness Skin: No rash or skin lesions. Psychiatric: Slightly delayed and somewhat confused although much more awake and having conversation and following commands. Musculoskeletal: No joint swelling or deformity. Assessment: Acute metabolic encephalopathy and possible left lower lobe pneumonia/ Atelectatsis Acute kidney injury with creatinine level went up to 4.2 on admission. Baseline 0.8, trending down Seizure witnessed at [facility], rule out poststroke epilepsy Urinary retention requiring indwelling Meng catheter possibly secondary to acute kidney injury and septic shock Hyperkalemia with potassium 6.9 due to acute kidney injury/AGMA, resolved Anion gap metabolic acidosis due to severe lactic acidosis Severe lactic acidosis, Possible metformin toxicity is being considered. Hypernatremia due to volume depletion Hypomagnesemia. Hypertension. Diabetes type 2 [id number] Coronary artery disease with history of CABG and prior stent placement Chronic atrial fibrillation on anticoagulation with Xarelto History of CVA with left-sided weakness Prior history of smoking DVT Prophylaxis CODE STATUS DNR/DNI Plan: Patient is currently sitting up lethargic although arousable appears to be at baseline with nephrology and now neurology following. Family was concerned about a seizure one day prior to hospital arrival and also reports that she has been taking Keppra poststroke and follows with Dr. Miller in the outpatient setting. Patient lives at [facility] and will be returning there once discharged. Repeat CT and EEG is ordered and pending per neurology. Neurology following and patient is maintained on sodium bicarb tablets and also has been started on Flomax for retention. Patient was evaluated by urology recommending trial void and/or continuing with indwelling Meng catheter. Kidney function stable with nephrology following and will need close outpatient follow-up. Patient was continued on IV ceftriaxone and cultures revealing most likely contaminant with repeat cultures being negative. Will discontinue antibiotics Patient's mentation is much improved and has some baseline confusion, appears at baseline. Hn1c7-9. Sitting up tolerating current diet as patient was just upgraded to dysphagic ground diet. Recommend strict aspiration precautions with supervision with meals and head of the bed elevated 45 at all times. Not eating well, needs encouragement to eat. Continue with supportive care and follow-up closely. Encourage oral intake and Follow-up closely. Monitor blood sugars closely and will continue current regimen Neurology has ordered a repeat CT along with EEG which is pending and will discuss with neurology about discharge planning. Patient to follow with her neurologist Dr. Miller outpatient Patient to return to [facility] once stable and discharged. Possibly in the next 24 hours. Due to multiple complex medical issues, Prognosis is guarded at this time. The impression and plan of care has been dictated by Afia Barker, Nurse Practitioner as directed. Dr. Keny MD I have performed a history and examination and MDM of this patient, discussed the same with the dictator, and agree with the dictator's assessment and plan as written ,documented as a scribe. Based on total visit time, I have performed more than 50% of the visit. Objective - Vital Signs Vital signs: Vital Signs Temp 98.1 F 03/10/22 04:50 Pulse 83 03/10/22 08:54 Resp 18 03/10/22 04:50 BP 134/84 03/10/22 08:54 Pulse Ox 97 03/10/22 07:12 FiO2 28 03/06/22 19:48 Intake & Output 03/09/22 03/10/22 03/10/22 18:59 06:59 18:59 Output Total 1075 600 Balance -1075 -600 Weight 65.5 kg Output: Urine 1075 600 Other: Voiding Method Indwelling Catheter Indwelling Catheter - Labs CBC & Chem 7: 03/06/22 07:20 03/09/22 06:19 Labs: Abnormal Lab Results - Last 24 Hours (Table) 03/09/22 03/09/22 03/09/22 Range/Units 12:16 17:13 20:33 POC Glucose (mg/dL) 111 H 122 H 119 H (70-110) mg/dL 03/10/22 Range/Units 07:21 POC Glucose (mg/dL) 111 H (70-110) mg/dL Microbiology - Last 24 Hours (Table) 03/07/22 05:30 Blood Culture - Preliminary Blood No Growth after 72 hours 03/07/22 05:45 Blood Culture - Preliminary Blood No Growth after 72 hours
[2022-03-10 17:04] LABS: Glucose,Whole Blood 103 mg/dL (70-110)
[2022-03-10] MEDS: TAMSULOSIN 0.4 MG CAP.ER.24H PO SCH (18:12)
[2022-03-10 20:50] LABS: Glucose,Whole Blood 193 mg/dL (70-110)
[2022-03-10] MEDS: ATORVASTATIN 80 MG TAB PO SCH (21:02)
[2022-03-10] MEDS: SERTRALINE 100 MG TAB PO SCH (21:02)
[2022-03-10] MEDS: clonazePAM 0.5 MG TAB PO SCH (21:02)
--- NOTE | 2022-03-11 04:13 | EEG ---
ELECTROENCEPHALOGRAM REPORT PREAMBLE: This is a 71-year-old female with new onset seizure. The patient has history of a stroke with left hemiparesis. EEG FINDINGS: This is a 21-channel digital EEG recorded with video component, utilizing 10/20 international system with referential and bipolar montages. Background consists of moderately well-developed and regulated, mixed frequencies of 10 to 11 hertz alpha, intermixed with some theta activity seen, better in the left hemispheric region. There is a near continuous focal dysrhythmic delta slowing seen in the right temporal region. Different stages of sleep were not clearly seen. No definitive focal or generalized epileptiform activity was seen. Photic stimulation and hyperventilation were not done. IMPRESSION: This is an abnormal EEG due to: 1. Mild background slowing and disorganization, suggestive of mild generalized cerebral dysfunction as can be seen with encephalopathy or medication effect. 2. Superimposed dysrhythmic focal slowing predominantly in the right temporal region, suggestive of focal cortical neuronal dysfunction. No definitive epileptiform activity was seen. MMODL / IJN: [id number] /
[2022-03-11 05:27] VITALS: RESP 18
[2022-03-11 07:40] LABS: Glucose,Whole Blood 121 mg/dL (70-110)
[2022-03-11] MEDS: INSULIN ASPART (NovoLOG) 100 UNIT/ML VIAL SQ SCH ×2 (08:11→16:34)
[2022-03-11] MEDS: PANTOPRAZOLE 40 MG/10 ML VIAL IV SCH ×2 (09:24→11:38)
[2022-03-11] MEDS: amLODIPine 5 MG TAB PO SCH (09:25)
[2022-03-11] MEDS: RIVAROXABAN 2.5 MG TABLET PO SCH (09:25)
[2022-03-11] MEDS: METOPROLOL TARTRATE 50 MG TAB PO SCH (09:25)
[2022-03-11] MEDS: SENNOSIDES 8.6 MG TAB PO SCH (09:25)
[2022-03-11] MEDS: SODIUM BICARBONATE TAB 650 MG TAB PO SCH (09:28)
--- NOTE | 2022-03-11 10:28 | P.PN ---
Subjective Progress Note Date: 03/10/22 Patient was seen for a follow-up. Patient laying comfortably in the bed. She is sleepy. Denies any headache, no dizziness. Objective - Vital Signs Vital signs: Vital Signs Temp 98.3 F 03/10/22 11:34 Pulse 76 03/10/22 11:34 Resp 16 03/10/22 11:34 BP 111/76 03/10/22 11:34 Pulse Ox 98 03/10/22 11:34 FiO2 28 03/06/22 19:48 Intake & Output 03/09/22 03/10/22 03/10/22 18:59 06:59 18:59 Output Total 1075 600 Balance -1075 -600 Weight 65.5 kg Output: Urine 1075 600 Other: Voiding Method Indwelling Catheter Indwelling Catheter Indwelling Catheter - Exam Examination deferred. - Labs CBC & Chem 7: 03/06/22 07:20 03/09/22 06:19 Labs: Abnormal Lab Results - Last 24 Hours (Table) 03/09/22 03/09/22 03/10/22 Range/Units 17:13 20:33 07:21 POC Glucose (mg/dL) 122 H 119 H 111 H (70-110) mg/dL 03/10/22 Range/Units 11:39 POC Glucose (mg/dL) 171 H (70-110) mg/dL Microbiology - Last 24 Hours (Table) 03/07/22 05:30 Blood Culture - Preliminary Blood No Growth after 72 hours 03/07/22 05:45 Blood Culture - Preliminary Blood No Growth after 72 hours Assessment and Plan Assessment: * 71-year-old female admitted on 03/02/2022 with altered mentation, decreased responsiveness, likely due to hypotension and probable toxic metabolic encephalopathy. Etiology multifactorial as mentioned below. * Patient had presented with severe metabolic acidosis, acute kidney injury, electrolyte imbalance with hyperkalemia, hypernatremia. * Witnessed seizure one day prior to arrival to the hospital. Rule out post stroke epilepsy. Patient has been on Keppra since her stroke in 2019. 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 * Hypertension * Hyperlipidemia * Coronary artery disease * Chronic atrial fibrillation, on anticoagulation with Xarelto * History of tobacco use Plan: * EEG was performed, which revealed mild background slowing and disorganization, suggestive of mild generalized cerebral dysfunction as can be seen with enc ephalopathy or medication effect. Superimposed dysrhythmic focal slowing predominantly in the right temporal region, suggestive of focal cortical neuronal dysfunction. No definitive epileptiform activity was seen. * Continue Keppra 750 mg twice a day. * Repeat CT head showed no changes compared to the previous CT head, likely representing dystrophic calcification on the right side. No hemorrhage. * Continue Xarelto for atrial fibrillation. Aspirin 81 mg started for stroke prevention related to chronic right ICA occlusion. (It appears patient was on aspirin 325 mg at home along with Xarelto) * Hemoglobin A1c 6.7 03/03/2022 * B12 1041, folate 6.9 TFTs are normal. * Neurologically clear. Tried to contact patient's son on the phone. Recommend patient follow up with neurologist Dr. Seymour as an outpatient.
[2022-03-11] MEDS ORDERED: ASPIRIN 81 MG PO SCH (10:30)
[2022-03-11 11:49] LABS: African American GFR (CKD) 62 (>60 ml/min/1.73 sqM); Anion Gap 3 mmol/L; Blood Urea Nitrogen 12 mg/dL (7-17); Calcium 8.2 mg/dL (8.4-10.2); Carbon Dioxide 29 mmol/L (22-30); Chloride 105 mmol/L (98-107); Glucose 94 mg/dL (74-99); Non-African American GFR(CKD) 53 (>60 ml/min/1.73 sqM); Potassium 3.7 mmol/L (3.5-5.1); Sodium 137 mmol/L (137-145)
[2022-03-11 12:15] LABS: Glucose,Whole Blood 98 mg/dL (70-110)
[2022-03-11 13:34] VITALS: BP 136/83; PULSE 80; TEMP 97.8
--- NOTE | 2022-03-11 14:31 | P.DS ---
Providers Date of admission: 03/02/22 06:32 Expected date of discharge: 03/11/22 Attending physician: Tashia Bustillo Consults: 03/02/22 06:32 Consult Physician Routine Consulting Provider: Tahira Zhang Consult Reason/Comments: icu Do you want consulting provider notified?: Yes Consult Physician Routine Consulting Provider: Cadence Jarrell Consult Reason/Comments: arf Do you want consulting provider notified?: Yes 03/02/22 07:46 Consult Physician Routine Consulting Provider: Jigar Stroud Consult Reason/Comments: Renal failure Do you want consulting provider notified?: Yes 03/08/22 10:31 Consult Physician Urgent Consulting Provider: Berhane Paul Consult Reason/Comments: urinary retention, requiring meng Do you want consulting provider notified?: Yes 03/08/22 14:41 Consult Physician Routine Consulting Provider: Luly Fowler Consult Reason/Comments: seizure prior to admission while at [facility] Do you want consulting provider notified?: Yes Primary care physician: Enrrique Thomas Hospital Course: Final diagnosis Acute metabolic encephalopathy and possible left lower lobe pneumonia/atelectasis Acute kidney injury with creatinine level went up to 4.2 on admission. Baseline 0.8, improved Seizure witnessed at ECF, ruled out post-stroke epilepsy Urinary retention requiring indwelling Meng catheter possibly secondary to acute kidney injury and septic shock Hyperkalemia with potassium 6.9 due to acute kidney injury/AGMA, resolved Anion gap metabolic acidosis due to severe lactic acidosis Severe lactic acidosis, Possible metformin toxicity is being considered. Improved Hypernatremia due to volume depletion Hypomagnesemia. Hypertension. Diabetes type 2 [id number] Coronary artery disease with history of CABG and prior stent placement Chronic atrial fibrillation on anticoagulation with Xarelto History of CVA with left-sided weakness Prior history of smoking DVT Prophylaxis CODE STATUS DNR/DNI Discharge disposition Patient is being discharged in a stable condition with guarded prognosis to [facility] on the [place]. Patient will follow-up with Dr. Thomas in the outpatient setting upon discharge. Patient is to follow up with nephrology along with neurology in the outpatient setting as scheduled. Total time taken is greater than 35 minutes. Hospital course This is a 71-year-old female who was recently admitted with increased confusion and altered mental status becoming more weak and lethargic and difficult to arouse at the ECF and EMS was called and brought to the hospital for evaluation. Patient has had prolonged hospitalization and multiple testings done with concerns for possible pneumonia versus atelectasis. Patient also with kidney functions with a creatinine of 4.2 on admission and currently 1.07. Multiple m edical consultations following including nephrology and patient will need outpatient follow-up along with repeat labs within the next 1-2 weeks. Patient also taking metformin with concerns for possible metformin toxicity recommend to hold that and continue with Accu-Cheks before meals and at bedtime along with sliding scale. Patient also with high risk for aspirations and was seen and evaluated by speech therapy recommending dysphagia 2 diet with aspiration precautions of head of the bed elevated 45 and supervision with meals at all times. Recommend repeat CBC, BMP, magnesium in the next 2-3 days. Patient did have 2 separate episodes of urinary retention requiring indwelling Meng catheter placement and has been started on Flomax and recommended continue. Patient may need outpatient urology evaluation if a trial void is failed in the outpatient setting. Patient was seen by urology here recommending outpatient follow-up. Per nursing staff it was reported by family that patient had a seizure prior to admission here and was on Keppra and neurology evaluated the patient here with a repeat CT showing no acute CVA or changes other than age- related and previous CVA as noted. EEG was done which was abnormal with no epileptiform discharges and no seizure-like activity. Patient did not have any seizure-like activity noted during entire hospitalization. Recommend continue with current dose of medications per neurology and close outpatient follow-up with her neurologist. Currently no reports of chest pain, shortness of breath, or palpitations. Patient is afebrile. No reports of nausea or vomiting and patient is tolerating diet. Patient will be going to [facility] on the [place] today. Guarded prognosis. Physical exam: Gen: This is a 71-year-old female awake, alert and oriented 1-2, lethargic but arousable, ill-appearing, elderly appearing HEENT: Head is atraumatic, normocephalic. Pupils equal, round. Sclerae is anicteric. NECK: Supple. No JVD. No lymphadenopathy. No thyromegaly. LUNGS: Diminished breath sounds bilaterally with no wheezes and some scattered rhonchi. No intercostal retractions. HEART: S1, S2 are muffled. No murmur. ABDOMEN: Soft. Bowel sounds are present. No masses. No tenderness. EXTREMITIES: No pedal edema. No calf tenderness. NEUROLOGICAL: Patient is awake, alert and oriented x1-2. Delayed, diffusely weak. Please refer to medication reconciliation sheet for a list of medications. The impression and plan of care has been dictated by Afia Barker, Nurse Practitioner as directed. Dr. Keny MD I have performed a history and examination and MDM of this patient, discussed the same with the dictator, and agree with the dictator's assessment and plan as written ,documented as a scribe. Based on total visit time, I have performed more than 50% of the visit. Patient Condition at Discharge: Fair Plan - Discharge Summary New Discharge Prescriptions: New amLODIPine [Norvasc] 5 mg PO DAILY tab Sodium Bicarbonate Tab 650 mg PO BID tab Aspirin 81 mg PO DAILY tab Ipratropium-Albuterol Nebulize [Duoneb 0.5 mg-3 mg/3 ml Soln] 3 ml INHALATION RT-Q4H PRN each PRN Reason: Shortness Of Breath Or Wheezing Tamsulosin [Flomax] 0.4 mg PO PC-SUPPER cap INSULIN ASPART (NovoLOG) [NovoLOG (formulary)] 0 unit SQ ACHS each Sennosides [Senokot] 8.6 mg PO BID tab Continue Albuterol Nebulized [Ventolin Nebulized] 2.5 mg INHALATION RT-QID PRN PRN Reason: Shortness Of Breath Rivaroxaban [Xarelto] 2.5 mg PO BID Sertraline [Zoloft] 100 mg PO HS Melatonin 6 mg PO HS Ensure Clear 1 can PO QID levETIRAcetam [Keppra] 750 mg PO BID clonazePAM [KlonoPIN] 0.5 mg PO HS 3 Days #6 tab Metoprolol Tartrate [Lopressor] 50 mg PO BID #60 tab polyethylene glycoL 3350 [Miralax] 17 gm PO DAILY PRN #30 packet PRN Reason: Constipation Pantoprazole [Protonix] 40 mg PO BID Atorvastatin [Lipitor] 80 mg PO HS Acetaminophen [Tylenol] 650 mg PO Q4H PRN PRN Reason: Pain Discontinued HYDROcodone/APAP 10-325MG [Thornton 10-325] 1 tab PO Q6H PRN PRN Reason: Pain metFORMIN HCL [Glucophage] 1,000 mg PO BID Aspirin 325 mg PO DAILY #30 tab Discharge Medication List Albuterol Nebulized [Ventolin Nebulized] 2.5 mg INHALATION RT-QID PRN 01/17/21 [History] Melatonin 6 mg PO HS 01/17/21 [History] Rivaroxaban [Xarelto] 2.5 mg PO BID 01/17/21 [History] Sertraline [Zoloft] 100 mg PO HS 01/17/21 [History] Metoprolol Tartrate [Lopressor] 50 mg PO BID #60 tab 01/21/21 [Rx] polyethylene glycoL 3350 [Miralax] 17 gm PO DAILY PRN #30 packet 01/21/21 [Rx] Acetaminophen [Tylenol] 650 mg PO Q4H PRN 03/02/22 [History] Atorvastatin [Lipitor] 80 mg PO HS 03/02/22 [History] Ensure Clear 1 can PO QID 03/02/22 [History] Pantoprazole [Protonix] 40 mg PO BID 03/02/22 [History] levETIRAcetam [Keppra] 750 mg PO BID 03/02/22 [History] Aspirin 81 mg PO DAILY tab 03/11/22 [Rx] INSULIN ASPART (NovoLOG) [NovoLOG (formulary)] 0 unit SQ ACHS each 03/11/22 [Rx] Ipratropium-Albuterol Nebulize [Duoneb 0.5 mg-3 mg/3 ml Soln] 3 ml INHALATION RT-Q4H PRN each 03/11/22 [Rx] Sennosides [Senokot] 8.6 mg PO BID tab 03/11/22 [Rx] Sodium Bicarbonate Tab 650 mg PO BID tab 03/11/22 [Rx] Tamsulosin [Flomax] 0.4 mg PO PC-SUPPER cap 03/11/22 [Rx] amLODIPine [Norvasc] 5 mg PO DAILY tab 03/11/22 [Rx] clonazePAM [KlonoPIN] 0.5 mg PO HS 3 Days #6 tab 03/11/22 [Rx] Follow up Appointment(s)/Referral(s): Enrrique Thomas MD [Primary Care Provider] - 1-2 days Alda Miller MD [Medical Doctor] - 1 Week Cadence Jarrell MD [STAFF PHYSICIAN] - 1 Week Activity/Diet/Wound Care/Special Instructions: Patient is going to [facility] on the [place] Activity as tolerated Recommend follow-up with primary care provider Follow-up with neurology in one week Continue taking medications as prescribed Continue monitoring blood sugars before meals and at bedtime and continue sliding scale Continue to hold metformin Follow-up with nephrology outpatient NovoLog sliding scale 0-150 equals 0 units 151-200 equals 2 units 201-250 equals 4 units 251-300 equals 6 units 301-350 equals 8 units 351-400 equals 10 units Please notify provider if blood sugar is 400 or above Recommend aspiration precautions with head of the bed elevated 30-45 all times along with supervision with meals Recommend continue with dysphasia 2 ground diet Continue with ensure supplements twice a day with meals Continue indwelling Meng catheter for retention and recommend trial voiding once patient is more mobile or may need urology follow-up outpatient as patient had Meng catheter 2 replaced due to retention Discharge Disposition: TRANSFER TO SNF/ECF
[2022-03-11] MEDS ORDERED: PANTOPRAZOLE 40 MG TABLET PO SCH (17:30)
--- NOTE | 2022-03-12 22:22 | CDI ---
Documentation Clarification Form Date: 03/12/2022 10:03:51 PM From: Rahel Amanda Phone: Admit Date: 03/02/2022 06:32:00 AM Patient Name: Malissa Barbosa Visit Number: [id number] Discharge Date: 03/11/2022 05:42:00 PM ATTENTION: The Clinical Documentation Specialists (CDI) and [facility] Coding Staff appreciate your assistance in clarifying documentation. Please respond to the clarification below the line at the bottom and electronically sign. The CDI & [facility] Coding staff will review the response and follow-up if needed. Please note: Queries are made part of the Legal Health Record. If you have any questions, please contact the author of this message via ITS. Dr. Tashia Bustillo DMII is documented per H&P. Per Dr. Oriana Munoz Progress Note 03/03/22, patient has documented Glucose of 224. Additional clarification is requested. History/Risk Factors: 71yo F, septic w shock SVT, Hx PAF, CAD w/cabg & stent, CM, CAD, Hx CVA, HTN, dementia with Depression, Hx smoker, DENZEL, Lactic Acidosis, Hyperkalemia, COPD, Dehydration, Poss metformin toxicity Clinical Indicators: Glucose of 224; A1C 6.7 Treatment: Currently on insulin sliding scale. Please clarify if Diabetes II with hyperglycemia is a valid diagnosis? [ ] Yes, Diabetes II with hyperglycemia is present [ ] No, Diabetes II with hyperglycemia is ruled out [ ] Other (please specify diagnosis) [ ] Unable to determine (Template Last Revised: May 2020) Unable to determine MTDD
== END 2022-03-11 17:42 | DRG 871 ==
LOC: EC 05:31 → 2SICU 06:32 → 5NMEDONC 03-06 15:52
PROVIDERS: ADMIT Hospitalist; ATTEND Hospitalist
PROC: 3E033XZ Introduction of Vasopressor into Peripheral Vein, Percutaneous Approach (ICD-10-PCS; principal; 2022-03-03)
DX: A41.1 Sepsis due to other specified staphylococcus (principal); G92.8 Other toxic encephalopathy; R65.21 Severe sepsis with septic shock; J18.9 Pneumonia, unspecified organism; E87.20 Acidosis, unspecified; N17.9 Acute kidney failure, unspecified; E87.0 Hyperosmolality and hypernatremia; I42.9 Cardiomyopathy, unspecified; E87.1 Hypo-osmolality and hyponatremia; I48.20 Chronic atrial fibrillation, unspecified; I47.1 Supraventricular tachycardia; I69.354 Hemiplegia and hemiparesis following cerebral infarction affecting left non-dominant side; J98.11 Atelectasis; F03.C3 Unspecified dementia, severe, with mood disturbance; I27.20 Pulmonary hypertension, unspecified; R56.9 Unspecified convulsions; I10 Essential (primary) hypertension; J44.9 Chronic obstructive pulmonary disease, unspecified; I70.8 Atherosclerosis of other arteries; I08.3 Combined rheumatic disorders of mitral, aortic and tricuspid valves; E11.9 Type 2 diabetes mellitus without complications; I25.10 Atherosclerotic heart disease of native coronary artery without angina pectoris; I48.0 Paroxysmal atrial fibrillation; E86.0 Dehydration; E78.5 Hyperlipidemia, unspecified; E87.5 Hyperkalemia; R26.2 Difficulty in walking, not elsewhere classified; E87.6 Hypokalemia; I45.10 Unspecified right bundle-branch block; K57.30 Diverticulosis of large intestine without perforation or abscess without bleeding; N20.0 Calculus of kidney; E83.42 Hypomagnesemia; Z66 Do not resuscitate; T38.3X5A Adverse effect of insulin and oral hypoglycemic [antidiabetic] drugs, initial encounter; R29.810 Facial weakness; R33.9 Retention of urine, unspecified; Z79.899 Other long term (current) drug therapy; Z79.84 Long term (current) use of oral hypoglycemic drugs; Z79.01 Long term (current) use of anticoagulants; Z79.82 Long term (current) use of aspirin; Z95.1 Presence of aortocoronary bypass graft; Z95.5 Presence of coronary angioplasty implant and graft; Z87.891 Personal history of nicotine dependence; Z86.19 Personal history of other infectious and parasitic diseases; Z87.440 Personal history of urinary (tract) infections
CPT/HCPCS: 36415; 36600; 70450; 71045; 74176; 80048; 80053; 81001; 82553; 82805; 83036; 83605; 83735; 83880; 84100; 84145; 84443; 84484; 85025; 85610; 85730; 87040; 87077; 87186; 93005; 93306; 94640; 94760; 95816; 96361; 96365; 96366; 96367; 96368; 96375; 96376; 99291

== ENCOUNTER 2022-03-17 22:56 | Emergency (ER) | payer MEDICARE, OTHER ==
[2022-03-17 23:04] VITALS: TEMP 98.4
--- NOTE | 2022-03-17 23:34 | XR ---
EXAMINATION TYPE: XR chest 1V portable DATE OF EXAM: 03/17/2022 11:22 PM COMPARISON: Chest radiographs from 03/03/2022 TECHNIQUE: XR chest 1V portable Portable AP radiograph of the chest. CLINICAL INDICATION:Female, 71 years old with history of SOB; FINDINGS: Lungs/Pleura: Blunting of the left costophrenic angle. Right midlung streaky atelectasis/scarring. No evidence of pneumothorax. Pulmonary vascularity: Unremarkable. Heart/mediastinum: Cardiomediastinal silhouette is unremarkable. Atherosclerotic calcifications are seen in the aorta. Musculoskeletal: No acute osseous pathology. Midline sternotomy wires are noted. IMPRESSION: 1. Small left pleural effusion. 2. No evidence of airspace consolidation.
[2022-03-17 23:43] LABS: Anisocytosis Slight; Basophils # (A) 0.1 k/uL (0-0.2); Basophils % (A) 1 %; Eosinophils # (A) 0.5 k/uL (0-0.7); Eosinophils % (A) 4 %; HCT 28.2 % (34.0-46.0); HGB 8.8 gm/dL (11.4-16.0); Hypochromasia Moderate; Lymphocytes # (A) 2.4 k/uL (1.0-4.8); Lymphocytes % (A) 20 %; MCHC 31.2 g/dL (31.0-37.0); MCV 83.5 fL (80.0-100.0); Mean Platelet Volume 8.2; Monocytes # (A) 0.5 k/uL (0-1.0); Monocytes % (A) 4 %; Neutrophils # (A) 8.7 k/uL (1.3-7.7); Neutrophils % (A) 71 %; Platelet Count 414 k/uL (150-450); RBC 3.38 m/uL (3.80-5.40); RDW 16.9 % (11.5-15.5); WBC 12.4 k/uL (3.8-10.6)
[2022-03-17 23:55] LABS: Albumin 2.7 g/dL (3.5-5.0); Calcium 8.1 mg/dL (8.4-10.2); Magnesium 1.2 mg/dL (1.6-2.3); Total Bilirubin 0.3 mg/dL (0.2-1.3); Total Protein 5.7 g/dL (6.3-8.2)
[2022-03-18] MEDS: MAGNESIUM SULFATE-D5W PMX 1 GM in DEXTROSE/WATER 1 100ML.BAG IVPB SCH ×2 (01:19→02:20)
[2022-03-18] MEDS: POTASSIUM CHLORIDE 10 MEQ in WATER FOR INJECTION 1 100ML.BAG IVPB SCH ×3 (01:19→03:21)
[2022-03-18 01:21] VITALS: RESP 16
--- NOTE | 2022-03-18 01:34 | ED ---
General Adult HPI - General Chief complaint: Shortness of Breath Stated complaint: MICHAEL Time Seen by Provider: 03/17/22 22:57 Source: EMS Mode of arrival: EMS Limitations: no limitations - History of Present Illness Initial comments: This is a 71-year-old female that was sent in from nursing facility for potential low pulse oximeter reading. It was reported by EMS that the [facility] did not get a pulse ox reading and could not get a consistent reading therefore EMS was called. On EMS arrival, the patient had a pulse ox of 94% on room air. The patient denied any shortness of breath or difficulty in breathing and the [facility] stated that she was not in any acute distress throughout the day. The nurses taking care of the patient stated that they did not know any further history on the patient and the patient was unable to answer any ques tions but was at her baseline. The patient remained stable however no further history could be obtained at this time. - Related Data Home Medications Medication Instructions Recorded Confirmed Albuterol Nebulized [Ventolin 2.5 mg INHALATION RT-QID PRN 01/17/21 03/02/22 Nebulized] Melatonin 6 mg PO HS 01/17/21 03/02/22 Rivaroxaban [Xarelto] 2.5 mg PO BID 01/17/21 03/02/22 Sertraline [Zoloft] 100 mg PO HS 01/17/21 03/02/22 Acetaminophen [Tylenol] 650 mg PO Q4H PRN 03/02/22 03/02/22 Atorvastatin [Lipitor] 80 mg PO HS 03/02/22 03/02/22 Ensure Clear 1 can PO QID 03/02/22 03/02/22 Pantoprazole [Protonix] 40 mg PO BID 03/02/22 03/02/22 levETIRAcetam [Keppra] 750 mg PO BID 03/02/22 03/02/22 Previous Rx's Medication Instructions Recorded Metoprolol Tartrate [Lopressor] 50 mg PO BID #60 tab 01/21/21 polyethylene glycoL 3350 [Miralax] 17 gm PO DAILY PRN #30 packet 01/21/21 Aspirin 81 mg PO DAILY tab 03/11/22 INSULIN ASPART (NovoLOG) [NovoLOG 0 unit SQ ACHS each 03/11/22 (formulary)] Ipratropium-Albuterol Nebulize 3 ml INHALATION RT-Q4H PRN each 03/11/22 [Duoneb 0.5 mg-3 mg/3 ml Soln] Sennosides [Senokot] 8.6 mg PO BID tab 03/11/22 Sodium Bicarbonate Tab 650 mg PO BID tab 03/11/22 Tamsulosin [Flomax] 0.4 mg PO PC-SUPPER cap 03/11/22 amLODIPine [Norvasc] 5 mg PO DAILY tab 03/11/22 clonazePAM [KlonoPIN] 0.5 mg PO HS 3 Days #6 tab 03/11/22 Allergies Allergy/AdvReac Type Severity Reaction Status Date / Time No Known Allergies Allergy Verified 03/02/22 08:04 Review of Systems ROS Statement: Those systems with pertinent positive or pertinent negative responses have been documented in the HPI. Limitations: ROS unobtainable due to patients medical condition Past Medical History Past Medical History: Coronary Artery Disease (CAD), COPD, CVA/TIA, Hypertension Additional Past Medical History / Comment(s): pt states she has been treated for scabies one year ago History of Any Multi-Drug Resistant Organisms: None Reported Past Surgical History: Coronary Bypass/CABG, Heart Catheterization With Stent Additional Past Surgical History / Comment(s): cabg 2013 Past Anesthesia/Blood Transfusion Reactions: No Reported Reaction Date of Last Stent Placement:: 2013 Past Psychological History: ADD/ADHD, Depression Smoking Status: Former smoker Past Alcohol Use History: None Reported Past Drug Use History: None Reported, Marijuana - Past Family History Mother Family Medical History: Unable to Obtain Additional Family Medical History / Comment(s): cabg in 2013. stage 2 dementia General Exam Limitations: altered mental status General appearance: in no apparent distress, other (At baseline) Head exam: Present: atraumatic, normocephalic Eye exam: Present: normal appearance, PERRL Pupils: Present: normal accommodation ENT exam: Present: normal exam, normal oropharynx, mucous membranes moist Neck exam: Present: normal inspection, full ROM Respiratory exam: Present: normal lung sounds bilaterally Cardiovascular Exam: Present: regular rate, normal rhythm, normal heart sounds GI/Abdominal exam: Present: soft, normal bowel sounds Extremities exam: Present: normal inspection, full ROM Back exam: Present: normal inspection, full ROM Neurological exam: Present: alert, altered, CN II-XII intact, other (At baseline) Psychiatric exam: Present: normal affect, normal mood Skin exam: Present: warm, dry Course Vital Signs 03/17/22 03/18/22 22:59 01:20 Temperature 98.4 F Pulse Rate 80 78 Respiratory 18 16 Rate Blood Pressure 107/64 117/86 O2 Sat by Pulse 97 97 Oximetry Medical Decision Making - Medical Decision Making The patient was seen and evaluated emergency department. Physical exam, the patient was resting in bed without any acute distress. Vital signs admission were stable and within normal limits. Due to the nature the patient's reported complaints, laboratory workup was obtained including swabs for COVID-19, influenza and RSV. A chest x-ray was also obtained at this time. The patient's pulse oximeter was 98% on room air. Laboratory workup did demonstrate a hemoglobin of 8.8 which is decreased from her baseline however denied of any obvious signs of bleeding and therefore no further intervention was required at this time. Swabs were also negative. Laboratory workup did however show magnesium of 1.2 and potassium at 3.0 but were both corrected in the emergency department. The patient's proBNP was also elevated at 4000 however on chart review, the patient had elevated levels prior and this was significantly decreased from her elevations in the past. Chest x-ray was obtained and was interpreted by myself showing a possible small pleural effusion however there was no intrathoracic pathology noted. The patient remained stable and was stable enough to be transported back to her nursing facility. Once the patient's x-rays were corrected in the emergency department, the patient was transferred back to the [facility] in stable condition as she did not have any further acute distress or shortness of breath and remain stable. - Lab Data Result diagrams: 03/17/22 23:30 03/17/22 23:30 Lab Results 03/17/22 03/17/22 03/17/22 Range/Units 23:09 23:30 23:30 WBC 12.4 H (3.8-10.6) k/uL RBC 3.38 L (3.80-5.40) m/uL Hgb 8.8 L (11.4-16.0) gm/dL Hct 28.2 L (34.0-46.0) % MCV 83.5 (80.0-100.0) fL MCH 26.0 (25.0-35.0) pg MCHC 31.2 (31.0-37.0) g/dL RDW 16.9 H (11.5-15.5) % Plt Count 414 (150-450) k/uL MPV 8.2 Neutrophils % 71 % Lymphocytes % 20 % Monocytes % 4 % Eosinophils % 4 % Basophils % 1 % Neutrophils # 8.7 H (1.3-7.7) k/uL Lymphocytes # 2.4 (1.0-4.8) k/uL Monocytes # 0.5 (0-1.0) k/uL Eosinophils # 0.5 (0-0.7) k/uL Basophils # 0.1 (0-0.2) k/uL Hypochromasia Moderate Anisocytosis Slight Sodium 138 (137-145) mmol/L Potassium 3.0 L (3.5-5.1) mmol/L Chloride 106 (98-107) mmol/L Carbon Dioxide 28 (22-30) mmol/L Anion Gap 4 mmol/L BUN 12 (7-17) mg/dL Creatinine 0.87 (0.52-1.04) mg/dL Est GFR (CKD-EPI)AfAm 79 (>60 ml/min/1.73 sqM) Est GFR (CKD-EPI)NonAf 68 (>60 ml/min/1.73 sqM) Glucose 113 H (74-99) mg/dL Calcium 8.1 L (8.4-10.2) mg/dL Magnesium 1.2 L (1.6-2.3) mg/dL Total Bilirubin 0.3 (0.2-1.3) mg/dL AST 20 (14-36) U/L ALT 20 (4-34) U/L Alkaline Phosphatase 75 (38-126) U/L Troponin I (0.000-0.034) ng/mL NT-Pro-B Natriuret Pep pg/mL Total Protein 5.7 L (6.3-8.2) g/dL Albumin 2.7 L (3.5-5.0) g/dL Influenza Type A (PCR) Not Detected (Not Detectd) Influenza Type B (PCR) Not Detected (Not Detectd) RSV (PCR) Not Detected (Not Detectd) SARS-CoV-2 (PCR) Not Detected (Not Detectd) 03/17/22 03/17/22 Range/Units 23:30 23:30 WBC (3.8-10.6) k/uL RBC (3.80-5.40) m/uL Hgb (11.4-16.0) gm/dL Hct (34.0-46.0) % MCV (80.0-100.0) fL MCH (25.0-35.0) pg MCHC (31.0-37.0) g/dL RDW (11.5-15.5) % Plt Count (150-450) k/uL MPV Neutrophils % % Lymphocytes % % Monocytes % % Eosinophils % % Basophils % % Neutrophils # (1.3-7.7) k/uL Lymphocytes # (1.0-4.8) k/uL Monocytes # (0-1.0) k/uL Eosinophils # (0-0.7) k/uL Basophils # (0-0.2) k/uL Hypochromasia Anisocytosis Sodium (137-145) mmol/L Potassium (3.5-5.1) mmol/L Chloride (98-107) mmol/L Carbon Dioxide (22-30) mmol/L Anion Gap mmol/L BUN (7-17) mg/dL Creatinine (0.52-1.04) mg/dL Est GFR (CKD-EPI)AfAm (>60 ml/min/1.73 sqM) Est GFR (CKD-EPI)NonAf (>60 ml/min/1.73 sqM) Glucose (74-99) mg/dL Calcium (8.4-10.2) mg/dL Magnesium (1.6-2.3) mg/dL Total Bilirubin (0.2-1.3) mg/dL AST (14-36) U/L ALT (4-34) U/L Alkaline Phosphatase (38-126) U/L Troponin I 0.020 (0.000-0.034) ng/mL NT-Pro-B Natriuret Pep 4710 pg/mL Total Protein (6.3-8.2) g/dL Albumin (3.5-5.0) g/dL Influenza Type A (PCR) (Not Detectd) Influenza Type B (PCR) (Not Detectd) RSV (PCR) (Not Detectd) SARS-CoV-2 (PCR) (Not Detectd) Disposition Clinical Impression: Hypomagnesemia, Hypokalemia Disposition: HOME SELF-CARE Condition: Stable Instructions (If sedation given, give patient instructions): Hypomagnesemia (ED ), Hypokalemia (ED) Is patient prescribed a controlled substance at d/c from ED?: No Referrals: Enrrique Thomas MD [Primary Care Provider] - 1-2 days Time of Disposition: 01:30
[2022-03-18 03:34] VITALS: BP 102/76; PULSE 69
== END 2022-03-18 06:03 | disposition home or self-care (01) ==
LOC: EC 22:56
DX: E83.42 Hypomagnesemia (principal); E87.6 Hypokalemia; I25.10 Atherosclerotic heart disease of native coronary artery without angina pectoris; J44.9 Chronic obstructive pulmonary disease, unspecified; Z86.73 Personal history of transient ischemic attack (TIA), and cerebral infarction without residual deficits; I10 Essential (primary) hypertension; F32.A Depression, unspecified; Z87.891 Personal history of nicotine dependence; Z79.899 Other long term (current) drug therapy
CPT/HCPCS: 36415; 71045; 80053; 83735; 83880; 84484; 85025; 87636; 96365; 96366; 96368; 99285

== ENCOUNTER → 2022-07-20 | Outpatient (CLI) | payer MEDICARE, OTHER ==
--- NOTE | 2022-07-20 15:23 | CT ---
EXAMINATION TYPE: CT brain wo con CT DLP: 1193.0 mGycm, Automated exposure control for dose reduction was used. DATE OF EXAM: 07/20/2022 2:48 PM COMPARISON: 03/10/2022. CLINICAL INDICATION:Female, 72 years old with history of R56.9, hx of stroke and carotid stenosis. TECHNIQUE: Brain: Axial CT images of the brain were obtained with coronal and sagittal reformats created and rev iewed. Contrast used: None. Oral contrast used: None. FINDINGS: Brain: Extra-axial spaces: No abnormal extra-axial fluid collections. Ventricular system: Within normal limits Cerebral parenchyma: Remote injury of the right frontal lobe and right parietal region with encephalo malacia and cortical laminar necrosis with calcification. Remote right frontal lobe: No acute intrapa renchymal hemorrhage or mass effect. The [place]-white junction is well differentiated. Cerebellum: Unremarkable. Mass effect: No evidence of midline shift. Intracranial vasculature: Atherosclerotic calcifications of the intracranial vessels. Soft tissues: Normal. Calvarium/osseous structures: No depressed skull fracture. Paranasal sinuses and mastoid air cells: Mild scattered paranasal sinus disease. Visualized orbits: Orbital contents are intact. IMPRESSION: 1. No acute intracranial process. Consider further evaluation with MRI. 2. Remote injuries to the right frontal lobe and right parietal lobe.
--- NOTE | 2022-07-20 21:54 | CT ---
EXAMINATION TYPE: CT angio neck DATE OF EXAM: 07/20/2022 HISTORY: hx of stroke and carotid stenosis. COMPARISON: Prior CTA head and neck February 13, 2020. CT DLP: 252.40 mGycm. Automated Exposure Control for Dose Reduction was Utilized. TECHNIQUE: CTA scan of the head and neck is performed with IV Contrast, patient injected with 65 mL of Isovue 370, axial images are obtained, coronal and sagittal reformatted images are reviewed. 3D re constructed images are created on an independent workstation and reviewed. FINDINGS: Carotid/Vascular Structures: Moderate peripheral plaque in the aortic arch extending into 3 great ves sels shows no new significant focal stenosis. Normal origin right common carotid artery from the righ t brachiocephalic artery. Mild to moderate mixed plaque along the course of the common carotid arteri es bilaterally without significant stenosis. There is complete occlusion in the right internal caroti d artery shortly after its origin redemonstrated left common carotid artery shows no new significant focal stenosis with persistent mild peripheral calcified plaque at carotid bulb into the proximal int ernal carotid artery. Patent external carotid arteries bilaterally without significant stenosis. Vertebral arteries are redemonstrated filling the basilar artery with dominant left vertebral artery redemonstrated no significant focal stenosis or aneurysm in posterior circulation. Other: Scoliosis is redemonstrated. Overlying sternal wires are partially imaged. 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 No new significant stenosis in the left common or internal carotid artery. No significant change fr om prior. NASCET criteria was used in interpretation of this exam?
== END | disposition home or self-care (01) ==
LOC: RADCTMAIN 13:12
PROVIDERS: ATTEND Psychiatry & Neurology Neurology
DX: I63.9 Cerebral infarction, unspecified (principal); I65.21 Occlusion and stenosis of right carotid artery; R56.9 Unspecified convulsions
CPT/HCPCS: 70450; 70498